=== PATIENT | female | born 1945 | race Caucasian/White ===

== ENCOUNTER 2017-02-13 08:47 | Emergency (ER) | payer MEDICARE ==
[2017-02-13] MEDS ORDERED: Pantoprazole TAB (NF) 40 MG TAB PO ONE (09:06)
[2017-02-13] MEDS ORDERED: Pantoprazole IV* 40 MG ONE (09:38)
--- NOTE | 2017-02-13 09:40 | RAD ---
INDICATION: Chest pain COMPARISON: June 21, 2016 TECHNIQUE: PA and lateral dual-energy views were obtained. FINDINGS: Bones/Soft Tissues: There are no acute bony findings. Cardiomediastinal: The cardiomediastinal silhouette is normal. Lungs: There are no infiltrates. Pleura: There are no pleural effusions. Other: None IMPRESSION: NO ACTIVE DISEASE.
[2017-02-13 09:47] LABS: Hematocrit 37 % (35-47); Mean Corpuscular HGB Conc 33 g/dl (31-36); Mean Corpuscular Hemoglobin 28 pg (27-31); Mean Corpuscular Volume 86 fL (80-97); Mean Platelet Volume 8 um3 (7.4-10.4); Red Blood Count 4.24 10^6/ul (4.0-5.4); Red Cell Distribution Width 13 % (10.5-15); White Blood Count 8.1 10^3/ul (3.5-10.8)
[2017-02-13] MEDS ORDERED: Pantoprazole IV* 80 MG in NS 0.9% 250 ML* 250 ML IV SCH (10:00)
[2017-02-13] MEDS ORDERED: Pantoprazole IV* 40 MG IV ONE (10:02)
[2017-02-13 10:06] LABS: Albumin 3.7 g/dL (3.2-5.2); BUN/Creatinine Ratio 26.7 (8-20); Calcium 9.4 mg/dL (8.6-10.3); EGFR African American 79.2 (>60); EGFR Non-African American 61.5 (>60); Globulin 4.4 g/dL (2-4); Magnesium 1.8 mg/dL (1.9-2.7); Potassium 3.9 mmol/L (3.5-5.0); Total Bilirubin 0.4 mg/dL (0.2-1.0); Total Protein 8.1 g/dL (6.4-8.9)
[2017-02-13 10:08] LABS: Troponin I 0.01 ng/mL (<0.04)
[2017-02-13 10:41] LABS: T4 11.29 mcg/mL (6.09-12.23)
[2017-02-13 10:42] LABS: TSH (Thyroid Stimulating Horm) 0.82 mcIU/mL (0.34-5.60)
[2017-02-13] MEDS ORDERED: Magnesium Oxide TAB* 400 MG PO ONE (10:53)
[2017-02-13] MEDS ORDERED: Al Hydrox/Mg Hydrox/Simet LIQ* 30 ML UDC PO ONE (12:15)
[2017-02-13] MEDS ORDERED: Lidocaine 2% VISCOUS* 15 ML UDC PO ONE (12:15)
[2017-02-13] MEDS ORDERED: Ondansetron INJ* 2 MG/ML VIAL IV ONE (12:30)
[2017-02-13] MEDS ORDERED: Ondansetron INJ* 2 MG/ML VIAL ONE (12:32)
--- NOTE | 2017-02-13 13:04 | RAD ---
HISTORY: Epigastric pain COMPARISONS: None relevant VIEWS: Frontal supine and upright views of the abdomen. FINDINGS: BOWEL: There is a nonobstructive bowel gas pattern. There is a large amount of stool within the mid and distal colon. CALCULI: There are no abnormal calculi. BONES AND SOFT TISSUES: The patient is status post left hip arthroplasty and internal fixation of the right femur. Degenerative changes are noted. OTHER FINDINGS: The lung bases are clear. There is no subphrenic gas. IMPRESSION: NONOBSTRUCTIVE BOWEL GAS PATTERN. LARGE AMOUNT OF STOOL WITHIN THE COLON.
--- NOTE | 2017-02-13 13:29 | RAD ---
INDICATION: Right upper quadrant and epigastric abdominal pain. COMPARISON: Comparison is made with a prior CT angiogram of the abdomen and pelvis from April 07, 2014. TECHNIQUE: Multiple real-time images of the right upper quadrant were obtained. FINDINGS: The patient is status post cholecystectomy. No intra or extrahepatic ductal distention is present. The common bile duct measured 0.7 cm in diameter. The liver is normal in size and increased in echogenicity most consistent with fatty infiltration. This correlates with the prior CT study. No significant focal abnormality is seen. The pancreas is partially obscured by overlying bowel gas. No pancreatic ductal distention is seen. The right kidney is normal in size without evidence for hydronephrosis. IMPRESSION: 1. STATUS POST CHOLECYSTECTOMY. 2. FINDINGS CONSISTENT WITH FATTY INFILTRATION OF THE LIVER.
[2017-02-13 13:54] VITALS: BP 137/54
--- NOTE | 2017-02-13 16:00 | ED ---
Lupe Tipton SooYoung, scribed for Inocencio Suero MD on 02/13/17 at 0859 . HPI Chest Pain - HPI Summary HPI Summary: A 71 y/o F presents to ED with c/o intermittent mid-sternal CP onset three days ago. Associated sx: n/v; diaphoresis, dysphagia. Denies: diarrhea, constipation. SOB per baseline. She's not been eating and drinking regularly. Describes the pain currently as 2 out of 10, but when active episode, she rates it as 10 out of 10. Describes the pain as burning. PMHx: GERD. Denies smoking, ETOH. - History of Current Complaint Chief Complaint: EDChestPainROMI Time Seen by Provider: 02/13/17 08:57 Hx Obtained From: Patient, Family/Medical Records Coder - daughter Onset/Duration: Started Days Ago, Still Present Timing: Intermittent Initial Severity: Moderate Current Severity: Mild Pain Intensity: 2 Pain Scale Used: 0-10 Numeric Chest Pain Location: Mid Sternal Character: Burning Associated Signs and Symptoms: Positive: Diaphoresis, Nausea, Vomiting, Other: - pos: dysphagia; neg: diarrhea/constipation. Negative: Shortness of Breath - Additional Pertinent History Primary Care Physician: [id number] - Allergy/Home Medications Allergies/Adverse Reactions: Allergies Allergy/AdvReac Type Severity Reaction Status Date / Time EYE DROP Allergy Unknown Uncoded 06/21/16 13:16 Reaction Details PMH/Surg Hx/FS Hx/Imm Hx Previously Healthy: No Endocrine/Hematology History: Reports: Hx Diabetes - NIDDM Denies: Hx Anticoagulant Therapy, Hx Blood Disorders, Hx Blood Transfusions, Hx Bone Marrow Disease, Hx Systemic Lupus Erythematosus, Hx Sickle Cell Disease , Hx Thyroid Disease, Hx Anemia, Hx Unexplained Bleeding, Other Endocrine/ Hematological Disorders Cardiovascular History: Reports: Hx Angina - SOB with exertion, 2 stents, Hx Coronary Artery Disease - current dx, Hx Hypertension, Hx Syncope - occasionally d/t DM, Other Cardiovascular Problems/Disorders - ONLY TAKES A BABY ASPRIN DAILY. NO OTHER HX Denies: Hx Aneurysm, Hx Angioplasty, Hx Auto Implanted Cardiovert Defib, Hx Cardiac Arrest, Hx Cardiomegaly, Hx Congenital Heart Disease, Hx Congestive Heart Failure, Hx Deep Vein Thrombosis, Hx Embolism, Hx Hypercholesterolemia, Hx Hypotension, Hx Pacemaker/ICD, Hx Peripheral Vascular Disease, Hx Rheumatic Fever, Hx Valvular Heart Disease Respiratory History: Reports: Other Respiratory Problems/Disorders - SOBOE Denies: Hx Asthma, Hx Chronic Bronchitis, Hx Chronic Obstructive Pulmonary Disease (COPD), Hx Cystic Fibrosis, Hx Lung Cancer, Hx Pleural Effusion, Hx Pneumonia, Hx Pulmonary Edema, Hx Pulmonary Embolism, Hx Seasonal Allergies, Hx Sleep Apnea GI History: Reports: Hx Gall Bladder Disease - removed, Hx Hiatal Hernia Denies: Hx Cirrhosis, Hx Crohn's Disease, Hx Diverticulosis, Hx Gastroesophageal Reflux Disease, Hx Gastrointestinal Bleed, Hx Irritable Bowel, Hx Jaundice, Hx Obstructive Bowel, Hx Ileostomy, Hx Pyloric Stenosis, Hx Ulcer, Other GI Disorders History: Reports: Hx Kidney Stones Denies: Hx Acute Renal Failure, Hx Benign Prostatic Hyperplasia, Hx Chronic Renal Failure, Hx Dialysis, Hx Kidney Infection, Hx Renal Disease, Other Problems/Disorders Musculoskeletal History: Reports: Hx Arthritis - RA, Hx Rheumatoid Arthritis, Hx Osteoporosis, Other Musculoskeletal History - R. ARTH. Denies: Hx Back Problems, Hx Bursitis, Hx Congenital Bone Abnormalities, Hx Fibromyalgia, Hx Gout, Hx Orthopedic Injury, Hx Scoliosis, Hx Tendonitis Sensory History: Reports: Hx Cataracts, Hx Contacts or Glasses, Hx Glaucoma - "trying to stop it" Denies: Hx Eye Injury, Hx Eye Prosthesis, Hx Legally Blind, Hx Macular Degeneration, Hx Vision Problem, Hx Deafness, Hx Hearing Aid, Hx Hearing Problem , Other Sensory Impairments Opthamlomology History: Reports: Hx Cataracts, Hx Contacts or Glasses, Hx Glaucoma - "trying to stop it" Denies: Hx Eye Injury, Hx Eye Prosthesis, Hx Legally Blind, Hx Macular Degeneration, Hx Vision Problem, Other Sensory Impairments Neurological History: Denies: Hx Dementia, Hx Developmental Delay, Hx Headaches, Hx Migraine, Hx Nerve Disease, Hx Seizures, Hx Spinal Cord Injury, Hx Transient Ischemic Attacks (TIA), Other Neuro Impairments/Disorders Psychiatric History: Denies: Hx Anxiety, Hx Attention Deficit Hyperactivity Disorder, Hx Eating Disorder, Hx Depression, Hx Panic Disorder, Hx Post Traumatic Stress Disorder, Hx Inpatient Treatment, Hx Community Mental Health Tx, Hx Schizophrenia, Hx Bipolar Disorder, Hx Suicide Attempt, Hx of Violent Episodes Against Others, Hx Substance Abuse, Other Psychiatric Issues/Disorders - Cancer History Hx Chemotherapy: No Hx Radiation Therapy: No - Surgical History Surgery Procedure, Year, and Place: hysterectomy, gall bladder, hip PINNING. cardiac cath with stents 06/17/14, [facility] Hx Anesthesia Reactions: No Infectious Disease History: Yes Infectious Disease History: Reports: Hx Hepatitis Denies: Hx Clostridium Difficile, Hx Human Immunodeficiency Virus (HIV), Hx of Known/Suspected MRSA, Hx Shingles, Hx Tuberculosis, Hx Known/Suspected VRE, Hx Known/Suspected VRSA, History Other Infectious Disease, Traveled Outside the [place] in Last 30 Days - Family History Known Family History: Positive: Cardiac Disease - mother/father, Diabetes - mother, Other - breast cancer - Social History Occupation: Retired Lives: With Family Alcohol Use: Rare Hx Substance Use: No Substance Use Type: Reports: None Hx Tobacco Use: No Smoking Status (MU): Never Smoked Tobacco Review of Systems Positive: Skin Diaphoresis Positive: Other - pos: dysphagia Positive: Chest Pain Negative: Shortness Of Breath Positive: Vomiting, Nausea, Other - neg: constipation. Negative: Diarrhea All Other Systems Reviewed And Are Negative: Yes Physical Exam - Summary Physical Exam Summary: VITAL SIGNS: Reviewed. GENERAL: Patient is a well-developed and nourished female who is lying comfortable in the stretcher. Patient is not in any acute respiratory distress. HEAD AND FACE: No signs of trauma. No ecchymosis, hematomas or skull depressions. No sinus tenderness. EYES: PERRLA, EOMI x 2, No injected conjunctiva, no nystagmus. EARS: Hearing grossly intact. Ear canals and tympanic membranes are within normal limits. MOUTH: Oropharynx within normal limits. NECK: Supple, trachea is midline, no adenopathy, no JVD, no carotid bruit, no c- spine tenderness, neck with full ROM. CHEST: Symmetric, no tenderness at palpation LUNGS: Clear to auscultation bilaterally. No wheezing or crackles. CVS: Regular rate and rhythm, S1 and S2 present, no murmurs or gallops appreciated. ABDOMEN: Soft, non-tender. No signs of distention. No rebound, no guarding, and no masses palpated. Bowel sounds are normal. EXTREMITIES: FROM in all major joints, no edema, no cyanosis or clubbing. NEURO: Alert and oriented x 3. No acute neurological deficits. Speech is normal and follows commands. SKIN: Dry and warm Triage Information Reviewed: Yes Vital Signs On Initial Exam: Initial Vitals Temp Pulse Resp BP Pulse Ox 97.6 F 91 15 136/56 100 02/13/17 08:49 02/13/17 08:49 02/13/17 08:49 02/13/17 08:49 02/13/17 08:49 Vital Signs Reviewed: Yes Diagnostics - Vital Signs Vital Signs Temp Pulse Resp BP Pulse Ox 02/13/17 08:56 97.6 F 91 16 136/56 100 02/13/17 08:49 97.6 F 91 15 136/56 100 - Laboratory Lab Results: Lab Results 02/13/17 02/13/17 02/13/17 Range/Units 09:40 09:40 09:40 WBC 8.1 (3.5-10.8) 10^3/ul RBC 4.24 (4.0-5.4) 10^6/ul Hgb 12.0 (12.0-16.0) g/dl Hct 37 (35-47) % MCV 86 (80-97) fL MCH 28 (27-31) pg MCHC 33 (31-36) g/dl RDW 13 (10.5-15) % Plt Count 264 (150-450) 10^3/ul MPV 8 (7.4-10.4) um3 Neut % (Auto) 64.4 (38-83) % Lymph % (Auto) 25.3 (25-47) % [place] % (Auto) 8.9 (1-9) % Eos % (Auto) 0.4 (0-6) % Baso % (Auto) 1.0 (0-2) % Absolute Neuts (auto) 5.2 (1.5-7.7) 10^3/ul Absolute Lymphs (auto) 2.1 (1.0-4.8) 10^3/ul Absolute Monos (auto) 0.7 (0-0.8) 10^3/ul Absolute Eos (auto) 0 (0-0.6) 10^3/ul Absolute Basos (auto) 0.1 (0-0.2) 10^3/ul Absolute Nucleated RBC 0.01 10^3/ul Nucleated RBC % 0.1 INR (Anticoag Therapy) (0.89-1.11) Sodium 135 (133-145) mmol/L Potassium 3.9 (3.5-5.0) mmol/L Chloride 100 L (101-111) mmol/L Carbon Dioxide 24 (22-32) mmol/L Anion Gap 11 (2-11) mmol/L BUN 24 (6-24) mg/dL Creatinine 0.90 (0.51-0.95) mg/dL Est GFR ( Amer) 79.2 (>60) Est GFR (Non-Af Amer) 61.5 (>60) BUN/Creatinine Ratio 26.7 H (8-20) Glucose 137 H (70-100) mg/dL Lactic Acid 1.6 (0.5-2.0) mmol/L Calcium 9.4 (8.6-10.3) mg/dL Magnesium 1.8 L (1.9-2.7) mg/dL Total Bilirubin 0.40 (0.2-1.0) mg/dL AST 18 (13-39) U/L ALT 12 (7-52) U/L Alkaline Phosphatase 102 (34-104) U/L Total Creatine Kinase 40 (10-223) U/L CK-MB (CK-2) 1.1 (0.6-6.3) ng/mL Troponin I 0.01 (<0.04) ng/mL B-Natriuretic Peptide ( - 100) pg/mL Total Protein 8.1 (6.4-8.9) g/dL Albumin 3.7 (3.2-5.2) g/dL Globulin 4.4 H (2-4) g/dL Albumin/Globulin Ratio 0.8 L (1-3) TSH 0.82 (0.34-5.60) mcIU/mL Thyroxine (T4) 11.29 (6.09-12.23) mcg/mL 02/13/17 02/13/17 02/13/17 Range/Units 09:40 09:40 12:18 WBC (3.5-10.8) 10^3/ul RBC (4.0-5.4) 10^6/ul Hgb (12.0-16.0) g/dl Hct (35-47) % MCV (80-97) fL MCH (27-31) pg MCHC (31-36) g/dl RDW (10.5-15) % Plt Count (150-450) 10^3/ul MPV (7.4-10.4) um3 Neut % (Auto) (38-83) % Lymph % (Auto) (25-47) % [place] % (Auto) (1-9) % Eos % (Auto) (0-6) % Baso % (Auto) (0-2) % Absolute Neuts (auto) (1.5-7.7) 10^3/ul Absolute Lymphs (auto) (1.0-4.8) 10^3/ul Absolute Monos (auto) (0-0.8) 10^3/ul Absolute Eos (auto) (0-0.6) 10^3/ul Absolute Basos (auto) (0-0.2) 10^3/ul Absolute Nucleated RBC 10^3/ul Nucleated RBC % INR (Anticoag Therapy) 0.96 (0.89-1.11) Sodium (133-145) mmol/L Potassium (3.5-5.0) mmol/L Chloride (101-111) mmol/L Carbon Dioxide (22-32) mmol/L Anion Gap (2-11) mmol/L BUN (6-24) mg/dL Creatinine (0.51-0.95) mg/dL Est GFR ( Amer) (>60) Est GFR (Non-Af Amer) (>60) BUN/Creatinine Ratio (8-20) Glucose (70-100) mg/dL Lactic Acid (0.5-2.0) mmol/L Calcium (8.6-10.3) mg/dL Magnesium (1.9-2.7) mg/dL Total Bilirubin (0.2-1.0) mg/dL AST (13-39) U/L ALT (7-52) U/L Alkaline Phosphatase (34-104) U/L Total Creatine Kinase (10-223) U/L CK-MB (CK-2) (0.6-6.3) ng/mL Troponin I 0.01 (<0.04) ng/mL B-Natriuretic Peptide 24 ( - 100) pg/mL Total Protein (6.4-8.9) g/dL Albumin (3.2-5.2) g/dL Globulin (2-4) g/dL Albumin/Globulin Ratio (1-3) TSH (0.34-5.60) mcIU/mL Thyroxine (T4) (6.09-12.23) mcg/mL Result Diagrams: 02/13/17 09:40 02/13/17 09:40 Lab Statement: Any lab studies that have been ordered have been reviewed, and results considered in the medical decision making process. - Radiology CXR Xray Interpretation: No Acute Changes - IMPRESSION: No active dz Radiology Interpretation Completed By: Radiologist - EKG 1 Cardiac Rate: NL - 89 BPM EKG Rhythm: Sinus Rhythm ST Segment: Normal EKG Interpretation: TAKEN AT 0904. EKG Comparison: No Significant Change - FROM 06/22/16 Chest Pain Course/Dx - Course Course Of Treatment: A 71 y/o F presents to ED with c/o intermittent mid- sternal CP onset three days ago. Associated sx: n/v; diaphoresis, dysphagia. Denies: diarrhea, constipation. SOB per baseline. She's not been eating and drinking regularly. Describes the pain currently as 2 out of 10, but when active episode, she rates it as 10 out of 10. Describes the pain as burning. PMHx: GERD. Denies smoking, ETOH. Blood work wnl except for glucose od 137, magnesium 1.8. She was given magnesium PO. She developed nausea. She was given More IVF, Zofran for nausea and vomiting. She was given protonix but symptoms continued. Therefore I decided to perform a ABdominal x rays which shows increase stool in the colon. I also perform an RUQ U/S and show no acute abnormality. GI cocktail was given and her symptoms resolved. Second troponin after 4 hours is negative. Because of presentation of symptoms and troponin is negative I have low suspicion for ACS. I think patient may be developing an ulcer vs gerd. Therefore she will given a prescription for Protonix and f/u with PCP. I discussed all the findings and test results with the patient. Patient was instructed to return to the emergency room immediately if any of the symptoms return or worsens. They were explained the possibility of an early abdominal pathology which was not detected at this time despite the physical exam and testing. They understand and agree. Abdominal exam before discharge: Soft, NT. No signs of distention. BS present. No rebound no guarding, and no masses palpated. Patient is alert and oriented and hemodynamically stable. Patient is to follow up with primary care physician in the next 2 to 3 days. Patient agree and understands. - Chest Pain Differential Diagnosis/HQI/PQRI: Other: - Atyoical chest pain, GERD, PUD - Diagnoses Provider Diagnoses: Atypical chest pain, GERD (gastroesophageal reflux disease) Discharge - Discharge Plan Condition: Stable Disposition: HOME Prescriptions: Pantoprazole TAB (NF) [Protonix TAB (NF)] 20 mg PO DAILY #14 tab Patient Education Materials: Chest Pain (ED), Gastroesophageal Reflux Disease ( ED) Referrals: Iliana Veliz MD [Primary Care Provider] - Additional Instructions: F/U with PMD in the last 2-3 days. The documentation as recorded by the [facility] SooYoung accurately reflects the service I personally performed and the decisions made by Pio ocok Walter, MD.
== END 2017-02-13 13:53 | disposition home or self-care (01) ==
LOC: ED 08:47
DX: R07.89 Other chest pain (principal); K21.9 Gastro-esophageal reflux disease without esophagitis; R11.2 Nausea with vomiting, unspecified; R61 Generalized hyperhidrosis
CPT/HCPCS: 36415; 71020; 74020; 76705; 80053; 82550; 82553; 83605; 83735; 83880; 84436; 84443; 84484; 85025; 85610; 93005; 99283; A9270-GY; J2405

== ENCOUNTER → 2017-09-13 07:21 | Day surgery (SDC) | payer MEDICARE, MEDICAID ==
[~2017-09-13 07:21] MED LIST: Aspirin Low Dose CHEW TAB* 81 MG ONE; Diazepam TAB(*) 5 MG ONE; Flumazenil* 0.1 MG/ML 5 ML MDV ONE; Heparin 2 UNITS/ML IVPREMIX* 2,000 ML IV ONE; Heparin(*) 1000 UNIT/ML 10 ML VIAL CATH LAB IV ONE; Iodixanol* (CONTRAST) 320 MG/ML 100 ML SDV ONE; Lidocaine 1% INJ* 10 MG/ML 30 ML SDV ONE; Midazolam* 1 MG/ML 10 ML VIAL (10 MG) ONE; NS 0.9% 1000 ML* 1,000 ML IV SCH; Naloxone* 0.4 MG/ML 1 ML VIAL ONE; VERAPAMIL 2.5 MG/ML 4 ML VIAL ONE; diPHENhydraMINE PO* 25 MG ONE; fentaNYL* 50 MCG/ML 2 ML VIAL (100 MCG VIAL) ONE; nitroGLYCERIN DRIP* 0 MCG/0 ML BTL ONE
[2017-09-13 09:27] LABS: ABS Basophils 0 10^3/ul (0-0.2); ABS Eosinophils 0.2 10^3/ul (0-0.6); ABS Lymphocytes 2.3 10^3/ul (1.0-4.8); ABS Monocytes 0.5 10^3/ul (0-0.8); ABS Neutrophils 4.3 10^3/ul (1.5-7.7); ABS Nucleated RBC 0.01 10^3/ul; Eosinophil % 2.1 % (0-6); Hematocrit 33 % (35-47); Hemoglobin 10.8 g/dl (12.0-16.0); Lymphocyte % 31.1 % (25-47); Mean Corpuscular HGB Conc 33 g/dl (31-36); Mean Corpuscular Hemoglobin 28 pg (27-31); Mean Corpuscular Volume 86 fL (80-97); Mean Platelet Volume 8 um3 (7.4-10.4); Nucleated Red Blood Cells % 0.1; Platelet Count 279 10^3/ul (150-450); Red Blood Count 3.81 10^6/ul (4.0-5.4); Red Cell Distribution Width 13 % (10.5-15); White Blood Count 7.2 10^3/ul (3.5-10.8)
[2017-09-13 10:37] LABS: EGFR Non-African American 78.1 (>60)
[2017-09-13 14:58] VITALS: BP 140/49
--- NOTE | 2017-09-14 01:39 | CATH ---
CC: Dr. Veliz; Dr. Jeanmarie Bolanos; Dr. Askew in [place] * PERIPHERAL ANGIOGRAM REPORT: DATE OF PROCEDURE: 09/13/17 - [facility] CATH PRIMARY CARE PHYSICIAN: Dr. Veliz. 3D ARTIST: Jeanmarie Bolanos MD CUSHION MAT MAKER: Dr. Askew in [place]. PROCEDURE: Left common femoral artery retrograde access, left leg below-knee angiography, right leg below-knee angiography. HISTORY: A 72-year-old patient with CKD stage 2, CLI with bilateral first digit tip dry gangrene, the left side has been gradually healing, the right not. CTA showed patency of inflow, but was inconclusive regarding bilateral below knee circulation. Hence, she is undergoing outpatient angiography with possible intervention of right lower extremity. PROCEDURE ACCESS: Left common femoral artery sheath 5F. MEDICATIONS: 1. Subcu lidocaine. 2. IV Versed. 3. IV fentanyl. DIAGNOSTIC CATHETER: After imaging of the left lower extremity through injection through the femoral sheath with substraction DSA of the below knee vessels and the foot in two projections, A 5-Telugu IM catheter was used with a stiff zip wire to traverse the aortic bifurcation, the JOB catheter was positioned in the right external iliac artery and injection was performed of the SFA, which was already imaged on CTA. The JOB was then advanced over wire into the popliteal where injections were performed with overlapping DSA of the right lower extremity below- knee vessels including two views of the right foot . HEMODYNAMICS: Initial BP 148/79, final 166/72. ANGIOGRAPHY: Left common femoral is patent as is the profunda and left SFA. SFA and profunda are heavily calcified. There is insignificant distal SFA stenosis. The popliteal was imaged in the lateral view because of knee prosthesis, allowing visualization of all but a very short segment of the popliteal, which is still hidden by the knee prosthesis, but the vessel fills promptly, therefore, likely has no significant stenosis. The anterior tibial is patent to the ankle. The dorsalis pedis is small, but is patent, it supplies the first dorsal metatarsal, which has digital branch to the tip of the first toe, the digital branch is very small with focal stenosis. The deep plantar is occluded. The TP trunk is patent, the posterior tibial is patent proximally, then has diffuse severe disease and is occluded in the mid calf. The peroneal tapers before the ankle. The posterior tibial is reconstituted by collaterals above the ankle and is then occluded before the plantar branches. The left pedal loop is not patent. Right leg injection in the distal external iliac confirms patency of the right profunda and SFA as well as popliteal. There was heavy calcification. The R popliteal is patent. The R anterior tibial is open to the ankle, but the dorsalis pedis is occluded without a clear entry. The peroneal has proximal 80% stenosis and then is occluded in the mid calf. The posterior tibial has diffuse proximal beading with numerous stenosis, is then occluded above the ankle. The first metatarsal artery fills by collaterals. The right pedal plantar loop is occluded. Revascularizing the right first metatarsal artery would require either opening the antegrade portion of the dorsalis pedis without a clear entry, or antegrade revascularization of the posterior tibial distally, lateral plantar and the pedal plantar loop. CONCLUSION: 1. Bilateral critical limb ischemia with slowly healing left first toe wound with patent anterior tibial and dorsalis pedis supplying the first metatarsal artery. I expect the left toe wound likely will heal. 2. Right first toe CLI without improvement with wound care, occlusion of the posterior tibial, dorsalis pedis. Collateral filling of the first metatarsal artery. I will send her films out for review regarding possible revascularization of the lengthy occluded posterior tibial. 3. Successful Angio-Seal left common femoral artery. [id number]/CPS #: [id number] JERONIMO
== END | disposition home or self-care (01) ==
LOC: CHICATH 07:21
PROVIDERS: ATTEND Internal Medicine Cardiovascular Disease
DX: I70.235 Atherosclerosis of native arteries of right leg with ulceration of other part of foot (principal); I70.245 Atherosclerosis of native arteries of left leg with ulceration of other part of foot; E11.42 Type 2 diabetes mellitus with diabetic polyneuropathy; E11.621 Type 2 diabetes mellitus with foot ulcer; L97.501 Non-pressure chronic ulcer of other part of unspecified foot limited to breakdown of skin; L97.401 Non-pressure chronic ulcer of unspecified heel and midfoot limited to breakdown of skin; I25.10 Atherosclerotic heart disease of native coronary artery without angina pectoris; R55 Syncope and collapse; R56.9 Unspecified convulsions; M06.9 Rheumatoid arthritis, unspecified; R91.8 Other nonspecific abnormal finding of lung field; R80.9 Proteinuria, unspecified; M19.90 Unspecified osteoarthritis, unspecified site; E11.319 Type 2 diabetes mellitus with unspecified diabetic retinopathy without macular edema
CPT/HCPCS: 36415; 75716; 80048; 85025; 99156; 99157; A9270-GY; C1760; C1769; C1887; J1644; J2250; J2310; J3010

== ENCOUNTER 2018-01-04 09:09 | Day surgery (SDC) | payer MEDICARE ==
[~2018-01-04 09:09] MED LIST changes: -Aspirin Low Dose CHEW TAB* 81 MG ONE; +Buffered Lidocaine 0.9% SYRIN* 5 ML/SYR SYRINGE INTRADERM ONE; +DiMENhydriNATE IV* 50 MG/ML VIAL IV PUSH PRN; -Diazepam TAB(*) 5 MG ONE; +Famotidine TAB* 20 MG PO ONE; -Flumazenil* 0.1 MG/ML 5 ML MDV ONE; -Heparin 2 UNITS/ML IVPREMIX* 2,000 ML IV ONE; -Heparin(*) 1000 UNIT/ML 10 ML VIAL CATH LAB IV ONE; -Iodixanol* (CONTRAST) 320 MG/ML 100 ML SDV ONE; -Lidocaine 1% INJ* 10 MG/ML 30 ML SDV ONE; -Midazolam* 1 MG/ML 10 ML VIAL (10 MG) ONE; +Morphine INJ* 2 MG/ML 1 ML CARPUJECT IV PRN; -NS 0.9% 1000 ML* 1,000 ML IV SCH; +Naloxone* 0.4 MG/ML 1 ML VIAL IV PRN; -Naloxone* 0.4 MG/ML 1 ML VIAL ONE; +PROCHLORPERAZINE INJ 5 MG/ML 2 ML VIAL IV PRN; -VERAPAMIL 2.5 MG/ML 4 ML VIAL ONE; -diPHENhydraMINE PO* 25 MG ONE; +fentaNYL* 50 MCG/ML 2 ML VIAL (100 MCG VIAL) IV PRN; -fentaNYL* 50 MCG/ML 2 ML VIAL (100 MCG VIAL) ONE; -nitroGLYCERIN DRIP* 0 MCG/0 ML BTL ONE; +oxyCODONE/Acetamin 5/325 MG* TAB PO PRN
[2018-01-04] MEDS ORDERED: Buffered Lidocaine 0.9% SYRIN* 5 ML/SYR SYRINGE ONE (09:28)
[2018-01-04] MEDS ORDERED: ceFAZolin 2 GM PREMIX (*) 2 GM/50 ML BAG IVPB ONE (09:28)
[2018-01-04] MEDS ORDERED: Famotidine TAB* 20 MG ONE (09:28)
[2018-01-04] MEDS ORDERED: Midazolam* 1 MG/ML 2 ML VIAL (2 MG) ONE (09:40)
[2018-01-04] MEDS ORDERED: fentaNYL* 50 MCG/ML 2 ML VIAL (100 MCG VIAL) ONE (09:40)
[2018-01-04] MEDS ORDERED: Bupivacaine 0.25% SDV* 30 ML ONE (10:01)
[2018-01-04] MEDS ORDERED: Propofol* 500 MG/50 ML BTL ONE (10:14)
[2018-01-04] MEDS ORDERED: Ondansetron INJ* 2 MG/ML VIAL ONE (10:50)
[2018-01-04] MEDS ORDERED: EPHEDrine (Pressors)* 50 MG/ML VIAL ONE (10:50)
[2018-01-04] MEDS ORDERED: Lidocaine 2% PF * 5 ML VIAL ONE (10:50)
[2018-01-04] MEDS ORDERED: Phenylephrine INJ* 10 MG/ML 1 ML VIAL (10 MG) ONE (10:50)
[2018-01-04 11:53] VITALS: BP 139/92
--- NOTE | 2018-01-04 16:53 | OP ---
Operative Report - Blank - Operative Report Date of Operation: 01/04/18 Note: PATIENT: Dee Hale DATE OF : 1945 DATE OF SURGERY: 01/04/2018 SURGEON: Cameron Reddy MD INTERNET SECURITY SPECIALIST: doug Feliciano assistance was necessary for positioning, retraction, help with instrumentation, and closure. ANESTHESIOLOGIST: Dr. Fox PREOPERATIVE DIAGNOSIS: Right great toe gangrene POSTOPERATIVE DIAGNOSIS: Right great toe gangrene OPERATION: Right great toe amputation at the level of the MTP joint ANESTHESIA: MAC IMPLANTS: none TOURNIQUET TIME: none SPECIMENS: Toe to pathology ESTIMATED BLOOD LOSS: minimal COMPLICATIONS: none STATUS: Stable from the operating room to the recovery room. INDICATIONS FOR PROCEDURE: Dee has right great toe gangrene. Both operative and non operative treatment alternatives were reviewed. Further, the nature and risks of surgery were reviewed in careful detail. Our discussions regarding the risks of surgery included, but were not limited to, wound infection, wound problems, failure to heal, nerve injury, neuroma, RSD, persistent symptoms, blood clot, failure of the surgery, need for further amputation, and even the remote chance of catastrophic complication, including loss of limb. DESCRIPTION OF PROCEDURE: The patient was seen in the preoperative holding unit and informed written consent was obtained. The appropriate extremity was marked. The patient was then brought to the operating room and carefully positioned on the operating room table. Anesthesia was induced. All bony prominences were padded with great care. A chlorhexidine based pre-scrub was performed followed by a chloraprep prep and drape in standard sterile fashion. A surgical safety pause was then conducted in which we confirmed the appropriate patient, extremity, planned procedure, availability of equipment, indication and administration of antibiotics, and DVT prophylaxis in the form of a compression boot on the non- surgical extremity. I made an incision to remove the distal aspect of the toe. I maintained as much healthy soft-tissue length as was possible. The phalanges were dissected out and the toe was amputated at the level of the MTP joint. The toe was then sent to pathology. The remaining soft tissues were healthy appearing, although with sluggish blood flow (although it was present). Culture swabs were taken and sent to microbiology. We then irrigated the wound copiously. We closed with 3-0 monocryl and then 3-0 nylon and then placed a sterile dressing. The patient was then awakened from anesthesia and transferred to the recovery room in stable condition. There were no complications. All needle and sponge counts were correct at the end of the case. ATTESTATION: I attest I was present and scrubbed and performed the critical portions of the procedure myself. POSTOPERATIVE PLAN: The patient may be heel weight-bearing in a post-operative shoe and will follow up will be in two weeks for a wound check, but we will likely leave the sutures in for 3 weeks.
== END 2018-01-04 12:15 | disposition home or self-care (01) ==
LOC: OR 09:09
PROVIDERS: ATTEND Orthopaedic Surgery
DX: E11.52 Type 2 diabetes mellitus with diabetic peripheral angiopathy with gangrene (principal); I70.293 Other atherosclerosis of native arteries of extremities, bilateral legs; M06.9 Rheumatoid arthritis, unspecified; K21.9 Gastro-esophageal reflux disease without esophagitis; M81.0 Age-related osteoporosis without current pathological fracture; I25.10 Atherosclerotic heart disease of native coronary artery without angina pectoris; E11.319 Type 2 diabetes mellitus with unspecified diabetic retinopathy without macular edema; Z79.84 Long term (current) use of oral hypoglycemic drugs
CPT/HCPCS: 87070; 87073; 87076; 87077; 87185; 87186; 87205; 87640; 87641; 88305; 88311; A9270-GY; J0690; J2250; J2405; J2704; J3010

== ENCOUNTER 2018-01-26 10:06 | Inpatient (IN) | payer MEDICARE ==
--- OUTSIDE RECORDS SUMMARY | 2018-01-26 10:36 | XMS REPORT ---
:1945 External Reference #:[id number] Author Organization [facility] Address [address] [address] Phone [phone] Care Team Providers Name Role Phone Iliana Veliz MD Primary Care Physician Unavailable Payers Type Date Identification Numbers Payment Provider Subscriber Medicare Primary Effective: Policy Number: Medicare Dee Hale 2011 [id number] PayID: [id number] [address] [place] [address] [facility] Part [facility] Policy Number: [id number] [facility] Dee Hale PayID: [id number] [address] [place] [address] Problems Date Description Provider Status Onset: 03/13/2014 Type 2 diabetes mellitus Iliana Veliz M.D. Active Onset: 03/13/2014 Rheumatoid arthritis Iliana Veliz M.D. Active Onset: 03/13/2014 Osteoporosis Iliana Veliz M.D. Active Onset: 03/13/2014 Peripheral arterial insufficiency Iliana Veliz M.D. Active Note: Dr. live Onset: 03/13/2014 Obesity Iliana Veliz M.D. Active Onset: 03/13/2014 Multiple nodules of lung Iliana Veliz M.D. Active Onset: 03/13/2014 Vitamin D deficiency Iliana Veliz M.D. Active Onset: 05/28/2014 Rheumatoid arthritis Milan Malagon M.D. Active Onset: 01/01/2015 Persistent proteinuria associated with Iliana Veliz M.D. Active type 2 diabetes mellitus Onset: Proliferative diabetic retinopathy Active Note: sees Dr. Mijares 10/26 Onset: 07/02/2015 Taking medication Leobardo Ambriz M.D. Active Onset: 07/02/2015 Degenerative joint disease involving Leobardo Ambriz M.D. Active multiple joints Onset: 07/02/2015 Rotator cuff tear arthropathy Leobardo Ambriz M.D. 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 Active Onset: 03/25/2016 Coronary arteriosclerosis Wilder Mata NP Active Onset: 04/25/2016 Arthroplasty of knee Dee Dee Junior M.D. Active Onset: 08/14/2017 Athscl [place] arteries of right Kiarra Galaviz MD, Active leg w ulcer oth prt foot FAC, FSCAI Onset: 08/14/2017 Athscl [place] arteries of left leg Kiarra Galaviz MD, Active w ulceration oth prt foot FACC, FSCAI Onset: 12/18/2017 Atherosclerosis of arteries of the Kiarra Galaviz MD, Active extremities FAC, FSCAI Onset: 12/18/2017 Type 2 diabetes w diabetic Cameron Reddy MD Active peripheral angiopathy w gangrene Onset: 05/28/2014 Cellulitis and abscess of toe Milan Malagon M.D. Resolved Resolved: 01/04/2015 Family History Date Family Member(s) Problem(s) Comments General Cancer General Diabetes General Heart Disease General Epilepsy nephew, granddaughter Father due to CAD () - premature ? ( smoker) Mother 92 Children 8 Siblings 7 3 alive, Brother and one sister have cardiac disease. 1 sister has GI problems Social History Type Date Description Comments Marital Status Lives With Occupation Retired Cigarette Use Never Smoked Cigarettes Pt denies ever smoking cigar, pipe, e-cigarettes, or using chewing tobacco. ETOH Use Rarely consumes alcohol Recreational Drug Use Denies Drug Use Smoking Patient has never smoked Daily Caffeine Caffeine Free Sprite occasionally Daily Caffeine Consumes on average 1 cup of regular coffee per day Exercise Type/Frequency Exercises regularly active with her house chores General Hx Text Allergies, Adverse Reactions, Alerts Date Description Reaction Status Severity Comments 01/28/2014 NKDA active Medications Medication Date Status Form Strength Qnty SIG Indications Ordering Provider Wheelchair 01/12/20 Active Misc 1units Standard E11.21 [facility] 18 wheelchair MD Maureen with adjustable leg rest height 62" weight 170lb L03.115 Commode Bedside 01/11/2018 Active Mis 1units as needed E11.21 [facility] MD Maureen L03.115 Flagyl 01/10/2018 Active Tablets 500mg 28tabs 1 by mouth [facility] twice a day Maureen, 10 days Oxycodone HCL 01/04/2018 Active Tablets 5mg 10tabs 1 tabs by [facility] mouth every Maureen, 6 hours as MD needed Cefadroxil 01/04/2018 Active Capsules 500mg 10caps 1 by mouth [facility] twice a day Maureen, x 5 days Accuchklarissa 12/28/2017 Active bs testing Iliana Advantage Test up to 2 Veliz, Strips times/day M.D. Lasix 12/18/2017 Active Tablets 20mg 30tabs 1 by mouth I70 Marcis T. daily prn .26 MD Guillaume, edema 1 FACC, FSCAI Alendronate 06/07/2017 Active Tablets 70mg 12tabs take 1 M81 Iliana Sodium tablet by .0 Veliz, mouth weekly M.D. Ventolin HFA 12/15/2016 Active Aerosol 108(90Ba 8.5units inhale 2 Iliana se) puffs by Jose Alfredo, mcg/Act mouth every M.D. 6 hrs as needed for shortness of breath Accucheck 08/25/2016 Active 100units check bs 2-3 Inocencio Shea Lancets times a day Yris, and as M.D. needed Accu-Check 08/25/2016 Active Device 1units check 2-3 Iliana Glucose Monitor times a day Jess Veliz Accucheck Trang 08/25/2016 Active 100units check bs 2-3 Inocencio Valdivia Chem Strips times/day Yris, e11.21 M.DAylin Atorvastatin 05/26/2016 Active Tablets 20mg 90tabs take one Inocencio Valdivia Calcium tablet by Yris, mouth at M.D. bedtime Magnesium Oxide 04/25/2016 Active Tablets 400(241. 120tabs Take Two Iliana 3mg) mg Tablets By Jose Alfredo, Mouth Twice M.D. A Day Lisinopril 03/25/2016 Active Tablets 20mg 90tabs 1 by mouth I10 Inocencio EyAlin every day Jess Arndt Vitamin D3 10/19/2015 Active Tablets 2000Unit 30tabs 1 by mouth E55 Iliana Super Strength every day .9 Jess Veliz M81.0 Leflunomide 09/24/2015 Active Tablets 20mg 90tabs 1 by mouth Z79.899 Zsofia Erlin, every day [employer]IST M05.79 Right Knee 05/08/2015 Active S42.292D Dirk Tiana, Hinged Knee M.DAylin Brace Depend Pant 2014 Active Misc 1b as needed Iilana SM/Med ox Jess Veliz Aspirin 01/28/[address] 81m 90 once a day 786.50 Iliana g ta oziel Veliz M.D. Janumet 01/28/2014 Active Tablets 50- 90 take one E11.65 Inocencio Valdivia 100 ta tablet by Yris, 0mg bs mouth every M.D. day-refills after next apt Zofran Active Tablets 4mg take 1 by Unknown mouth twice a day as needed for nausea Tramadol HCL Active Tablets 50m 15 1 tablets Cameron g ta every 6 hours oziel Reddy as needed Clopidogrel Active Tablets 75m 1 by mouth Unknown Bisulfate g every day Gabapentin Active Capsules 300 take 1 capsule Unknown mg twice a day Pantoprazole 02/15/2017 - Hx Tablets DR 40m 60 1 by mouth bid K21.9 Iliana Sodium 06/07/2017 g ta X 4 wks then 1 oziel Veliz tablet daily M.DAylin Coumadin 07/01/2016 - Hx Tablets 5mg as directed. Unknown 08/25/2016 Alendronate 05/26/2016 - Hx Tablets 70m 12 take 1 tablet M81.0 Iliana Sodium 02/15/2017 g ta by mouth oziel Veliz weekly M.DAylin Colace 04/08/2016 - Hx Capsules 100 90 every other M17.12 Abril 12/05/2016 mg ca day CHARLES Uriostegui ps Oxycodone-Aceta 04/08/2016 - Hx Tablets 5-3 45 1-2 by mouth M17.12 Dee Dee minophen 12/05/2016 25m ta every 4-6 Jess Junior g bs hours as needed for pain. Coumadin 04/08/2016 - Hx Tablets 2mg 45 Discontinued M17.12 Abril 05/10/2016 ta CHARLES Uriostegui bs Zofran Odt 04/08/2016 - Hx Tablets 4mg 30 1 by mouth M25.562 Abril 12/05/2016 Dispers ta every 6 hours CHARLES Uriostegui bs as needed for nausea/vomitin g Tramadol HCL 03/21/2016 - Hx Tablets 50m 90 1 -2 tablets M25.562 Dee Dee 12/05/2016 g ta by mouth every Jess Junior bs 8 hours as needed pain Tramadol HCL 12/21/2015 - Hx Tablets 50m 60 1 by mouth M17.0 Abril 03/21/2016 g ta every 6 hours CHARLES Uriostegui bs as needed for pain Lisinopril 10/22/2015 - Hx Tablets 30m 30 1 by mouth I10 Iliana 03/25/2016 g ta every day oziel Veliz M.D. Atorvastatin 10/09/2015 - Hx Tablets 20m 90 take 1 tablet Other Calcium 12/25/2015 g ta at bedtime Ordering bs Provider Lisinopril 10/09/2015 - Hx Tablets 40m 90 1 by mouth I10 Iliana 10/22/2015 g ta every day oziel Veliz M.D. Vitamin D2 10/09/2015 - Hx Tablets 200 90 once a day Iliana 10/19/2015 0Un ta tabby Veliz M.D. Gmate Blood 08/24/2015 - Hx Strips 50 CK BS tid And Iliana Glucose Test 08/24/2015 un as Needed Darell Veliz M.D. s Gmate Blood 08/24/2015 - Hx Strips 10 testing tid Iliana Glucose Test 08/25/2016 0u and as needed Darell Veliz ni M.D. ts Gmate Origin 08/24/2015 - Hx Device Iliana Blood Glucose 08/25/2016 Jose Alfredo Monitoring M.D. System Gmate Lancets 08/24/2015 - Hx Misc 30G 10 pt testing bs Iliana 30G 08/25/2016 0u 3 x daily and daniel Veliz as needed M.D. ts Valium 07/15/2015 - Hx Tablets 5mg 2t take 1 tablet R55 Joyce 12/05/2016 ab 30 minutes MD Pat s prior to mri. May repeat x1 at time of MRI if needed. Leflunomide 07/02/2015 - Hx Tablets 10m 90 1 by mouth M05.79 Leobardo 09/24/2015 g ta every day Jess Ambriz bs Z79.899 Ergocalciferol 04/22/2015 - Hx Capsules 85409Tbcq 8caps 1 tab by mouth Iliana 10/08/2015 every week Jess Veliz Lisinopril 04/22/2015 - Hx Tablets 30mg 90tabs 1 by mouth I1 Iliana 10/09/2015 every day 0 Jess Veliz Glimepiride 04/21/2015 - Hx Tablets 2mg 90tabs 1 po if blood E1 Iliana 10/08/2015 glucose is 160 1. Jose Alfredo, or 21 M.D. higher/takes it irregularly Sulfamethoxazole 04/21/2015 - Hx Tablets 800-160mg 20tabs 1 by mouth 68 Iliana /Trimethoprim DS 07/02/2015 twice a day 2. Gabriela Veliz M.D. Tramadol HCL 02/23/2015 - Hx Tablets 50mg 40tabs 1 by mouth Iliana 05/04/2015 every 8 hrs a franco Veliz as needed M.DAylin Lisinopril 12/31/2014 - Hx Tablets 20mg 90tabs 1 by mouth 40 Iliana 04/22/2015 every day 1. Jose Alfredo 9 M.D. Lipitor 06/24/2014 - Hx Tablets 20mg 90tabs 1 by mouth I2 Jeanmarie 07/14/2015 every day 5. DAylin Bolanos, 10 M.D. Mag-200 04/03/2014 - Hx Tablets 200mg 2 by mouth Iliana 04/25/2016 every day ( Jose Alfredo, not taken , M.D. last taken 03/28/16) Nyamyc 2014 - Hx Powder [id number]/ 100gms apply to 11 Iliana 12/31/2014 GM affected area 2. Jose Alfredo, twice a day x 9 M.D. 10 days as needed Enbrel Sureclick 03/31/2014 - Hx Solution 50mg/ml 8units injet Milan 06/12/2014 subsutaneous Malagon, once weekly M.D. Ergocalciferol 03/13/2014 - Hx Capsules 24339Gmal 8caps 1 tab by mouth Iliana 08/13/2014 every week Jess Veliz Leflunomide 02/26/2014 - Hx Tablets 20mg 30tabs 1 by mouth 73 Milan 12/24/2014 every day 3. Manas 00 M.D. Lisinopril 02/25/2014 - Hx Tablets 5mg 90tabs 1 by mouth 25 Iliana 06/23/2014 every day 0Aylin Veliz, 40 M.D. No Active 01/28/2014 - Hx Unknown Medications 01/28/2014 Accucheck 01/28/2014 - Hx 100unit as needed 25 Iliana Lancets 08/24/2015 s 0Aylin Veliz, (Soft-Clix) 02 M.D. Accucheck 01/28/2014 - Hx as needed 25 Iliana Glucometer 08/24/2015 0Aylin Veliz 02 M.D. Accucheck Trang 01/28/2014 - Hx 100unit check bs 3 25 Iliana Chem Strips 08/24/2015 s times/day dx 0Aylin Veliz 250.02 02 M.D. Keflex - Hx Capsules 250mg 30caps 1 tab by mouth Unknown 06/23/2014 every 8 hours Silver - Hx Cream 1% 30g apply as Unknown Sulfadiazine 12/31/2014 directed as needed Simbrinza - Hx Suspension 1-0.2% 8ml 2 drop L eyes Unknown 03/03/2015 daily Vigamox - Hx Solution 0.5% 3 drop leftt Unknown 03/03/2015 eye Brilinta - Hx Tablets 90mg 180tabs 1 tab by mouth Unknown 07/10/2015 twice a day Atorvastatin - Hx Tablets 20mg 30tabs take 1 tablet Unknown Calcium 11/07/2014 at bedtime Baclofen - Hx Tablets 10mg take 1/2 tab Unknown 04/21/2015 every 8 hours as needed for muscle spasm Percocet - Hx Tablets 5-325mg 1-2 tab by Unknown 08/25/2016 mouth every 4-6 hours as needed pain Fosamax - Hx Tablets 70mg one tablet Iliana 06/06/2017 weekly (no Veliz, longer taking) Jess Ferrous Sulfate - Hx Tablets 325(65Fe) 1 by mouth Unknown 08/13/2017 mg twice a day Colace - Hx Capsules 100mg 1 tab by mouth Unknown 12/17/2017 2-3 times a day as needed Oxycodone-Acetam - Hx Solution 5-325mg/5ML 1 every 6 Unknown inophen 09/17/2017 hours Ergocalciferol - Hx Powder [id number] daily Unknown 12/17/2017 Pradaxa - Hx Capsules 75mg 1 by mouth Unknown 12/17/2017 twice a day Medications Administered in Office Medication Date Status Form Strength Qnty SIG Indications Ordering Provider Inj, Administered Injection Lucio Martin Regadenoson, 016 Justus, 0.1 MG Jess, FACLetitia, FASNC Technetium TC Administered Injection Lucio Martin 99M 016 Lindsey Jerome M.D., LINA, Per Unit Dose FASNC Up To 40 Millicuries Depomedrol Administered Injection Dee Dee 40MG Lexus Junior M.D. Depomedrol Administered Injection Dee Dee 40MG Lexus Junior M.D. Depomedrol Administered Injection Dee Dee 80MG Elver Junior M.D. Inj, Administered Injection Jeanmarie D. Regadenoson, 014 Jess Bolanos 0.1 MG Technetium TC Administered Injection Jeanmarie Caldwell 99M 014 Jess Bolanos Tetrofosmin, Per Unit Dose Up To 40 Millicuries Immunizations CPT Code Status Date Vaccine Reaction Lot # [id number] Given 06/07/2017 Influenza Virus Vaccine, [id number] Quadrivalent, Split, Preservative Free 73875 Given 12/05/2016 Tdap - [id number] Tetanus/Diptheria/Acellular Pertussis 27080 Given 08/25/2016 Influenza Virus Vaccine, [id number] Quadrivalent, Split Virus, [place] Use 34140 Given 05/26/2016 Pneumonia Vaccine [id number] 89566 Given 12/31/2014 Pneumococcal Conjugate Vaccine [id number] Valent For Intramuscular Use 93513 Given 07/31/2014 Flu Vaccine Split Virus No reaction noted. [id number] Preservative Free For Indiv 3Yr Older Vital Signs Date Vital Result Comment 01/17/2018 Heart Rate 88 /min BP Systolic 94 mmHg BP Diastolic 56 mmHg Body Temperature 97.6 F 01/16/2018 Height 62 inches 5'2" Weight 175.00 lb w/ shoes Heart Rate 90 /min BP Systolic Sitting 98 mmHg lue lg cuff BP Diastolic Sitting 50 mmHg lue lg cuff Respiratory Rate 18 /min BMI (Body Mass Index) 32.0 kg/m2 Ejection Fraction 60% echo02/10/14 01/11/2018 Height 62 inches 5'2" Weight 170.00 lb per patient Heart Rate 88 /min BP Systolic Sitting 124 mmHg BP Diastolic Sitting 60 mmHg Respiratory Rate 14 /min Body Temperature 98.9 F BMI (Body Mass Index) 31.1 kg/m2 01/10/2018 Height 62 inches 5'2" Weight 170.00 lb BP Systolic 122 mmHg BP Diastolic 60 mmHg Body Temperature 98.2 F BMI (Body Mass Index) 31.1 kg/m2 12/29/2017 Height 62 inches 5'2" Weight 176.00 lb Heart Rate 68 /min BP Systolic 140 mmHg BP Diastolic 72 mmHg Respiratory Rate 12 /min Body Temperature 98.1 F Pain Level 0 BMI (Body Mass Index) 32.2 kg/m2 12/18/2017 Height 62 inches 5'2" Weight 179.00 lb w/ shoes Heart Rate 92 /min BP Systolic Sitting 122 mmHg BP Diastolic Sitting 58 mmHg Respiratory Rate 18 /min BMI (Body Mass Index) 32.7 kg/m2 Ejection Fraction 61% at ret stress test 04/05/16 11/16/2017 Height 62 inches 5'2" Weight 176.00 lb w/ shoes Heart Rate 96 /min BP Systolic Sitting 112 mmHg lue large cuff BP Diastolic Sitting 60 mmHg lue large cuff Respiratory Rate 18 /min BMI (Body Mass Index) 32.2 kg/m2 Ejection Fraction 60 echo 02/10/14 10/23/2017 Height 62 inches 5'2" Weight 172.00 lb w/ shoes Heart Rate 84 /min BP Systolic Sitting 132 mmHg lue reg cuff BP Diastolic Sitting 82 mmHg lue reg cuff Respiratory Rate 18 /min BMI (Body Mass Index) 31.5 kg/m2 Ejection Fraction 60 echo 02/10/14 09/18/2017 Height 62 inches 5'2" Weight 173.00 lb without Heart Rate 76 /min BP Systolic Sitting 128 mmHg Rue lg cuff BP Diastolic Sitting 78 mmHg Rue lg cuff Respiratory Rate 17 /min BMI (Body Mass Index) 31.6 kg/m2 08/14/2017 Height 62 inches 5'2" Weight 172.00 lb w/ shoes Heart Rate 96 /min BP Systolic Sitting 122 mmHg lue reg cuff BP Diastolic Sitting 62 mmHg lue reg cuff Respiratory Rate 20 /min BMI (Body Mass Index) 31.5 kg/m2 Ejection Fraction 60% echo 02/10/2014 06/07/2017 Height 62 inches 5'2" Weight 173.38 lb Heart Rate 75 /min BP Systolic Sitting 124 mmHg BP Diastolic Sitting 70 mmHg Body Temperature 97.1 F O2 % BldC Oximetry 95 % BMI (Body Mass Index) 31.7 kg/m2 03/23/2017 Height 62 inches 5'2" Weight 169.00 lb Heart Rate 76 /min BP Systolic Sitting 134 mmHg Rue reg cuff BP Diastolic Sitting 76 mmHg Rue reg cuff BP Systolic Standing 118 mmHg Rue BP Diastolic Standing 74 mmHg Rue Respiratory Rate 16 /min BMI (Body Mass Index) 30.9 kg/m2 Ejection Fraction 60% 02/10/14 02/27/2017 Weight 167.00 lb Heart Rate 83 /min BP Systolic 140 mmHg BP Diastolic 60 mmHg Body Temperature 97.3 F O2 % BldC Oximetry 97 % 02/15/2017 Weight 160.25 lb Heart Rate 98 /min BP Systolic 122 mmHg BP Diastolic 58 mmHg Body Temperature 98.2 F O2 % BldC Oximetry 97 % 12/22/2016 Weight 171.00 lb Heart Rate 90 /min BP Systolic Sitting 130 mmHg BP Diastolic Sitting 80 mmHg Respiratory Rate 15 /min Pain Level 4 O2 % BldC Oximetry 98 % 12/05/2016 Weight 174.00 lb Heart Rate 71 /min BP Systolic Sitting 130 mmHg BP Diastolic Sitting 80 mmHg Respiratory Rate 14 /min Body Temperature 97.9 F O2 % BldC Oximetry 95 % 08/25/2016 Weight 168.00 lb Heart Rate 88 /min BP Systolic Sitting 130 mmHg BP Diastolic Sitting 70 mmHg Body Temperature 97.6 F 07/08/2016 Heart Rate 88 /min Respiratory Rate 20 /min Pain Level 0 05/26/2016 Height 62 inches 5'2" Weight 164.50 lb Heart Rate 86 /min BP Systolic 128 mmHg BP Diastolic 78 mmHg Body Temperature 97.5 F O2 % BldC Oximetry 97 % BMI (Body Mass Index) 30.1 kg/m2 04/25/2016 Height 62 inches 5'2" Weight 162.00 lb Heart Rate 68 /min BP Systolic Sitting 130 mmHg BP Diastolic Sitting 64 mmHg Respiratory Rate 18 /min Pain Level 3 BMI (Body Mass Index) 29.6 kg/m2 04/08/2016 Height 62 inches 5'2" Weight 162.00 lb Heart Rate 76 /min BP Systolic 128 mmHg BP Diastolic 70 mmHg Body Temperature 96.9 F BMI (Body Mass Index) 29.6 kg/m2 03/31/2016 Height 61 inches 5'1" Weight 163.00 lb with shoes Heart Rate 90 /min reg BP Systolic Sitting 134 mmHg Ra reg cuff BP Diastolic Sitting 70 mmHg Ra reg cuff BP Systolic Standing 128 mmHg Ra reg cuff BP Diastolic Standing 70 mmHg Ra reg cuff Respiratory Rate 18 /min BMI (Body Mass Index) 30.8 kg/m2 Ejection Fraction 60% 02/10/14 ECHO 03/25/2016 Height 61 inches 5'1" Weight 162.50 lb Heart Rate 86 /min BP Systolic Sitting 112 mmHg BP Diastolic Sitting 70 mmHg Body Temperature 97.7 F O2 % BldC Oximetry 94 % BMI (Body Mass Index) 30.7 kg/m2 03/21/2016 Height 62 inches 5'2" Weight 168.00 lb Heart Rate 76 /min BP Systolic Sitting 136 mmHg BP Diastolic Sitting 78 mmHg Respiratory Rate 16 /min Pain Level 4 BMI (Body Mass Index) 30.7 kg/m2 12/21/2015 Height 62 inches 5'2" Weight 168.00 lb Heart Rate 82 /min BP Systolic Sitting 166 mmHg BP Diastolic Sitting 76 mmHg Respiratory Rate 16 /min Pain Level 9 BMI (Body Mass Index) 30.7 kg/m2 11/09/2015 Height 62 inches 5'2" Weight 171.00 lb Heart Rate 76 /min BP Systolic Sitting 126 mmHg BP Diastolic Sitting 94 mmHg Respiratory Rate 14 /min BMI (Body Mass Index) 31.3 kg/m2 10/08/2015 Height 62 inches 5'2" Weight 171.00 lb Heart Rate 88 /min BP Systolic 140 mmHg BP Diastolic 80 mmHg Respiratory Rate 16 /min Body Temperature 98.0 F BMI (Body Mass Index) 31.3 kg/m2 09/24/2015 Height 62 inches 5'2" Weight 172.50 lb Heart Rate 88 /min BP Systolic Sitting 130 mmHg BP Diastolic Sitting 82 mmHg Respiratory Rate 14 /min Pain Level 3 BMI (Body Mass Index) 31.5 kg/m2 09/01/2015 Height 62 inches 5'2" Weight 168.00 lb Heart Rate 76 /min BP Systolic Sitting 110 mmHg BP Diastolic Sitting 70 mmHg Respiratory Rate 17 /min BMI (Body Mass Index) 30.7 kg/m2 07/15/2015 Height 62 inches 5'2" Weight 168.00 lb Heart Rate 80 /min BP Systolic Sitting 140 mmHg BP Diastolic Sitting 60 mmHg Respiratory Rate 17 /min BMI (Body Mass Index) 30.7 kg/m2 07/10/2015 Height 62.5 inches 5'2.50" Weight 170.00 lb Pain Level 2 BMI (Body Mass Index) 30.6 kg/m2 07/10/2015 Height 62.5 inches 5'2.50" Weight 167.50 lb w/o shoes Heart Rate 88 /min reg BP Systolic Sitting 134 mmHg Rue, lg cuff BP Diastolic Sitting 74 mmHg Rue, lg cuff BP Systolic Standing 134 mmHg Rue BP Diastolic Standing 70 mmHg Rue Respiratory Rate 18 /min BMI (Body Mass Index) 30.1 kg/m2 Ejection Fraction 60% as of 02/10/14 echo 07/02/2015 Height 62.5 inches 5'2.50" Weight 170.00 lb Heart Rate 84 /min BP Systolic Sitting 162 mmHg BP Diastolic Sitting 74 mmHg Pain Level 5 BMI (Body Mass Index) 30.6 kg/m2 05/08/2015 Height 62.5 inches 5'2.50" Weight 168.00 lb BMI (Body Mass Index) 30.2 kg/m2 05/04/2015 Heart Rate 80 /min BP Systolic Sitting 132 mmHg BP Diastolic Sitting 70 mmHg 04/21/2015 Height 62.5 inches 5'2.50" Weight 168.00 lb Heart Rate 84 /min BP Systolic 142 mmHg BP Diastolic 77 mmHg Body Temperature 98.2 F BMI (Body Mass Index) 30.2 kg/m2 04/03/2015 Height 62.5 inches 5'2.50" Weight 164.00 lb Heart Rate 95 /min BP Systolic 148 mmHg BP Diastolic 75 mmHg Pain Level 0 BMI (Body Mass Index) 29.5 kg/m2 03/06/2015 Height 62.5 inches 5'2.50" Weight 164.00 lb with shoes Heart Rate 90 /min BP Systolic Sitting 118 mmHg Ra, reg cuff BP Diastolic Sitting 64 mmHg Ra, reg cuff BP Systolic Standing 114 mmHg Ra BP Diastolic Standing 60 mmHg Ra Respiratory Rate 14 /min BMI (Body Mass Index) 29.5 kg/m2 Ejection Fraction 60% 02/10/2014 03/04/2015 Height 62.5 inches 5'2.50" Weight 168.00 lb Heart Rate 92 /min BP Systolic 119 mmHg BP Diastolic 73 mmHg Pain Level 4 BMI (Body Mass Index) 30.2 kg/m2 12/31/2014 Weight 168.00 lb Heart Rate 86 /min BP Systolic Sitting 160 mmHg BP Diastolic Sitting 76 mmHg Body Temperature 96.6 F 08/14/2014 Height 62.5 inches 5'2.50" Weight 160.00 lb with shoes Heart Rate 92 /min BP Systolic Sitting 142 mmHg LA, reg cuff BP Diastolic Sitting 90 mmHg LA, reg cuff BP Systolic Standing 142 mmHg LA BP Diastolic Standing 88 mmHg LA Respiratory Rate 16 /min BMI (Body Mass Index) 28.8 kg/m2 07/31/2014 Weight 163.00 lb Heart Rate 82 /min BP Systolic Sitting 130 mmHg BP Diastolic Sitting 80 mmHg 06/24/2014 Height 61 inches 5'1" Weight 163.00 lb Heart Rate 86 /min BP Systolic Sitting 176 mmHg right arm, reg cuff BP Diastolic Sitting 80 mmHg right arm, reg cuff BP Systolic Standing 170 mmHg right arm, reg cuff BP Diastolic Standing 78 mmHg right arm, reg cuff Respiratory Rate 20 /min BMI (Body Mass Index) 30.8 kg/m2 06/13/2014 Height 61 inches 5'1" Weight 161.00 lb with shoes Heart Rate 80 /min BP Systolic 160 mmHg Ra lg cuff BP Diastolic 78 mmHg Ra lg cuff BP Systolic Sitting 164 mmHg La lg cuff BP Diastolic Sitting 80 mmHg La lg cuff BP Systolic Standing 150 mmHg La lg cuff BP Diastolic Standing 70 mmHg La lg cuff Respiratory Rate 17 /min BMI (Body Mass Index) 30.4 kg/m2 05/28/2014 Height 62 inches 5'2" Weight 164.00 lb Heart Rate 74 /min BP Systolic Sitting 122 mmHg BP Diastolic Sitting 68 mmHg Pain Level 3 BMI (Body Mass Index) 30.0 kg/m2 04/30/2014 Weight 163.00 lb Heart Rate 84 /min BP Systolic Sitting 128 mmHg BP Diastolic Sitting 80 mmHg 2014 Height 62.5 inches 5'2.50" Weight 163.00 lb Heart Rate 88 /min BP Systolic Sitting 122 mmHg BP Diastolic Sitting 80 mmHg BMI (Body Mass Index) 29.3 kg/m2 03/31/2014 Height 62 inches 5'2" Weight 163.25 lb Heart Rate 88 /min BP Systolic Sitting 134 mmHg BP Diastolic Sitting 72 mmHg Pain Level 4 BMI (Body Mass Index) 29.9 kg/m2 02/26/2014 Weight 170.00 lb Heart Rate 82 /min BP Systolic Sitting 130 mmHg BP Diastolic Sitting 80 mmHg 02/25/2014 Weight 170.00 lb Heart Rate 84 /min BP Systolic Sitting 128 mmHg BP Diastolic Sitting 80 mmHg 01/28/2014 Height 62 inches 5'2" Weight 172.00 lb Heart Rate 60 /min BP Systolic Sitting 124 mmHg BP Diastolic Sitting 80 mmHg BMI (Body Mass Index) 31.5 kg/m2 Results Test Date Test Result H/L Range Note Laboratory test 01/04/2018 Surgical Pathology SEE RESULT BELOW 1 finding Laboratory test 01/04/2018 Point of Care 134 mg/dL High 70-100 2 finding Glucose Wound Culture/Sensi 01/04/2018 Wound/Misc SEE RESULT BELOW 3 Culture-Gram Stain Laboratory test 01/04/2018 MRSA/S. aureus Ssti SEE RESULT BELOW 4 finding PCR Anaerobic Culture SEE RESULT BELOW 5 CBC Auto Diff 09/13/2017 White Blood Count 7.2 10^3/uL 3.5-10.8 Red Blood Count 3.81 10^6/uL Low 4.0-5.4 Hemoglobin 10.8 g/dL Low 12.0-16.0 Hematocrit 33 % Low 35-47 Mean Corpuscular Volume 86 fL 80-97 Mean Corpuscular Hemoglobin 28 pg 27-31 Mean Corpuscular HGB Conc 33 g/dL 31-36 Red Cell Distribution Width 13 % 10.5-15 Platelet Count 279 10^3/uL 150-450 Mean Platelet Volume 8 um3 7.4-10.4 Abs Neutrophils 4.3 10^3/uL 1.5-7.7 Abs Lymphocytes 2.3 10^3/uL 1.0-4.8 Abs Monocytes 0.5 10^3/uL 0-0.8 Abs Eosinophils 0.2 10^3/uL 0-0.6 Abs Basophils 0 10^3/uL 0-0.2 Abs Nucleated RBC 0.01 10^3/uL Granulocyte % 59.1 % 38-83 Lymphocyte % 31.1 % 25-47 Monocyte % 7.4 % 1-9 Eosinophil % 2.1 % 0-6 Basophil % 0.3 % 0-2 Nucleated Red Blood Cells % 0.1 Basic Metabolic Panel 09/13/2017 Sodium 136 mmol/L 133-145 Potassium 3.8 mmol/L 3.5-5.0 Chloride 104 mmol/L 101-111 Co2 Carbon Dioxide 27 mmol/L 22-32 Anion Gap 5 mmol/L 2-11 Glucose 104 mg/dL High 70-100 Blood Urea Nitrogen 23 mg/dL 6-24 Creatinine 0.73 mg/dL 0.51-0.95 BUN/Creatinine Ratio 31.5 High 8-20 Calcium 9.5 mg/dL 8.6-10.3 Egfr Non- 78.1 >60 Egfr 100.5 >60 6 Laboratory test finding 09/13/2017 Point of Care Glucose 128 mg/dL High 70 -100 7 Basic Metabolic Panel 08/25/2017 Sodium 135 mmol/L 133-145 Potassium 4.8 mmol/L 3.5-5.0 Chloride 103 mmol/L 101-111 Co2 Carbon Dioxide 26 mmol/L 22-32 Anion Gap 6 mmol/L 2-11 Glucose 140 mg/dL High 70-100 Blood Urea Nitrogen 24 mg/dL 6-24 Creatinine 0.96 mg/dL High 0.51-0.95 BUN/Creatinine Ratio 25.0 High 8-20 Calcium 9.3 mg/dL 8.6-10.3 Egfr Non- 57.0 >60 Egfr 73.3 >60 8 CBC Auto Diff 08/25/2017 White Blood Count 8.4 10^3/uL 3.5-10.8 Red Blood Count 4.09 10^6/uL 4.0-5.4 Hemoglobin 11.5 g/dL Low 12.0-16.0 Hematocrit 35 % 35-47 Mean Corpuscular Volume 86 fL 80-97 Mean Corpuscular Hemoglobin 28 pg 27-31 Mean Corpuscular HGB Conc 33 g/dL 31-36 Red Cell Distribution Width 13 % 10.5-15 Platelet Count 310 10^3/uL 150-450 Mean Platelet Volume 9 um3 7.4-10.4 Abs Neutrophils 4.9 10^3/uL 1.5-7.7 Abs Lymphocytes 2.7 10^3/uL 1.0-4.8 Abs Monocytes 0.5 10^3/uL 0-0.8 Abs Eosinophils 0.2 10^3/uL 0-0.6 Abs Basophils 0.1 10^3/uL 0-0.2 Abs Nucleated RBC 0 10^3/uL Granulocyte % 58.2 % 38-83 Lymphocyte % 32.3 % 25-47 Monocyte % 6.0 % 1-9 Eosinophil % 2.5 % 0-6 Basophil % 1.0 % 0-2 Nucleated Red Blood Cells % 0.1 Lipid Profile (Trig/Chol/HDL) 08/25/2017 Triglycerides 100 mg/dL 9 Cholesterol 116 mg/dL 10 HDL Cholesterol 46.3 mg/dL 11 LDL Cholesterol 50 mg/dL 12 Istat BUN/Crea/Egfr/V Mainct 08/16/2017 Poc Bun Mainct 20 mg/dL High 9-18 Poc Crea Mainct 0.8 mg/dL 0.6-0.9 GFR Non- MCT 70.3 >60 GFR Mainct 90.4 >60 13 Laboratory test finding 06/07/2017 Magnesium 1.9 mg/dL 1.9-2.7 Laboratory test finding 06/07/2017 Hemoglobin A1c 6.7 5-7 Laboratory test finding 02/15/2017 Lipase 15 U/L 11.0-82.0 14 Amylase 30 U/L 29-103 15 Laboratory test finding 02/13/2017 Thyroxine 11.29 g/mL 6.09-12.23 TSH (Thyroid Stim Horm) 0.82 mcIU/mL 0.34-5.60 CKMB 02/13/2017 CKMB ng/mL 1.1 ng/mL 0.6-6.3 Laboratory test finding 02/13/2017 Troponin-I (TnI) 0.01 ng/mL <0.04 16 CBC Auto Diff 02/13/2017 White Blood Count 8.1 10^3/uL 3.5-10.8 Red Blood Count 4.24 10^6/uL 4.0-5.4 Hemoglobin 12.0 g/dL 12.0-16.0 Hematocrit 37 % 35-47 Mean Corpuscular Volume 86 fL 80-97 Mean Corpuscular Hemoglobin 28 pg 27-31 Mean Corpuscular HGB Conc 33 g/dL 31-36 Red Cell Distribution Width 13 % 10.5-15 Platelet Count 264 10^3/uL 150-450 Mean Platelet Volume 8 um3 7.4-10.4 Abs Neutrophils 5.2 10^3/uL 1.5-7.7 Abs Lymphocytes 2.1 10^3/uL 1.0-4.8 Abs Monocytes 0.7 10^3/uL 0-0.8 Abs Eosinophils 0 10^3/uL 0-0.6 Abs Basophils 0.1 10^3/uL 0-0.2 Abs Nucleated RBC 0.01 10^3/uL Granulocyte % 64.4 % 38-83 Lymphocyte % 25.3 % 25-47 Monocyte % 8.9 % 1-9 Eosinophil % 0.4 % 0-6 Basophil % 1.0 % 0-2 Nucleated Red Blood Cells % 0.1 Inr/Protime 02/13/2017 Inr 0.96 0.89-1.11 Laboratory test finding 02/13/2017 B-Type Natriuretic Peptide 24 pg/mL 17 BNP Lactic Acid 1.6 mmol/L 0.5-2.0 18 Laboratory test finding 02/13/2017 Magnesium 1.8 mg/dL Low 1.9-2.7 Creatine Kinase(CK) 40 U/L 10-223 Troponin-I (TnI) 0.01 ng/mL <0.04 19 Comp Metabolic Panel 02/13/2017 Sodium 135 mmol/L 133-145 Potassium 3.9 mmol/L 3.5-5.0 Chloride 100 mmol/L Low 101-111 Co2 Carbon Dioxide 24 mmol/L 22-32 Anion Gap 11 mmol/L 2-11 Glucose 137 mg/dL High 70-100 Blood Urea Nitrogen 24 mg/dL 6-24 Creatinine 0.90 mg/dL 0.51-0.95 BUN/Creatinine Ratio 26.7 High 8-20 Calcium 9.4 mg/dL 8.6-10.3 Total Protein 8.1 g/dL 6.4-8.9 Albumin 3.7 g/dL 3.2-5.2 Globulin 4.4 g/dL High 2-4 Albumin/Globulin Ratio 0.8 Low 1-3 Total Bilirubin 0.40 mg/dL 0.2-1.0 Alkaline Phosphatase 102 U/L 34-104 Alt 12 U/L 7-52 Ast 18 U/L 13-39 Egfr Non- 61.5 >60 Egfr 79.2 >60 20 CBC Auto Diff 12/22/2016 White Blood Count 9.4 10^3/uL 3.5-10.8 Red Blood Count 3.73 10^6/uL Low 4.0-5.4 Hemoglobin 10.8 g/dL Low 12.0-16.0 Hematocrit 33 % Low 35-47 Mean Corpuscular Volume 87 fL 80-97 Mean Corpuscular Hemoglobin 29 pg 27-31 Mean Corpuscular HGB Conc 33 g/dL 31-36 Red Cell Distribution Width 14 % 10.5-15 Platelet Count 329 10^3/uL 150-450 Mean Platelet Volume 9 um3 7.4-10.4 Abs Neutrophils 6.5 10^3/uL 1.5-7.7 Abs Lymphocytes 2.2 10^3/uL 1.0-4.8 Abs Monocytes 0.5 10^3/uL 0-0.8 Abs Eosinophils 0.1 10^3/uL 0-0.6 Abs Basophils 0.1 10^3/uL 0-0.2 Abs Nucleated RBC 0 10^3/uL Granulocyte % 69.2 % 38-83 Lymphocyte % 23.1 % Low 25-47 Monocyte % 5.4 % 1-9 Eosinophil % 1.3 % 0-6 Basophil % 1.0 % 0-2 Nucleated Red Blood Cells % 0 Comp Metabolic Panel 12/22/2016 Sodium 139 mmol/L 133-145 Potassium 4.2 mmol/L 3.5-5.0 Chloride 107 mmol/L 101-111 Co2 Carbon Dioxide 26 mmol/L 22-32 Anion Gap 6 mmol/L 2-11 Glucose 179 mg/dL High 70-100 Blood Urea Nitrogen 28 mg/dL High 6-24 Creatinine 0.90 mg/dL 0.51-0.95 BUN/Creatinine Ratio 31.1 High 8-20 Calcium 9.4 mg/dL 8.6-10.3 Total Protein 7.3 g/dL 6.4-8.9 Albumin 3.4 g/dL 3.2-5.2 Globulin 3.9 g/dL 2-4 Albumin/Globulin Ratio 0.9 Low 1-3 Total Bilirubin 0.40 mg/dL 0.2-1.0 Alkaline Phosphatase 95 U/L 34-104 Alt 10 U/L 7-52 Ast 18 U/L 13-39 Egfr Non- 61.5 >60 Egfr 79.2 >60 21 Laboratory test finding 12/22/2016 C Reactive Protein 2.22 mg/L < 5.00 22 Erythrocyte Sed Rate 66 mm/Hr High 0-40 Rheumatoid Factor 458 IU/mL <15 23 Cyclic Citrullinated Pep Igg 130.9 U 24 Laboratory test finding 12/05/2016 Hemoglobin A1c 6.7 5-7 Urine Microalbumin Random 11/01/2016 Urine Creatinine 171.30 mg/dL Ur Microalbumin (mg/L) 47.9 mg/L Urine Microalbumin/Creatinine 27.9 ug/mg <31 Laboratory test finding 11/01/2016 Magnesium 2.0 mg/dL 1.9-2.7 25 Lipid Profile (Trig/Chol/HDL) 11/01/2016 Triglycerides 96 mg/dL 26 Cholesterol 97 mg/dL 27 HDL Cholesterol 41.2 mg/dL 28 LDL Cholesterol 37 mg/dL 29 Laboratory test finding 11/01/2016 Vitamin D Total 25(Oh) 56.1 ng/mL High 30-50 30 Laboratory test finding 08/25/2016 Hemoglobin A1c 6.6 5-7 CBC Auto Diff 06/21/2016 White Blood Count 9.5 10^3/uL 3.5-10.8 Red Blood Count 4.19 10^6/uL 4.0-5.4 Hemoglobin 11.7 g/dL Low 12.0-16.0 Hematocrit 37 % 35-47 Mean Corpuscular Volume 87 fL 80-97 Mean Corpuscular Hemoglobin 28 pg 27-31 Mean Corpuscular HGB Conc 32 g/dL 31-36 Red Cell Distribution Width 15 % 10.5-15 Platelet Count 369 10^3/uL 150-450 Mean Platelet Volume 8 um3 7.4-10.4 Abs Neutrophils 6.8 10^3/uL 1.5-7.7 Abs Lymphocytes 2.0 10^3/uL 1.0-4.8 Abs Monocytes 0.5 10^3/uL 0-0.8 Abs Eosinophils 0.1 10^3/uL 0-0.6 Abs Basophils 0.1 10^3/uL 0-0.2 Abs Nucleated RBC 0.01 10^3/uL Granulocyte % 71.4 % 38-83 Lymphocyte % 20.9 % Low 25-47 Monocyte % 5.6 % 1-9 Eosinophil % 0.9 % 0-6 Basophil % 1.2 % 0-2 Nucleated Red Blood Cells % 0.1 Inr/Protime 06/21/2016 Inr 0.88 Low 0.89-1.11 Comp Metabolic Panel 06/21/2016 Sodium 135 mmol/L 133-145 Potassium 4.1 mmol/L 3.5-5.0 Chloride 103 mmol/L 101-111 Co2 Carbon Dioxide 25 mmol/L 22-32 Anion Gap 7 mmol/L 2-11 Glucose 140 mg/dL High 70-100 Blood Urea Nitrogen 15 mg/dL 6-24 Creatinine 0.76 mg/dL 0.51-0.95 BUN/Creatinine Ratio 19.7 8-20 Calcium 10.0 mg/dL 8.6-10.3 Total Protein 7.9 g/dL 6.4-8.9 Albumin 3.7 g/dL 3.2-5.2 Globulin 4.2 g/dL High 2-4 Albumin/Globulin Ratio 0.9 Low 1-3 Total Bilirubin 0.30 mg/dL 0.2-1.0 Alkaline Phosphatase 96 U/L 34-104 Alt 10 U/L 7-52 Ast 16 U/L 13-39 Egfr Non- 74.8 >60 Egfr 96.2 >60 31 Laboratory test 06/06/2016 Hemoglobin A1c 6.8 % High Less than 6.0 32 finding (Glyco HGB) Urine Microalbumin 06/06/2016 Urine Creatinine 104.44 mg/dL Random Ur Microalbumin (mg/L) 42.5 mg/L Urine Microalbumin/Creatinine 40.6 ug/mg High <31 Laboratory test finding 06/06/2016 Magnesium 1.6 mg/dL Low 1.9-2.7 CBC Auto Diff 05/24/2016 White Blood Count 7.1 10^3/uL 3.5-10.8 Red Blood Count 3.83 10^6/uL Low 4.0-5.4 Hemoglobin 10.6 g/dL Low 12.0-16.0 Hematocrit 33 % Low 35-47 Mean Corpuscular Volume 86 fL 80-97 Mean Corpuscular Hemoglobin 28 pg 27-31 Mean Corpuscular HGB Conc 33 g/dL 31-36 Red Cell Distribution Width 15 % 10.5-15 Platelet Count 324 10^3/uL 150-450 Mean Platelet Volume 8 um3 7.4-10.4 Abs Neutrophils 4.1 10^3/uL 1.5-7.7 Abs Lymphocytes 2.1 10^3/uL 1.0-4.8 Abs Monocytes 0.5 10^3/uL 0-0.8 Abs Eosinophils 0.3 10^3/uL 0-0.6 Abs Basophils 0.1 10^3/uL 0-0.2 Abs Nucleated RBC 0 10^3/uL Granulocyte % 57.4 % 38-83 Lymphocyte % 29.6 % 25-47 Monocyte % 7.4 % 1-9 Eosinophil % 4.7 % 0-6 Basophil % 0.9 % 0-2 Nucleated Red Blood Cells % 0 Laboratory test finding 05/24/2016 Surgical Pathology SEE RESULT BELOW 33 Leukemia/Lymphoma Flow 05/24/2016 Path Interpretation 2-8 TNP Marker Path Interpret > 16 Marker TNP Path Interpret 9-15 Marker (SEE NOTE) 34 Bone Marrow Chromosomes 05/24/2016 BM Result Summary Normal BM Chromosome Specimen Bone Marrow BM Referral Reason anemia, unspecif <SEE NOTE> 35 BM Chromosome Method See Comment 36 BM Chromo Banding Method See Comment 37 BM Cromosome Results 46,XX[20] BM Chromosome Interpretation See Comment 38 Released By See Comment 39 Plasma Cell Profliferative 05/24/2016 Plasma Cell Dis Res Insufficient Disorder Summary Plasma Cell Prolif Specimen Bone Marrow Plasma Cell Referral Reason anemia, unspecif <SEE NOTE> 40 Plasma Cell Prolif Dis Method See Comment 41 Plasma Cell Prolif Dis Results See Comment 42 Plasma Cell Dis Interpretation See Comment 43 Plasma Cell Dis Disclaimer See Comment 44 Plasma Cell Dis Released By See Comment 45 CBC Auto Diff 05/05/2016 White Blood Count 8.8 10^3/uL 3.5-10.8 Red Blood Count 3.91 10^6/uL Low 4.0-5.4 Hemoglobin 10.9 g/dL Low 12.0-16.0 Hematocrit 34 % Low 35-47 Mean Corpuscular Volume 86 fL 80-97 Mean Corpuscular Hemoglobin 28 pg 27-31 Mean Corpuscular HGB Conc 32 g/dL 31-36 Red Cell Distribution Width 14 % 10.5-15 Platelet Count 456 10^3/uL High 150-450 Mean Platelet Volume 8 um3 7.4-10.4 Abs Neutrophils 5.0 10^3/uL 1.5-7.7 Abs Lymphocytes 3.1 10^3/uL 1.0-4.8 Abs Monocytes 0.5 10^3/uL 0-0.8 Abs Eosinophils 0.2 10^3/uL 0-0.6 Abs Basophils 0 10^3/uL 0-0.2 Abs Nucleated RBC 0 10^3/uL Granulocyte % 56.5 % 38-83 Lymphocyte % 35.2 % 25-47 Monocyte % 6.2 % 1-9 Eosinophil % 1.9 % 0-6 Basophil % 0.2 % 0-2 Nucleated Red Blood Cells % 0 Comp Metabolic Panel 05/05/2016 Sodium 136 mmol/L 133-145 Potassium 3.8 mmol/L 3.5-5.0 Chloride 100 mmol/L Low 101-111 Co2 Carbon Dioxide 28 mmol/L 22-32 Anion Gap 8 mmol/L 2-11 Glucose 97 mg/dL 70-100 Blood Urea Nitrogen 23 mg/dL 6-24 Creatinine 0.85 mg/dL 0.51-0.95 BUN/Creatinine Ratio 27.1 High 8-20 Calcium 10.0 mg/dL 8.6-10.3 Total Protein 8.4 g/dL 6.4-8.9 Albumin 3.6 g/dL 3.2-5.2 Globulin 4.8 g/dL High 2-4 Albumin/Globulin Ratio 0.8 Low 1-3 Total Bilirubin 0.30 mg/dL 0.2-1.0 Alkaline Phosphatase 93 U/L 34-104 Alt 14 U/L 7-52 Ast 18 U/L 13-39 Egfr Non- 65.7 >60 Egfr 84.5 >60 46 Iron & Iron Binding Capacity 05/05/2016 Iron 42 g/dL Low 50-212 Unsaturated Iron Binding 252 g/dL Total Iron Binding Capacity 294 g/dL 250-450 % Iron Saturation 14 % Low 15-55 Laboratory test finding 05/05/2016 Ferritin 217.5 ng/mL 11-307 Urine Protein Elctrophoresis (RDM) 05/05/2016 Albumin 31 % Alpha-1 Globulin 5 % Alpha-2 Globulin 21 % Beta Globulin 17 % Gamma Globulin 26 % Albumin/Globulin Ratio 0.45 % Impression See Comment 47 Total Protein(Pep) Urine 44 mg/dL 48 [place]/Lambda Free Light Chains 05/05/2016 [place] Free Light Chain 6.55 mg/dL 49 Ser Lambda Free Light Chain 3.03 mg/dL 50 [place]/Lambda Free Light Chain 2.16 51 Protein Electrophoresis 05/05/2016 Total Protein(Pep) 8.2 g/dL 6.3 - 7.9 Albumin 3.0 g/dL 3.4-4.7 Alpha-1 Globulin 0.4 g/dL 0.1-0.3 Alpha-2 Globulin 1.4 g/dL 0.6-1.0 Beta Globulin 1.0 g/dL 0.7-1.2 Gamma Globulin 2.4 g/dL 0.6-1.6 Albumin/Globulin Ratio 0.58 Impression See Comment 52 Laboratory test finding 04/21/2016 Magnesium 1.4 mg/dL Low 1.9-2.7 53, 54 Type & Screen 04/08/2016 Patient Blood Type A Positive 55 Antibody Screen NEGATIVE 55 Order 04/05/2016 Stress Test, Pharmacologic <pending> Nuclear (Lexiscan) CBC Auto Diff 03/25/2016 White Blood Count 8.2 10^3/uL 3.5-10.8 Red Blood Count 4.14 10^6/uL 4.0-5.4 Hemoglobin 11.6 g/dL Low 12.0-16.0 Hematocrit 36 % 35-47 Mean Corpuscular Volume 87 fL 80-97 Mean Corpuscular Hemoglobin 28 pg 27-31 Mean Corpuscular HGB Conc 32 g/dL 31-36 Red Cell Distribution Width 14 % 10.5-15 Platelet Count 388 10^3/uL 150-450 Mean Platelet Volume 9 um3 7.4-10.4 Abs Neutrophils 5.7 10^3/uL 1.5-7.7 Abs Lymphocytes 2.0 10^3/uL 1.0-4.8 Abs Monocytes 0.4 10^3/uL 0-0.8 Abs Eosinophils 0.1 10^3/uL 0-0.6 Abs Basophils 0.1 10^3/uL 0-0.2 Abs Nucleated RBC 0 10^3/uL Granulocyte % 69.3 % 38-83 Lymphocyte % 24.5 % Low 25-47 Monocyte % 4.6 % 1-9 Eosinophil % 1.0 % 0-6 Basophil % 0.6 % 0-2 Nucleated Red Blood Cells % 0 Comp Metabolic Panel 03/25/2016 Sodium 133 mmol/L 133-145 Potassium 4.3 mmol/L 3.5-5.0 Chloride 100 mmol/L Low 101-111 Co2 Carbon Dioxide 25 mmol/L 22-32 Anion Gap 8 mmol/L 2-11 Glucose 154 mg/dL High 70-100 Blood Urea Nitrogen 21 mg/dL 6-24 Creatinine 0.82 mg/dL 0.51-0.95 BUN/Creatinine Ratio 25.6 High 8-20 Calcium 9.7 mg/dL 8.6-10.3 Total Protein 8.2 g/dL 6.4-8.9 Albumin 3.8 g/dL 3.2-5.2 Globulin 4.4 g/dL High 2-4 Albumin/Globulin Ratio 0.9 Low 1-3 Total Bilirubin 0.50 mg/dL 0.2-1.0 Alkaline Phosphatase 90 U/L 34-104 Alt 12 U/L 7-52 Ast 18 U/L 13-39 Egfr Non- 68.7 >60 Egfr 88.4 >60 56 Inr/Protime 03/25/2016 Inr 0.96 0.89-1.11 Type & Screen 03/25/2016 Antibody Screen NEGATIVE Patient Blood Type A Positive Laboratory test finding 03/25/2016 Hemoglobin A1c (Glyco 7.0 % High Less than 6.0 57 HGB) Urinalysis Profile 03/25/2016 Urine Color Amelia Urine Appearance Turbid Urine Specific [place] 1.019 1.010-1.030 Urine pH 5.0 5-9 Urine Urobilinogen Negative Negative Urine Ketones Trace Negative Urine Protein 1+(30 mg/dL) Negative Urine Leukocytes 3+ Negative Urine Blood Negative Negative Urine Nitrite Negative Negative Urine Bilirubin Negative Negative Urine Glucose Negative Negative Urine White Blood Cell 2+(11-20/hpf) Absent Urine Red Blood Cell 1+(3-5/hpf) Absent Urine Bacteria 1+ Absent Urine Squamous Epithelial Cell Present Absent Urine Culture And 03/25/2016 Urine Culture SEE RESULT BELOW 58 Sensitivities Urine Microalbumin Random 10/08/2015 Ur Microalbumin (mg/L) 117.0 mg/L Urine Creatinine 49.23 mg/dL Urine Microalbumin/Creatinine 237.6 ug/mg High <31 Laboratory test finding 10/08/2015 Vitamin D Total 31.9 ng/mL 30-50 25(Oh) Laboratory test finding 09/24/2015 C Reactive Protein 4.25 mg/L < 5.00 59, 60 Erythrocyte Sed Rate 51 mm/Hr High 0-40 59, 61 Vitamin D Total 25(Oh) 29.4 ng/mL Low 30-50 59, 62 Comp Metabolic Panel 09/24/2015 Sodium 136 mmol/L 133-145 59 Potassium 3.8 mmol/L 3.5-5.0 59 Chloride 102 mmol/L 101-111 59 Co2 Carbon Dioxide 27 mmol/L 22-32 59 Anion Gap 7 mmol/L 2-11 59 Glucose 264 mg/dL High 70-100 59 Blood Urea Nitrogen 18 mg/dL 6-24 59 Creatinine 0.65 mg/dL 0.51-0.95 59 BUN/Creatinine Ratio 27.7 High 8-20 59 Calcium 9.4 mg/dL 8.6-10.3 59 Total Protein 7.3 g/dL 6.4-8.9 59 Albumin 3.8 g/dL 3.2-5.2 59 Globulin 3.5 g/dL 2-4 59 Albumin/Globulin Ratio 1.1 1-3 59 Total Bilirubin 0.40 mg/dL 0.2-1.0 59 Alkaline Phosphatase 89 U/L 34-104 59 Alt 10 U/L 7-52 59 Ast 14 U/L 13-39 59 Egfr Non- 89.9 >60 59 Egfr 115.6 >60 59, 63 CBC Auto Diff 09/24/2015 White Blood Count 7.9 10^3/uL 3.5-10.8 59 Red Blood Count 4.07 10^6/uL 4.0-5.4 59 Hemoglobin 11.4 g/dL Low 12.0-16.0 59 Hematocrit 36 % 35-47 59 Mean Corpuscular Volume 88 fL 80-97 59 Mean Corpuscular Hemoglobin 28 pg 27-31 59 Mean Corpuscular HGB Conc 32 g/dL 31-36 59 Red Cell Distribution Width 14 % 10.5-15 59 Platelet Count 328 10^3/uL 150-450 59 Mean Platelet Volume 9 um3 7.4-10.4 59 Abs Neutrophils 4.8 10^3/uL 1.5-7.7 59 Abs Lymphocytes 2.3 10^3/uL 1.0-4.8 59 Abs Monocytes 0.5 10^3/uL 0-0.8 59 Abs Eosinophils 0.2 10^3/uL 0-0.6 59 Abs Basophils 0.1 10^3/uL 0-0.2 59 Abs Nucleated RBC 0.01 10^3/uL 59 Granulocyte % 61.5 % 38-83 59 Lymphocyte % 29.7 % 25-47 59 Monocyte % 5.9 % 1-9 59 Eosinophil % 2.0 % 0-6 59 Basophil % 0.9 % 0-2 59 Nucleated Red Blood Cells % 0.1 59 Laboratory test finding 07/02/2015 Erythrocyte Sed Rate 56 mm/Hr High 0- 40 C Reactive Protein 5.06 mg/L High < 5.00 64 Comp Metabolic Panel 07/02/2015 Sodium 136 mmol/L 133-145 Potassium 4.1 mmol/L 3.5-5.0 Chloride 103 mmol/L 101-111 Co2 Carbon Dioxide 26 mmol/L 22-32 Anion Gap 7 mmol/L 2-11 Glucose 112 mg/dL High 70-100 Blood Urea Nitrogen 18 mg/dL 6-24 Creatinine 0.65 mg/dL 0.51-0.95 BUN/Creatinine Ratio 27.7 High 8-20 Calcium 9.6 mg/dL 8.6-10.3 Total Protein 7.6 g/dL 6.4-8.9 Albumin 3.7 g/dL 3.2-5.2 Globulin 3.9 g/dL 2-4 Albumin/Globulin Ratio 0.9 Low 1-3 Total Bilirubin 0.50 mg/dL 0.2-1.0 Alkaline Phosphatase 98 U/L 34-104 Alt 9 U/L 7-52 Ast 14 U/L 13-39 Egfr Non- 89.9 >60 Egfr 115.6 >60 65 CBC Auto Diff 07/02/2015 White Blood Count 7.9 10^3/uL 4.8-10.8 Red Blood Count 4.00 10^6/uL 4.0-5.4 Hemoglobin 11.5 g/dL Low 12.0-16.0 Hematocrit 36 % 35-47 Mean Corpuscular Volume 89 fL 80-97 Mean Corpuscular Hemoglobin 29 pg 27-31 Mean Corpuscular HGB Conc 33 g/dL 31-36 Red Cell Distribution Width 13 % 10.5-15 Platelet Count 350 10^3/uL 150-450 Mean Platelet Volume 8 um3 7.4-10.4 Abs Neutrophils 5.1 10^3/uL 1.5-7.7 Abs Lymphocytes 2.1 10^3/uL 1.0-4.8 Abs Monocytes 0.4 10^3/uL 0-0.8 Abs Eosinophils 0.1 10^3/uL 0-0.6 Abs Basophils 0 10^3/uL 0-0.2 Abs Nucleated RBC 0 10^3/uL Granulocyte % 65.0 % 38-83 Lymphocyte % 27.0 % 25-47 Monocyte % 5.7 % 1-9 Eosinophil % 1.8 % 0-6 Basophil % 0.5 % 0-2 Nucleated Red Blood Cells % 0 Basic Metabolic Panel 05/04/2015 Sodium 139 mmol/L 133-145 Potassium 4.2 mmol/L 3.5-5.0 Chloride 107 mmol/L 101-111 Co2 Carbon Dioxide 24 mmol/L 22-32 Anion Gap 8 mmol/L 2-11 Glucose 108 mg/dL High 70-100 Blood Urea Nitrogen 16 mg/dL 6-24 Creatinine 0.67 mg/dL 0.51-0.95 BUN/Creatinine Ratio 23.9 High 8-20 Calcium 9.2 mg/dL 8.6-10.3 Egfr Non- 86.8 >60 Egfr 111.6 >60 66 Laboratory test finding 04/21/2015 Vitamin D Total 25(Oh) 22.3 ng/mL Low 30-50 Urine Microalbumin Random 04/21/2015 Ur Microalbumin (mg/L) 99.0 mg/L Urine Creatinine 110.34 mg/dL Urine Microalbumin/Creatinine 89.7 ug/mg High <31 Laboratory test finding 04/21/2015 Hemoglobin A1c 7.3 High 5-7 Comp Metabolic Panel 01/01/2015 Sodium 138 mmol/L 133-145 Potassium 4.1 mmol/L 3.5-5.0 Chloride 104 mmol/L 101-111 Co2 Carbon Dioxide 28 mmol/L 22-32 Anion Gap 6 mmol/L 2-11 Glucose 141 mg/dL High 70-100 Blood Urea Nitrogen 11 mg/dL 6-24 Creatinine 0.64 mg/dL 0.51-0.95 BUN/Creatinine Ratio 17.2 8-20 Calcium 9.6 mg/dL 8.6-10.3 Total Protein 7.2 g/dL 6.4-8.9 Albumin 3.7 g/dL 3.2-5.2 Globulin 3.5 g/dL 2-4 Albumin/Globulin Ratio 1.1 1-3 Total Bilirubin 0.50 mg/dL 0.2-1.0 Alkaline Phosphatase 89 U/L 34-104 Alt 11 U/L 7-52 Ast 14 U/L 13-39 Egfr Non- 91.7 >60 Egfr 118.0 >60 67 Urine Microalbumin Random 01/01/2015 Ur Microalbumin (mg/L) 63.0 mg/L Urine Creatinine 84.32 mg/dL Urine Microalbumin/Creatinine 74.7 High Less Than 31 Laboratory test finding 12/31/2014 Hemoglobin A1c 7.2 High 5-7 Lipid Profile (Trig/Chol/HDL) 08/14/2014 Triglycerides 128 mg/dL 68, 69 Cholesterol 157 mg/dL 68, 70 HDL Cholesterol 48.8 mg/dL 68, 71 LDL Cholesterol 83 mg/dL 68, 72 Comp Metabolic Panel 08/14/2014 Sodium 136 mmol/L 133-145 68 Potassium 3.7 mmol/L 3.5-5.0 68 Chloride 102 mmol/L 101-111 68 Co2 Carbon Dioxide 25 mmol/L 22-32 68 Anion Gap 9 mmol/L 2-11 68 Glucose 136 mg/dL High 70-100 68 Blood Urea Nitrogen 19 mg/dL 6-24 68 Creatinine 0.68 mg/dL 0.51-0.95 68 BUN/Creatinine Ratio 27.9 High 8-20 68 Calcium 9.6 mg/dL 8.6-10.3 68 Total Protein 7.3 g/dL 6.4-8.9 68 Albumin 3.9 g/dL 3.2-5.2 68 Globulin 3.4 g/dL 2-4 68 Albumin/Globulin Ratio 1.1 1-3 68 Total Bilirubin 0.50 mg/dL 0.2-1.0 68 Alkaline Phosphatase 85 U/L 34-104 68 Alt 15 U/L 7-52 68 Ast 18 U/L 13-39 68 Egfr Non- 85.5 >60 68 Egfr 110.0 >60 68, 73 Vitamin D, 25 Hydroxy 08/14/2014 25-Hydroxy Vitamin D2 29 ng/mL 68 25-Hydroxy Vitamin D3 7.5 ng/mL 68 25-Hydroxy Vitamin D Total 37 ng/mL 68, 74 Laboratory test finding 07/31/2014 Hemoglobin A1c 6.5 5-7 Urine Microalbumin Random 07/31/2014 Ur Microalbumin (mg/L) 242.0 mg/L Urine Creatinine 159.04 mg/dL Urine Microalbumin/Creatinine 152.1 High Less Than 31 Basic Metabolic Panel 06/19/2014 Sodium 137 mmol/L 133-145 Potassium 3.6 mmol/L Low 3.7-5.6 Chloride 105 mmol/L 101-111 Co2 Carbon Dioxide 25 mmol/L 22-32 Anion Gap 7 mmol/L 2-11 Glucose 148 mg/dL High 70-100 Blood Urea Nitrogen 13 mg/dL 6-24 Creatinine 0.69 mg/dL 0.51-0.95 BUN/Creatinine Ratio 18.8 8-20 Calcium 9.3 mg/dL 8.6-10.3 Egfr Non- 84.1 >60 Egfr 108.2 >60 75 Inr/Protime 06/14/2014 Inr 0.89 0.85-1.06 CBC Auto Diff 06/14/2014 White Blood Count 6.6 10^3/uL 4.8-10.8 Red Blood Count 4.23 10^6/uL 4.0-5.4 Hemoglobin 12.3 g/dL 12.0-16.0 Hematocrit 37 % 35-47 Mean Corpuscular Volume 88 fL 80-97 Mean Corpuscular Hemoglobin 29 pg 27-31 Mean Corpuscular HGB Conc 33 g/dL 31-36 Red Cell Distribution Width 13 % 10.5-15 Platelet Count 263 10^3/uL 150-450 Mean Platelet Volume 9 um3 7.4-10.4 Abs Neutrophils 3.5 10^3/uL 1.5-7.7 Abs Lymphocytes 2.3 10^3/uL 1.0-4.8 Abs Monocytes 0.5 10^3/uL 0-0.8 Abs Eosinophils 0.2 10^3/uL 0-0.6 Abs Basophils 0.1 10^3/uL 0-0.2 Abs Nucleated RBC 0 10^3/uL Granulocyte % 52.9 % 38-83 Lymphocyte % 35.3 % 25-47 Monocyte % 7.4 % 1-9 Eosinophil % 3.1 % 0-6 Basophil % 1.3 % 0-2 Nucleated Red Blood Cells % 0 Basic Metabolic Panel 06/14/2014 Sodium 136 mmol/L 133-145 Potassium 3.7 mmol/L 3.7-5.6 Chloride 103 mmol/L 101-111 Co2 Carbon Dioxide 28 mmol/L 22-32 Anion Gap 5 mmol/L 2-11 Glucose 162 mg/dL High 70-100 Blood Urea Nitrogen 20 mg/dL 6-24 Creatinine 0.78 mg/dL 0.51-0.95 BUN/Creatinine Ratio 25.6 High 8-20 Calcium 9.4 mg/dL 8.6-10.3 Egfr Non- 73.0 >60 Egfr 93.9 >60 76 Pre Cath Panel 06/14/2014 Activated Partial 28.3 seconds 24.0-36.1 Thrombo Time Laboratory test finding 04/30/2014 Hemoglobin A1c 6.8 5-7 Laboratory test finding 2014 Magnesium 1.5 mg/dL Low 1.9-2.7 Potassium 4.1 mmol/L 3.7-5.6 Hepatitis Acute Panel 02/26/2014 Hepatitis C Antibody Nonreactive Nonreactive Hepatitis A AB IgM Nonreactive Nonreactive Hepatitis B Core IgM Nonreactive Nonreactive Hepatitis B Surface Antigen Nonreactive Nonreactive CBC Auto Diff 02/26/2014 White Blood Count 8.1 10^3/uL 4.8-10.8 Red Blood Count 4.53 10^6/uL 4.0-5.4 Hemoglobin 13.1 g/dL 12.0-16.0 Hematocrit 39 % 35-47 Mean Corpuscular Volume 86 fL 80-97 Mean Corpuscular Hemoglobin 29 pg 27-31 Mean Corpuscular HGB Conc 34 g/dL 31-36 Red Cell Distribution Width 13 % 10.5-15 Platelet Count 313 10^3/uL 150-450 Mean Platelet Volume 9 um3 7.4-10.4 Abs Neutrophils 4.7 10^3/uL 1.5-7.7 Abs Lymphocytes 2.6 10^3/uL 1.0-4.8 Abs Monocytes 0.5 10^3/uL 0-0.8 Abs Eosinophils 0.2 10^3/uL 0-0.6 Abs Basophils 0.1 10^3/uL 0-0.2 Abs Nucleated RBC 0.01 10^3/uL Granulocyte % 57.9 % 38-83 Lymphocyte % 32.1 % 25-47 Monocyte % 6.0 % 1-9 Eosinophil % 2.9 % 0-6 Basophil % 1.1 % 0-2 Nucleated Red Blood Cells % 0.1 Laboratory test finding 02/26/2014 Urine Random Creatinine 145.54 mg/dL Urine Random Total Protein 68 mg/dL Pthi 02/25/2014 PTH Intact 7.8 pmol/L 1.3-9.3 Calcium (PTH Intact) 9.1 mg/dL 8.6-10.3 Vitamin D, 25 Hydroxy 02/25/2014 25-Hydroxy Vitamin D2 <4.0 ng/mL 25-Hydroxy Vitamin D3 11 ng/mL 25-Hydroxy Vitamin D Total 11 ng/mL 77 Laboratory test finding 02/25/2014 Rheumatoid Factor 206 IU/mL <15 78 CRP High Sensitivity 3.43 mg/L 79 Erythrocyte Sed Rate 34 mm/Hr 0-40 Cyclic Citrullinated Pept IgG 60.5 U 80 CBC Auto Diff 01/28/2014 White Blood Count 8.8 10^3/uL 4.8-10.8 81 Red Blood Count 4.72 10^6/uL 4.0-5.4 81 Hemoglobin 13.8 g/dL 12.0-16.0 81 Hematocrit 40 % 35-47 81 Mean Corpuscular Volume 86 fL 80-97 81 Mean Corpuscular Hemoglobin 29 pg 27-31 81 Mean Corpuscular HGB Conc 34 g/dL 31-36 81 Red Cell Distribution Width 13 % 10.5-15 81 Platelet Count 314 10^3/uL 150-450 81 Mean Platelet Volume 10 um3 7.4-10.4 81 Abs Neutrophils 5.4 10^3/uL 1.5-7.7 81 Abs Lymphocytes 2.7 10^3/uL 1.0-4.8 81 Abs Monocytes 0.4 10^3/uL 0-0.8 81 Abs Eosinophils 0.2 10^3/uL 0-0.6 81 Abs Basophils 0.1 10^3/uL 0-0.2 81 Abs Nucleated RBC 0 10^3/uL 81 Granulocyte % 61.6 % 38-83 81 Lymphocyte % 30.8 % 25-47 81 Monocyte % 4.3 % 1-9 81 Eosinophil % 2.1 % 0-6 81 Basophil % 1.2 % 0-2 81 Nucleated Red Blood Cells % 0 81 Urine Microalbumin 01/28/2014 Ur Microalbumin (mg/L) 655.8 mg/dL <30 81, 82 Random Urine Creatinine 70.37 mg/dL 81 Urine Microalbumin/Creatinine 931.9 High Less Than 31 81 Comp Metabolic Panel 01/28/2014 Sodium 134 mmol/L 133-145 81 Potassium 4.1 mmol/L 3.7-5.6 81 Chloride 100 mmol/L Low 101-111 81 Co2 Carbon Dioxide 27 mmol/L 22-32 81 Anion Gap 7 mmol/L 2-11 81 Glucose 237 mg/dL High 70-100 81 Blood Urea Nitrogen 10 mg/dL 6-24 81 Creatinine 0.63 mg/dL 0.51-0.95 81 BUN/Creatinine Ratio 15.9 8-20 81 Calcium 9.4 mg/dL 8.6-10.3 81 Total Protein 7.6 g/dL 6.4-8.9 81 Albumin 3.8 g/dL 3.2-5.2 81 Globulin 3.8 g/dL 2-4 81 Albumin/Globulin Ratio 1.0 1-3 81 Total Bilirubin 0.50 mg/dL 0.2-1.0 81 Alkaline Phosphatase 96 U/L 34-104 81 Alt 14 U/L 7-52 81 Ast 15 U/L 13-39 81 Egfr Non- 93.7 >60 81 Egfr 120.5 >60 81, 83 Lipid Profile (Trig/Chol/HDL) 01/28/2014 Triglycerides 115 mg/dL 81, 84 Cholesterol 148 mg/dL 81, 85 HDL Cholesterol 53.3 mg/dL 81, 86 LDL Cholesterol 72 mg/dL 81, 87 Laboratory test 01/28/2014 TSH (Thyroid 1.24 IU/mL 0.34-5.60 81, 88 finding Stimulating Horm) Laboratory test 01/28/2014 Hemoglobin A1c 10.5 High 5-7 finding 1 SEE RESULT BELOW Name: DEE HALE : [address]: Cameron Reddy MD Acct: [id number] Unit: [id number] AGE: 72 Location: OR Re01/04/18 SEX: F Status: ANA [facility] SPEC: [id number] CONNIE: 01/04/18- SUBM DR: Cameron Reddy MD REQ: [id number] RECD: 01/04/18 STATUS: SOUT _ ORDERED: [facility], LEVEL 4 FINAL DIAGNOSIS Right great toe, amputation: -- Gangrenous ischemic necrosis with ulceration and subcutaneous abscess formation. -- Acute osteomyelitis. PRE-OPERATIVE DIAGNOSIS Gangrene right great toe GROSS DESCRIPTION The specimen is received in formalin labeled, Right Great Toe, and consists of a 5.7 by up to 3.0 x 2.5 cm disarticulated hallux. The distal segment is markedly necrotic, predominantly de-gloved fetid green-black with an intact 2.0 x 1.7 x 0.2 cm yellow-white unguis. The margin of resection is [id number] and appears viable. the ventrolateral resected margin appears suspicious and is inked blue. The cut surface reveals a necrotic distal phalanx and the distal 0.8 cm of the proximal phalanx. Transfusion Aide sections are submitted in cassettes A and B as follows: Bone cassette A, necrosis and margins in cassette B. MICROSCOPIC DESCRIPTION Signed (signature on file) Abril Velez MD 09/28 1056 END OF REPORT DEPARTMENT OF PATHOLOGY, [address] [place] [address] Jac Domingo M.D. Director [facility] # [id number] 2 Jerker: [id number] 3 SEE RESULT BELOW Name: DEE HALE : [address]: Cameron Reddy MD Acct: [id number] Unit: [id number] AGE: 72 Location: OR Re01/04/18 SEX: F Status: ANA [facility] SPEC: [id number] CONNIE: 01/04/[address] [facility] [address]: Cameron Reddy MD REQ: [id number] RECD: 01/04/18 STATUS: RES [facility] DR: Iliana Veliz MD _ SOURCE: WOUND SPDESC: ORDERED: Anaerobic Cult, Culture Stain Procedure Result Reported Site Anaerobic Culture PENDING Wound/Misc Gram Stain Final 01/04/18- 1526 ML 1+ Neutrophils 1+ Epithelial Cells 1+ Gram Positive Cocci Wound/Misc Culture PENDING * ML - Main Lab . END OF REPORT DEPARTMENT OF PATHOLOGY, [address] [place] [address] Jac Domingo M.D. Director [facility] # [id number] 4 SEE RESULT BELOW Name: DEE HALE : [address]: Cameron Reddy MD Acct: [id number] Unit: [id number] AGE: 72 Location: OR Re01/04/18 SEX: F Status: DEP SDC SPEC: [id number] CONNIE: 01/04/18-[address] [facility] [address]: Cameron Reddy MD REQ: [id number] RECD: 01/04/18 STATUS: RES OTHR DR: Iliana Veliz MD _ SOURCE: WOUND SPDESC: ORDERED: Anaerobic Cult, MRSA/SA SSTI, Culture Stain COMMENTS: Verbal to by [id number] at 1659 on 01/04/18. Results read back accurately. Procedure Result Reported Site Anaerobic Culture PENDING MRSA/S. aureus SSTI PCR Final 01/04/18- 1701 ML Organism 1 MRSA NEGATIVE Organism 2 S.AUREUS POSITIVE Wound/Misc Gram Stain Final 01/04/18- 1526 ML 1+ Neutrophils 1+ Epithelial Cells 1+ Gram Positive Cocci Wound/Misc Culture PENDING * ML - Main Lab . END OF REPORT DEPARTMENT OF PATHOLOGY, [address] [place] [address] Jac Domingo M.D. Director [facility] # [id number] 5 SEE RESULT BELOW Name: DEE HALE : [address]: Cameron Reddy MD Acct: [id number] Unit: [id number] AGE: 72 Location: OR Re01/04/18 SEX: F Status: ANA SDC SPEC: [id number] CONNIE: 01/04/[address] [facility] [address]: Cameron Reddy MD REQ: [id number] RECD: 01/04/181410 STATUS: COMP [facility] DR: Iliana Veliz MD _ SOURCE: WOUND SPDESC: ORDERED: Anaerobic Cult, MRSA/SA SSTI, Culture Stain COMMENTS: Verbal to [id number] by [id number] at 1659 on 01/04/18. Results read back accurately. Procedure Result Reported Site Anaerobic Culture Final 01/08/18- 1125 ML Organism 1 BACTEROIDES THETAIOTAOMICRON Quantity 1+ Beta Lactamase Positive Anaerobic sensitivities are not routinely performed. Positive isolates will be saved for one week. Please call the Microbiology Laboratory if susceptibility testing is needed. MRSA/S. aureus SSTI PCR Final 01/04/18- 1701 ML Organism 1 MRSA NEGATIVE Organism 2 S.AUREUS POSITIVE Wound/Misc Gram Stain Final 01/04/18- 1526 ML 1+ Neutrophils 1+ Epithelial Cells 1+ Gram Positive Cocci Wound/Misc Culture Final 01/08/18- 1125 ML Organism 1 STAPHYLOCOCCUS AUREUS Quantity 1+ Organism 2 NORMAL YING Quantity 1+ CONTINUED ON NEXT PAGE DEPARTMENT OF PATHOLOGY, [address] [place] [address] Jac Domingo M.D. Director [facility] # [id number] Patient: DEE HALE [id number] (Continued) Specimen: [id number] Collected: 01/04/18 Received: 01/04/18 (Continued) Procedure Result Reported Site Wound/Misc Culture Final (continued) 01/08/18- 5 1. STAPHYLOCOCCUS AUREUS M.I.C. RX --------- ------ Penicillin >=0.5 R Clindamycin <=0.25 S Erythromycin >=8 R Gentamicin <=0.5 S Linezolid 1 S Oxacillin 0.5 S * Quinupristin/Dalfopristin <=0.25 S Rifampin <=0.5 S Tetracycline <=1 S Doxycycline - Deduced S * Minocycline - Deduced S Trimethoprim/Sulfamethoxazole <=10 S Vancomycin <=0.5 S Imipenem-Deduced S * Ampicillin/Sulbactam-Deduced S Cefazolin-Deduced S * These antibiotics are not available in the [facility] Formulary Contact the Microbiology Department for any additional antibiotic reporting. * ML - Main Lab . END OF REPORT DEPARTMENT OF PATHOLOGY, [address] [place] [address] Jac Domingo M.D. Director [facility] # [id number] 6 Because ethnic data is not always readily available, this report includes an eGFR for both -Americans and non- Americans. The National Kidney Disease Education Program (NKDEP) does not endorse the use of the MDRD equation for patients that are not between the ages of 18 and 70, are , have extremes of body size, muscle mass, or nutritional status, or are non- or non-. According to the National Kidney Foundation, irrespective of diagnosis, the stage of the disease is based on the level of kidney function: Stage Description GFR(mL/min/1.73 m(2)) 1 Kidney damage with normal or decreased GFR 90 2 Kidney damage with mild decrease in GFR 60-89 3 Moderate decrease in GFR 30-59 4 Severe decrease in GFR 15-29 5 Kidney failure <15 (or dialysis) 7 Jerker: [id number] 8 Because ethnic data is not always readily available, this report includes an eGFR for both -Americans and non- Americans. The National Kidney Disease Education Program (NKDEP) does not endorse the use of the MDRD equation for patients that are not between the ages of 18 and 70, are , have extremes of body size, muscle mass, or nutritional status, or are non- or non-. According to the National Kidney Foundation, irrespective of diagnosis, the stage of the disease is based on the level of kidney function: Stage Description GFR(mL/min/1.73 m(2)) 1 Kidney damage with normal or decreased GFR 90 2 Kidney damage with mild decrease in GFR 60-89 3 Moderate decrease in GFR 30-59 4 Severe decrease in GFR 15-29 5 Kidney failure <15 (or dialysis) 9 Desirable: <150 Borderline High: 150-199 High: 200-499 Very High: >500 10 Desirable: <200 Borderline High: 200-239 High: >239 11 Low: <40 Desirable: 40-60 High: >60 12 Desirable: <100 Near Optimal: 100-129 Borderline High: 130-159 High: 160-189 Very High: >189 13 Because ethnic data is not always readily available, this report includes an eGFR for both -Americans and non- Americans. The National Kidney Disease Education Program (NKDEP) does not endorse the use of the MDRD equation for patients that are not between the ages of 18 and 70, are , have extremes of body size, muscle mass, or nutritional status, or are non- or non-. According to the National Kidney Foundation, irrespective of diagnosis, the stage of the disease is based on the level of kidney function: Stage Description GFR(mL/min/1.73 m(2)) 1 Kidney damage with normal or decreased GFR 90 2 Kidney damage with mild decrease in GFR 60-89 3 Moderate decrease in GFR 30-59 4 Severe decrease in GFR 15-29 5 Kidney failure <15 (or dialysis) 14 [id number] 16 99th percentile=0.04 ng/mL Troponin results at [facility] and [facility] are not interchangeable. 17 >100 to <200 pg/mL: likely compensated congestive heart failure (CHF) 200 to 400 pg/mL: likely moderate CHF >400 pg/mL: likely moderate to severe CHF 18 [facility] Severe Sepsis and Septic Shock Management Bundle Measure requires all lactic acids initially measuring >2.0 mmol/L be repeated. 19 99th percentile=0.04 ng/mL Troponin results at [facility] and [facility] are not interchangeable. 20 Because ethnic data is not always readily available, this report includes an eGFR for both -Americans and non- Americans. The National Kidney Disease Education Program (NKDEP) does not endorse the use of the MDRD equation for patients that are not between the ages of 18 and 70, are , have extremes of body size, muscle mass, or nutritional status, or are non- or non-. According to the National Kidney Foundation, irrespective of diagnosis, the stage of the disease is based on the level of kidney function: Stage Description GFR(mL/min/1.73 m(2)) 1 Kidney damage with normal or decreased GFR 90 2 Kidney damage with mild decrease in GFR 60-89 3 Moderate decrease in GFR 30-59 4 Severe decrease in GFR 15-29 5 Kidney failure <15 (or dialysis) 21 Because ethnic data is not always readily available, this report includes an eGFR for both -Americans and non- Americans. The National Kidney Disease Education Program (NKDEP) does not endorse the use of the MDRD equation for patients that are not between the ages of 18 and 70, are , have extremes of body size, muscle mass, or nutritional status, or are non- or non-. According to the National Kidney Foundation, irrespective of diagnosis, the stage of the disease is based on the level of kidney function: Stage Description GFR(mL/min/1.73 m(2)) 1 Kidney damage with normal or decreased GFR 90 2 Kidney damage with mild decrease in GFR 60-89 3 Moderate decrease in GFR 30-59 4 Severe decrease in GFR 15-29 5 Kidney failure <15 (or dialysis) 22 Acute inflammation: >10.00 23 Test Performed by: [address] [address] 24 Interpretation: Strong Positive (>=60.0) REFERENCE VALUE <20.0 (Negative) Test Performed by: [facility] [address] [place] [address] 25 FASTING 12 HOUR 26 Desirable <150 Borderline high 150-199 High 200-499 Very High >500 27 Desirable <200 Borderline high 200-239 High >239 28 Low <40 Desirable: 40-60 High: >60 29 Desirable: <100 mg/dL Near Optimal: 100-129 mg/dL Borderline High: 130-159 mg/dL High: 160-189 mg/dL Very High: >189 mg/dL 30 FASTING 12 HOUR 31 Because ethnic data is not always readily available, this report includes an eGFR for both -Americans and non- Americans. The National Kidney Disease Education Program (NKDEP) does not endorse the use of the MDRD equation for patients that are not between the ages of 18 and 70, are , have extremes of body size, muscle mass, or nutritional status, or are non- or non-. According to the National Kidney Foundation, irrespective of diagnosis, the stage of the disease is based on the level of kidney function: Stage Description GFR(mL/min/1.73 m(2)) 1 Kidney damage with normal or decreased GFR 90 2 Kidney damage with mild decrease in GFR 60-89 3 Moderate decrease in GFR 30-59 4 Severe decrease in GFR 15-29 5 Kidney failure <15 (or dialysis) 32 Therapeutic target for the treatment of diabetes Mellitus patients is <7% HBA1C, and in selective patients <6.0%.Please refer to Citizen [place] Diabetes Association Diabetic care guidelines for further information. 33 SEE RESULT BELOW Name: DEE HALE : [address]: Sandra Brownlee MD Acct: [id number] Unit: [id number] AGE: 71 Location: [facility] Re05/24/16 SEX: F Status: REG REF SPEC: [id number] CONNIE: 05/24/[address]: Sandra Brownlee MD REQ: [id number] RECD: 05/24/16 STATUS: SOUT _ ORDERED: IRON STAIN, Decal, CD5 IMMUNO ST, LEVEL IV/2, JN32-QXU, BCL-2-ADD, BCL-6 PAX-5-ADD Bone marrow chromosome testing has been performed at [facility] , [place], [place]. The testing reveals: Specimen: bone marrow Method: Culture without mitogens Banding methods: Band Resolution: <400 Stain Name Cells Analyzed Cells Karyograms Counted Prepared GTL 20 0 2 Total 20 0 2 Ortega to Stain Name: GTL=G-banding; QFQ=Q-banding; DAPI=DAPI-staining; CBL=C-banding; AGNOR=Silver-staining; NON=Non-banded The sum of Cells Analyzed and Cells Counted equals the total cells examined. Results: 46,XX[20] Interpret: No clonal abnormality was apparent. Test Performed by: [facility] - [address] [address] Sales Branch Manager: Cuate Chavez II, M.D., Ph.D. CONTINUED ON NEXT PAGE * ML=Testing performed at [facility] DEPARTMENT OF PATHOLOGY, [address] [place] [address] Jac Domingo M.D. Director [facility] # [id number] RUN DATE: 06/01/16 [facility] LAB LIVE PAGE 2 Patient: DEE HALE [id number] (Continued) ADDENDUM (Continued) Addendum Signed (signature on file) Abril Velez MD 1046 Addendum: Immunohistochemical stains for CD5, CD10, PAX 5, bcl-2 and bcl-6 were performed with appropriate controls on sections from block 1. Unfortunately the single small lymphoid aggregate noted in the diagnosis is cut through on these levels and these studies are noncontributory. Addendum Signed (signature on file) Jac Domingo MD 1435 FINAL DIAGNOSIS 1. Bone marrow, left posterior iliac crest, aspirate: -- Normocellular bone marrow (for age) with mixed trilinear hematopoiesis. -- No dysplasia noted in myeloid, erythroid or megakaryocytic lines. -- Mildly increased polyclonal plasma cells. -- Reactive nonparatrabecular lymphoid aggregates noted. -- Increased iron noted on iron stain with appropriate controls. 2. Bone marrow, left posterior iliac crest, core biopsy: -- Normocellular bone marrow (for age) with mixed trilinear hematopoiesis. -- No dysplasia noted in myeloid, erythroid or megakaryocytic lines. -- Mildly increased polyclonal plasma cells. -- Reactive nonparatrabecular lymphoid aggregates noted. Comment: Differential diagnosis includes anemia of chronic disease, toxin/infectious etiologies or possibly refractory anemia (myelodysplastic). This may represent a manifestation of the patient's known rheumatoid arthritis. Correlation with pending cytogenetic studies is suggested. SPECIAL STUDIES Flow cytometry has been performed at [facility], [place], [place]. The testing reveals: FINAL DIAGNOSIS: CONTINUED ON NEXT PAGE * ML=Testing performed at Main Lab DEPARTMENT OF PATHOLOGY, [address] [place] [address] Jac Domingo M.D. Director [facility] # [id number] RUN DATE: 06/01/16 [facility] LAB LIVE PAGE 3 Patient: DEE HALE [id number] (Continued) SPECIAL STUDIES (Continued) SPECIAL STUDIES (Continued) Specimen Source: Bone marrow Flow cytometry immunophenotypic analysis: No evidence of an immunophenotypically abnormal cell population. Interpretative data: Blasts: 1% of gated events Lymphocytes: 14% of gated events B-cells: 11% of lymphocytes; kappa:lambda within normal limits T-cells/NK cells: No aberrant population detected. Plasma cells: No clonal population detected Markers tested: CD3, CD10, CD16, CD19, CD34, CD45, kappa surface light chains , lambda surface light chains, 7-AAD, CD38, CD138, cytoplasmic kappa light chains, cytoplasmic lambda light chains. Quality Assessment: Acceptable Viability: Acceptable Viable lymphocytes (7-AAD): 97% Specimen received within validated guidelines. A Weber-Giemsa stained slide prepared from the flow cytometry specimen was examined for quality purposes. Electronically signed by: Abril Velez MD Technical component performed by: [place] [address] Sales Branch Manager: Cuate Chavez II, MD, PhD. PRE-OPERATIVE DIAGNOSIS D64.9 CONTINUED ON NEXT PAGE * ML=Testing performed at Main Lab DEPARTMENT OF PATHOLOGY, [address] [place] [address] Jac Domingo M.D. Director [facility] # [id number] RUN DATE: 06/01/16 [facility] LAB LIVE PAGE 4 Patient: DEE HALE [id number] (Continued) GROSS DESCRIPTION (Continued) GROSS DESCRIPTION 1. The specimen is received in formalin labeled, LPIC, and consists of a 1.7 x 1.5 x 0.5 cm aggregate of red-brown blood clot, which is submitted entirely in one cassette. 2. The specimen is received in formalin labeled, LPIC, and consists of three, vivar-brown bone cores ranging from 0.2 x 0.2 cm to 0.7 x 0.2 cm, which are submitted entirely in one cassette following decalcification. MICROSCOPIC DESCRIPTION The concurrent CBC with electronic differentials available for review as is the peripheral smear. Results are as follows WBC 7.1 RBC 3.83 hemoglobin 10.6 hematocrit 33 MCV 86 MCH 28 MCHC 33 RDW 15% platelet count 324,000 mean platelet 8 absolute neutrophil count 4.1 absolute lymphocyte count 2.1 absolute monocyte count 0.5 absolute eosinophil count 0.3. Red cell morphology is unremarkable. The aspirate smears are amply spicular and demonstrate mixed trilinear hematopoiesis. The M: E ratio is 2-4: 1. Myeloid maturation is unremarkable. Erythroid maturation appears unremarkable. Megakaryocytes are present in normal number and morphology. Plasma cells are 5%. Lymphocytes are increased to 5%. Blasts are less than 1%. The clot section demonstrates 30% cellularity with mixed trilinear hematopoiesis. M: E ratio is 2-4: 1 with normal appearing myeloid and erythroid maturation. Megakaryocytes are present. Blasts are not increased. Plasma cells mildly increased to 5%. A single non-paratrabecular lymphoid aggregate composed predominantly of small lymphocytes with a few interspersed plasma cells is noted. An iron stain performed with appropriate controls demonstrates increased iron present (3-4 plus) The core biopsy demonstrates 30% cellularity with mixed trilinear hematopoiesis. M: E ratio is 2-4: 1 with normal appearing myeloid and erythroid maturation. Blasts are not increased. Plasma cells are up to 5%. Megakaryocytes are present in normal numbers and morphology. Several small nonparatrabecular lymphoid aggregates composed of small lymphocytes are noted. Signed (signature on file) Jac Domingo MD 1134 END OF REPORT * ML=Testing performed at [facility] DEPARTMENT OF PATHOLOGY, [address] [place] [address] Jac Domingo M.D. Director [facility] # [id number] 34 FINAL DIAGNOSIS: Specimen Source: Bone marrow Flow cytometry immunophenotypic analysis: No evidence of an immunophenotypically abnormal cell population. Interpretative data: Blasts: 1% of gated events Lymphocytes: 14% of gated events B-cells: 11% of lymphocytes; kappa:lambda within normal limits T-cells/NK cells: No aberrant population detected. Plasma cells: No clonal population detected Markers tested: CD3, CD10, CD16, CD19, CD34, CD45, kappa surface light chains, lambda surface light chains, 7-AAD, CD38, CD138, cytoplasmic kappa light chains, cytoplasmic lambda light chains. Quality Assessment: Acceptable Viability: Acceptable Viable lymphocytes (7-AAD): 97% Specimen received within validated guidelines. A Weber-Giemsa stained slide prepared from the flow cytometry specimen was examined for quality purposes. Electronically signed by: Abril Velez MD Technical component performed by: [place] [address] Sales Branch Manager: Cuate Chavez II, MD, PhD. 35 anemia, unspecified 36 RESULT: Culture without mitogens 37 Band Resolution: <400 Stain Name Cells Analyzed Cells Karyograms Counted Prepared GTL 20 0 2 Total 20 0 2 Ortega to Stain Name: GTL=G-banding; QFQ=Q-banding; DAPI=DAPI-staining; CBL=C-banding; AGNOR=Silver-staining; NON=Non-banded The sum of Cells Analyzed and Cells Counted equals the total cells examined. 38 No clonal abnormality was apparent. Additional cytogenetic studies are reported separately. PDF Report available at: [email or web address] 39 RESULT: Linda Beltrán D.O. Test Performed by: [place] [address] Sales Branch Manager: Cuate Chavez II, M.D., Ph.D. 40 anemia, unspecified 41 Locus and probes [Strategy;#Nuclei;Class] 11q13(CCND1-XT),14q32(IGH-XT) [DFISH;50;ASR] 14q32(3'IGH,5'IGH) [BAP;50;LDT] Probe strategies include: DFISH=dual color, double fusion; BAP=break-apart probe. 42 RESULT: Insufficient plasma cells were observed. 43 An insufficient number of plasma cells were observed using the cytoplasmic immunoglobulin staining method. This result does not exclude the presence of a plasma cell proliferative disorder. Additional cytogenetic studies are reported separately. PDF Report available at: [email or web address] 44 Applicable to Analyte Specific Reagent (ASR) and Laboratory Developed Tests (LDT). This test was developed and its performance characteristics determined by [facility] in a manner consistent with CLIA requirements. It has not been cleared or approved by the U.S. Food and Drug Administration. This FISH test does not rule out other chromosome abnormalities. 45 RESULT: Vik Moreno M.D., Ph.D. Test Performed by: [place] [address] Sales Branch Manager: Cuate Chavez II, M.D., Ph.D. 46 Because ethnic data is not always readily available, this report includes an eGFR for both -Americans and non- Americans. The National Kidney Disease Education Program (NKDEP) does not endorse the use of the MDRD equation for patients that are not between the ages of 18 and 70, are , have extremes of body size, muscle mass, or nutritional status, or are non- or non-. According to the National Kidney Foundation, irrespective of diagnosis, the stage of the disease is based on the level of kidney function: Stage Description GFR(mL/min/1.73 m(2)) 1 Kidney damage with normal or decreased GFR 90 2 Kidney damage with mild decrease in GFR 60-89 3 Moderate decrease in GFR 30-59 4 Severe decrease in GFR 15-29 5 Kidney failure <15 (or dialysis) 47 All fractions present, no apparent M-spike. Due to the elevated protein, suggest monoclonal protein study ([facility]) if clinically indicated. 48 ADDITIONAL INFORMATION On 03/24/2014 the total protein assay method changed resulting in approximately a 20% increase in protein values. Test Performed by: [address] [address] Sales Branch Manager: Cuate Chavez II, M.D., Ph.D. 49 REFERENCE VALUE 0.3300-1.94 50 REFERENCE VALUE 0.5700-2.63 51 REFERENCE VALUE 0.2600-1.65 Test Performed by: [place] [address] Sales Branch Manager: Cuate Chavez II, M.D., Ph.D. 52 RESULT: Polyclonal hypergammaglobulinemia Test Performed by: [place] [address] Sales Branch Manager: Cuate Chavez II, M.D., Ph.D. 53 [facility] [address] 54 [facility] [address] 55 PAIN IN LEFT KNEE, UNILATERAL PRIMARY OSTEOARTHRIT 56 Because ethnic data is not always readily available, this report includes an eGFR for both -Americans and non- Americans. The National Kidney Disease Education Program (NKDEP) does not endorse the use of the MDRD equation for patients that are not between the ages of 18 and 70, are , have extremes of body size, muscle mass, or nutritional status, or are non- or non-. According to the National Kidney Foundation, irrespective of diagnosis, the stage of the disease is based on the level of kidney function: Stage Description GFR(mL/min/1.73 m(2)) 1 Kidney damage with normal or decreased GFR 90 2 Kidney damage with mild decrease in GFR 60-89 3 Moderate decrease in GFR 30-59 4 Severe decrease in GFR 15-29 5 Kidney failure <15 (or dialysis) 57 Therapeutic target for the treatment of diabetes Mellitus patients is <7% HBA1C, and in selective patients <6.0%.Please refer to Citizen Of [place] Diabetes Association Diabetic care guidelines for further information. 58 SEE RESULT BELOW Name: DEE HALE : [address]: Wilder Mata NP Acct: [id number] Unit: [id number] AGE: 70 Location: [facility] Re03/25/16 SEX: F Status: REG REF SPEC: [id number] CONNIE: 03/25/[address]: Wilder Mata NP REQ: [id number] RECD: 03/25/16 STATUS: COMP _ SOURCE: URINE SPDESC: ORDERED: Urine Culture Urine Source: Random Procedure Result Reported Site Urine Culture Final 03/27/16- 1006 ML No growth of clinically significant organisms * ML - MAIN LAB (PSC1) . END OF REPORT * ML=Testing performed at Main Lab DEPARTMENT OF PATHOLOGY, [address] [place] [address] Jac Domingo M.D. Director [facility] # [id number] 59 standing order 60 Acute inflammation: >10.00 61 standing order 62 standing order 63 Because ethnic data is not always readily available, this report includes an eGFR for both -Americans and non- Americans. The National Kidney Disease Education Program (NKDEP) does not endorse the use of the MDRD equation for patients that are not between the ages of 18 and 70, are , have extremes of body size, muscle mass, or nutritional status, or are non- or non-. According to the National Kidney Foundation, irrespective of diagnosis, the stage of the disease is based on the level of kidney function: Stage Description GFR(mL/min/1.73 m(2)) 1 Kidney damage with normal or decreased GFR 90 2 Kidney damage with mild decrease in GFR 60-89 3 Moderate decrease in GFR 30-59 4 Severe decrease in GFR 15-29 5 Kidney failure <15 (or dialysis) 64 Acute inflammation: >10.00 65 Because ethnic data is not always readily available, this report includes an eGFR for both -Americans and non- Americans. The National Kidney Disease Education Program (NKDEP) does not endorse the use of the MDRD equation for patients that are not between the ages of 18 and 70, are , have extremes of body size, muscle mass, or nutritional status, or are non- or non-. According to the National Kidney Foundation, irrespective of diagnosis, the stage of the disease is based on the level of kidney function: Stage Description GFR(mL/min/1.73 m(2)) 1 Kidney damage with normal or decreased GFR 90 2 Kidney damage with mild decrease in GFR 60-89 3 Moderate decrease in GFR 30-59 4 Severe decrease in GFR 15-29 5 Kidney failure <15 (or dialysis) 66 Because ethnic data is not always readily available, this report includes an eGFR for both -Americans and non- Americans. The National Kidney Disease Education Program (NKDEP) does not endorse the use of the MDRD equation for patients that are not between the ages of 18 and 70, are , have extremes of body size, muscle mass, or nutritional status, or are non- or non-. According to the National Kidney Foundation, irrespective of diagnosis, the stage of the disease is based on the level of kidney function: Stage Description GFR(mL/min/1.73 m(2)) 1 Kidney damage with normal or decreased GFR 90 2 Kidney damage with mild decrease in GFR 60-89 3 Moderate decrease in GFR 30-59 4 Severe decrease in GFR 15-29 5 Kidney failure <15 (or dialysis) 67 Because ethnic data is not always readily available, this report includes an eGFR for both -Americans and non- Americans. The National Kidney Disease Education Program (NKDEP) does not endorse the use of the MDRD equation for patients that are not between the ages of 18 and 70, are , have extremes of body size, muscle mass, or nutritional status, or are non- or non-. According to the National Kidney Foundation, irrespective of diagnosis, the stage of the disease is based on the level of kidney function: Stage Description GFR(mL/min/1.73 m(2)) 1 Kidney damage with normal or decreased GFR 90 2 Kidney damage with mild decrease in GFR 60-89 3 Moderate decrease in GFR 30-59 4 Severe decrease in GFR 15-29 5 Kidney failure <15 (or dialysis) 68 PT IS FASTING 69 Desirable <150 Borderline high 150-199 High 200-499 Very High >500 70 Desirable <200 Borderline high 200-239 High >239 71 Low <40 Desirable: 40-60 High: >60 72 Desirable <100 Near Optimal 100-129 Borderline high 130-159 High 160-189 Very High >189 73 Because ethnic data is not always readily available, this report includes an eGFR for both -Americans and non- Americans. The National Kidney Disease Education Program (NKDEP) does not endorse the use of the MDRD equation for patients that are not between the ages of 18 and 70, are , have extremes of body size, muscle mass, or nutritional status, or are non- or non-. According to the National Kidney Foundation, irrespective of diagnosis, the stage of the disease is based on the level of kidney function: Stage Description GFR(mL/min/1.73 m(2)) 1 Kidney damage with normal or decreased GFR 90 2 Kidney damage with mild decrease in GFR 60-89 3 Moderate decrease in GFR 30-59 4 Severe decrease in GFR 15-29 5 Kidney failure <15 (or dialysis) 74 REFERENCE VALUE 25-HYDROXY D TOTAL (D2+D3) Optimum levels in the healthy population are 20-50, patients with bone disease may benefit from higher levels within this range. Test Performed by: [place] [address] Sales Branch Manager: Yogi Mcallister M.D. 75 Because ethnic data is not always readily available, this report includes an eGFR for both -Americans and non- Americans. The National Kidney Disease Education Program (NKDEP) does not endorse the use of the MDRD equation for patients that are not between the ages of 18 and 70, are , have extremes of body size, muscle mass, or nutritional status, or are non- or non-. According to the National Kidney Foundation, irrespective of diagnosis, the stage of the disease is based on the level of kidney function: Stage Description GFR(mL/min/1.73 m(2)) 1 Kidney damage with normal or decreased GFR 90 2 Kidney damage with mild decrease in GFR 60-89 3 Moderate decrease in GFR 30-59 4 Severe decrease in GFR 15-29 5 Kidney failure <15 (or dialysis) 76 Because ethnic data is not always readily available, this report includes an eGFR for both -Americans and non- Americans. The National Kidney Disease Education Program (NKDEP) does not endorse the use of the MDRD equation for patients that are not between the ages of 18 and 70, are , have extremes of body size, muscle mass, or nutritional status, or are non- or non-. According to the National Kidney Foundation, irrespective of diagnosis, the stage of the disease is based on the level of kidney function: Stage Description GFR(mL/min/1.73 m(2)) 1 Kidney damage with normal or decreased GFR 90 2 Kidney damage with mild decrease in GFR 60-89 3 Moderate decrease in GFR 30-59 4 Severe decrease in GFR 15-29 5 Kidney failure <15 (or dialysis) 77 Interpretation: 10-19 ng/mL (mild to moderate deficiency) -- REFERENCE VALUE -- 25-HYDROXY D TOTAL (D2+D3) Optimum levels in the healthy population are 20-50, patients with bone disease may benefit from higher levels within this range. Test Performed by: [place] [address] Sales Branch Manager: Lyle Gutiérrez III, M.D. 78 Test Performed by: [place] [address] Sales Branch Manager: Lyle Gutiérrez III, M.D. 79 Low risk: <1.00 Average risk: 1.00-3.00 High risk: >3.00 80 Interpretation: Strong Positive (>=60.0) -- REFERENCE VALUE -- <20.0 (Negative) Test Performed by: [place] [address] Sales Branch Manager: Lyle Gutiérrez III, M.D. 81 FASTING 12 HOUR 82 Microalbuminuria in a random sample is defined as: Microalbumin/Creatinine ratio of 30-299 ug/mg. 83 Because ethnic data is not always readily available, this report includes an eGFR for both -Americans and non- Americans. The National Kidney Disease Education Program (NKDEP) does not endorse the use of the MDRD equation for patients that are not between the ages of 18 and 70, are , have extremes of body size, muscle mass, or nutritional status, or are non- or non-. According to the National Kidney Foundation, irrespective of diagnosis, the stage of the disease is based on the level of kidney function: Stage Description GFR(mL/min/1.73 m(2)) 1 Kidney damage with normal or decreased GFR 90 2 Kidney damage with mild decrease in GFR 60-89 3 Moderate decrease in GFR 30-59 4 Severe decrease in GFR 15-29 5 Kidney failure <15 (or dialysis) 84 Desirable <150 Borderline high 150-199 High 200-499 Very High >500 85 Desirable <200 Borderline high 200-239 High >239 86 Low <40 Desirable: 40-60 High: >60 87 Desirable <100 Near Optimal 100-129 Borderline high 130-159 High 160-189 Very High >189 88 FASTING 12 HOUR Procedures Date CPT Code Description Status 01/04/2018 10026 Amputation Toe MP JT Completed 01/04/2018 45641 Amputation Toe MP JT Completed 09/13/2017 21193 Angio Extremity, Bilateral Completed 09/13/2017 59998 Catheter Placement Arterial System Init 3RD Order Completed Abdom/Pelv/Low 03/23/2017 45876 EKG Tracing & Interpretation Completed 12/12/2016 73641 Diffusing Capacity Completed 12/12/2016 15422 Plethysmography Determination Lung Volumes & Per Completed Airway Resist 12/12/2016 08529 Pulmonary Function><Bronchodil Completed 09/01/2016 Bone Mineral Density Test Completed 09/01/2016 Mammogram Completed 06/22/2016 98807 THR Total Hip Replacement Completed 06/22/201692099 THR Total Hip Replacement Completed 06/22/201667395 THR Total Hip Replacement Completed 06/22/2016 65920 EKG, Interpretation Only Completed 04/14/2016 95374 TKR Total Knee Replacement Completed 04/14/2016 31290 TKR Total Knee Replacement Completed 04/05/2016 32003 Stress Test Completed 04/05/2016 44424 Myocardial Perfusion Imaging Tomographic (Spect) Completed Multiple Studies 03/31/2016 15860 EKG Tracing & Interpretation Completed 12/21/201538276 Inject/Drain Joint/Bursa Major Completed 07/24/2015 74819 EEG Recording Awake & Asleep Completed 07/10/2015 46966 EKG Tracing & Interpretation Completed 06/03/2015 68036 Holter Monitoring 24 HR New Completed 06/02/2015 06867 Carotid Doppler,Bilateral Completed 04/03/2015 07985 Inject/Drain Joint/Bursa Major Completed 03/04/2015 69623 Closed trtmt prox humeral fx Completed 01/08/2015 83490 Holter Monitoring 24 HR New Completed 01/06/2015 37861 Holter Monitoring 24 HR New Completed 10/21/2014 Diabetic Retinal Eye Exam Completed 06/17/2014 80996 Left Heart Cath. Incl S/I Coronaries, Angio S/I V Gram Completed If Done 06/17/2014 14259 Percutaneous Transcatheter Placement Of Intracoronary Completed Stent 06/17/2014 70727 Percutaneous Transcatheter Placement Of Intracoronary Completed Stent 06/13/2014 12373 EKG Tracing & Interpretation Completed 04/17/2014 Colonoscopy Completed 04/07/2014 Mammogram Completed 03/07/2014 Diabetic Retinal Eye Exam Completed 03/03/2014 Diabetic Foot Exam Completed 02/26/2014 Bone Mineral Density Test Completed 02/10/2014 50472 ECHO Transthoracic, Real-Time 2D With Doppler And Color Completed Flow 02/06/2014 00957 Myocardial Perfusion Imaging Tomographic (Spect) Completed Multiple Studies 02/06/2014 97254 Stress Test Completed 05/12/2005 Diabetic Retinal Eye Exam Completed Encounters Type Date Location Provider CPT E/M Dx Office Visit 01/11/2018 [facility] 50005 E11.21 4:00p Infectious Diseases Jess Sierra L03.115 E11.51 Z89.411 Office Visit 12/18/2017 2:00p [place] [address] E11.52 [facility] Office Visit 12/18/2017 9:40a [facility] Kiarra Galaviz, 90401 I70.261 Television News Reporter AT [facility] , FACC, [facility] Office Visit 11/16/2017 3:00p [facility] Kiarra Galaviz, 16621 I70.235 Television News Reporter AT [facility] LINA LITTLEJOHN, FSCAI Office Visit 10/23/2017 8:40a [facility] Kiarra Galaviz, 90820 I70.235 Television News Reporter AT [facility] LINA LITTLEJOHN, FSCAI Office Visit 09/18/2017 3:40p [facility] Kiarra Galaviz, 59244 I70.235 Television News Reporter AT [facility] LINA LITTLEJOHN, FSCAI I70.245 Office Visit 08/14/2017 3:00p [facility] Kiarra Galaviz, 66789 I70.235 Television News Reporter AT [facility] LINA LITTLEJOHN, FSCAI I70.245 Office Visit 06/07/2017 11:10a [facility] Iliana Veliz, 51182 E11.21 - Denzel Mercado I10 E83.42 Z23 G47.09 M81.0 Office Visit 03/23/2017 3:30p [facility] Jeanmarie Bolanos, 61357 I25.10 Tyler Mercado I10 Office Visit 02/27/2017 7:30a [facility] Iliana Veliz M.D. 21829 K21.9 - Denzel Office Visit 02/15/2017 8:30a [facility] Iliana Veliz M.D. 58529 K21.9 - Denzel R10.13 Office Visit 12/22/2016 10:00a [facility] Murphy Kern, 84885 M05.79 Christina STRATEGIC MARKETING SPECIALIST M81.0 E55.9 Z79.899 Office Visit 08/25/2016 9:50a [facility] Iliana Veliz, 40932 E11.21 - Denzel Mercado M06.9 I10 E55.9 Z12.31 M81.0 Z23 Office Visit 06/25/2016 12:59[place] [address] I25.10 Assoc, Hospitalists S72.002A E11.9 M06.9 Office Visit 06/24/2016 12:59p [facility] [place] [address] I25.10 Assoc, Hospitalists S72.002A E11.9 M06.9 Office Visit 06/23/2016 12:58p [facility] Kristin Moore, SPREAD CUTTER 61853 I25.10 Assoc,pc Hospitalists S72.002A E11.9 M06.9 Office Visit 06/22/2016 12:57p [facility] Kristin Moore, 57170 S72.002A Assoc,pc Hospitalists SPREAD CUTTER I25.10 E11.9 M06.9 Office Visit 06/21/2016 12:56p [facility] 75081 I25.10 Assoc,pc PA Hospitalists E11.9 M06.9 S72.002A Office Visit 05/26/2016 10:10a [facility] Iliana Veliz, 76680 E11.21 - Denzel Mercado I10 M81.0 E83.42 Z23 Office Visit 04/16/2016 11:21a [facility] Assoc,pc Francisca Webb, N.P. 22250 I25.10 Hospitalists I10 E11.9 Z96.652 Office Visit 04/15/2016 11:20a [facility] Assoc,pc Francisca Webb, N.P. 94818 I25.10 Hospitalists Z96.652 I10 E11.9 Office Visit 04/14/2016 11:19a [facility] Jose Alfredo Gibbs, 07810 Z96.652 Assoc,pc Hospitalists N.P. I25.10 I10 E11.9 Office Visit 03/31/2016 12:30p [facility] Jeanmarie Bolanos, 25229 E11.21 [facility] Jess I25.10 R94.31 Z01.810 Office Visit 03/25/2016 9:40a [facility] - Wilder Mata, CHARLES 42758 Z01.818 Plush M17.12 E11.311 R55 I10 M05.79 Office Visit 03/21/2016 9:45a [facility] Dee Dee Junior M.D. 11368 M25.562 C.M.AAylin M17.12 M25.462 Office Visit 12/21/2015 2:00p [facility] Dee Dee Junior M.D. 63856 M17.0 C.M.AAylin M17.11 M17.12 Office Visit 11/09/2015 10:30a [place] [address] F44.5 Services [facility] Office Visit 10/08/2015 9:50a [facility] Iliana Veliz 78109 E11.311 - Darin Mercado M79.661 S16.1xxA E11.21 Office Visit 09/24/2015 10:30a Rheumatology Services ROSA ELENA Kumar 29473 M05.79 [facility] R55 Z79.899 M81.0 E55.9 Office Visit 09/01/2015 2:30p [place] [address] R55 Services [facility] Office Visit 07/15/2015 9:30a [place] [address] R55 Services [facility] Office Visit 07/10/2015 11:15a [facility] Dee Dee Junior M.D. 97360 S42.292D [facility] Office Visit 07/10/2015 9:30a [facility] Jeanmarie Bolanos, 82013 I25.10 [facility] Jess R55 Office Visit 07/02/2015 10:00a [facility] Leobardo Ambriz, 80978 M05.89 [facility] Jess Z79.899 M15.0 E11.311 Office Visit 05/04/2015 10:00a [facility] [place] A [address] 401.1 - Darin Office Visit 04/21/2015 11:50a [facility] Iliana Veliz 70956 250.42 - Darin Mercado 682.9 401.1 268.9 681.10 Office Visit 03/06/2015 8:00a [facility] Jeanmarie Bolanos 72124 414.01 Tyler Carvajal.Javi Office Visit 12/31/2014 9:10a [facility] Iliana Veliz 27795 250.40 - Darin Mercado 250.42 401.9 780.2 V03.82 Office Visit 08/14/2014 11:15a [facility] Jeanmarie Bolanos 43027 414.01 Tyler Mercado 250.40 Office Visit 07/31/2014 9:50a [facility] Iliana Veliz 73487 250.40 - Darin Mercado 268.9 V04.81 Office Visit 06/24/2014 1:15p [facility] Jeanmarie Bolanos, 76741 414.01 [facility] AT [facility] MCortney 786.50 Office Visit 06/13/2014 3:45p [facility] Jeanmarie Bolanos, 05203 786.50 [facility] M.DAylin Office Visit 05/28/2014 4:00p [facility] Milan Malagon M.D. 77288 714.0 Of [facility] 681.10 V49.5 Office Visit 04/30/2014 9:50a [facility] Iliana Veliz 39221 250.40 - Darin Mercado Office Visit 2014 9:10a [facility] Iliana Veliz 96317 V70.0 - Darin Mercado 250.42 787.91 V76.51 729.82 V76.10 112.9 v76.2 Office Visit 03/31/2014 8:00a [facility] Of Milan Malagon M.D. 78375 714.0 [facility] 733.00 Office Visit 02/26/2014 1:00p [facility] Of Milan Malagon M.D. 80183 714.0 [facility] 733.00 Office Visit 02/25/2014 10:10a [facility] Iliana Veliz 09315 250.42 - Darin Mercado 786.05 443.9 733.01 714.0 518.89 Office Visit 01/28/2014 9:10a [facility] Iliana Veliz 39090 250.02 - Darin Mercado 786.50 443.9 786.05 278.00 Plan of Care Future Appointment(s):01/26/2018 11:30 am - Cameron Reddy MD at [facility]01/26/2018 9:10 am - Jalil Sierra M.D. at [facility] Ijgpnymy57/22/2018 10:10 am - Iliana eVliz M.D. at [facility]01/17/2018 - Cameron Reddy MDZ89.411 Acquired absence of right great toeFollow up:Follow Up: 1 week
--- OUTSIDE RECORDS SUMMARY | 2018-01-26 10:38 | XMS REPORT ---
:1945 External Reference #:[id number] Author Organization [facility] Address [address] [address] Phone [phone] Care Team Providers Name Role Phone Iliana Veliz MD Primary Care Physician Unavailable Payers Type Date Identification Numbers Payment Provider Subscriber Medicare Primary Effective: Policy Number: Medicare Dee Hale 2011 [id number] PayID: [id number] [address] [place] [address] [facility] Part B Policy Number: [id number] [facility] Dee Hale PayID: [id number] [address] [place] [address] Problems Date Description Provider Status Onset: 03/13/2014 [...] Dee Junior M.D. Active Onset: 08/14/2017 Athscl orutsararmiut arteries of right Kiarra Galaviz MD, Active leg w ulcer oth prt foot FAC, FSCAI Onset: 08/14/2017 Athscl orutsararmiut arteries of left leg Kiarra Galaviz MD, [...] Strength Qnty SIG Indications Ordering Provider Wheelchair 01/11/ Active Misc 1units as needed Iliana 2018 Jess Veliz Commode 01/11/ Active Misc 1units as needed Iliana Bedside 2017 Jess Veliz Flagyl 01/10/ Active Tablets 500mg 28tabs 1 by mouth [facility] 2018 twice a day MD Maureen Oxycodone HCL 01/04/ Active Tablets 5mg 10tabs 1 tabs by [facility] 2018 mouth every Maureen, 6 hours as MD needed Cefadroxil 01/04/ Active Capsules 500mg 10caps 1 by mouth [facility] 2018 twice a day Maureen, x 5 days MD Mejias 12/28/ Active bs testing Iliana [facility] 2018 up to 2 Veliz, Strips times/day M.D. Lasix 12/18/ Active Tablets 20mg 30tabs 1 by mouth I70.261 Marcis T. 2018 daily prn Sodums, edema , [facility] Alendronate 06/07/ Active Tablets 70mg 12tabs take 1 M81.0 Iliana Sodium 2017 tablet by Veliz, mouth M.D. weekly Ventolin HFA 12/15/ Active Aerosol 108(90Base 8.5uni inhale 2 Iliana 2016 ) mcg/Act ts puffs by Veliz, mouth every M.D. 6 hrs as needed for shortness of breath Accucheck 08/25/ Active 100uni check bs Inocencio Alicea 2016 ts 2-3 times a Yris, day and as M.D. needed Accu-Check 08/25/ Active Device 1units check 2-3 Iliana Glucose 2016 times a day Veliz, Monitor M.D. Accucheck 08/25/ Active 100uni check bs Inocencio Costello Chem 2016 ts 2-3 Yris, Strips times/day M.D. e11.21 Atorvastatin 05/26/ Active Tablets 20mg 90tabs take one Inocencio Valdivia Calcium 2016 tablet by Yris, mouth at M.D. bedtime Magnesium 04/25/ Active Tablets 400(241.3m 120tab Take Two Iliana Oxide 2016 g) mg s Tablets By Jose Alfredo, Mouth Twice M.D. A Day Lisinopril 03/25/ Active Tablets 20mg 90tabs 1 by mouth I10 Ioncencio E. 2016 every day Jess Arndt Vitamin D3 10/19/ Active Tablets 2000Unit 30tabs 1 by mouth E55.9 Iliana Super Strength 2016 every day Jess Veliz M81.0 Leflunomide 09/24/2015 Active Tablets 20mg 90tabs 1 by mouth Z79.899 Zsofia Erlin, every day BIOINFORMATICS ENGINEER M05.79 Right Knee 05/08/2015 Active S42.292D Dirk Tiana, Hinged Knee M.DAylin Brace Depend Pant 2014 Active Misc 1b as needed Iliana SM/Med ox Jess Veliz Aspirin 01/28/[address] 81m 90 once a day 786.50 Iliana g ta oziel Veliz M.DAylin Janumet 01/28/2014 Active Tablets 50- 90 take one E11.65 Inocencio E. 100 ta tablet by Yris, 0mg bs [...] 0u and as needed Darell Veliz ni M.DAylin ts Gmate Origin 08/24/2015 - Hx Device Iliana Blood Glucose 08/25/2016 Felicia Veliz M.D. System Gmate Lancets 08/24/2015 - Hx [...] bs Z79.899 Ergocalciferol 04/22/2015 - Hx Capsules 91414Evda 8caps 1 tab by mouth Iliana 10/08/2015 [...] /Trimethoprim DS 07/02/2015 twice a day 2. Jose Alfredo 9 M.DAylin Tramadol HCL 02/23/2015 - Hx Tablets 50mg 40tabs 1 by mouth Iliana 05/04/2015 every 8 hrs a Jose Alfredo, franco as needed M.DAylin Lisinopril 12/31/2014 - Hx Tablets 20mg 90tabs 1 by mouth 40 Iliana 04/22/2015 every day 1. Jose Alfredo 9 M.D. Lipitor 06/24/2014 - Hx Tablets 20mg 90tabs 1 by mouth I2 Jeanmarie 07/14/2015 every day 5. Vamshi Art.DAylin Mag-200 04/03/2014 - Hx Tablets 200mg 2 by mouth Iliana 04/25/2016 every day ( Jose Alfredo, not taken , M.D. last taken 03/28/16) Nyamy 2014 - Hx Powder 158401Robp/ 100gms apply to 11 Iliana 12/31/2014 GM affected area 2. Jose Alfredo, twice a day x 9 M.D. 10 days as needed Enbrel Sureclick 03/31/2014 - Hx Solution 50mg/ml 8units injet [place] 06/12/2014 subsutaneous Malagon, once weekly M.D. Ergocalciferol 03/13/2014 - Hx Capsules 25003Cfcm 8caps 1 tab by mouth Iliana 08/13/2014 every week Jess Veliz Leflunomide 02/26/2014 - Hx Tablets 20mg 30tabs 1 by mouth 73 [place] 12/24/2014 every day 3. Manas, 00 M.D. Lisinopril 02/25/2014 - Hx Tablets [...] Iliana Chem Strips 08/24/2015 s times/day dx 0. Jose Alfredo 250.02 02 M.D. Keflex - Hx Capsules [...] inophen 09/17/2017 hours Ergocalciferol - Hx Powder 66124Abu daily Unknown 12/17/2017 Pradaxa - Hx Capsules 75mg 1 by mouth Unknown 12/17/2017 twice a day Medications Administered in Office Medication Date Status Form Strength Qnty SIG Indications Ordering Provider Inj, Administered Injection Lucio Martin Regadenoson, 016 Justus, 0.1 MG Jess, LINA, FASNC Technetium TC Administered Injection Luciorobina Martin 99M 016 Lindsey Jerome M.D., LINA, Per Unit Dose FASNC Up To 40 Millicuries Depomedrol Administered Injection Dee Dee 40MG Lexus Junior M.D. Depomedrol Administered Injection Dee Dee 40MG Lexus Junior M.D. Depomedrol Administered Injection Dee Dee 80MG Elver Junior M.D. Inj, Administered Injection Jeanmarie D. Regadenoson, Sebastian Bolanos M.D. 0.1 MG Technetium TC Administered Injection Jeanmarie Caldwell 99M 014 Jess Bolanos Tetrofosmin, Per Unit Dose Up To 40 Millicuries Immunizations CPT Code Status Date Vaccine Reaction Lot # [id number] Given 06/07/2017 Influenza Virus Vaccine, 572kt Quadrivalent, Split, Preservative Free 61507 Given 12/05/2016 Tdap - [id number] Tetanus/Diptheria/Acellular Pertussis 21642 Given 08/25/2016 Influenza Virus Vaccine, [id number] Quadrivalent, Split Virus, Im Use 94689 Given 05/26/2016 Pneumonia Vaccine [id number] 75103 Given 12/31/2014 Pneumococcal Conjugate Vaccine [id number] 13 Valent For Intramuscular Use 54280 Given 07/31/2014 Flu Vaccine Split Virus No reaction noted. [id number] Preservative Free For Indiv 3Yr Older Vital Signs Date Vital Result Comment 01/11/2018 Height 62 inches 5'2" Weight 170.00 [...] 47 Total Protein(Pep) Urine 44 mg/dL 48 [place]/Lambda Free Light Chains 05/05/2016 [place] Free Light Chain 6.55 mg/dL 49 Ser Lambda Free Light Chain 3.03 mg/dL 50 [place]/Lambda Free Light Chain 2.16 51 Protein Electrophoresis [...] Color Amelia Urine Appearance Turbid Urine Specific Lincoln 1.019 1.010-1.030 Urine pH 5.0 5-9 Urine [...] [address]: Cameron Reddy MD Acct: [id number] Unit: [id number] AGE: 72 Location: [place] Re01/04/18 SEX: F Status: DEP SDC SPEC: [id number] CONNIE: 01/04/18- [facility] DR: Cameron Reddy MD REQ: [id number] RECD: 01/04/18 STATUS: SOUT _ ORDERED: Decal, LEVEL 4 FINAL DIAGNOSIS Right great toe, [...] yellow-white unguis. The margin of resection is [id number]-[id number] and appears viable. the ventrolateral resected margin appears suspicious and is inked blue. The cut surface reveals a necrotic distal phalanx and the distal 0.8 cm of the proximal phalanx. Geometry Tutor sections are submitted in cassettes A and B as follows: Bone cassette A, necrosis and margins in cassette B. MICROSCOPIC DESCRIPTION Signed (signature on file) Abril Velez MD 09/28 1056 END OF REPORT DEPARTMENT OF PATHOLOGY, [address] [place] [address] Jac Domingo M.D. Director [facility] # [id number] 2 Wood Drilling Machine Operator: [id number] 3 SEE RESULT BELOW Name: DEE HALE : [address]: Cameron Reddy MD Acct: [id number] Unit: [id number] AGE: 72 Location: OR Re01/04/18 SEX: F Status: DEP SDC SPEC: [id number] CONNIE: 01/04/18 [facility] DR: Cameron Reddy MD REQ: [id number] RECD: 01/04/18 STATUS: RES PARRISH DR: Iliana Veliz MD _ SOURCE: WOUND SPDESC: ORDERED: Anaerobic Cult, Culture Stain Procedure Result Reported Site Anaerobic Culture PENDING Wound/Misc Gram Stain Final 01/04/18- 1526 ML 1+ Neutrophils 1+ Epithelial Cells 1+ Gram Positive Cocci Wound/Misc Culture PENDING * ML - Main Lab . END OF REPORT DEPARTMENT OF PATHOLOGY, [address] [place] [address] Jac Domingo M.D. Director [facility] # [id number] 4 SEE RESULT BELOW Name: DEE HALE : [address]: Cameron Reddy MD Acct: [id number] Unit: [id number] AGE: 72 Location: OR Re01/04/18 SEX: F Status: DEP SDC SPEC: [id number] CONNIE: 01/04/18 [facility] DR: Cameron Reddy MD REQ: [id number] RECD: 01/04/18 STATUS: RES ALY DR: Iliana Veliz MD _ SOURCE: WOUND SPDESC: ORDERED: Anaerobic Cult, MRSA/SA SSTI, Culture Stain COMMENTS: Verbal to by [id number] at 1659 on 01/04/18. Results read back accurately. Procedure Result Reported Site Anaerobic Culture PENDING MRSA/S. aureus SSTI PCR Final 01/04/18- 1701 ML Organism 1 MRSA NEGATIVE Organism 2 S.AUREUS POSITIVE Wound/Misc Gram Stain Final 01/04/18- 1526 ML 1+ Neutrophils 1+ Epithelial Cells 1+ Gram Positive Cocci Wound/Misc Culture PENDING * ML - Main Lab . END OF REPORT DEPARTMENT OF PATHOLOGY, [address] [place] [address] Jac Domingo M.D. Director [facility] # [id number] 5 SEE RESULT BELOW Name: DEE HALE : [address]: Cameron Reddy MD Acct: [id number] Unit: [id number] AGE: 72 Location: OR Re01/04/18 SEX: F Status: ANA BRASHER SPEC: [id number] CONNIE: 01/04/18-899 [facility] [address]: Cameron Reddy MD REQ: [id number] RECD: 01/04/18-1409 STATUS: AMIE SENIOR DR: Iliana Veliz MD _ SOURCE: WOUND SPDESC: ORDERED: Anaerobic Cult, MRSA/SA SSTI, Culture Stain COMMENTS: Verbal to by [id number] at 1659 on 01/04/18. Results read back [...] CONTINUED ON NEXT PAGE DEPARTMENT OF PATHOLOGY, [address] [place] [address] Jac Domingo M.D. Director [facility] # [id number] Patient: DEE HALE [id number] (Continued) Specimen: [id number] Collected: 01/04/18 Received: 01/04/18 (Continued) Procedure Result Reported Site Wound/Misc Culture Final (continued) 01/08/18- 1124 1. STAPHYLOCOCCUS AUREUS M.I.C. RX --------- ------ [...] These antibiotics are not available in the [facility] Formulary Contact the Microbiology Department for any additional antibiotic reporting. * ML - Main Lab . END OF REPORT DEPARTMENT OF PATHOLOGY, [address] [place] [address] Jac Domingo M.D. Director [facility] # [id number] 6 Because ethnic data is not always [...] 5 Kidney failure <15 (or dialysis) 7 Wood Drilling Machine Operator: [id number] 8 Because ethnic data is not always [...] 5 Kidney failure <15 (or dialysis) 14 [id number] 15 [id number] 16 99th percentile=0.04 ng/mL Troponin results at [facility] and [facility] are not interchangeable. 17 >100 to <200 pg/mL: likely compensated congestive heart failure (CHF) 200 to 400 pg/mL: likely moderate CHF >400 pg/mL: likely moderate to severe CHF 18 [facility] Severe Sepsis and Septic Shock Management Bundle Measure requires all lactic acids initially measuring >2.0 mmol/L be repeated. 19 99th percentile=0.04 ng/mL Troponin results at [facility] and [facility] are not interchangeable. 20 Because ethnic data [...] Acute inflammation: >10.00 23 Test Performed by: [place] [address] 24 Interpretation: Strong Positive (>=60.0) REFERENCE VALUE <20.0 (Negative) Test Performed by: [place] [address] 25 FASTING 12 HOUR 26 Desirable <150 [...] and in selective patients <6.0%.Please refer to [place] [employer] Diabetic care guidelines for further information. 33 SEE RESULT BELOW Name: DEE HALE : [address]: Sandra Brownlee MD Acct: [id number] Unit: [id number] AGE: 71 Location: [facility] Re05/24/16 SEX: F Status: REG REF SPEC: [id number] CONNIE: 05/24/16 [facility] [address]: Sandra Brownlee MD REQ: [id number] RECD: 05/24/16 STATUS: SOUT _ ORDERED: IRON STAIN, Decal, CD5 IMMUNO ST, LEVEL IV/2, GX59-HYZ, BCL-2-ADD, BCL-6 PAX-5-ADD Bone marrow chromosome testing has been performed at [facility] , [place], [place]. The testing reveals: Specimen: bone marrow [...] clonal abnormality was apparent. Test Performed by: [facility] - [address] [address] Radiology Transcriptionist: Cuate Chavez II, M.D., Ph.D. CONTINUED ON NEXT PAGE * ML=Testing performed at Main Lab DEPARTMENT OF PATHOLOGY, [address] [place] [address] Jac Domingo M.D. Director [facility] # [id number] RUN DATE: 06/01/16 [facility] LAB LIVE PAGE 2 Patient: DEE HALE [id number] (Continued) ADDENDUM (Continued) Addendum Signed (signature on [...] STUDIES Flow cytometry has been performed at [facility], [place], [place]. The testing reveals: FINAL DIAGNOSIS: CONTINUED ON NEXT PAGE * ML=Testing performed at Main Lab DEPARTMENT OF PATHOLOGY, [address] [place] [address] Jac Domingo M.D. Director [facility] # [id number] RUN DATE: 06/01/16 [facility] LAB LIVE PAGE 3 Patient: DEE HALE [id number] (Continued) SPECIAL STUDIES (Continued) SPECIAL STUDIES (Continued) [...] Abril Velez MD Technical component performed by: [place] [address] Radiology Transcriptionist: Cuate Chavez II, MD, PhD. PRE-OPERATIVE DIAGNOSIS D64.9 CONTINUED ON NEXT PAGE * ML=Testing performed at Main Lab DEPARTMENT OF PATHOLOGY, [address] [place] [address] Jac Domingo M.D. Director CLIA # [id number] RUN DATE: 06/01/16 [facility] LAB LIVE PAGE 4 Patient: DEE HALE [id number] (Continued) GROSS DESCRIPTION (Continued) GROSS DESCRIPTION 1. [...] performed at Main Lab DEPARTMENT OF PATHOLOGY, [address] [place] [address] Jac Domingo M.D. Director [facility] # [id number] 34 FINAL DIAGNOSIS: Specimen Source: Bone marrow [...] Abril Velez MD Technical component performed by: [place] [address] Radiology Transcriptionist: Cuate Chavez II, MD, PhD. 35 anemia, [...] are reported separately. PDF Report available at: [email or web address] 39 RESULT: Linda Beltrán D.O. Test Performed by: [place] [address] Radiology Transcriptionist: Cuate Chavez II, M.D., Ph.D. 40 anemia, [...] are reported separately. PDF Report available at: [email or web address] 44 Applicable to Analyte Specific Reagent (ASR) and Laboratory Developed Tests (LDT). This test was developed and its performance characteristics determined by [facility] in a manner consistent with CLIA requirements. It has not been cleared or approved by the U.S. Food and Drug Administration. This FISH test does not rule out other chromosome abnormalities. 45 RESULT: Vik Moreno M.D., Ph.D. Test Performed by: [place] [address] Radiology Transcriptionist: Cuate Chavez II, M.D., Ph.D. 46 Because [...] increase in protein values. Test Performed by: [facility] - [address] [address] Radiology Transcriptionist: Cuate Chavez II, M.D., Ph.D. 49 REFERENCE VALUE 0.3300-1.94 50 REFERENCE VALUE 0.5700-2.63 51 REFERENCE VALUE 0.2600-1.65 Test Performed by: [facility] [place] [address] [place] [address] Radiology Transcriptionist: Cuate Chavez II, M.D., Ph.D. 52 RESULT: Polyclonal hypergammaglobulinemia Test Performed by: [address] [address] Radiology Transcriptionist: Cuate Chavez II, M.D., Ph.D. 53 [facility] [address] 54 [facility] [address] 55 PAIN IN LEFT KNEE, UNILATERAL PRIMARY [...] and in selective patients <6.0%.Please refer to [place] [employer] Diabetic care guidelines for further information. 58 SEE RESULT BELOW Name: DEE HALE : [address]: Wilder Mata NP Acct: [id number] Unit: [id number] AGE: 70 Location: [facility] Re03/25/16 SEX: F Status: REG REF SPEC: [id number] CONNIE: 03/25/[address]: Wilder Mata NP REQ: [id number] RECD: 03/25/16 STATUS: COMP _ SOURCE: URINE SPDESC: ORDERED: Urine Culture Urine Source: Random Procedure Result Reported Site Urine Culture Final 03/27/16- 1006 ML No growth of clinically significant organisms * ML - MAIN LAB ([facility]) . END OF REPORT * ML=Testing performed at Main Lab DEPARTMENT OF PATHOLOGY, [address] [place] [address] Jac Domingo M.D. Director [facility] # [id number] 59 standing order 60 Acute inflammation: >10.00 [...] levels within this range. Test Performed by: [place] [address] Radiology Transcriptionist: Yogi Mcallister M.D. 75 Because ethnic data [...] levels within this range. Test Performed by: [place] [address] Radiology Transcriptionist: Lyle Gutiérrez III, M.D. 78 Test Performed by: [place] [address] Radiology Transcriptionist: Lyle Gutiérrez III, M.D. 79 Low risk: <1.00 Average risk: 1.00-3.00 High risk: >3.00 80 Interpretation: Strong Positive (>=60.0) -- REFERENCE VALUE -- <20.0 (Negative) Test Performed by: [place] [address] Radiology Transcriptionist: Lyle Gutiérrez III, M.D. 81 FASTING 12 [...] Procedures Date CPT Code Description Status 01/04/2018 41376 Amputation Toe MP JT Completed 01/04/2018 19293 Amputation Toe MP JT Completed 09/13/2017 41675 Angio Extremity, Bilateral Completed 09/13/2017 22090 Catheter Placement Arterial System Init 3RD Order Completed Abdom/Pelv/Low 03/23/2017 52746 EKG Tracing & Interpretation Completed 12/12/2016 33420 Diffusing Capacity Completed 12/12/2016 98108 Plethysmography Determination Lung Volumes & Per Completed Airway Resist 12/12/2016 14623 Pulmonary Function><Bronchodil Completed 09/01/2016 Bone Mineral Density Test Completed 09/01/2016 Mammogram Completed 06/22/2016 91999 THR Total Hip Replacement Completed 06/22/2016 10500 THR Total Hip Replacement Completed 06/22/2016 36014 THR Total Hip Replacement Completed 06/22/2016 83455 EKG, Interpretation Only Completed 04/14/2016 25078 TKR Total Knee Replacement Completed 04/14/2016 04494 TKR Total Knee Replacement Completed 04/05/2016 06940 Stress Test Completed 04/05/2016 27804 Myocardial Perfusion Imaging Tomographic (Spect) Completed Multiple Studies 03/31/2016 36118 EKG Tracing & Interpretation Completed 12/21/2015 04315 Inject/Drain Joint/Bursa Major Completed 07/24/2015 38850 EEG Recording Awake & Asleep Completed 07/10/2015 19799 EKG Tracing & Interpretation Completed 06/03/2015 51702 Holter Monitoring 24 HR New Completed 06/02/2015 20844 Carotid Doppler,Bilateral Completed 04/03/201518250 Inject/Drain Joint/Bursa Major Completed 03/04/2015 45762 Closed trtmt prox humeral fx Completed 01/08/2015 10471 Holter Monitoring 24 HR New Completed 01/06/2015 58497 Holter Monitoring 24 HR New Completed 10/21/2014 Diabetic Retinal Eye Exam Completed 06/17/2014 60195 Left Heart Cath. Incl S/I Coronaries, Angio S/I V Gram Completed If Done 06/17/2014 58053 Percutaneous Transcatheter Placement Of Intracoronary Completed Stent 06/17/2014 09098 Percutaneous Transcatheter Placement Of Intracoronary Completed Stent 06/13/2014 61709 EKG Tracing & Interpretation Completed 04/17/2014 Colonoscopy Completed 04/07/2014 Mammogram Completed 03/07/2014 Diabetic Retinal Eye Exam Completed 03/03/2014 Diabetic Foot Exam Completed 02/26/2014 Bone Mineral Density Test Completed 02/10/2014 06314 ECHO Transthoracic, Real-Time 2D With Doppler And Color Completed Flow 02/06/2014 93508 Myocardial Perfusion Imaging Tomographic (Spect) Completed Multiple Studies 02/06/2014 24693 Stress Test Completed 05/12/2005 Diabetic Retinal Eye Exam Completed Encounters Type Date Location Provider CPT E/M Dx Office Visit 12/18/2017 [place] [address] E11.52 2:00p Of C.M.A. Office Visit 12/18/2017 [facility] Kiarra Galaviz, 43785 I70.261 9:40a Bench Mover At [facility] LINA LITTLEJOHN, [facility] Office Visit 11/16/2017 [facility] Kiarra Galaviz, 61628 I70.235 3:00p Bench Mover At [facility] LINA LITTLEJOHN, [facility] Office Visit 10/23/2017 [facility] Kiarra Galaviz, 04276 I70.235 8:40a Bench Mover At RACHEL LITTLEJOHN FACC, [facility] Office Visit 09/18/2017 [facility] Kiarra Galaviz, 67966 I70.235 3:40p Bench Mover At [facility] LINA LITTLEJOHN, [facility] I70.245 Office Visit 08/14/2017 3:00p [facility] Kiarra Galaviz, 55089 I70.235 Bench Mover At [facility] LINA LITTLEJOHN, [facility] I70.245 Office Visit 06/07/2017 11:10a [facility] Internal Medicine Iliana Veliz 33584 E11.21 - Denzel Mercado I10 E83.42 Z23 G47.09 M81.0 Office Visit 03/23/2017 3:30p [facility] Jeanmarie Bolanos, 23749 I25.10 Tyler Mercado I10 Office Visit 02/27/2017 7:30a [facility] Internal Medicine Iliana Veliz M.D. 28931 K21.9 - Denzel Office Visit 02/15/2017 8:30a [facility] Internal Medicine Iliana Veliz M.D. 02426 K21.9 - Denzel R10.13 Office Visit 12/22/2016 10:00a [facility] Murphy Kern, 45624 M05.79 [facility]-Denzel BIOINFORMATICS ENGINEER M81.0 E55.9 Z79.899 Office Visit 08/25/2016 9:50a [facility] Internal Medicine Iliana Veliz 02347 E11.21 - Denzel Mercado M06.9 I10 E55.9 Z12.31 M81.0 Z23 Office Visit 06/25/2016 12:59p [facility] Kristin Moore, CHARLES 60658 I25.10 Assoc,pc Hospitalists S72.002A E11.9 M06.9 Office Visit 06/24/2016 12:59p [facility] Kristin Moore, CHARLES 71359 I25.10 Assoc,pc Hospitalists S72.002A E11.9 M06.9 Office Visit 06/23/2016 12:58p [facility] [address] I25.10 Assoc,pc Hospitalists S72.002A E11.9 M06.9 Office Visit 06/22/2016 12:57p [facility] Kristin Moore, 32186 S72.002A Assoc,pc Hospitalists TALENT DEVELOPMENT COORDINATOR I25.10 E11.9 M06.9 Office Visit 06/21/2016 12:56p [facility] Sachin Dawn, 44823 I25.10 Assoc,pc PA Hospitalists E11.9 M06.9 S72.002A Office Visit 05/26/2016 10:10a [facility] Internal Medicine Iliana Veliz, 60360 E11.21 - Denzel Mercado I10 M81.0 E83.42 Z23 Office Visit 04/16/2016 11:21a [facility] Assoc,pc Francisca Webb, N.P. 70901 I25.10 Hospitalists I10 E11.9 Z96.652 Office Visit 04/15/2016 11:20a [facility] Assoc,pc Francisca Webb, N.P. 66878 I25.10 Hospitalists Z96.652 I10 E11.9 Office Visit 04/14/2016 11:19a [facility] Jose Alfredo Carmichael, 52639 Z96.652 Assoc,pc Hospitalists N.P. I25.10 I10 E11.9 Office Visit 03/31/2016 12:30p [facility] Jeanmarie Bolanos, 17005 E11.21 Tyler Mercado I25.10 R94.31 Z01.810 Office Visit 03/25/2016 9:40a [facility] [place] [address] Z01.818 Darin M17.12 E11.311 R55 I10 M05.79 Office Visit 03/21/2016 9:45a [facility] Dee Dee Junior M.D. 83610 M25.562 C.M.A. M17.12 M25.462 Office Visit 12/21/2015 2:00p [facility] Dee eDe Junior M.D. 98369 M17.0 C.M.A. M17.11 M17.12 Office Visit 11/09/2015 10:30a [place] [address] F44.5 Services Of [facility] Office Visit 10/08/2015 9:50a [facility] Internal Medicine Iliana Veliz, 41332 E11.311 - Darin Mercado M79.661 S16.1xxA E11.21 Office Visit 09/24/2015 10:30a [facility] ROSA ELENA Kumar 89296 M05.79 Of [facility] R55 Z79.899 M81.0 E55.9 Office Visit 09/01/2015 2:30p [place] [address] R55 Services Of [facility] Office Visit 07/15/2015 9:30a [facility] [place] [id number] R55 Services Of [facility] Office Visit 07/10/2015 11:15a Orthopedic Services Dee Dee Junior M.D. 78436 S42.292D Of C.M.AAylin Office Visit 07/10/2015 9:30a [facility] Jeanmarie Bolanos, 07754 I25.10 [facility] Wei.Javi R55 Office Visit 07/02/2015 10:00a Rheumatology Services Leobardo Ambriz, 28858 M05.89 Of [facility] Jess Z79.899 M15.0 E11.311 Office Visit 05/04/2015 10:00a [facility] [place] [address] 401.1 - [place] Office Visit 04/21/2015 11:50a [facility] Internal Medicine Iliana Veliz 78696 250.42 - [place] 682.9 401.1 268.9 681.10 Office Visit 03/06/2015 8:00a [facility] Jeanmarie Bolanos, 22950 414.01 Tyler Carvajal.Javi Office Visit 12/31/2014 9:10a [facility] Internal Medicine Iliana Veliz 43913 250.40 - Darin Carvajal.Javi 250.42 401.9 780.2 V03.82 Office Visit 08/14/2014 11:15a [facility] Jeanmarie Bolanos, 13182 414.01 [facility] Jess 250.40 Office Visit 07/31/2014 9:50a [facility] Internal Medicine Iliana Veliz, 99331 250.40 [place] 268.9 V04.81 Office Visit 06/24/2014 1:15p [facility] Tanvir Bolanos, 28948 414.01 [facility] At [facility] Jess 786.50 Office Visit 06/13/2014 3:45p [facility] Tanvir Bolanos, 55351 786.50 [facility] Wei.DAylin Office Visit 05/28/2014 4:00p Rheumatology Services Milan Malagon M.D. 72136 714.0 Of [facility] 681.10 V49.5 Office Visit 04/30/2014 9:50a [facility] Internal Medicine Iliana Veliz 99516 250.40 - Darin Mercado Office Visit 2014 9:10a [facility] Internal Medicine Iliana Veliz, 74541 V70.0 - Darin Mercado 250.42 787.91 V76.51 729.82 V76.10 112.9 v76.2 Office Visit 03/31/2014 8:00a [facility]ology Services Of Milan Malagon M.D. 75685 714.0 [facility] 733.00 Office Visit 02/26/2014 1:00p [facility] Services Of Milan Malagon M.D. 98248 714.0 [facility] 733.00 Office Visit 02/25/2014 10:10a [facility] Internal Medicine Iliana Veliz, 14355 250.42 - Darin Mercado 786.05 443.9 733.01 714.0 518.89 Office Visit 01/28/2014 9:10a [facility] Internal Medicine Iliana Veliz 19447 250.02 - Darin Mercado 786.50 443.9 786.05 278.00 Plan of Care Future Appointment(s):01/26/2018 9:10 am - Jalil Sierra M.D. at [facility] Vfzkrxxj65/08/2018 3:20 pm - Kiarra Galaviz MD, [facility] at [facility] Of [facility] At [facility]01/17/2018 3:30 pm - Cameron Reddy MD at [facility]01/30/2018 10:10 am - Iliana Veliz M.D. at [facility] Internal Medicine - Zjrxlstao05/03/2018 - Jalil Sierra M.D.E11.21 Type 2 diabetes mellitus with diabetic kcqbzzssluqL55.115 Cellulitis of right lower limbFollow up:2-3 weeks
--- OUTSIDE RECORDS SUMMARY | 2018-01-26 10:39 | XMS REPORT ---
:1945 External Reference #:[id number] Author Organization [facility] Address [address] [address] Phone [phone] Care Team Providers Name Role Phone Iliana Veliz MD Primary Care Physician Unavailable Payers Type Date Identification Numbers Payment Provider Subscriber Medicare Primary Effective: Policy Number: Medicare Dee Hale 2011 [id number] PayID: [id number] [address] [place] [address] [facility] Part B Policy Number: [id number] [facility] Dee Hale PayID: [id number] [address] [place] [address] Problems Date Description Provider Status Onset: 03/13/2014 [...] Dee Junior M.D. Active Onset: 08/14/2017 Athscl [place] arteries of right Kiarra Galaviz MD, Active leg w ulcer oth prt foot FAC, FSCAI Onset: 08/14/2017 Athscl [place] arteries of left leg Kiarra Galaviz MD, [...] Form Strength Qnty SIG Indications Ordering Provider Accucheck 12/28/ Active bs testing Iliana Advantage Test 2017 up to 2 Jose Alfredo Strips times/day M.D. Lasix 12/18/ Active Tablets 20mg 30tabs 1 by mouth I70.261 Marcis T. 2018 daily prn Sodums, edema MD, FAC, [facility] Alendronate 06/07/ Active Tablets 70mg 12tabs take 1 M81.0 Iliana Sodium 2016 tablet by Jose Alfredo mouth M.D. weekly Ventolin HFA 12/15/ Active Aerosol 108(90Base 8.5uni inhale 2 Iliana 2016 ) mcg/Act ts puffs by Jose Alfredo mouth every M.D. 6 hrs as needed for shortness of breath Accucheck 08/25/ Active 100uni check bs Inocencio Valdivia Lancets 2016 ts 2-3 times a Yris, day and as M.D. needed Accu-Check 08/25/ Active Device 1units check 2-3 Iliana Glucose Monitor 2016 times a day Jess Veliz Accucheck Trang 08/25/ Active 100uni check bs Inocencio Valdivia Chem Strips 2016 ts 2-3 Yris, times/day M.D. e11.21 Atorvastatin 05/26/ Active Tablets 20mg 90tabs take one Inocencio Valdivia Calcium 2016 tablet by Yris mouth at M.D. bedtime Magnesium Oxide 04/25/ Active Tablets 400(241.3m 120tab Take Two Iliana 2016 g) mg s Tablets By Jose Alfredo Mouth Twice M.D. 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 Janumet 01/28/2014 Active Tablets 50- 90 take one E11.65 Inocencio E. 100 ta tablet by Yris 0 bs mouth every M.D. day-refills after next [...] wks then 1 oziel Veliz tablet daily M.D. Coumadin 07/01/2016 - Hx Tablets 5mg as directed. Unknown 08/25/2016 Alendronate 05/26/2016 - Hx Tablets 70m 12 take 1 tablet M81.0 Iliana Sodium 02/15/2017 g ta by mouth oziel Veliz weekly M.D. Colace 04/08/2016 - Hx Capsules 100 90 every other M17.12 Abril 12/05/2016 mg ca day CHARLES Uriostegui ps Oxycodone-Aceta 04/08/2016 - Hx Tablets 5-3 45 1-2 by mouth M17.12 Dee Dee minophen 12/05/2016 25m ta every 4-6 Jess Junior g bs hours as needed for pain. Coumadin 04/08/2016 - Hx Tablets 2mg 45 Discontinued M17.12 Abril 05/10/2016 ta CHARLES Uriostegui Zofran Odt 04/08/2016 - Hx Tablets 4mg 30 1 by mouth M25.562 Abril 12/05/2016 Dispers ta every 6 hours CHARLES Uriostegui bs as needed for nausea/vomitin g Tramadol HCL 03/21/2016 - Hx Tablets 50m 90 1 -2 tablets M25.562 Dee Dee 12/05/2016 g ta by mouth every VernonJess quinteros bs 8 hours as needed pain Tramadol [...] day Iliana 10/19/2015 0Un ta tabby Veliz M.DAylin Gmate Blood 08/24/2015 - Hx Strips 50 CK BS tid And Iliana Glucose Test 08/24/2015 un as Needed Darell Veliz it M.D. s Gmate Blood 08/24/2015 - Hx [...] bs Z79.899 Ergocalciferol 04/22/2015 - Hx Capsules 79335Hdpm 8caps 1 tab by mouth Iliana 10/08/2015 [...] DS 07/02/2015 twice a day 2. Jose Alfredo, 9 M.D. Tramadol HCL 02/23/2015 - Hx Tablets 50mg 40tabs 1 by mouth Iliana 05/04/2015 every 8 hrs a Veliz, day as needed M.D. Lisinopril 12/31/2014 - Hx Tablets 20mg 90tabs 1 by mouth 40 Iliana 04/22/2015 every day 1. Jose Alfredo, 9 M.D. Lipitor 06/24/2014 - Hx Tablets 20mg 90tabs 1 by mouth I2 Jeanmarie 07/14/2015 every day 5. DAylin Brand, 10 M.D. Mag-200 04/03/2014 - Hx Tablets 200mg 2 by mouth Iliana 04/25/2016 every day ( Jose Alfredo, not taken , M.DAylin last taken 03/28/16) Nyamyc 2014 - Hx Powder 060706Spxw/ 100gms apply to 11 Iliana 12/31/2014 GM affected area 2. Jose Alfredo, twice a day x 9 M.D. 10 days as needed Enbrel Sureclick 03/31/2014 - Hx Solution 50mg/ml 8units injet [place] 06/12/2014 subsutaneous Malagon, once weekly M.D. Ergocalciferol 03/13/2014 - Hx Capsules 06204Mrvd 8caps 1 tab by mouth Iliana 08/13/2014 every week Jess Veliz Leflunomide 02/26/2014 - Hx Tablets 20mg 30tabs 1 by mouth 73 [place] 12/24/2014 every day 3. Malagon, 00 M.D. Lisinopril 02/25/2014 - Hx Tablets 5mg 90tabs 1 by mouth 25 Iliana 06/23/2014 every day 0Aylin Veliz 40 M.D. No Active 01/28/2014 - Hx Unknown Medications 01/28/2014 Accucheck 01/28/2014 - Hx 100unit as needed 25 Iliana Lancets 08/24/2015 s 0Aylin Veliz (Soft-Clix) 02 M.D. Accucheck 01/28/2014 - Hx as needed 25 Iliana Glucometer 08/24/2015 Asa Veliz 02 M.D. Accucheck Trang 01/28/2014 - Hx 100unit check bs 3 25 Iliana Chem Strips 08/24/2015 s times/day dx 0. Jose Alfredo, 250.02 02 M.D. Keflex - Hx Capsules [...] Iliana 06/06/2017 weekly (no Veliz, longer taking) M.DyAlin Ferrous Sulfate - Hx Tablets 325(65Fe) 1 by mouth Unknown 08/13/2017 mg twice a day Colace - Hx Capsules 100mg 1 tab by mouth Unknown 12/17/2017 2-3 times a day as needed Oxycodone-Acetam - Hx Solution 5-325mg/5ML 1 every 6 Unknown inophen 09/17/2017 hours Ergocalciferol - Hx Powder 92200Nej daily Unknown 12/17/2017 Pradaxa - Hx Capsules 75mg 1 by mouth Unknown 12/17/2017 twice a day Medications Administered in Office Medication Date Status Form Strength Qnty SIG Indications Ordering Provider Inj, Administered Injection Lucio Martin Regadenoson, 016 Justus, 0.1 MG Jess, LINA, FASNC Technetium TC Administered Injection Lucio Martin 99M 016 Lindsey Jerome M.D., FACLetitia, Per Unit Dose FASNC Up To 40 Millicuries Depomedrol Administered Injection Dee Dee 40MG 016 Jess Junior Depomedrol Administered Injection Dee Dee 40MG 016 Jess Junior Depomedrol Administered Injection Dee Dee 80MG 015 Jess Junior Inj, Administered Injection Jeanmarie Caldwell Regadenoson, 014 Jess Bolanos 0.1 MG Technetium TC Administered Injection Jeanmarie Caldwell 99M 014 Jess Bolanos Tetrofosmin, Per Unit Dose Up To 40 Millicuries Immunizations CPT Code Status Date Vaccine Reaction Lot # [id number] Given 06/07/2017 Influenza Virus Vaccine, [id number] Quadrivalent, Split, Preservative Free 14915 Given 12/05/2016 Tdap - [id number] Tetanus/Diptheria/Acellular Pertussis 55987 Given 08/25/2016 Influenza Virus Vaccine, [id number] Quadrivalent, Split Virus, Im Use 14986 Given 05/26/2016 Pneumonia Vaccine [id number] 28865 Given 12/31/2014 Pneumococcal Conjugate Vaccine [id number] 13 Valent For Intramuscular Use 55002 Given 07/31/2014 Flu Vaccine Split Virus No reaction noted. [id number] Preservative Free For Indiv 3Yr Older Vital Signs Date Vital Result Comment 12/29/2017 Height 62 inches 5'2" Weight 176.00 [...] Test Date Test Result H/L Range Note CBC Auto Diff 09/13/2017 White Blood Count [...] Egfr Non- 78.1 >60 Egfr 100.5 >60 1 Laboratory test finding 09/13/2017 Point of Care Glucose 128 mg/dL High 70 -100 2 Basic Metabolic Panel 08/25/2017 Sodium 135 mmol/L 133-145 Potassium 4.8 mmol/L 3.5-5.0 Chloride 103 mmol/L 101-111 Co2 Carbon Dioxide 26 mmol/L 22-32 Anion Gap 6 mmol/L 2-11 Glucose 140 mg/dL High 70-100 Blood Urea Nitrogen 24 mg/dL 6-24 Creatinine 0.96 mg/dL High 0.51-0.95 BUN/Creatinine Ratio 25.0 High 8-20 Calcium 9.3 mg/dL 8.6-10.3 Egfr Non- 57.0 >60 Egfr 73.3 >60 3 CBC Auto Diff 08/25/2017 White Blood Count [...] Lipid Profile (Trig/Chol/HDL) 08/25/2017 Triglycerides 100 mg/dL 4 Cholesterol 116 mg/dL 5 HDL Cholesterol 46.3 mg/dL 6 LDL Cholesterol 50 mg/dL 7 Istat BUN/Crea/Egfr/V Mainct 08/16/2017 Poc Bun Mainct 20 mg/dL High 9-18 Poc Crea Mainct 0.8 mg/dL 0.6-0.9 GFR Non- MCT 70.3 >60 GFR Mainct 90.4 >60 8 Laboratory test finding 06/07/2017 Magnesium 1.9 mg/dL 1.9-2.7 Laboratory test finding 06/07/2017 Hemoglobin A1c 6.7 5-7 Laboratory test finding 02/15/2017 Lipase 15 U/L 11.0-82.0 9 Amylase 30 U/L 29-103 10 Laboratory test finding 02/13/2017 Troponin-I (TnI) 0.01 ng/mL <0.04 11 CBC Auto Diff 02/13/2017 White Blood Count [...] finding 02/13/2017 B-Type Natriuretic Peptide 24 pg/mL 12 BNP Lactic Acid 1.6 mmol/L 0.5-2.0 13 Comp Metabolic Panel 02/13/2017 Sodium 135 mmol/L [...] Egfr Non- 61.5 >60 Egfr 79.2 >60 14 Laboratory test finding 02/13/2017 Magnesium 1.8 mg/dL Low 1.9-2.7 Creatine Kinase(CK) 40 U/L 10-223 Troponin-I (TnI) 0.01 ng/mL <0.04 15 CKMB 02/13/2017 CKMB ng/mL 1.1 ng/mL 0.6-6.3 Laboratory test finding 02/13/2017 Thyroxine 11.29 g/mL 6.09-12.23 TSH (Thyroid Stim Horm) 0.82 mcIU/mL 0.34-5.60 CBC Auto Diff 12/22/2016 White Blood Count [...] Egfr Non- 61.5 >60 Egfr 79.2 >60 16 Laboratory test finding 12/22/2016 C Reactive Protein 2.22 mg/L < 5.00 17 Erythrocyte Sed Rate 66 mm/Hr High 0-40 Rheumatoid Factor 458 IU/mL <15 18 Cyclic Citrullinated Pep Igg 130.9 U 19 Laboratory test finding 12/05/2016 Hemoglobin A1c 6.7 5-7 Urine Microalbumin Random 11/01/2016 Urine Creatinine 171.30 mg/dL Ur Microalbumin (mg/L) 47.9 mg/L Urine Microalbumin/Creatinine 27.9 ug/mg <31 Laboratory test finding 11/01/2016 Magnesium 2.0 mg/dL 1.9-2.7 20 Lipid Profile (Trig/Chol/HDL) 11/01/2016 Triglycerides 96 mg/dL 21 Cholesterol 97 mg/dL 22 HDL Cholesterol 41.2 mg/dL 23 LDL Cholesterol 37 mg/dL 24 Laboratory test finding 11/01/2016 Vitamin D Total 25(Oh) 56.1 ng/mL High 30-50 25 Laboratory test finding 08/25/2016 Hemoglobin A1c 6.6 [...] Egfr Non- 74.8 >60 Egfr 96.2 >60 26 Laboratory test 06/06/2016 Hemoglobin A1c 6.8 % High Less than 6.0 27 finding (Glyco HGB) Urine Microalbumin 06/06/2016 Urine [...] finding 05/24/2016 Surgical Pathology SEE RESULT BELOW 28 Leukemia/Lymphoma Flow 05/24/2016 Path Interpretation 2-8 TNP Marker Path Interpret > 16 Marker TNP Path Interpret 9-15 Marker (SEE NOTE) 29 Bone Marrow Chromosomes 05/24/2016 BM Result Summary Normal BM Chromosome Specimen Bone Marrow BM Referral Reason anemia, unspecif <SEE NOTE> 30 BM Chromosome Method See Comment 31 BM Chromo Banding Method See Comment 32 BM Cromosome Results 46,XX[20] BM Chromosome Interpretation See Comment 33 Released By See Comment 34 Plasma Cell Profliferative 05/24/2016 Plasma Cell Dis Res Insufficient Disorder Summary Plasma Cell Prolif Specimen Bone Marrow Plasma Cell Referral Reason anemia, unspecif <SEE NOTE> 35 Plasma Cell Prolif Dis Method See Comment 36 Plasma Cell Prolif Dis Results See Comment 37 Plasma Cell Dis Interpretation See Comment 38 Plasma Cell Dis Disclaimer See Comment 39 Plasma Cell Dis Released By See Comment 40 CBC Auto Diff 05/05/2016 White Blood Count [...] Egfr Non- 65.7 >60 Egfr 84.5 >60 41 Iron & Iron Binding Capacity 05/05/2016 Iron [...] Albumin/Globulin Ratio 0.45 % Impression See Comment 42 Total Protein(Pep) Urine 44 mg/dL 43 [place]/Lambda Free Light Chains 05/05/2016 [place] Free Light Chain 6.55 mg/dL 44 Ser Lambda Free Light Chain 3.03 mg/dL 45 [place]/Lambda Free Light Chain 2.16 46 Protein Electrophoresis 05/05/2016 Total Protein(Pep) 8.2 g/dL 6.3 - 7.9 Albumin 3.0 g/dL 3.4-4.7 Alpha-1 Globulin 0.4 g/dL 0.1-0.3 Alpha-2 Globulin 1.4 g/dL 0.6-1.0 Beta Globulin 1.0 g/dL 0.7-1.2 Gamma Globulin 2.4 g/dL 0.6-1.6 Albumin/Globulin Ratio 0.58 Impression See Comment 47 Laboratory test finding 04/21/2016 Magnesium 1.4 mg/dL Low 1.9-2.7 48, 49 Type & Screen 04/08/2016 Patient Blood Type A Positive 50 Antibody Screen NEGATIVE 50 Order 04/05/2016 Stress Test, <pending> Pharmacologic Nuclear (Lexiscan) Laboratory test 03/25/2016 Hemoglobin A1c 7.0 % High Less than 51 finding (Glyco HGB) 6.0 Urinalysis Profile 03/25/2016 Urine Color Amelia Urine Appearance Turbid Urine Specific [place] 1.019 1.010-1.030 Urine pH 5.0 5-9 Urine [...] And 03/25/2016 Urine Culture SEE RESULT BELOW 52 Sensitivities CBC Auto Diff 03/25/2016 White Blood Count [...] Egfr Non- 68.7 >60 Egfr 88.4 >60 53 Inr/Protime 03/25/2016 Inr 0.96 0.89-1.11 Type & Screen 03/25/2016 Antibody Screen NEGATIVE Patient Blood Type A Positive Urine Microalbumin Random 10/08/2015 Ur Microalbumin (mg/L) 117.0 mg/L Urine Creatinine 49.23 mg/dL Urine Microalbumin/Creatinine 237.6 ug/mg High <31 Laboratory test finding 10/08/2015 Vitamin D Total 25(Oh) 31.9 ng/mL 30- 50 CBC Auto Diff 09/24/2015 White Blood Count 7.9 10^3/uL 3.5-10.8 54 Red Blood Count 4.07 10^6/uL 4.0-5.4 54 Hemoglobin 11.4 g/dL Low 12.0-16.0 54 Hematocrit 36 % 35-47 54 Mean Corpuscular Volume 88 fL 80-97 54 Mean Corpuscular Hemoglobin 28 pg 27-31 54 Mean Corpuscular HGB Conc 32 g/dL 31-36 54 Red Cell Distribution Width 14 % 10.5-15 54 Platelet Count 328 10^3/uL 150-450 54 Mean Platelet Volume 9 um3 7.4-10.4 54 Abs Neutrophils 4.8 10^3/uL 1.5-7.7 54 Abs Lymphocytes 2.3 10^3/uL 1.0-4.8 54 Abs Monocytes 0.5 10^3/uL 0-0.8 54 Abs Eosinophils 0.2 10^3/uL 0-0.6 54 Abs Basophils 0.1 10^3/uL 0-0.2 54 Abs Nucleated RBC 0.01 10^3/uL 54 Granulocyte % 61.5 % 38-83 54 Lymphocyte % 29.7 % 25-47 54 Monocyte % 5.9 % 1-9 54 Eosinophil % 2.0 % 0-6 54 Basophil % 0.9 % 0-2 54 Nucleated Red Blood Cells % 0.1 54 Comp Metabolic Panel 09/24/2015 Sodium 136 mmol/L 133-145 54 Potassium 3.8 mmol/L 3.5-5.0 54 Chloride 102 mmol/L 101-111 54 Co2 Carbon Dioxide 27 mmol/L 22-32 54 Anion Gap 7 mmol/L 2-11 54 Glucose 264 mg/dL High 70-100 54 Blood Urea Nitrogen 18 mg/dL 6-24 54 Creatinine 0.65 mg/dL 0.51-0.95 54 BUN/Creatinine Ratio 27.7 High 8-20 54 Calcium 9.4 mg/dL 8.6-10.3 54 Total Protein 7.3 g/dL 6.4-8.9 54 Albumin 3.8 g/dL 3.2-5.2 54 Globulin 3.5 g/dL 2-4 54 Albumin/Globulin Ratio 1.1 1-3 54 Total Bilirubin 0.40 mg/dL 0.2-1.0 54 Alkaline Phosphatase 89 U/L 34-104 54 Alt 10 U/L 7-52 54 Ast 14 U/L 13-39 54 Egfr Non- 89.9 >60 54 Egfr 115.6 >60 54, 55 Laboratory test finding 09/24/2015 C Reactive Protein 4.25 mg/L < 5.00 54, 56 Erythrocyte Sed Rate 51 mm/Hr High 0-40 54, 57 Vitamin D Total 25(Oh) 29.4 ng/mL Low 30-50 54, 58 Laboratory test finding 07/02/2015 Erythrocyte Sed Rate 56 mm/Hr High 0- 40 C Reactive Protein 5.06 mg/L High < 5.00 59 Comp Metabolic Panel 07/02/2015 Sodium 136 mmol/L [...] Egfr Non- 89.9 >60 Egfr 115.6 >60 60 CBC Auto Diff 07/02/2015 White Blood Count [...] Egfr Non- 86.8 >60 Egfr 111.6 >60 61 Laboratory test finding 04/21/2015 Vitamin D Total [...] Egfr Non- 91.7 >60 Egfr 118.0 >60 62 Urine Microalbumin Random 01/01/2015 Ur Microalbumin (mg/L) 63.0 mg/L Urine Creatinine 84.32 mg/dL Urine Microalbumin/Creatinine 74.7 High Less Than 31 Laboratory test finding 12/31/2014 Hemoglobin A1c 7.2 High 5-7 Lipid Profile (Trig/Chol/HDL) 08/14/2014 Triglycerides 128 mg/dL 63, 64 Cholesterol 157 mg/dL 63, 65 HDL Cholesterol 48.8 mg/dL 63, 66 LDL Cholesterol 83 mg/dL 63, 67 Comp Metabolic Panel 08/14/2014 Sodium 136 mmol/L 133-145 63 Potassium 3.7 mmol/L 3.5-5.0 63 Chloride 102 mmol/L 101-111 63 Co2 Carbon Dioxide 25 mmol/L 22-32 63 Anion Gap 9 mmol/L 2-11 63 Glucose 136 mg/dL High 70-100 63 Blood Urea Nitrogen 19 mg/dL 6-24 63 Creatinine 0.68 mg/dL 0.51-0.95 63 BUN/Creatinine Ratio 27.9 High 8-20 63 Calcium 9.6 mg/dL 8.6-10.3 63 Total Protein 7.3 g/dL 6.4-8.9 63 Albumin 3.9 g/dL 3.2-5.2 63 Globulin 3.4 g/dL 2-4 63 Albumin/Globulin Ratio 1.1 1-3 63 Total Bilirubin 0.50 mg/dL 0.2-1.0 63 Alkaline Phosphatase 85 U/L 34-104 63 Alt 15 U/L 7-52 63 Ast 18 U/L 13-39 63 Egfr Non- 85.5 >60 63 Egfr 110.0 >60 63, 68 Vitamin D, 25 Hydroxy 08/14/2014 25-Hydroxy Vitamin D2 29 ng/mL 63 25-Hydroxy Vitamin D3 7.5 ng/mL 63 25-Hydroxy Vitamin D Total 37 ng/mL 63, 69 Laboratory test finding 07/31/2014 Hemoglobin A1c 6.5 [...] Egfr Non- 84.1 >60 Egfr 108.2 >60 70 Inr/Protime 06/14/2014 Inr 0.89 0.85-1.06 CBC Auto [...] Egfr Non- 73.0 >60 Egfr 93.9 >60 71 Pre Cath Panel 06/14/2014 Activated Partial 28.3 [...] ng/mL 25-Hydroxy Vitamin D Total 11 ng/mL 72 Laboratory test finding 02/25/2014 Rheumatoid Factor 206 IU/mL <15 73 CRP High Sensitivity 3.43 mg/L 74 Erythrocyte Sed Rate 34 mm/Hr 0-40 Cyclic Citrullinated Pept IgG 60.5 U 75 CBC Auto Diff 01/28/2014 White Blood Count 8.8 10^3/uL 4.8-10.8 76 Red Blood Count 4.72 10^6/uL 4.0-5.4 76 Hemoglobin 13.8 g/dL 12.0-16.0 76 Hematocrit 40 % 35-47 76 Mean Corpuscular Volume 86 fL 80-97 76 Mean Corpuscular Hemoglobin 29 pg 27-31 76 Mean Corpuscular HGB Conc 34 g/dL 31-36 76 Red Cell Distribution Width 13 % 10.5-15 76 Platelet Count 314 10^3/uL 150-450 76 Mean Platelet Volume 10 um3 7.4-10.4 76 Abs Neutrophils 5.4 10^3/uL 1.5-7.7 76 Abs Lymphocytes 2.7 10^3/uL 1.0-4.8 76 Abs Monocytes 0.4 10^3/uL 0-0.8 76 Abs Eosinophils 0.2 10^3/uL 0-0.6 76 Abs Basophils 0.1 10^3/uL 0-0.2 76 Abs Nucleated RBC 0 10^3/uL 76 Granulocyte % 61.6 % 38-83 76 Lymphocyte % 30.8 % 25-47 76 Monocyte % 4.3 % 1-9 76 Eosinophil % 2.1 % 0-6 76 Basophil % 1.2 % 0-2 76 Nucleated Red Blood Cells % 0 76 Urine Microalbumin 01/28/2014 Ur Microalbumin (mg/L) 655.8 mg/dL <30 76, 77 Random Urine Creatinine 70.37 mg/dL 76 Urine Microalbumin/Creatinine 931.9 High Less Than 31 76 Comp Metabolic Panel 01/28/2014 Sodium 134 mmol/L 133-145 76 Potassium 4.1 mmol/L 3.7-5.6 76 Chloride 100 mmol/L Low 101-111 76 Co2 Carbon Dioxide 27 mmol/L 22-32 76 Anion Gap 7 mmol/L 2-11 76 Glucose 237 mg/dL High 70-100 76 Blood Urea Nitrogen 10 mg/dL 6-24 76 Creatinine 0.63 mg/dL 0.51-0.95 76 BUN/Creatinine Ratio 15.9 8-20 76 Calcium 9.4 mg/dL 8.6-10.3 76 Total Protein 7.6 g/dL 6.4-8.9 76 Albumin 3.8 g/dL 3.2-5.2 76 Globulin 3.8 g/dL 2-4 76 Albumin/Globulin Ratio 1.0 1-3 76 Total Bilirubin 0.50 mg/dL 0.2-1.0 76 Alkaline Phosphatase 96 U/L 34-104 76 Alt 14 U/L 7-52 76 Ast 15 U/L 13-39 76 Egfr Non- 93.7 >60 76 Egfr 120.5 >60 76, 78 Lipid Profile (Trig/Chol/HDL) 01/28/2014 Triglycerides 115 mg/dL 76, 79 Cholesterol 148 mg/dL 76, 80 HDL Cholesterol 53.3 mg/dL 76, 81 LDL Cholesterol 72 mg/dL 76, 82 Laboratory test 01/28/2014 TSH (Thyroid 1.24 IU/mL 0.34-5.60 76, 83 finding Stimulating Horm) Laboratory test 01/28/2014 Hemoglobin A1c 10.5 High 5-7 finding 1 Because ethnic data is not always readily [...] 15-29 5 Kidney failure <15 (or dialysis) 2 Pulmonary Care Nurse: [id number] 3 Because ethnic data is not always readily [...] 15-29 5 Kidney failure <15 (or dialysis) 4 Desirable: <150 Borderline High: 150-199 High: 200-499 Very High: >500 5 Desirable: <200 Borderline High: 200-239 High: >239 6 Low: <40 Desirable: 40-60 High: >60 7 Desirable: <100 Near Optimal: 100-129 Borderline High: 130-159 High: 160-189 Very High: >189 8 Because ethnic data is not always [...] 5 Kidney failure <15 (or dialysis) 9 [id number] 11 99th percentile=0.04 ng/mL Troponin results at [facility] and [facility] are not interchangeable. 12 >100 to <200 pg/mL: likely compensated congestive heart failure (CHF) 200 to 400 pg/mL: likely moderate CHF >400 pg/mL: likely moderate to severe CHF 13 [facility] Severe Sepsis and Septic Shock Management Bundle Measure requires all lactic acids initially measuring >2.0 mmol/L be repeated. 14 Because ethnic data is not always readily [...] 15-29 5 Kidney failure <15 (or dialysis) 15 99th percentile=0.04 ng/mL Troponin results at [facility] and [facility] are not interchangeable. 16 Because ethnic data is not always readily [...] 15-29 5 Kidney failure <15 (or dialysis) 17 Acute inflammation: >10.00 18 Test Performed by: [place] [address] 19 Interpretation: Strong Positive (>=60.0) REFERENCE VALUE <20.0 (Negative) Test Performed by: [place] [address] 20 FASTING 12 HOUR 21 Desirable <150 Borderline high 150-199 High 200-499 Very High >500 22 Desirable <200 Borderline high 200-239 High >239 23 Low <40 Desirable: 40-60 High: >60 24 Desirable: <100 mg/dL Near Optimal: 100-129 mg/dL Borderline High: 130-159 mg/dL High: 160-189 mg/dL Very High: >189 mg/dL 25 FASTING 12 HOUR 26 Because ethnic data is not always readily [...] 15-29 5 Kidney failure <15 (or dialysis) 27 Therapeutic target for the treatment of diabetes Mellitus patients is <7% HBA1C, and in selective patients <6.0%.Please refer to [place] [employer] Diabetic care guidelines for further information. 28 SEE RESULT BELOW Name: DEE HALE : [address]: Sandra Brownlee MD Acct: [id number] Unit: [id number] AGE: 71 Location: [facility] Re05/24/16 SEX: F Status: REG REF SPEC: [id number] CONNIE: 05/24/16 [facility] DR: Sandra Brownlee MD REQ: [id number] RECD: 05/24/16 STATUS: SOUT _ ORDERED: IRON STAIN, Decal, CD5 IMMUNO ST, LEVEL IV/2, FR08-WDG, BCL-2-ADD, BCL-6 PAX-5-ADD Bone marrow chromosome testing has been performed at [facility] , [place], [place]. The testing reveals: Specimen: bone marrow [...] clonal abnormality was apparent. Test Performed by: [place] [address] Television Technician: Cuate Chavez II, M.D., Ph.D. CONTINUED ON NEXT PAGE * ML=Testing performed at Main Lab DEPARTMENT OF PATHOLOGY, [address] [place] [address] Jac Domingo M.D. Director GEOVANNI # [id number] RUN DATE: 06/01/16 [facility] LAB LIVE PAGE 2 Patient: DEE HALE [id number] (Continued) ADDENDUM (Continued) Addendum Signed (signature on [...] cytometry has been performed at [facility], [place], [place]. The testing reveals: FINAL DIAGNOSIS: CONTINUED ON NEXT PAGE * ML=Testing performed at Main Lab DEPARTMENT OF PATHOLOGY, [address] [place] [address] Jac Domingo M.D. Director [facility] # [id number] RUN DATE: 06/01/16 [facility] LAB LIVE PAGE 3 Patient: DEE HALE [id number] (Continued) SPECIAL STUDIES (Continued) SPECIAL STUDIES (Continued) [...] Abril Velez MD Technical component performed by: [place] [address] Television Technician: Cuate Chavez II, MD, PhD. PRE-OPERATIVE DIAGNOSIS D64.9 CONTINUED ON NEXT PAGE * ML=Testing performed at Main Lab DEPARTMENT OF PATHOLOGY, [address] [place] [address] Jac Domingo M.D. Director [facility] # [id number] RUN DATE: 06/01/16 [facility] LAB LIVE PAGE 4 Patient: SUSSY HALES [id number] (Continued) GROSS DESCRIPTION (Continued) GROSS DESCRIPTION 1. [...] performed at Main Lab DEPARTMENT OF PATHOLOGY, [address] [place] [address] Jac Domingo M.D. Director [facility] # [id number] 29 FINAL DIAGNOSIS: Specimen Source: Bone marrow Flow [...] Abril Velez MD Technical component performed by: [place] [address] Television Technician: Cuate Chavez II, MD, PhD. 30 anemia, unspecified 31 RESULT: Culture without mitogens 32 Band Resolution: <400 Stain Name Cells Analyzed Cells Karyograms Counted Prepared GTL 20 0 2 Total 20 0 2 Ortega to Stain Name: GTL=G-banding; QFQ=Q-banding; DAPI=DAPI-staining; CBL=C-banding; AGNOR=Silver-staining; NON=Non-banded The sum of Cells Analyzed and Cells Counted equals the total cells examined. 33 No clonal abnormality was apparent. Additional cytogenetic studies are reported separately. PDF Report available at: [email or web address] 34 RESULT: Linda Beltrán D.O. Test Performed by: [place] [address] Television Technician: Cuate Chavez II, M.D., Ph.D. 35 anemia, unspecified 36 Locus and probes [Strategy;#Nuclei;Class] 11q13(CCND1-XT),14q32(IGH-XT) [DFISH;50;ASR] 14q32(3'IGH,5'IGH) [BAP;50;LDT] Probe strategies include: DFISH=dual color, double fusion; BAP=break-apart probe. 37 RESULT: Insufficient plasma cells were observed. 38 An insufficient number of plasma cells were observed using the cytoplasmic immunoglobulin staining method. This result does not exclude the presence of a plasma cell proliferative disorder. Additional cytogenetic studies are reported separately. PDF Report available at: [email or web address] 39 Applicable to Analyte Specific Reagent (ASR) and Laboratory Developed Tests (LDT). This test was developed and its performance characteristics determined by [facility] in a manner consistent with CLIA requirements. It has not been cleared or approved by the U.S. Food and Drug Administration. This FISH test does not rule out other chromosome abnormalities. 40 RESULT: Vik Moreno M.D., Ph.D. Test Performed by: [place] [id number] Television Technician: Cuate Chavez II, M.D., Ph.D. 41 Because ethnic data is not always readily [...] 15-29 5 Kidney failure <15 (or dialysis) 42 All fractions present, no apparent M-spike. Due to the elevated protein, suggest monoclonal protein study (MPSU) if clinically indicated. 43 ADDITIONAL INFORMATION On 03/24/2014 the total protein assay method changed resulting in approximately a 20% increase in protein values. Test Performed by: [facility] [address] [place] [address] Television Technician: Cuate Chavez II, M.D., Ph.D. 44 REFERENCE VALUE 0.3300-1.94 45 REFERENCE VALUE 0.5700-2.63 46 REFERENCE VALUE 0.2600-1.65 Test Performed by: [facility] [place] [place] [address] Television Technician: Cuate Chavez II, M.D., Ph.D. 47 RESULT: Polyclonal hypergammaglobulinemia Test Performed by: [place] [address] Television Technician: Cuate Chavez II, M.D., Ph.D. 48 [facility] [id number] 49 [facility] [id number] 50 PAIN IN LEFT KNEE, UNILATERAL PRIMARY OSTEOARTHRIT 51 Therapeutic target for the treatment of diabetes Mellitus patients is <7% HBA1C, and in selective patients <6.0%.Please refer to [place] [employer] Diabetic care guidelines for further information. 52 SEE RESULT BELOW Name: DEE HALE : [address]: Wilder Mata NP Acct: [id number] Unit: [id number] AGE: 70 Location: [facility] Re03/25/16 SEX: F Status: REG REF SPEC: [id number] CONNIE: 03/25/[address]: Wilder Mata NP REQ: [id number] RECD: 03/25/16 STATUS: COMP _ SOURCE: URINE SPDESC: ORDERED: Urine Culture Urine Source: Random Procedure Result Reported Site Urine Culture Final 03/27/16- 1006 ML No growth of clinically significant organisms * ML - MAIN LAB ([facility]) . END OF REPORT * ML=Testing performed at Main Lab DEPARTMENT OF PATHOLOGY, [address] [place] [address] Jac Domingo M.D. Director [facility] # [id number] 53 Because ethnic data is not always readily [...] 15-29 5 Kidney failure <15 (or dialysis) 54 standing order 55 Because ethnic data is not always readily [...] 15-29 5 Kidney failure <15 (or dialysis) 56 Acute inflammation: >10.00 57 standing order 58 standing order 59 Acute inflammation: >10.00 60 Because ethnic data is not always readily [...] 15-29 5 Kidney failure <15 (or dialysis) 61 Because ethnic data is not always readily [...] 15-29 5 Kidney failure <15 (or dialysis) 62 Because ethnic data is not always readily [...] 15-29 5 Kidney failure <15 (or dialysis) 63 PT IS FASTING 64 Desirable <150 Borderline high 150-199 High 200-499 Very High >500 65 Desirable <200 Borderline high 200-239 High >239 66 Low <40 Desirable: 40-60 High: >60 67 Desirable <100 Near Optimal 100-129 Borderline high 130-159 High 160-189 Very High >189 68 Because ethnic data is not always readily [...] 15-29 5 Kidney failure <15 (or dialysis) 69 REFERENCE VALUE 25-HYDROXY D TOTAL (D2+D3) Optimum levels in the healthy population are 20-50, patients with bone disease may benefit from higher levels within this range. Test Performed by: [address] [address] Television Technician: Yogi Mcallister M.D. 70 Because ethnic data is not always readily [...] 15-29 5 Kidney failure <15 (or dialysis) 71 Because ethnic data is not always readily [...] 15-29 5 Kidney failure <15 (or dialysis) 72 Interpretation: 10-19 ng/mL (mild to moderate deficiency) -- REFERENCE VALUE -- 25-HYDROXY D TOTAL (D2+D3) Optimum levels in the healthy population are 20-50, patients with bone disease may benefit from higher levels within this range. Test Performed by: [place] [address] Television Technician: Lyle Gutiérrez III, M.D. 73 Test Performed by: [place] [address] Television Technician: Lyle Gutiérrez III, M.D. 74 Low risk: <1.00 Average risk: 1.00-3.00 High risk: >3.00 75 Interpretation: Strong Positive (>=60.0) -- REFERENCE VALUE -- <20.0 (Negative) Test Performed by: [place] [address] Television Technician: Lyle Gutiérrez III, M.D. 76 FASTING 12 HOUR 77 Microalbuminuria in a random sample is defined as: Microalbumin/Creatinine ratio of 30-299 ug/mg. 78 Because ethnic data is not always readily [...] 15-29 5 Kidney failure <15 (or dialysis) 79 Desirable <150 Borderline high 150-199 High 200-499 Very High >500 80 Desirable <200 Borderline high 200-239 High >239 81 Low <40 Desirable: 40-60 High: >60 82 Desirable <100 Near Optimal 100-129 Borderline high 130-159 High 160-189 Very High >189 83 FASTING 12 HOUR Procedures Date CPT Code Description Status 09/13/2017 86099 Angio Extremity, Bilateral Completed 09/13/2017 51874 Catheter Placement Arterial System Init 3RD Order Completed Abdom/Pelv/Low 03/23/2017 26012 EKG Tracing & Interpretation Completed 12/12/2016 52104 Diffusing Capacity Completed 12/12/2016 80876 Plethysmography Determination Lung Volumes & Per Completed Airway Resist 12/12/2016 21446 Pulmonary Function><Bronchodil Completed 09/01/2016 Bone Mineral Density Test Completed 09/01/2016 Mammogram Completed 06/22/2016 36165 THR Total Hip Replacement Completed 06/22/2016 40679 THR Total Hip Replacement Completed 06/22/2016 26301 THR Total Hip Replacement Completed 06/22/2016 31823 EKG, Interpretation Only Completed 04/14/2016 44985 TKR Total Knee Replacement Completed 04/14/2016 08863 TKR Total Knee Replacement Completed 04/05/2016 98626 Stress Test Completed 04/05/2016 71285 Myocardial Perfusion Imaging Tomographic (Spect) Completed Multiple Studies 03/31/2016 55257 EKG Tracing & Interpretation Completed 12/21/201542062 Inject/Drain Joint/Bursa Major Completed 07/24/2015 63299 EEG Recording Awake & Asleep Completed 07/10/2015 62212 EKG Tracing & Interpretation Completed 06/03/2015 67222 Holter Monitoring 24 HR New Completed 06/02/2015 25584 Carotid Doppler,Bilateral Completed 04/03/2015 00594 Inject/Drain Joint/Bursa Major Completed 03/04/2015 08001 Closed trtmt prox humeral fx Completed 01/08/2015 53901 Holter Monitoring 24 HR New Completed 01/06/2015 16702 Holter Monitoring 24 HR New Completed 10/21/2014 Diabetic Retinal Eye Exam Completed 06/17/2014 06775 Left Heart Cath. Incl S/I Coronaries, Angio S/I V Gram Completed If Done 06/17/2014 16673 Percutaneous Transcatheter Placement Of Intracoronary Completed Stent 06/17/2014 32465 Percutaneous Transcatheter Placement Of Intracoronary Completed Stent 06/13/2014 22876 EKG Tracing & Interpretation Completed 04/17/2014 Colonoscopy Completed 04/07/2014 Mammogram Completed 03/07/2014 Diabetic Retinal Eye Exam Completed 03/03/2014 Diabetic Foot Exam Completed 02/26/2014 Bone Mineral Density Test Completed 02/10/2014 66651 ECHO Transthoracic, Real-Time 2D With Doppler And Color Completed Flow 02/06/2014 65260 Myocardial Perfusion Imaging Tomographic (Spect) Completed Multiple Studies 02/06/2014 69387 Stress Test Completed 05/12/2005 Diabetic Retinal Eye Exam Completed Encounters Type Date Location Provider CPT E/M Dx Office Visit 12/18/2017 [place] [address] E11.52 2:00p Of [facility] Office Visit 12/18/2017 [facility] Kiarra Galaviz, 63961 I70.261 9:40a Cruise Coordinator At [facility] [place] LITTLEJOHN, [facility] Office Visit 11/16/2017 [facility] Kiarra Galaviz, 33338 I70.235 3:00p Cruise Coordinator At [facility] LINA LITTLEJOHN, [facility] Office Visit 10/23/2017 [facility] Kiarra Galaviz, 41209 I70.235 8:40a Cruise Coordinator At [facility] LINA LITTLEJOHN, [facility] Office Visit 09/18/2017 [facility] Kiarra Galaviz, 25554 I70.235 3:40p Cruise Coordinator At [facility] LINA LITTLEJOHN, [facility] I70.245 Office Visit 08/14/2017 3:00p [facility] Kiarra Ajhelio, 17801 I70.235 Cruise Coordinator At [facility] LINA LITTLEJOHN, [facility] I70.245 Office Visit 06/07/2017 11:10a Cruise Coordinator Internal Medicine Iliana Veliz, 16680 E11.21 - Denzel Mercado I10 E83.42 Z23 G47.09 M81.0 Office Visit 03/23/2017 3:30p [facility] Jeanmarie Bolanos, 25517 I25.10 Tyler Mercado I10 Office Visit 02/27/2017 7:30a [facility] Internal Medicine Iliana Veliz M.D. 53058 K21.9 - Arrownaz Office Visit 02/15/2017 8:30a [facility] Internal Medicine Iliana Veliz M.D. 53062 K21.9 - Arrownaz R10.13 Office Visit 12/22/2016 10:00a [facility] Murphy Kern, 50157 M05.79 [facility]-Denzel VENDING SERVICE TECHNICIAN M81.0 E55.9 Z79.899 Office Visit 08/25/2016 9:50a [facility] Medicine Iliana Veliz, 22114 E11.21 - Denzel Mercado M06.9 I10 E55.9 Z12.31 M81.0 Z23 Office Visit 06/25/2016 [facility] [employer] [employer] 32518 I25.10 Assoc,pc Hospitalists S72.002A E11.9 M06.9 Office Visit 06/24/2016 12:59p [facility] Moore, [employer] [employer] 91789 I25.10 Assoc,pc Hospitalists S72.002A E11.9 M06.9 Office Visit 06/23/2016 12:58p [facility] [employer] [employer] 46648 I25.10 Assoc,pc Hospitalists S72.002A E11.9 M06.9 Office Visit 06/22/2016 12:57p [facility], 01717 S72.002A Assoc,pc Hospitalists [employer] I25.10 E11.9 M06.9 Office Visit 06/21/2016 12:56p [facility], 81824 I25.10 Assoc,pc [place] Hospitalists E11.9 M06.9 S72.002A Office Visit 05/26/2016 10:10a [facility] Internal Medicine Iliana Veliz, 08023 E11.21 - Denzel Mercado I10 M81.0 E83.42 Z23 Office Visit 04/16/2016 11:21a [facility] Assoc,pc Francisca Webb, N.P. 56026 I25.10 Hospitalists I10 E11.9 Z96.652 Office Visit 04/15/2016 11:20a [facility] Assoc,pc Francisca Webb, N.P. 60439 I25.10 Hospitalists Z96.652 I10 E11.9 Office Visit 04/14/2016 11:19a [facility] Jose Alfredo Gibbs, 85357 Z96.652 Assoc,pc Hospitalists N.P. I25.10 I10 E11.9 Office Visit 03/31/2016 12:30p [facility] Jeanmarie Bolanos, 22075 E11.21 [facility] Jess I25.10 R94.31 Z01.810 Office Visit 03/25/2016 9:40a [facility] [place] [address] Z01.818 [place] M17.12 E11.311 R55 I10 M05.79 Office Visit 03/21/2016 9:45a [facility] Dee Dee Junior M.D. 06139 M25.562 [facility] M17.12 M25.462 Office Visit 12/21/2015 2:00p [facility] Dee Dee Junior M.D. 26877 M17.0 [facility] M17.11 M17.12 Office Visit 11/09/2015 10:30a [facility] [address] F44.5 Services Of [facility] Office Visit 10/08/2015 9:50a [facility] Internal Medicine Iliana Veliz, 69037 E11.311 - Darin Mercado M79.661 S16.1xxA E11.21 Office Visit 09/24/2015 10:30a [facility] Murphy Kern VENDING SERVICE TECHNICIAN 17975 M05.79 Of [facility] R55 Z79.899 M81.0 E55.9 Office Visit 09/01/2015 2:30p [facility] [address] R55 Services Of [facility] Office Visit 07/15/2015 9:30a [place] [address] R55 Services Of [facility] Office Visit 07/10/2015 11:15a [facility] Dee Dee Junior M.D. 57291 S42.292D Of [facility] Office Visit 07/10/2015 9:30a [facility] NirmalaAylin Bolanos, 30926 I25.10 [facility] M.DAylin R55 Office Visit 07/02/2015 10:00a [facility] Leobardo Ambriz, 03431 M05.89 Of Tyler Mercado Z79.899 M15.0 E11.311 Office Visit 05/04/2015 10:00a [facility] Internal [place] A [address] 401.1 - [place] Office Visit 04/21/2015 11:50a [facility] Internal Medicine Iliana Veliz, 83112 250.42 - [place] M.DAylin 682.9 401.1 268.9 681.10 Office Visit 03/06/2015 8:00a [facility] NirmalaAylin Bolanos, 70634 414.01 [facility] M.D. Office Visit 12/31/2014 9:10a [facility] Internal Medicine Iliana Veliz, 46860 250.40 - [place] M.DAylin 250.42 401.9 780.2 V03.82 Office Visit 08/14/2014 11:15a [facility] NirmalaAylin Bolanos, 07042 414.01 [facility] Jess 250.40 Office Visit 07/31/2014 9:50a [facility] Internal Medicine Iliana Veliz, 41078 250.40 - [place] M.DAylin 268.9 V04.81 Office Visit 06/24/2014 1:15p [facility] Jeanmarie Javi Bolanos, 21486 414.01 Tyler At [facility] M.Javi 786.50 Office Visit 06/13/2014 3:45p [facility] Javi Bolanos, 72039 786.50 [facility] M.D. Office Visit 05/28/2014 4:00p [facility] Milan Malagon M.D. 19120 714.0 Of [facility] 681.10 V49.5 Office Visit 04/30/2014 9:50a [facility] Internal Medicine Iliana Veliz, 08309 250.40 - [place] M.DAylin Office Visit 2014 9:10a [facility] Internal Medicine Iliana Veliz, 57223 V70.0 - [place] M.DAylin 250.42 787.91 V76.51 729.82 V76.10 112.9 v76.2 Office Visit 03/31/2014 8:00a [facility] Of Milan Malagon M.D. 97752 714.0 [facility] 733.00 Office Visit 02/26/2014 1:00p [facility] Of Milan Malagon M.D. 08055 714.0 [facility] 733.00 Office Visit 02/25/2014 10:10a [facility] Internal Medicine Iliana Veliz, 25638 250.42 - Darin Mercado 786.05 443.9 733.01 714.0 518.89 Office Visit 01/28/2014 9:10a [facility] Internal Medicine Iliana Veliz 52807 250.02 - Darin Mercado 786.50 443.9 786.05 278.00 Plan of Care Future Appointment(s):01/17/2018 3:30 pm - Cameron Reddy MD at [facility]01/12/2018 3:00 pm - Kiarra Galaviz MD, [facility] at [facility] At [facility]/30/2018 10:10 am - Iliana Veliz M.D. at [facility] Internal Medicine - Ntmtjpqlf68/26/2018 8:15 am - DANY Feliciano at [facility]01/04/2018 8:15 am - Cameron Reddy MD at [facility]
[2018-01-26 11:25] LABS: ABS Basophils 0.1 10^3/ul (0-0.2); ABS Eosinophils 0.3 10^3/ul (0-0.6); ABS Monocytes 0.7 10^3/ul (0-0.8); ABS Neutrophils 4.3 10^3/ul (1.5-7.7); ABS Nucleated RBC 0 10^3/ul; Eosinophil % 3.4 % (0-6); Hematocrit 33 % (35-47); Hemoglobin 10.7 g/dl (12.0-16.0); Lymphocyte % 35.7 % (25-47); Mean Corpuscular HGB Conc 33 g/dl (31-36); Mean Corpuscular Hemoglobin 28 pg (27-31); Mean Corpuscular Volume 86 fL (80-97); Mean Platelet Volume 8.2 um3 (7.4-10.4); Nucleated Red Blood Cells % 0; Platelet Count 345 10^3/ul (150-450); Red Blood Count 3.79 10^6/ul (4.0-5.4); Red Cell Distribution Width 15 % (10.5-15); White Blood Count 8.3 10^3/ul (3.5-10.8)
[2018-01-26 11:46] LABS: EGFR Non-African American 51.9 (>60)
[2018-01-26] MEDS ORDERED: Magnesium Sulfate 2 GM IV* 2 GM/50 ML BAG IVPB ONE (12:11)
[2018-01-26] MEDS ORDERED: Albuterol HFA INHALER* 8 gm MDI INH PRN (12:14)
[2018-01-26] MEDS ORDERED: traMADol TAB* 50 MG PO PRN (12:14)
[2018-01-26] MEDS: Metoprolol Tartrate TAB* 25 MG PO SCH ×2 (14:35→21:38)
--- NOTE | 2018-01-26 15:23 | ECHO ---
Patient: SHERI PENNY [facility] Rec#: [id number] : 1945 Date: 01/26/2018 Age: 72y Height: 157.5 cm / 62.0 in Weight: 80.3 kg / 177.0 lbs Sex: F BSA: 1.8 Room#: 439 Admit Date#: 01/26/2018 Type: Inpatient Referring: Jayson Alonzo Reading: Lucio Jerome MD Operations Developer: Esperanza Blanton RN RDCS CC: LAURA MARTINO CC: Jeanmarie Bolanos MD Transthoracic Echocardiogram Indication: Chest pain, syncope BP: 130/52 HR: 83 Rhythm: NSR Findings History: DM, PVD, seizures, syncope, RA, obesity, recent toe amputation. This was ordered as a STAT echo after the patient had a witnessed syncopal episode. Technical Comments: The study quality is fair. The study is technically limited due to patient body habitus. Completed at 1315. Left Ventricle: The left ventricular chamber size is normal. Global left ventricular wall motion and contractility are within normal limits. There is normal left ventricular systolic function. The estimated ejection fraction is 60-65%. There is an E to A reversal in the mitral valve flow pattern suggestive of diastolic dysfunction. Left Atrium: The left atrial chamber size is normal. Right Ventricle: Moderator Band present. The right ventricle is mild to moderately dilated. The right ventricular global systolic function is mildly reduced. Right Atrium: The right atrial cavity size is normal. Aortic Valve: The aortic valve is trileaflet. The aortic valve leaflets are mildly thickened. There is no evidence of aortic regurgitation. There is no evidence of aortic stenosis. Mitral Valve: The mitral valve leaflets are mildly thickened. There is a trace of mitral regurgitation. Tricuspid Valve: The tricuspid valve leaflets are normal. There is trace to mild tricuspid regurgitation.The degree of pulmonary hypertension may be underestimated but there appears to be at least borderline mild pulmonary hypertension. Pulmonic Valve: The pulmonic valve structure is not well visualized. There is no evidence of pulmonic regurgitation. There is no pulmonic stenosis. Pericardium: There is no significant pericardial effusion. A pericardial fat pad is visualized. Aorta: There is no dilatation of the ascending aorta. There is no dilatation of the aortic arch. There is no dilation of the aortic root. Pulmonary Artery: The main pulmonary artery is not well visualized. Venous: The inferior vena cava appears normal in size. There is a greater than 50% respiratory change in the inferior vena cava dimension. Conclusions There is normal left ventricular systolic function. The estimated ejection fraction is 60-65%. Global left ventricular wall motion and contractility are within normal limits. The left ventricular chamber size is normal. There is an E to A reversal in the mitral valve flow pattern suggestive of diastolic dysfunction. The right ventricle is mild to moderately dilated. The right ventricular global systolic function is mildly reduced. Functionally benign heart valves. The degree of pulmonary hypertension may be underestimated but there appears to be at least borderline mild pulmonary hypertension. Since the prior echocardiogram completed 02/10/14, pertinent changes are prior normal right ventricular size and prior normal right ventricular function reported. These results were also called the ordering physician, Dr. Alonzo at his request. Measurements Name Value Normal Range RVDdMajor (2D) 4 cm (2.2 - 4.4) RVAW (2D) 0.8 cm (0.2 - 0.5) RAd ISD 4CH 4.3 cm (3.4 - 4.9) RA (A4C)W 3.5 cm (2.9 - 4.6) IVSd (2D) 1.1 cm (0.6 - 1) LVPWd (2D) 1.1 cm (0.6 - 1) LVIDd (2D) 3.8 cm (3.6 - 5.4) Aortic Annulus 1.9 cm (1.4 - 2.6) Ao root diameter (2D) 3.5 cm (2.1 - 3.5) Ascending Ao 3.1 cm (2.1 - 3.4) Aortic arch 2.5 cm (1.8 - 3.4) LA dimension (AP) 2D 3.1 cm (2.3 - 3.8) LAd ISD 4CH 4 cm (2.9 - 5.3) LA ISD 4CH W 3.9 cm (2.5 - 4.5) Name Value Normal Range LA ESV SP 4CH (A/L) 31 ml - LA ESV SP 2CH (A/L) 23 ml - LA ESV BP (A/L) 29 ml - LA ESV BP (A/L) index 15.8 ml/m2 - LA ESV SP 4CH (MOD) 29 ml - LA ESV SP 2CH (MOD) 22 ml - Name Value Normal Range MV E-wave Vmax 0.62 m/sec - MV deceleration time 679670.93 msec- MV A-wave Vmax 0.81 m/sec - MV E:A ratio 0.77 ratio - LV septal e' Vmax 0.08 m/sec - LV lateral e' Vmax 0.08 m/sec - LV E:e' septal ratio 7.8 ratio - LV E:e' lateral ratio 7.8 ratio - Name Value Normal Range AV Vmax 1 m/sec - AV VTI 22.6 cm - AV peak gradient 4.3 mmHg - AV mean gradient 2.8 mmHg - LVOT Vmax 0.98 m/sec - LVOT VTI 22.9 cm - LVOT peak gradient 3.8 mmHg - LVOT mean gradient 2.2 mmHg - SHANNAN Vmax 0.59 m/sec - Name Value Normal Range TR Vmax 2.8 m/sec - TR peak gradient 31 mmHg - RAP 3 mmHg - RVSP 34 mmHg - IVC diameter 1.3 cm - Name Value Normal Range PV Vmax 0.6 m/sec -
--- NOTE | 2018-01-26 15:56 | RAD ---
INDICATION: Dyspnea COMPARISON: Chest x-ray February 13, 2017 TECHNIQUE: AP seated and lateral views were obtained. FINDINGS: Bones/Soft Tissues: There are no acute bony findings. Cardiomediastinal: The cardiomediastinal silhouette is normal. Lungs: There are no infiltrates. Pleura: There are no pleural effusions. Other: None IMPRESSION: NO ACTIVE DISEASE.
--- NOTE | 2018-01-26 16:50 | HP ---
HISTORY AND PHYSICAL: DATE OF ADMISSION: 01/26/18. ADMITTING PROVIDER: Jayson Alonzo MD. OUTPATIENT MATERIALS TECH: Dr. Bolanos. PRIMARY CARE PHYSICIAN: Dr. Veliz. VASCULAR SURGEON: Dr. Trav Carlson of [place], [place], and local errand runner Dr. Galaviz. CHIEF COMPLAINT: Intermittent dyspnea on exertion with chest pressure, nausea, diaphoresis. HISTORY OF PRESENT ILLNESS: Ms. Hale is a 72-year-old female PMH CAD, status post drug-eluting stents to the LAD (70% blockage) and proximal circ (80 % blockage) in June 2014, on dual antiplatelets; rheumatoid arthritis; hypertension; non-insulin dependent diabetes mellitus; GERD; peripheral vascular disease, status post recent intervention on the right lower extremity; syncopal events for 30 years with reported extensive work up as an outpatient. Patient was visiting Dr. Jalil Givens for follow-up evaluation of right first toe amputation for which she has been on Flagyl and cefadroxil. During his history she is reporting that she has had intermittent chest pressure, extreme shortness of breath, diaphoresis with exertion over the last several months. He called Communication Professor Dr. Ortega and then the hospitalist service for direct admission with the anticipation of possibly getting a stress test the same day. The patient reports to this provider that since at least the end of November and occasionally even before that, she got very short of breath with exertion approximately 50% at the time when she walks the 20 feet to the bathroom. Approximately once a day this sensation is even worse(and also more likely when walking further distances) associated with "10/10" chest pressure, she describes as having a "bear hug her." She gets very short of breath, nauseous, and diaphoretic during these episodes. The patient gets up about 6 to 7 times a day to urinate, otherwise has been keeping her legs elevated in a recliner and relatively otherwise immobile. She does attest to some tightness in the bilateral calves. During examination patient syncopized during deeper breaths and family at bed side reports that this is not uncommon for her, the last event was approximately a month ago and she has had an extensive workup in the past. She cannot remember her neurologist. She does not know the diagnosis. She does not remember having a tilt table test. Her blood pressure was checked right after this episode, 150/80 and her glucose at that time was 117. Dr. Lucio Jerome called stating that inpatient stress test could not be performed today and patient would likely have to stay through the weekend to get further evaluation. He also recommended ruling out a pulmonary embolism as a source of her shortness of breath. The patient denies any fevers, chills, abdominal pain. She cannot recall events after taking a deep breath. She, for about 60 to 120 seconds, could not speak or follow commands and within about 3 to 4 minutes was able to speak again. She is accompanied by her 2 daughters who are her medical surrogates and provide a lot of the history. Dr. Givens stopped her Flagyl, took a swab of her toe today and will call the pt if he wants to continue the cefadroxil beyond the few days left that she has remaining in her original prescription. PAST MEDICAL HISTORY: 1. Coronary artery disease status post drug-eluting stents to the mid LAD and proximal circumflex, ejection fraction 60% at that time. 2. Hypertension. 3. Rheumatoid arthritis, on leflunomide. 4. GERD. 5. Non-insulin dependent diabetes mellitus. 6. Peripheral vascular disease, status post recent revascularization x2, the right lower extremity with Dr. Trav Carlson of [facility] in [place], [place]. 7. Syncopal events for 30+ years. MEDICATIONS: Include: 1. Cefadroxil 500 mg p.o. b.i.d. 2. Ventolin inhaler 2 puffs inhaled q. 6 hours p.r.n. 3. Atorvastatin 20 mg p.o. q. p.m. 4. Aspirin 81 mg q. p.m. 5. Fosamax 70 mg p.o. weekly. 6. Plavix 75 mg p.o. q. p.m. 7. Cholecalciferol 2000 units p.o. b.i.d. 8. Gabapentin 300 mg p.o. b.i.d. 9. Leflunomide 20 mg p.o. q. p.m. 10. Lisinopril 20 mg p.o. q. a.m. 11. Tramadol one to two 50 mg tablets p.o. q. 6 hours p.r.n. 12. Januvia 1 tablet p.o. q.a.m. 13. Magnesium oxide 800 mg p.o. b.i.d. ALLERGIES: UNKNOWN EYE DROPS. FAMILY HISTORY: Father of heart attack age 59, does not know when he had his first attack. Mother of complications of diabetes at age 92. Her brother had open heart surgeries. Sister has a defibrillator. Her niece at age 42 of a heart attack, and 2 nephews who at 45 and 53 of heart attacks. SOCIAL HISTORY: The patient is a never smoker, never drinker, no significant drug use. She lives with her . 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 Her medical surrogates are her daughters Irma Davidson, Shefali Perry , and Candie Candelaria. She initially is weary of CPR but wants to be a full code until evaluated for potential need for left heart catheterization for the coronary intervention. REVIEW OF SYSTEMS: A complete 14-point review of systems is negative except as per HPI. PHYSICAL EXAMINATION GENERAL: The patient in no acute distress. VITAL SIGNS: Temperature 98.5, pulse 88, respiratory rate 18, satting 98% on room air, blood pressure 130/52. HEENT: Normocephalic, atraumatic. Pupils are equal, round and reactive to light. Extraocular motions intact. No scleral icterus. No oropharynx lesion. NECK: Supple. No cervical lymphadenopathy. PULMONARY: Clear to auscultation without wheezing, rales or rhonchi. CARDIOVASCULAR: Regular rate and rhythm. No murmurs, rubs or gallops. ABDOMEN: Soft, nontender and nondistended. EXTREMITIES: Warm and well perfused. Status post right first toe amputation with black eschar without drainage. No significant erythema. SKIN: No lesions, no rashes. NEURO: Cranial nerves II through XII intact. Sensation and rfid technician intact. LABORATORY DATA: White count 8.3, hemoglobin 10.7, hematocrit 33, platelets 345. Sodium 137, potassium 4.5, chloride 102, carbon dioxide 26, BUN 33, creatinine 1.04, glucose 117, magnesium 1.8. Total bili 0.3, AST 19, ALT 16 with alk phos 69, troponin 0.00. BNP 20. Albumin 3.8. D-dimer pending. IMAGING: EKG: Normal sinus rhythm, normal axis, normal intervals. No ST elevations or depression. Poor R-wave progression. QTc 438. ASSESSMENT AND PLAN: Ms. Dee Hale is a 72-year-old female starting with months of exertional dyspnea with near daily chest pressure, rated as 10 out of 10 with nausea, diaphoresis. Her story is concerning for anginal chest pain and of note she had a negative stress test in February 2014 prior to her 2 stents placed in June 2014. I believe she will need to have a heart catheterization. The case was discussed with wax machine operator club concierge Dr. Lucio Jerome and given the timing and lack of cardiac enzymes, he is unable to do a inpatient stress test today. He is recommending her to stay through the weekend and a close observation; she would likely get a stress test on Monday. Given her syncopal event during pulmonary auscultation and with the weekend coming up, I ordered a stat echocardiogram to evaluate for any regional wall motion abnormalities, evidence of HOCM or right heart strain. A D-dimer is being obtained given her relative post-operative immobility, (though she does amubulate ~6 to 7 times a day to urinate) to evaluate if she needs a CTA or V/Q scan to evaluate for possible pulmonary embolism. She is not on any beta- juan; I am going to start a low dose metoprolol q. 8 hours p.o., follow up the echocardiogram report, continue her aspirin, Plavix, and statin. Need a lipid panel and followup A1c, already ordered. For her dyspnea on exertion I will also get a chest x-ray, she has not had one here since 2017, no active disease at that time. She is a never smoker. For her right first toe wound/ possible infection we will continue the cefadroxil, follow with Dr. Givens's outpatient culture results. Not to continue the Flagyl per his orders. For her rheumatoid arthritis we will continue her leflunomide. For her pain control continue tramadol, gabapentin. She is now full code. Medical surrogates as above. She is n.p.o. for now until cardiac enzymes are back. [id number]/[facility] #: [id number] JERONIMO
[2018-01-26] MEDS: Aspirin EC TAB* 81 MG TAB.EC PO SCH (17:39)
[2018-01-26] MEDS: Clopidogrel TAB* 75 MG PO SCH (17:39)
[2018-01-26] MEDS: Atorvastatin* 20 MG TAB PO SCH (17:39)
[2018-01-26] MEDS ORDERED: LEFLUNOMIDE 20 MG PO SCH (18:00)
[2018-01-26] MEDS ORDERED: Iodixanol* (CONTRAST) 320 MG/ML 100 ML SDV IV ONE (19:38)
--- NOTE | 2018-01-26 20:29 | CONS ---
CC: Dr. Jeanmarie Bolanos; Dr. Jaill Givens CARDIOLOGY CONSULTATION: DATE OF CONSULT: 01/26/18 REFERRAL PHYSICIAN: Dr. Jayson Alonzo. REASON FOR CARDIOLOGY CONSULT: Chest pain in a patient with history of CAD, status post PCI. HISTORY OF PRESENT ILLNESS: I was kindly asked to see this patient who has been having 2 months of exertional chest pain and shortness of breath. She was seen by her infectious disease physician today, who noted that history and it has been arranged for the patient to have a direct admission to [facility] for further evaluation. At this time, the patient is chest pain-free. She has no rest anginal symptoms that we can ascertain. She states that she has been recumbent for 2 months allowing her right diabetic ulcer foot wound to heal. She is accompanied by her 2 daughters with her verbal consent. PAST MEDICAL HISTORY: Includes rheumatoid arthritis; hypertension; coronary artery disease status post PCI with stents placed to her mid LAD and circumflex 06/24; GERD; PAD with right foot wound and she is followed by the vascular service, Dr. Galaviz; prior left knee replacement; right hip replacement; hysterectomy; cholecystectomy for cholelithiasis; history of pulmonary nodules, followed by her primary care provider. OUTPATIENT MEDICATIONS: Listed as: 1. Lisinopril 20 mg once a day. 2. Vitamin D once a day. 3. Fosamax 70 mg once a week. 4. Sitagliptin/Janumet mg once a day. 5. Lipitor 20 mg once a day. 6. Magnesium oxide 800 mg twice a day. 7. Albuterol q.6 hours p.r.n. 8. Leflunomide 20 mg once a day. 9. Tramadol 50 mg once a day. 10. Gabapentin 300 mg p.o. b.i.d. 11. Plavix 75 mg p.o. daily. 12. Aspirin 81 mg once a day. 13. Flagyl 500 mg p.o. b.i.d. 14. Duricef 500 mg p.o. b.i.d. ALLERGIES TO MEDICATIONS: The patient denies any medication allergies. She denies shrimp, seafood, or dye allergy. FAMILY HISTORY: Significant for cardiac disease in her father, brother, and sister. Also, family history of diabetes, stroke, and cancer. SOCIAL HISTORY: She has been for 58 years, lives with her . 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 She does not do regular exercise. She does not smoke cigarettes or abuse alcohol. No use of illicit drugs. REVIEW OF SYSTEMS: She denies personal history of stroke, cancer, vomiting up blood, coughing of blood, bright red blood per rectum, or bleeding stomach ulcers. She has had prior renal calculi. She has had prior cholelithiasis, status post cholecystectomy. She denies asthma, emphysema, pneumonia, tuberculosis, sleep apnea, or home oxygen use. She has diabetes. She has hypertension. She denies prior HI, congestive heart failure. She denies prior bypass surgery or valve replacement to her heart. She has rare palpitations. She denies psychiatric illnesses, lupus, psoriasis, seizures, Parkinson's disease, myasthenia gravis. She has had prior syncope, which was felt due to her diabetes. She denies thyroid disorders, liver disorders, kidney disorders. She denies pulmonary emboli, deep venous thrombosis, but does have known peripheral arterial disease. She does have claudication symptoms. She also notes reflux. All other review of systems negative x14 except as described above. PHYSICAL EXAM: Height 5 feet 2 inches, weight 177 pounds. Temperature 98.5 degrees, pulse 88, respiratory rate 18, O2 saturation 98%, blood pressure 130/ 52. On general exam, she is a chronically ill-appearing woman, in no acute distress. HEENT show the cranium is normocephalic and atraumatic. She has moist mucosal membranes. Neck veins are not distended. There is a soft right carotid bruit. Visible skin warm and perfused. Affect is appropriate. She appears oriented. No significant kyphoscoliosis on recumbent back exam. Lungs are clear to auscultation. No wheezes, no rales anteriorly. Cardiac Exam: S1 , S2. Regular rate. No significant murmurs, rubs, or gallops. PMI is nondisplaced. Abdomen: Soft and nondistended, appears benign. Extremities reveal right foot is bandaged with a distal healing ulcer. The pulses are difficult to palpate in her bilateral lower extremities, but she does seem to be perfused distally. DIAGNOSTIC STUDIES/LAB DATA: A 12-lead EKG is reviewed, which shows normal sinus rhythm at 78 beats per minute, felt to be within normal limits. White blood cell count 8.3, hematocrit 33, platelet count 345. Other labs are all pending. IMPRESSION: Ms. Hale is a 72-year-old woman with a history of coronary artery disease, status post percutaneous coronary intervention with stents to her left anterior descending artery and circumflex vessel in 2013, who now notes chest pain and shortness of breath. She has been recumbent recently because of her healing right diabetic foot ulcer with significant peripheral arterial disease. I have discussed this in detail with the patient. She is stable at this time from a cardiac standpoint. I am making the following recommendations with which she is in agreement as well as her 2 daughters, who accompany her today. RECOMMENDATIONS: 1. Await her other labs, which are pending as the patient was a direct admission from Dr. Givens's ID office. 2. Continue aspirin, Plavix for her PAD, KINZA inhibitor, statin. Consider beta juan, which may be evaluated by her outpatient furnace brazer. 3. Rule out PE and myocardial infarction. 4. If HI ruled out, plan cardiac chemical nuclear rest/stress scan early next week. 6. Other management as per the hospitalist medicine service and I have discussed the case with Dr. Alonzo. Dear Dr. Alonzo, many thanks for asking me to participate in the cardiovascular consultative care of Ms. Hale. Please do not hesitate to contact me if you have any questions or concerns regarding the patient's cardiovascular consultative care. [id number]/[facility] #: [id number] JERONIMO
--- NOTE | 2018-01-26 21:08 | RAD ---
INDICATION: Chest pain. Short of breath. Evaluate for pulmonary embolus. COMPARISON: Chest x-ray January 26, 2018; CT chest December 21, 2016; CT chest February 27, 2014 TECHNIQUE: Axial source images were obtained from the thoracic inlet to the hemidiaphragms following administration of [address] angiographic technique was utilized. Coronal and sagittal reconstructed images were acquired. CHEST FINDINGS: Neck/thyroid: The visualized neck to include the thyroid appear normal. Chest wall: There are no acute abnormalities of the bony thorax or chest wall. There is no supraclavicular, infraclavicular, or axillary lymphadenopathy. Lungs : There are multiple pulmonary parenchymal nodules similar in appearance to the earlier examinations. These were also noted to be stable in 2017. The stability suggests a benign etiology. The pulmonary interstitium appears normal. There are no endobronchial lesions. Cardiomediastinal structures: There is no CT evidence of acute pulmonary embolic disease. The heart is normal in size. There is no pericardial effusion. There is no evidence of aortic aneurysm or dissection. There is no mediastinal or hilar adenopathy. There are nonpathologic enlarged lymph nodes. The esophagus appears normal. Pleura : There are no pleural-based masses or effusions. Other: None. IMPRESSION: NO CT EVIDENCE OF ACUTE PULMONARY EMBOLIC DISEASE. STABLE LUNG NODULES.
[2018-01-26] MEDS ORDERED: Dextrose 50% Syringe 50 ML* 25 GM/50 ML SYRINGE IV PUSH PRN (21:34)
[2018-01-26] MEDS: Cefadroxil CAP* 500 MG PO SCH (21:36)
[2018-01-26] MEDS: Gabapentin CAP(*) 300 MG PO SCH (21:36)
[2018-01-26] MEDS: Cholecalciferol TAB* 1000 UNITS PO SCH (21:37)
[2018-01-26] MEDS: Heparin VIAL(*) 5000 UNITS/ML VIAL (FIVE THOUSAND) SUBCUT SCH (23:07)
[2018-01-27 05:24] LABS: Hematocrit 29 % (35-47); Hemoglobin 9.4 g/dl (12.0-16.0); Mean Corpuscular HGB Conc 33 g/dl (31-36); Mean Corpuscular Hemoglobin 28 pg (27-31); Mean Corpuscular Volume 86 fL (80-97); Mean Platelet Volume 8.1 um3 (7.4-10.4); Platelet Count 267 10^3/ul (150-450); Red Blood Count 3.33 10^6/ul (4.0-5.4); Red Cell Distribution Width 15 % (10.5-15); White Blood Count 5.9 10^3/ul (3.5-10.8)
[2018-01-27 05:38] LABS: ABS Basophils 0.1 10^3/ul (0-0.2); ABS Eosinophils 0.2 10^3/ul (0-0.6); ABS Lymphocytes 2.3 10^3/ul (1.0-4.8); ABS Monocytes 0.5 10^3/ul (0-0.8); ABS Neutrophils 2.9 10^3/ul (1.5-7.7); ABS Nucleated RBC 0 10^3/ul; Eosinophil % 3.9 % (0-6); Lymphocyte % 37.9 % (25-47); Nucleated Red Blood Cells % 0
[2018-01-27 05:43] LABS: EGFR Non-African American 58.4 (>60)
[2018-01-27] MEDS: Heparin VIAL(*) 5000 UNITS/ML VIAL (FIVE THOUSAND) SUBCUT SCH ×3 (06:02→21:21)
[2018-01-27] MEDS: Metoprolol Tartrate TAB* 25 MG PO SCH ×3 (06:03→21:20)
[2018-01-27] MEDS: Insulin LISPRO* 1 UNITS UNIT SUBCUT SCH ×4 (07:34→21:22)
[2018-01-27] MEDS: Lisinopril TAB* 5 MG PO SCH (09:50)
[2018-01-27] MEDS: Cefadroxil CAP* 500 MG PO SCH ×2 (09:50→21:20)
[2018-01-27] MEDS: Magnesium Oxide TAB* 400 MG PO SCH ×2 (09:50→21:20)
[2018-01-27] MEDS: Cholecalciferol TAB* 1000 UNITS PO SCH ×2 (09:50→21:20)
[2018-01-27] MEDS: Gabapentin CAP(*) 300 MG PO SCH ×2 (09:50→21:19)
--- NOTE | 2018-01-27 15:25 | PN ---
Subjective Date of Service: 01/27/18 Interval History: Patient seen and examined. states she still becomes dizzy after ambulation. No chest pain at present, no acute SOB. Denies fever or chills. Daughter at bedside. Objective Active Medications: Albuterol (Ventolin Hfa Inhaler*) 2 puff INH Q6H PRN PRN Reason: SOB/WHEEZING Aspirin (Aspirin Ec Tab*) 81 mg PO QPM [facility] Last Admin: 01/26/18 17:39 Dose: 81 mg Atorvastatin Calcium (Lipitor*) 20 mg PO QPM [facility] Last Admin: 01/26/18 17:39 Dose: 20 mg Cefadroxil (Duricef Cap*) 500 mg PO BID [facility] Last Admin: 01/27/18 09:50 Dose: 500 mg Cholecalciferol (Vitamin D Tab*) 2,000 units PO BID [facility] Last Admin: 01/27/18 09:50 Dose: 2,000 units Clopidogrel Bisulfate (Plavix Tab*) 75 mg PO QPM [facility] Last Admin: 01/26/18 17:39 Dose: 75 mg Dextrose (D50w Syringe 50 Ml*) 12.5 gm IV PUSH .FOR FS < 60 - SS PRN PRN Reason: FS < 60 Gabapentin (Neurontin Cap(*)) 300 mg PO BID [facility] Last Admin: 01/27/18 09:50 Dose: 300 mg Heparin Sodium (Porcine) (Heparin Vial(*)) 5,000 units SUBCUT Q8HR [facility] Last Admin: 01/27/18 13:43 Dose: 5,000 units Insulin Human Lispro (Humalog*) 0 units SUBCUT ACHS [facility] PRN Reason: Protocol Last Admin: 01/27/18 13:20 Dose: Not Given Leflunomide (Arava (Nf)) 20 mg PO QPM [facility] Lisinopril (Prinivil Tab*) 20 mg PO QAM [facility] Last Admin: 01/27/18 09:50 Dose: 20 mg Magnesium Oxide (Magox 400 Tab*) 800 mg PO BID [facility] Last Admin: 01/27/18 09:50 Dose: 800 mg Metoprolol Tartrate (Lopressor Tab*) 25 mg PO Q8H [facility] Last Admin: 01/27/18 13:43 Dose: 25 mg Tramadol HCl (Ultram*) 50 mg PO Q6H PRN PRN Reason: PAIN Vital Signs - 8 hr 01/27/18 01/27/18 01/27/18 07:42 09:44 09:50 Temperature Pulse Rate 72 Respiratory 18 16 Rate Blood Pressure 128/51 (mmHg) O2 Sat by Pulse Oximetry 01/27/18 11:05 Temperature 98.3 F Pulse Rate 72 Respiratory 16 Rate Blood Pressure 114/46 (mmHg) O2 Sat by Pulse 97 Oximetry Oxygen Devices in Use Now: None Appearance: Alert, NAD Eyes: No Scleral Icterus, PERRLA Ears/Nose/Mouth/Throat: NL Teeth, Lips, Gums, Mucous Membranes Moist Neck: NL Appearance and Movements; NL JVP, Trachea Midline Respiratory: Symmetrical Chest Expansion and Respiratory Effort, Clear to Auscultation Cardiovascular: NL Sounds; No Murmurs; No JVD, RRR, No Edema Abdominal: NL Sounds; No Tenderness; No Distention, No Hepatosplenomegaly Extremities: No Edema, - - dressing to right foot CDI Neurological: Alert and Oriented x 3 Nutrition: Taking PO's Result Diagrams: 01/27/18 05:17 01/27/18 05:17 Assess/Plan/Problems-Billing Assessment: - Patient Problems (1) Chest pain Code(s): R07.9 - CHEST PAIN, UNSPECIFIED SNOMED Code(s): 58639225 Comment: - Cardiology consult appreciated, recommending stress as an inpatient on Monday given risk factors - NPO after midnight tomorrow night - Trop negative 0.00/0.00 (2) Hypertension Code(s): I10 - ESSENTIAL (PRIMARY) HYPERTENSION SNOMED Code(s): 57291056 Comment: - continue lisinopril and metoprolol (3) CAD (coronary artery disease) Code(s): I25.10 - ATHSCL HEART DISEASE OF [place] CORONARY ARTERY W/O ANG PCTRS SNOMED Code(s): 43317800 Comment: - continue ASA and statin (4) History of multiple pulmonary nodules Code(s): Z87.898 - PERSONAL HISTORY OF OTHER SPECIFIED CONDITIONS SNOMED Code( s): 634915576 Comment: - Stable on CTA from last, continue to follow as an outpatient (5) PVD (peripheral vascular disease) Code(s): I73.9 - PERIPHERAL VASCULAR DISEASE, UNSPECIFIED SNOMED Code(s): 873607001 Comment: - Had revascularization in the past and has had toe amputation recently - Has appointment with her vascular surgeon in [place] next week (6) Rheumatoid arthritis Code(s): M06.9 - RHEUMATOID ARTHRITIS, UNSPECIFIED SNOMED Code(s): 35989760 Comment: - Continue leflunamide (7) Status post amputation of toe of right foot Code(s): Z89.421 - ACQUIRED ABSENCE OF OTHER RIGHT TOE(S) SNOMED Code(s): 730078541 Comment: - cotninue atbx as per Dr. Givens and f/u with Dr. Reddy (8) Non-insulin dependent type 2 diabetes mellitus Code(s): E11.9 - TYPE 2 DIABETES MELLITUS WITHOUT COMPLICATIONS SNOMED Code(s) : 33588990 Comment: - Lispro SS and accuchecks ACHS (9) DVT prophylaxis Code(s): YKC9926 - SNOMED Code(s): 782928367 Comment: - HSQ (10) DNR (do not resuscitate) Status and Disposition: Remain inpatient for stress monday.
[2018-01-27] MEDS: Clopidogrel TAB* 75 MG PO SCH (16:43)
[2018-01-27] MEDS: Atorvastatin* 20 MG TAB PO SCH (16:43)
[2018-01-27] MEDS: Aspirin EC TAB* 81 MG TAB.EC PO SCH (16:43)
[2018-01-27] MEDS: LEFLUNOMIDE 10 MG PO SCH (16:44)
[2018-01-28 06:16] LABS: ABS Basophils 0.1 10^3/ul (0-0.2); ABS Eosinophils 0.3 10^3/ul (0-0.6); ABS Lymphocytes 2.4 10^3/ul (1.0-4.8); ABS Monocytes 0.6 10^3/ul (0-0.8); ABS Neutrophils 3.4 10^3/ul (1.5-7.7); ABS Nucleated RBC 0 10^3/ul; Hematocrit 29 % (35-47); Hemoglobin 9.7 g/dl (12.0-16.0); Lymphocyte % 36.3 % (25-47); Mean Corpuscular HGB Conc 33 g/dl (31-36); Mean Corpuscular Hemoglobin 28 pg (27-31); Mean Corpuscular Volume 86 fL (80-97); Mean Platelet Volume 8.4 um3 (7.4-10.4); Nucleated Red Blood Cells % 0; Platelet Count 247 10^3/ul (150-450); Red Cell Distribution Width 15 % (10.5-15); White Blood Count 6.7 10^3/ul (3.5-10.8)
[2018-01-28 06:31] LABS: EGFR Non-African American 80.7 (>60)
[2018-01-28] MEDS: Metoprolol Tartrate TAB* 25 MG PO SCH ×3 (06:37→21:15)
[2018-01-28] MEDS: Heparin VIAL(*) 5000 UNITS/ML VIAL (FIVE THOUSAND) SUBCUT SCH ×3 (06:37→21:14)
--- NOTE | 2018-01-28 09:29 | PN ---
Subjective Date of Service: 01/28/18 Interval History: Mrs Penny reports doing very well today. Denies any chest pain, palpitations, dyspnea or SOB. She has used the bathroom this morning, denies any dizzy episodes upon standing up or using the toilet. She expressed desire to go home today. Cardiology recommendations discussed with patient. She understands the indication to proceed with cardiac stress test tomorrow, given her history. She has no c/o today. Family History: Unchanged from Admission Social History: Unchanged from Admission Past Medical History: Unchanged from Admission Objective Active Medications: Albuterol (Ventolin Hfa Inhaler*) 2 puff INH Q6H PRN PRN Reason: SOB/WHEEZING Aspirin (Aspirin Ec Tab*) 81 mg PO QPM [facility] Last Admin: 01/27/18 16:43 Dose: 81 mg Atorvastatin Calcium (Lipitor*) 20 mg PO QPM [facility] Last Admin: 01/27/18 16:43 Dose: 20 mg Cefadroxil (Duricef Cap*) 500 mg PO BID [facility] Last Admin: 01/27/18 21:20 Dose: 500 mg Cholecalciferol (Vitamin D Tab*) 2,000 units PO BID [facility] Last Admin: 01/27/18 21:20 Dose: 2,000 units Clopidogrel Bisulfate (Plavix Tab*) 75 mg PO QPM [facility] Last Admin: 01/27/18 16:43 Dose: 75 mg Dextrose (D50w Syringe 50 Ml*) 12.5 gm IV PUSH .FOR FS < 60 - SS PRN PRN Reason: FS < 60 Gabapentin (Neurontin Cap(*)) 300 mg PO BID [facility] Last Admin: 01/27/18 21:19 Dose: 300 mg Heparin Sodium (Porcine) (Heparin Vial(*)) 5,000 units SUBCUT Q8HR [facility] Last Admin: 01/28/18 06:37 Dose: 5,000 units Insulin Human Lispro (Humalog*) 0 units SUBCUT ACHS [facility] PRN Reason: Protocol Last Admin: 01/27/18 21:22 Dose: 1 units Leflunomide (Arava (Nf)) 20 mg PO QPM [facility] Last Admin: 01/27/18 16:44 Dose: 20 mg Lisinopril (Prinivil Tab*) 20 mg PO QAM [facility] Last Admin: 01/27/18 09:50 Dose: 20 mg Magnesium Oxide (Magox 400 Tab*) 800 mg PO BID [facility] Last Admin: 01/27/18 21:20 Dose: 800 mg Metoprolol Tartrate (Lopressor Tab*) 25 mg PO Q8H [facility] Last Admin: 01/28/18 06:37 Dose: 25 mg Tramadol HCl (Ultram*) 50 mg PO Q6H PRN PRN Reason: PAIN Vital Signs - 8 hr 01/28/18 01/28/18 01/28/18 04:12 06:35 07:35 Temperature 97.9 F Pulse Rate 63 63 Respiratory 16 18 Rate Blood Pressure 122/46 129/47 (mmHg) O2 Sat by Pulse 98 96 Oximetry 01/28/18 07:57 Temperature 98.1 F Pulse Rate 57 Respiratory 20 Rate Blood Pressure 138/49 (mmHg) O2 Sat by Pulse 97 Oximetry Oxygen Devices in Use Now: None Appearance: Sitting in her chair, netting , appears comfortable and in NAD Eyes: No Scleral Icterus, PERRLA Ears/Nose/Mouth/Throat: Clear Oropharnyx, Mucous Membranes Moist Neck: NL Appearance and Movements; NL JVP, Trachea Midline Respiratory: Symmetrical Chest Expansion and Respiratory Effort, Clear to Auscultation Cardiovascular: NL Sounds; No Murmurs; No JVD, RRR Abdominal: NL Sounds; No Tenderness; No Distention Extremities: No Edema, No Clubbing, Cyanosis Skin: No Rash or Ulcers Neurological: Alert and Oriented x 3, NL Sensation, NL Muscle Strength and Tone Nutrition: Taking PO's Result Diagrams: 01/28/18 05:51 01/28/18 05:51 Additional Lab and Data: . Microbiology and Other Data: . Diagnostic Imaging: .Patient Name: SHERI PENNY Medical Record#: [id number] Ordering Physician: Jayson Alonzo MD Acct.#: [id number] : 1945 Age: 72 Sex: F Location: [address] [place] [address]/[employer] Exam Date: 01/26/181640 ADM Status: ADM Anant Order Information: CTA CHEST Accession Number: [id number] CPT: 17358 INDICATION: Chest pain. Short of breath. Evaluate for pulmonary embolus. COMPARISON: Chest x-ray January 26, 2018; CT chest December 21, 2016; CT chest February IMPRESSION: NO CT EVIDENCE OF ACUTE PULMONARY EMBOLIC DISEASE. STABLE LUNG NODULES. <Electronically signed by Cuate Brumfield MD in OV> 01/26/182104 Dictated By: Cuate Brumfield MD Dictated Date/Time: 01/26/182104 Transcribed Date/Time: 01/26/182054 Copy to: EKG Data: . Assess/Plan/Problems-Billing Assessment: A 72 y/o female with PMHx CAD, HTN, RA and non-insulin dependent DM, who presented to ED with intermittent dyspnea on exertion, chest pressure, dizziness and diaphoresis, requiring cardiac work-up to rule out ACS. - Patient Problems (1) Chest pain Current Visit: No Status: Acute Priority: High Comment: - Cardiology consult appreciated, recommending nuclear chemical stress testing as an inpatient on Monday given risk factors - NPO after midnight tonight - Trop negative 0.00/0.00 (2) Hypertension Current Visit: No Status: Acute SNOMED Code(s): 74374729 Comment: - continue lisinopril and metoprolol - Patient notes feeling better, less anxious, with increased dose of Metoprolol. (3) CAD (coronary artery disease) Current Visit: No Status: Chronic Comment: - continue ASA and statin (4) Non-insulin dependent type 2 diabetes mellitus Current Visit: No Status: Chronic Comment: - Lispro SS and accuchecks ACHS - Stable (5) Status post amputation of toe of right foot Current Visit: Yes Status: Acute SNOMED Code(s): 754792632 Comment: - Secondary to known PVD - cotninue abx (Duricef) as per Dr. Givens and f/u with Dr. Reddy (6) History of multiple pulmonary nodules Current Visit: No Status: Chronic Comment: - Stable on CTA from last, continue to follow as an outpatient (7) PVD (peripheral vascular disease) Current Visit: No Status: Chronic Comment: - Had revascularization in the past and has had toe amputation recently - Has appointment with her vascular surgeon in [place] next week (8) Rheumatoid arthritis Current Visit: No Status: Chronic Comment: - Continue leflunamide (9) DVT prophylaxis Current Visit: No Status: Acute Comment: - Heparin subQ (10) DNR (do not resuscitate) Current Visit: Yes Status: Acute Status and Disposition: Remain inpatient for cardiac stress testing on Monday01/29/2018
[2018-01-28] MEDS: Insulin LISPRO* 1 UNITS UNIT SUBCUT SCH ×4 (09:42→21:23)
[2018-01-28] MEDS: Cholecalciferol TAB* 1000 UNITS PO SCH ×2 (09:43→21:15)
[2018-01-28] MEDS: Magnesium Oxide TAB* 400 MG PO SCH ×2 (09:43→21:15)
[2018-01-28] MEDS: Lisinopril TAB* 5 MG PO SCH (09:44)
[2018-01-28] MEDS: Gabapentin CAP(*) 300 MG PO SCH ×2 (09:44→21:15)
[2018-01-28] MEDS: Cefadroxil CAP* 500 MG PO SCH ×2 (09:45→21:15)
[2018-01-28] MEDS: Aspirin EC TAB* 81 MG TAB.EC PO SCH (16:53)
[2018-01-28] MEDS: Clopidogrel TAB* 75 MG PO SCH (16:53)
[2018-01-28] MEDS: LEFLUNOMIDE 10 MG PO SCH (16:54)
[2018-01-28] MEDS: Atorvastatin* 20 MG TAB PO SCH (16:55)
[2018-01-29 05:15] LABS: Hematocrit 30 % (35-47); Hemoglobin 9.7 g/dl (12.0-16.0); Mean Corpuscular HGB Conc 32 g/dl (31-36); Mean Corpuscular Hemoglobin 28 pg (27-31); Mean Corpuscular Volume 86 fL (80-97); Mean Platelet Volume 8.5 um3 (7.4-10.4); Platelet Count 272 10^3/ul (150-450); Red Blood Count 3.51 10^6/ul (4.0-5.4); Red Cell Distribution Width 15 % (10.5-15); White Blood Count 6.1 10^3/ul (3.5-10.8)
[2018-01-29 05:25] LABS: EGFR Non-African American 86.3 (>60)
[2018-01-29 05:33] LABS: Monocytes % 7 % (0-7)
[2018-01-29] MEDS: Heparin VIAL(*) 5000 UNITS/ML VIAL (FIVE THOUSAND) SUBCUT SCH ×2 (06:25→13:11)
[2018-01-29] MEDS: Metoprolol Tartrate TAB* 25 MG PO SCH ×2 (06:25→13:11)
[2018-01-29] MEDS: Insulin LISPRO* 1 UNITS UNIT SUBCUT SCH ×2 (07:33→13:11)
[2018-01-29] MEDS: Lisinopril TAB* 5 MG PO SCH (08:19)
[2018-01-29] MEDS: Cefadroxil CAP* 500 MG PO SCH (08:19)
[2018-01-29] MEDS: Cholecalciferol TAB* 1000 UNITS PO SCH (08:19)
[2018-01-29] MEDS: Gabapentin CAP(*) 300 MG PO SCH (08:20)
[2018-01-29] MEDS: Magnesium Oxide TAB* 400 MG PO SCH (08:20)
[2018-01-29] MEDS ORDERED: Regadenoson* 0.4 MG/5 ML SYRINGE ONE (12:42)
[2018-01-29 13:08] VITALS: BP 114/48
--- NOTE | 2018-01-29 13:11 | RAD ---
Edited for charges. Indication: Chest pain, coronary artery disease. Myocardial perfusion scan was performed utilizing 1 day protocol. Rest myocardial perfusion was performed after intravenous injection of 10.6 mCi of technetium 99m tetrofosmin. Pharmacological stress was applied and 25.52 mCi of technetium 99m tetrofosmin was injected for the stress portion of study. There is homogeneous distribution of the radiotracer throughout the left ventricle. There is no evidence of fixed or reversible perfusion defect identified. The ejection fraction at stress is 84%. Evaluation of wall motion demonstrates no evidence of focal wall motion abnormality. IMPRESSION: No evidence of fixed or reversible perfusion defect. Normal ejection fraction of 84%. MTDD
--- NOTE | 2018-01-30 09:50 | DS ---
AMENDED REPORT NOW INCLUDES COSIGNER DESIGNATION - ESIGNED BEFORE ADJUSTMENTS CC: Dr. Bolanos; Dr. Iliana Veliz * DISCHARGE SUMMARY: DATE OF ADMISSION: 01/26/18 DATE OF DISCHARGE: 01/29/18 PATIENT OF: Jayson Alonzo MD. ADMITTING PHYSICIAN: Jayson Alonzo MD. CONSULTATION: Dr. Jerome, Instructor Painting. PRIMARY CARE PHYSICIAN: Dr. Iliana Veliz. OUTPATIENT RN ICU: Dr. Jeanmarie Bolanos. ATTENDING HOSPITALIST: Dr. Genevieve Cotter.* (DICTATED BY [address]) ADMISSION DIAGNOSES: 1. Dyspnea on exertion. 2. Chest pressure. 3. Nausea and diaphoresis. 4. Coronary artery disease with history of stent placement to mid LAD and proximal circumflex artery back in 2013. 5. Hypertension. 6. Rheumatoid arthritis. 7. Gastroesophageal reflux disease. 8. Noninsulin dependent diabetes mellitus. 9. Peripheral vascular disease. 10. Syncopal episodes for 30+ years. DISCHARGE DIAGNOSES: 1. Dyspnea on exertion. 2. Chest pressure. 3. Nausea and diaphoresis. 4. Coronary artery disease with history of stent placement to mid LAD and proximal circumflex artery back in 2013. 5. Hypertension. 6. Rheumatoid arthritis. 7. Gastroesophageal reflux disease. 8. Noninsulin dependent diabetes mellitus. 9. Peripheral vascular disease. 10. Syncopal episodes for 30+ years. HISTORY OF PRESENT ILLNESS: Mrs. Hale is a pleasant 72-year-old female with past medical history significant for hypertension, coronary artery disease for which he had cardiac catheterization with placement of drug-eluting stents to the LAD and proximal circumflex arteries back in June of 2014 and has been on dual antiplatelet agents. She also has a history of rheumatoid arthritis, noninsulin dependent diabetes mellitus, GERD, peripheral vascular disease for which she had an intervention in the right lower extremity and had an extensive workup as an outpatient, and has been followed up by Vascular Surgery, as well as Dr. Givens, after she had right first toe amputation due to vascular disease. She had been chronically on Duricef and Flagyl for a period of time. She presented to the emergency room after she has been having intermittent chest pressure with associated shortness of breath, diaphoresis, and nausea over the past several months. She called Dr. Ortega and then she was advised to go directly to be admitted by the hospitalist with anticipation of possibly getting a stress test on the same day. The patient notes that her chest pressure usually feels as a severe tightness associated with some nausea and diaphoresis, usually happens when she uses the bathroom and eventually goes away with rest. She was evaluated and was directly admitted by the hospitalist service for further cardiac workup. HOSPITAL COURSE: The patient was admitted on 01/26/18 under hospitalist service. A consultation by Dr. Lucio Jerome for Cardiology was obtained. The recommendation was made to await her laboratory workup, that revealed negative troponin series. She continued her aspirin and Plavix given her history of peripheral vascular disease as well as her statin therapy. We also started her on a low dose of beta- juan with which she noticed some improvement during this hospitalization and will be evaluated by her outpatient cast iron dipper. The patient underwent a CTA of the chest to rule out any possibility of PE or myocardial infarction. She had a negative CTA test and she had also a transthoracic echocardiogram that revealed good ejection fraction, with no abnormal wall motion or evidence of ischemic events. Given her strong cardiac history with previous coronary artery disease requiring catheterization and stent, the decision was made to keep her over the weekend in anticipation for a chemical nuclear stress test on Monday. The patient clinically was doing better every single day. She denied any recurrent chest tightness, diaphoresis or nausea. Her vitals were stable on a daily basis, with no evidence of hypertension or tachycardia. She continued to ambulate without any difficulty and that her laboratory workup continued to show no evidence of elevated troponin. Her blood glucose level was reasonable during fasting and after meals , and there was no need for her to be covered with any oral antidiabetic medication; however, she was put on a glucose sliding scale to maintain good glycemic control. She had a D-dimer with a high value of 613, for which, as mentioned above, a CTA was ordered and pulmonary embolism was ruled out as a possible cause of her chest pain. This morning, the patient continued to have chest pain free days and she would like to go home. She had her nuclear stress test done that revealed normal tracing of the radioactive material, with no evidence of filling defect or evidence of blockage. She had good ejection fraction, measuring up to 84% with stress. Her resting EKG was a normal sinus rhythm of 61 and overall conclusion was that there was no evidence of myocardial ischemia by EKG criteria. I discussed with the patient and her family all the results of her nuclear stress test, both parts today, and we went through her discharged medication and we will maintain her on a low dose of beta-juan twice daily until she follows up with Dr. Bolanos as an outpatient next week. On exam today, the patient is comfortable. She had an unremarkable exam. Her ENT exam with no scleral icterus and mucous membranes was moist. Her lungs were clear to auscultation bilaterally. Her heart was regular rate and rhythm. Her abdomen was soft, nontender, and nondistended, and extremities without edema or cyanosis. The patient will be discharged to home and will follow up with her outpatient cardiology next week. DISCHARGE MEDICATIONS: Include: 1. Acetaminophen 650 mg q.6 hours as needed for fever or pain. 2. Ventolin MDI inhaler 2 puffs q.6 hours as needed for shortness of breath. 3. Fosamax 70 mg p.o. weekly. 4. Aspirin 81 mg p.o. daily. 5. Lipitor 20 mg p.o. q.p.m. 6. Duricef 500 mg p.o. b.i.d. 7. Vitamin D tablets 2000 units p.o. daily. 8. Plavix 75 mg p.o. daily. 9. Gabapentin 300 mg p.o. b.i.d. 10. Leflunomide 20 mg p.o. q.p.m. 11. Lisinopril 20 mg p.o. daily. 12. Magnesium oxide 800 mg p.o. b.i.d. 13. Metoprolol 25 mg p.o. b.i.d. 14. Flagyl 500 mg p.o. b.i.d. 15. Janumet , one tablet p.o. q.a.m. 16. Ultram 50 mg 1 tablet q.6 hours as needed for pain. [address] [id number]/[facility] #: [id number] MTDD
== END 2018-01-29 15:32 | disposition home or self-care (01) | DRG 204 ==
LOC: MEDTELE 10:30 → OBSVTOIN 21:33 → MEDTELE 21:33
PROVIDERS: ADMIT Internal Medicine; ATTEND Student in an Organized Health Care Education/Training Program
DX: R06.02 Shortness of breath (principal); I25.10 Atherosclerotic heart disease of native coronary artery without angina pectoris; I11.9 Hypertensive heart disease without heart failure; E11.51 Type 2 diabetes mellitus with diabetic peripheral angiopathy without gangrene; R91.8 Other nonspecific abnormal finding of lung field; M06.9 Rheumatoid arthritis, unspecified; Z66 Do not resuscitate; K21.9 Gastro-esophageal reflux disease without esophagitis; Z96.652 Presence of left artificial knee joint; Z96.641 Presence of right artificial hip joint; R61 Generalized hyperhidrosis; Z95.5 Presence of coronary angioplasty implant and graft; Z82.49 Family history of ischemic heart disease and other diseases of the circulatory system; Z83.3 Family history of diabetes mellitus; Z82.3 Family history of stroke; Z80.9 Family history of malignant neoplasm, unspecified; Z79.02 Long term (current) use of antithrombotics/antiplatelets; Z79.84 Long term (current) use of oral hypoglycemic drugs; Z79.82 Long term (current) use of aspirin; Z79.899 Other long term (current) drug therapy; Z88.8 Allergy status to other drugs, medicaments and biological substances
CPT/HCPCS: 36415; 71046; 71275; 78452; 80048; 80053; 80061; 83036; 83735; 83880; 84484; 85025; 85379; 85730; 87070; 87205; 93005; 93017; 93306; A9270-GY; A9502; J1644; J2785; Q9967

== ENCOUNTER 2018-02-15 08:39 | Day surgery (SDC) | payer MEDICARE ==
[~2018-02-15 08:39] MED LIST changes: +Bupivacaine 0.5% SDV PF* 30ML VIAL ONE; -DiMENhydriNATE IV* 50 MG/ML VIAL IV PUSH PRN; -Famotidine TAB* 20 MG PO ONE; -Morphine INJ* 2 MG/ML 1 ML CARPUJECT IV PRN; -Naloxone* 0.4 MG/ML 1 ML VIAL IV PRN; -PROCHLORPERAZINE INJ 5 MG/ML 2 ML VIAL IV PRN; -fentaNYL* 50 MCG/ML 2 ML VIAL (100 MCG VIAL) IV PRN; -oxyCODONE/Acetamin 5/325 MG* TAB PO PRN
[2018-02-15] MEDS ORDERED: ceFAZolin 2 GM PREMIX (*) 2 GM/50 ML BAG IVPB ONE (08:52)
[2018-02-15] MEDS ORDERED: Midazolam* 1 MG/ML 5 ML VIAL (5 MG) ONE (10:24)
[2018-02-15] MEDS ORDERED: fentaNYL* 50 MCG/ML 2 ML VIAL (100 MCG VIAL) ONE (10:24)
[2018-02-15] MEDS ORDERED: Acetaminophen TAB* 325 MG PO PRN (10:36)
[2018-02-15] MEDS ORDERED: Naloxone* 0.4 MG/ML 1 ML VIAL IV PRN (10:36)
[2018-02-15] MEDS ORDERED: oxyCODONE TAB* 5 MG TAB PO PRN (10:36)
[2018-02-15] MEDS ORDERED: fentaNYL* 50 MCG/ML 2 ML VIAL (100 MCG VIAL) IV PRN (10:36)
[2018-02-15 12:15] VITALS: BP 118/49
--- NOTE | 2018-02-15 15:01 | OP ---
Operative Report - Blank - Operative Report Date of Operation: 02/15/18 Note: PATIENT: Dee Hale DATE OF : 1945 DATE OF SURGERY: 02/15/2018 SURGEON: Cameron Reddy MD ASSOCIATE PROFESSOR OF THEOLOGY: RIZWANA Feliciano, whos assistance was necessary for positioning, retraction, help with instrumentation, and closure. ANESTHESIOLOGIST: Dr. Lopez PREOPERATIVE DIAGNOSIS: Right foot open wound with wound infection and exposed bone. POSTOPERATIVE DIAGNOSIS: Right foot open wound with wound infection and exposed bone. OPERATION: 1. Right foot irrigation and debridement of skin, subcutaneous tissue, fascia, and periosteum, bone. 2. Right first metatarsal partial ray amputation. ANESTHESIA: MAC IMPLANTS: None TOURNIQUET TIME: None SPECIMENS: First metatarsal to pathology ESTIMATED BLOOD LOSS: Minimal COMPLICATIONS: none STATUS: Stable from the operating room to the recovery room and then home. INDICATIONS FOR PROCEDURE: John had a prior first toe amputation for gangrene. She had a dehiscence of her surgical wound with exposed first metatarsal. Both operative and non- operative treatment alternatives were reviewed. Further, the nature and risks of surgery were reviewed in careful detail, in the office as well as the pre- operative holding area. Our discussions regarding the risks of surgery included , but were not limited to, infection, persistent infection, wound problems, nerve injury, neuroma, RSD, persistent symptoms, blood clot, failure of the surgery, need for further surgery or amputation, and even the remote chance of catastrophic complication, including loss of limb. DESCRIPTION OF PROCEDURE: The patient was seen in the preoperative holding unit and informed written consent was obtained. The appropriate extremity was marked. The patient was then brought to the operating room and carefully positioned on the operating room table. Anesthesia was induced. All bony prominences were padded with great care. A chlorhexidine based pre-scrub was performed followed by a chloraprep prep and drape in standard sterile fashion. A surgical safety pause was then conducted in which we confirmed the appropriate patient, extremity, planned procedure, availability of equipment, indication and administration of prophylactic antibiotics, and DVT prophylaxis in the form of a compression boot on the non-surgical extremity. I began by making an approximately 4 cm incision from the wound dehiscence proximally along the medial aspect of the first metatarsal. I carefully dissected down to the layer of the first metatarsal. All nonviable and unhealthy appearing tissue was removed from the skin, subcutaneous layer, fascial layer, and periosteal layer. This was done sharply with a 15 blade. I then used an oscillating saw to prove perform an osteotomy of the first metatarsal about long-term down the shaft. I beveled the cut so that there was no prominence medially or plantarly. I then used a rongeur and rasp to smooth off the corners. The distal half of the metatarsal was excised and sent to pathology. Any remaining nonviable and unhealthy tissue was sharply excised with a 15 blade. The sesamoids were excised. Cystoscopy tubing was used to copiously irrigate the wound. The wound was then closed in layers utilizing 3- 0 Monocryl and 3-0 nylon. This led to a very nice closure. A sterile dressing was placed. The patient was then awakened from anesthesia and transferred to the recovery room in stable condition. There were no complications. All needle and sponge counts were correct at the end of the case. ATTESTATION: I attest I was present and scrubbed and performed the critical portions of the procedure myself. POSTOPERATIVE PLAN: She will remain on antibiotics as guided by the infectious disease service. She will remain heel weightbearing. I will see her back in one week for a wound check.
== END 2018-02-15 12:30 | disposition home or self-care (01) ==
LOC: OR 08:39
PROVIDERS: ATTEND Orthopaedic Surgery
DX: T81.31XA Disruption of external operation (surgical) wound, not elsewhere classified, initial encounter (principal); E11.52 Type 2 diabetes mellitus with diabetic peripheral angiopathy with gangrene; Z79.84 Long term (current) use of oral hypoglycemic drugs; I70.229 Atherosclerosis of native arteries of extremities with rest pain, unspecified extremity; I25.10 Atherosclerotic heart disease of native coronary artery without angina pectoris; Z79.899 Other long term (current) drug therapy; M06.9 Rheumatoid arthritis, unspecified; R91.8 Other nonspecific abnormal finding of lung field; M81.0 Age-related osteoporosis without current pathological fracture; R80.9 Proteinuria, unspecified; E55.9 Vitamin D deficiency, unspecified
CPT/HCPCS: J0690; J2250; J3010

== ENCOUNTER → 2018-03-07 19:24 | Emergency (ER) | payer MEDICARE ==
--- OUTSIDE RECORDS SUMMARY | 2018-03-07 19:41 | XMS REPORT ---
:1945 External Reference #:[id number] Author Organization [facility] Address [address] [place] [address] [place] [address] Phone [phone] Care Team Providers Name Role Phone Iliana Veliz MD Primary Care Physician Unavailable Payers Type Date Identification Numbers Payment Provider Subscriber Medicare Primary Effective: Policy Number: Medicare Sheri Hale 2011 [id number] PayID: [id number] [address] [place] [address] [facility] Part B Policy Number: [id number] [facility] Sheri Hale PayID: [id number] [address] [place] [address] Problems Date Description Provider Status Onset: 03/13/2014 [...] Dee Junior M.D. Active Onset: 08/14/2017 [place] of right Kiarra Galaviz MD, Active leg w ulcer oth prt foot FAC, FSCAI Onset: 08/14/2017 [place] of left leg Kiarra Galaviz MD, Active w ulceration oth prt foot FACC, FSCAI Onset: 12/18/2017 Atherosclerosis of arteries of the Kiarra Galaviz MD, Active extremities FAC, FSCAI Onset: 12/18/2017 Type 2 diabetes w diabetic Cameron Reddy MD Active peripheral angiopathy w gangrene Onset: 02/09/2018 Dehiscence of surgical wound Cameron Reddy MD Active Onset: 05/28/2014 Cellulitis and abscess of toe [...] Form Strength Qnty SIG Indications Ordering Provider Oxycodone HCL 02/15/ Active Capsules 5mg 5caps 1 tabs by [facility] 2018 mouth every Maureen, 12 hours as MD needed pain Doxycycline 02/09/ Active Capsules 100mg 42caps 1 cap by E11.621 Jalil Caldwell Hyclate 2018 mouth twice [place], a day with MCortney food Vitamin D3 01/30/ Active Capsules 1000Unit 180cap 1 by mouth Iliana 2018 s every day Jess Veliz Wheelchair 01/11/ Active Misc 1units Standard E11.21 [place] [id number] wheelchair Maureen with adjustable leg rest height 62" weight 170lb L03.115 Commode Bedside 01/11/2018 Active Misc 1units as needed E11.21 [facility] MD Maureen L03.115 Accucheck 12/28/2017 Active bs testing up Iliana Advantage Test to 2 times/day Darell Veliz M.D. Alendronate 06/07/2017 Active Tablets 70mg 12tab on hold M81.0 Iliana Sodium s ------take 1 Veliz, tablet by Jess mouth weekly Ventolin HFA 12/15/2016 Active Aerosol 108(90B 8.5un inhale 2 puffs Iliana ase) its by mouth every Veliz, mcg/Act 6 hrs as Jess needed for shortness of breath Accucheck Lancets 08/25/2016 Active 100un check bs 2-3 Inocencio E. its times a day Yris, and as needed M.DAylin Accu-Check 08/25/2016 Active Device 1unit check 2-3 Iliana Glucose Monitor s times a day Jess Veliz Accucheck Trang 08/25/2016 Active 100un check bs 2-3 Inocencio Valdivia Chem Strips its times/day Yris, e11.21 M.D. Atorvastatin 05/26/2016 Active Tablets 20mg 90tab take one Inocencio Valdivia Calcium s tablet by Yris, mouth at M.D. bedtime Magnesium Oxide 04/25/2016 Active Tablets 400(241 120ta take two Iliana .3mg) bs tablets by Jose Alfredo, mg mouth twice a M.D. day Lisinopril 03/25/2016 Active Tablets 20mg 90tab 1 by mouth I10 Inocencio E. s every day Jess Arndt Leflunomide 09/24/2015 Active Tablets 20mg 90tab on hold---1 by Z79.8 Zsofia s mouth every 99 ErlinROSA ELENA day M05.79 Right Knee 05/08/2015 Active S42.292D Dirkeith Montiel, Hinged Knee Jess Brace Depend Pant 2014 Active Misc 1b as needed Iliana SM/Med ox Jess Veliz Aspirin 01/28/[address] 81m 90 once a day R07.9 Iliana g ta oziel Veliz M.D. Janumet 01/28/2014 Active Tablets 50- 90 take one E11.65 Inocencio Valdivia 100 ta tablet by Yris, 0mg bs mouth every M.D. day-refills after next apt Clopidogrel Active Tablets 75m 1 by mouth Unknown Bisulfate g every day Gabapentin Active Capsules 300 take 1 capsule Unknown mg twice a day Metoprolol Active Tablets 25m 18 take 1 tablet Jeanmarie DAylin Tartrate g 0t by mouth two Jess Bolanos ab times a day s Flagyl 01/10/2018 - Hx Tablets 500 28 1 by mouth Cameron 01/30/2018 mg ta twice a day 10 oziel Reddy days Oxycodone HCL 01/04/2018 - Hx Tablets 5mg 10 1 tabs by Cameron 01/30/2018 ta mouth every 6 oziel Reddy hours as MD needed Cefadroxil 01/04/2018 - Hx Capsules 500 10 1 by mouth Cameron 01/22/2018 mg ca twice a day x jose ramon Reddy 5 days Lasix 12/18/2017 - Hx Tablets 20m 30 1 by mouth I70.261 Joshgrey T. 01/30/2018 g ta daily prn MD Guillaume, bs [facility] Pantoprazole 02/15/2017 - Hx Tablets DR 40m [...] Iliana 03/25/2016 g ta every day oziel VelizDAylin Vitamin D3 10/19/2015 - Hx Tablets 200 30 1 by mouth E55.9 Iliana Super Strength 01/30/2018 0Un ta every day tabby Veliz M.D. M81.0 Atorvastatin 10/09/2015 - Hx Tablets 20mg 90tabs take 1 Other Calcium 12/25/2015 tablet at Ordering bedtime Provider Lisinopril 10/09/2015 - Hx Tablets 40mg 90tabs 1 by mouth I10 Iliana 10/22/2015 every day Jess Veliz Vitamin D2 10/09/2015 - Hx Tablets 2000Unit 90tabs once a day Iliana 10/19/2015 Jess Veliz Gmate Blood 08/24/2015 - Hx Strips 50units CK BS tid Iliana Glucose Test 08/24/2015 And as Jess Veliz Strips Needed Gmate Blood 08/24/2015 - Hx Strips 100units testing tid Iliana Glucose Test 08/25/2016 and as Jess Veliz Strips needed Gmate Origin 08/24/2015 - Hx Device Iliana Blood Glucose 08/25/2016 Jess Veliz Monitoring System Gmate Lancets 08/24/2015 - Hx Misc 30G 100units pt testing Iliana 30G 08/25/2016 bs 3 x Jess Veliz daily and as needed Valium 07/15/2015 - Hx Tablets 5mg 2tabs take 1 R55 Joyce Stewart 12/05/2016 tablet 30 MD minutes prior to mri. May repeat x1 at time of MRI if needed. Leflunomide 07/02/2015 - Hx Tablets 10mg 90tabs 1 by mouth M05. Leobardo 09/24/2015 every day 79 Jess Ambriz Z79.899 Ergocalciferol 04/22/2015 - Hx Capsules [id number] 8caps 1 tab by mouth Iliana 10/08/2015 [...] mouth I2 Jeanmarie 07/14/2015 every day 5. D. Brand, 10 M.D. Mag-200 04/03/2014 - Hx Tablets 200mg 2 by mouth Iliana 04/25/2016 every day ( Jose Alfredo, not taken , M.D. last taken 03/28/16) Nyamy 2014 - Hx Powder [id number]/ 100gms apply to 11 Iliana 12/31/2014 GM affected area 2. Jose Alfredo, twice a day x 9 M.D. 10 days as needed Enbrel Sureclick 03/31/2014 - Hx Solution 50mg/ml 8units injet [place] 06/12/2014 subsutaneous [place], once weekly M.D. Ergocalciferol 03/13/2014 - Hx Capsules [id number] 8caps 1 tab by mouth Iliana 08/13/2014 [...] as needed 25 Iliana Glucometer 08/24/2015 0Aylin Veliz, 02 M.D. Accucheck Trang 01/28/2014 - Hx 100unit check bs 3 25 Iliana Chem Strips 08/24/2015 s times/day dx 0Aylin Moean, 250.02 02 M.D. Keflex - Hx Capsules [...] 70mg one tablet Iliana 06/06/2017 weekly (no Jose Alfredo, longer taking) M.D. Ferrous Sulfate - Hx Tablets 325(65Fe) 1 by mouth Unknown 08/13/2017 mg twice a day Zofran - Hx Tablets 4mg take 1 by Unknown 01/30/2018 mouth twice a day as needed for nausea Colace - Hx Capsules 100mg 1 tab by mouth Unknown 12/17/2017 2-3 times a day as needed Oxycodone-Acetam - Hx Solution 5-325mg/5ML 1 every 6 Unknown inophen 09/17/2017 hours Ergocalciferol - Hx Powder [id number] daily Unknown 12/17/2017 Tramadol HCL - Hx Tablets 50mg 15tabs 1 tablets Cameron 01/30/2018 every 6 hours Maureen, as needed MD Swan - Hx Capsules 75mg 1 by mouth Unknown 12/17/2017 twice a day Medications Administered in Office Medication Date Status Form Strength Qnty SIG Indications Ordering Provider Inj, Administered Injection Luciorobina Martin Regadenoson, 016 Jerome, 0.1 MG Jess, LINA, FASNC Technetium TC Administered Injection Luciorobina Martin 99M 016 Lindsey Jerome M.D., [facility], Per Unit Dose FASNC Up To 40 Millicuries Depomedrol Administered Injection Dee Dee 40MG 016 Jess Junior Depomedrol Administered Injection Dee Dee 40MG 016 Jess Junior Depomedrol Administered Injection Dee Dee 80MG 015 Jess Junior Inj, Administered Injection Jeanmarie Caldwell Regadenoson, 014 Jess Bolanos 0.1 MG Technetium TC Administered Injection Jeanmarie Caldwell 99M 014 Jess Bolanos Tetrofosmzak, Per Unit Dose Up To 40 Millicuries Immunizations CPT Code Status Date Vaccine Reaction Lot # [id number] Given 06/07/2017 Influenza Virus Vaccine, [id number] Quadrivalent, Split, Preservative Free 53825 Given 12/05/2016 Tdap - [id number] Tetanus/Diptheria/Acellular Pertussis 90511 Given 08/25/2016 Influenza Virus Vaccine, [id number] Quadrivalent, Split Virus, [place] Use [address]159 Given 05/26/2016 Pneumonia Vaccine [id number] 38641 Given 12/31/2014 Pneumococcal Conjugate Vaccine [id number] Valent For Intramuscular Use 82904 Given 07/31/2014 Flu Vaccine Split Virus No reaction noted. [id number] Preservative Free For Indiv 3Yr Older Vital Signs Date Vital Result Comment 03/02/2018 Height 62 inches 5'2" Heart Rate 96 /min Respiratory Rate 20 /min Body Temperature 96.7 F Pain Level 0 02/23/2018 Height 62 inches 5'2" Weight 170.00 lb Heart Rate 108 /min BP Systolic Sitting 123 mmHg BP Diastolic Sitting 75 mmHg Body Temperature 97.7 F O2 % BldC Oximetry 96 % BMI (Body Mass Index) 31.1 kg/m2 02/21/2018 Heart Rate 80 /min BP Systolic 144 mmHg BP Diastolic 78 mmHg Respiratory Rate 20 /min 02/09/2018 Height 62 inches 5'2" Weight 174.00 lb Heart Rate 80 /min BP Systolic Sitting 138 mmHg BP Diastolic Sitting 70 mmHg Respiratory Rate 14 /min Body Temperature 96.7 F BMI (Body Mass Index) 31.8 kg/m2 02/02/2018 Height 62 inches 5'2" Weight 173.00 lb BP Systolic 123 mmHg BP Diastolic 82 mmHg Respiratory Rate 15 /min Pain Level 2 BMI (Body Mass Index) 31.6 kg/m2 01/30/2018 Height 62 inches 5'2" Weight 176.00 lb Heart Rate 75 /min BP Systolic Sitting 98 mmHg BP Diastolic Sitting 60 mmHg O2 % BldC Oximetry 96 % BMI (Body Mass Index) 32.2 kg/m2 01/26/2018 Height 62 inches 5'2" Weight 170.00 lb per pt Heart Rate 76 /min BP Systolic Sitting 108 mmHg BP Diastolic Sitting 58 mmHg Respiratory Rate 14 /min Body Temperature 98.1 F BMI (Body Mass Index) 31.1 kg/m2 01/17/2018 Heart Rate 88 /min BP Systolic [...] 30.1 kg/m2 Ejection Fraction 60% as of 6/2/14 echo 07/02/2015 Height 62.5 inches 5'2.50" Weight [...] Test Result H/L Range Note Laboratory test 02/15/2018 Surgical Pathology SEE RESULT 1 finding BELOW Laboratory test 02/15/2018 Point of Care Glucose 122 mg/dL High 70-100 2 finding Urine Microalbumin 01/30/2018 Ur Microalbumin 31.9 mg/L 3 Random (mg/L) Urine Creatinine 117.19 mg/dL 3 Urine Microalbumin/Creatinine 27.2 ug/mg <31 3 Laboratory test 01/30/2018 Hemoglobin A1c 6.3 5-7 finding Wound Culture/Sensi 01/26/2018 Wound/Misc SEE RESULT BELOW 4, 5 Culture-Gram Stain Laboratory test 01/04/2018 Surgical Pathology SEE RESULT BELOW 6 finding Laboratory test 01/04/2018 Point of Care 134 mg/dL High 70-100 7 finding Glucose Wound Culture/Sensi 01/04/2018 Wound/Misc SEE RESULT BELOW 8 Culture-Gram Stain Laboratory test 01/04/2018 MRSA/S. aureus Ssti SEE RESULT BELOW 9 finding PCR Anaerobic Culture SEE RESULT BELOW 10 CBC Auto Diff 09/13/2017 White Blood Count [...] Egfr Non- 78.1 >60 Egfr 100.5 >60 11 Laboratory test finding 09/13/2017 Point of Care Glucose 128 mg/dL High 70 -100 12 Basic Metabolic Panel 08/25/2017 Sodium 135 mmol/L 133-145 Potassium 4.8 mmol/L 3.5-5.0 Chloride 103 mmol/L 101-111 Co2 Carbon Dioxide 26 mmol/L 22-32 Anion Gap 6 mmol/L 2-11 Glucose 140 mg/dL High 70-100 Blood Urea Nitrogen 24 mg/dL 6-24 Creatinine 0.96 mg/dL High 0.51-0.95 BUN/Creatinine Ratio 25.0 High 8-20 Calcium 9.3 mg/dL 8.6-10.3 Egfr Non- 57.0 >60 Egfr 73.3 >60 13 CBC Auto Diff 08/25/2017 White Blood Count [...] Lipid Profile (Trig/Chol/HDL) 08/25/2017 Triglycerides 100 mg/dL 14 Cholesterol 116 mg/dL 15 HDL Cholesterol 46.3 mg/dL 16 LDL Cholesterol 50 mg/dL 17 Istat BUN/Crea/Egfr/V Mainct 08/16/2017 Poc Bun Mainct 20 mg/dL High 9-18 Poc Crea Mainct 0.8 mg/dL 0.6-0.9 GFR Non- MCT 70.3 >60 GFR Mainct 90.4 >60 18 Laboratory test finding 06/07/2017 Magnesium 1.9 mg/dL 1.9-2.7 Laboratory test finding 06/07/2017 Hemoglobin A1c 6.7 5-7 Laboratory test finding 02/15/2017 Lipase 15 U/L 11.0-82.0 19 Amylase 30 U/L 29-103 20 Laboratory test finding 02/13/2017 Thyroxine 11.29 g/mL 6.09-12.23 TSH (Thyroid Stim Horm) 0.82 mcIU/mL 0.34-5.60 CKMB 02/13/2017 CKMB ng/mL 1.1 ng/mL 0.6-6.3 Laboratory test finding 02/13/2017 Troponin-I (TnI) 0.01 ng/mL <0.04 21 CBC Auto Diff 02/13/2017 White Blood Count [...] finding 02/13/2017 B-Type Natriuretic Peptide 24 pg/mL 22 BNP Lactic Acid 1.6 mmol/L 0.5-2.0 23 Laboratory test finding 02/13/2017 Magnesium 1.8 mg/dL Low 1.9-2.7 Creatine Kinase(CK) 40 U/L 10-223 Troponin-I (TnI) 0.01 ng/mL <0.04 24 Comp Metabolic Panel 02/13/2017 Sodium 135 mmol/L [...] Egfr Non- 61.5 >60 Egfr 79.2 >60 25 CBC Auto Diff 12/22/2016 White Blood Count [...] Egfr Non- 61.5 >60 Egfr 79.2 >60 26 Laboratory test finding 12/22/2016 C Reactive Protein 2.22 mg/L < 5.00 27 Erythrocyte Sed Rate 66 mm/Hr High 0-40 Rheumatoid Factor 458 IU/mL <15 28 Cyclic Citrullinated Pep Igg 130.9 U 29 Laboratory test finding 12/05/2016 Hemoglobin A1c 6.7 5-7 Urine Microalbumin Random 11/01/2016 Urine Creatinine 171.30 mg/dL Ur Microalbumin (mg/L) 47.9 mg/L Urine Microalbumin/Creatinine 27.9 ug/mg <31 Laboratory test finding 11/01/2016 Magnesium 2.0 mg/dL 1.9-2.7 30 Lipid Profile (Trig/Chol/HDL) 11/01/2016 Triglycerides 96 mg/dL 31 Cholesterol 97 mg/dL 32 HDL Cholesterol 41.2 mg/dL 33 LDL Cholesterol 37 mg/dL 34 Laboratory test finding 11/01/2016 Vitamin D Total 25(Oh) 56.1 ng/mL High 30-50 35 Laboratory test finding 08/25/2016 Hemoglobin A1c 6.6 [...] Egfr Non- 74.8 >60 Egfr 96.2 >60 36 Laboratory test 06/06/2016 Hemoglobin A1c 6.8 % High Less than 6.0 37 finding (Glyco HGB) Urine Microalbumin 06/06/2016 Urine [...] finding 05/24/2016 Surgical Pathology SEE RESULT BELOW 38 Leukemia/Lymphoma Flow 05/24/2016 Path Interpretation 2-8 TNP Marker Path Interpret > 16 Marker TNP Path Interpret 9-15 Marker (SEE NOTE) 39 Bone Marrow Chromosomes 05/24/2016 BM Result Summary Normal BM Chromosome Specimen Bone Marrow BM Referral Reason anemia, unspecif <SEE NOTE> 40 BM Chromosome Method See Comment 41 BM Chromo Banding Method See Comment 42 BM Cromosome Results 46,XX[20] BM Chromosome Interpretation See Comment 43 Released By See Comment 44 Plasma Cell Profliferative 05/24/2016 Plasma Cell Dis Res Insufficient Disorder Summary Plasma Cell Prolif Specimen Bone Marrow Plasma Cell Referral Reason anemia, unspecif <SEE NOTE> 45 Plasma Cell Prolif Dis Method See Comment 46 Plasma Cell Prolif Dis Results See Comment 47 Plasma Cell Dis Interpretation See Comment 48 Plasma Cell Dis Disclaimer See Comment 49 Plasma Cell Dis Released By See Comment 50 CBC Auto Diff 05/05/2016 White Blood Count [...] Egfr Non- 65.7 >60 Egfr 84.5 >60 51 Iron & Iron Binding Capacity 05/05/2016 Iron [...] Albumin/Globulin Ratio 0.45 % Impression See Comment 52 Total Protein(Pep) Urine 44 mg/dL 53 [place]/Lambda Free Light Chains 05/05/2016 [place] Free Light Chain 6.55 mg/dL 54 Ser Lambda Free Light Chain 3.03 mg/dL 55 [place]/Lambda Free Light Chain 2.16 56 Protein Electrophoresis 05/05/2016 Total Protein(Pep) 8.2 g/dL 6.3 - 7.9 Albumin 3.0 g/dL 3.4-4.7 Alpha-1 Globulin 0.4 g/dL 0.1-0.3 Alpha-2 Globulin 1.4 g/dL 0.6-1.0 Beta Globulin 1.0 g/dL 0.7-1.2 Gamma Globulin 2.4 g/dL 0.6-1.6 Albumin/Globulin Ratio 0.58 Impression See Comment 57 Laboratory test finding 04/21/2016 Magnesium 1.4 mg/dL Low 1.9-2.7 58, 59 Type & Screen 04/08/2016 Patient Blood Type A Positive 60 Antibody Screen NEGATIVE 60 Order 04/05/2016 Stress Test, Pharmacologic Nuclear <pending> (Lexiscan) CBC Auto Diff 03/25/2016 White Blood [...] Egfr Non- 68.7 >60 Egfr 88.4 >60 61 Inr/Protime 03/25/2016 Inr 0.96 0.89-1.11 Type & Screen 03/25/2016 Antibody Screen NEGATIVE Patient Blood Type A Positive Laboratory test finding 03/25/2016 Hemoglobin A1c (Glyco 7.0 % High Less than 6.0 62 HGB) Urinalysis Profile 03/25/2016 Urine Color Amelia Urine Appearance Turbid Urine Specific [place] 1.019 1.010-1.030 Urine pH 5.0 5-9 Urine [...] And 03/25/2016 Urine Culture SEE RESULT BELOW 63 Sensitivities Urine Microalbumin Random 10/08/2015 Ur Microalbumin (mg/L) 117.0 mg/L Urine Creatinine 49.23 mg/dL Urine Microalbumin/Creatinine 237.6 ug/mg High <31 Laboratory test finding 10/08/2015 Vitamin D Total 25(Oh) 31.9 ng/mL 30- 50 Laboratory test finding 09/24/2015 C Reactive Protein 4.25 mg/L < 5.00 64, 65 Erythrocyte Sed Rate 51 mm/Hr High 0-40 64, 66 Vitamin D Total 25(Oh) 29.4 ng/mL Low 30-50 64, 67 Comp Metabolic Panel 09/24/2015 Sodium 136 mmol/L 133-145 64 Potassium 3.8 mmol/L 3.5-5.0 64 Chloride 102 mmol/L 101-111 64 Co2 Carbon Dioxide 27 mmol/L 22-32 64 Anion Gap 7 mmol/L 2-11 64 Glucose 264 mg/dL High 70-100 64 Blood Urea Nitrogen 18 mg/dL 6-24 64 Creatinine 0.65 mg/dL 0.51-0.95 64 BUN/Creatinine Ratio 27.7 High 8-20 64 Calcium 9.4 mg/dL 8.6-10.3 64 Total Protein 7.3 g/dL 6.4-8.9 64 Albumin 3.8 g/dL 3.2-5.2 64 Globulin 3.5 g/dL 2-4 64 Albumin/Globulin Ratio 1.1 1-3 64 Total Bilirubin 0.40 mg/dL 0.2-1.0 64 Alkaline Phosphatase 89 U/L 34-104 64 Alt 10 U/L 7-52 64 Ast 14 U/L 13-39 64 Egfr Non- 89.9 >60 64 Egfr 115.6 >60 64, 68 CBC Auto Diff 09/24/2015 White Blood Count 7.9 10^3/uL 3.5-10.8 64 Red Blood Count 4.07 10^6/uL 4.0-5.4 64 Hemoglobin 11.4 g/dL Low 12.0-16.0 64 Hematocrit 36 % 35-47 64 Mean Corpuscular Volume 88 fL 80-97 64 Mean Corpuscular Hemoglobin 28 pg 27-31 64 Mean Corpuscular HGB Conc 32 g/dL 31-36 64 Red Cell Distribution Width 14 % 10.5-15 64 Platelet Count 328 10^3/uL 150-450 64 Mean Platelet Volume 9 um3 7.4-10.4 64 Abs Neutrophils 4.8 10^3/uL 1.5-7.7 64 Abs Lymphocytes 2.3 10^3/uL 1.0-4.8 64 Abs Monocytes 0.5 10^3/uL 0-0.8 64 Abs Eosinophils 0.2 10^3/uL 0-0.6 64 Abs Basophils 0.1 10^3/uL 0-0.2 64 Abs Nucleated RBC 0.01 10^3/uL 64 Granulocyte % 61.5 % 38-83 64 Lymphocyte % 29.7 % 25-47 64 Monocyte % 5.9 % 1-9 64 Eosinophil % 2.0 % 0-6 64 Basophil % 0.9 % 0-2 64 Nucleated Red Blood Cells % 0.1 64 CBC Auto Diff 07/02/2015 White Blood Count [...] Blood Cells % 0 Comp Metabolic Panel 07/02/2015 Sodium 136 mmol/L [...] Egfr Non- 89.9 >60 Egfr 115.6 >60 69 Laboratory test finding 07/02/2015 Erythrocyte Sed Rate 56 mm/Hr High 0- 40 C Reactive Protein 5.06 mg/L High < 5.00 70 Basic Metabolic Panel 05/04/2015 Sodium 139 mmol/L 133-145 Potassium 4.2 mmol/L 3.5-5.0 Chloride 107 mmol/L 101-111 Co2 Carbon Dioxide 24 mmol/L 22-32 Anion Gap 8 mmol/L 2-11 Glucose 108 mg/dL High 70-100 Blood Urea Nitrogen 16 mg/dL 6-24 Creatinine 0.67 mg/dL 0.51-0.95 BUN/Creatinine Ratio 23.9 High 8-20 Calcium 9.2 mg/dL 8.6-10.3 Egfr Non- 86.8 >60 Egfr 111.6 >60 71 Laboratory test finding 04/21/2015 Hemoglobin A1c 7.3 High 5-7 Laboratory test finding 04/21/2015 Vitamin D Total 25(Oh) 22.3 ng/mL Low 30-50 Urine Microalbumin Random 04/21/2015 Ur Microalbumin (mg/L) 99.0 mg/L Urine Creatinine 110.34 mg/dL Urine Microalbumin/Creatinine 89.7 ug/mg High <31 Comp Metabolic Panel 01/01/2015 Sodium 138 mmol/L [...] Egfr Non- 91.7 >60 Egfr 118.0 >60 72 Urine Microalbumin Random 01/01/2015 Ur Microalbumin (mg/L) 63.0 mg/L Urine Creatinine 84.32 mg/dL Urine Microalbumin/Creatinine 74.7 High Less Than 31 Laboratory test finding 12/31/2014 Hemoglobin A1c 7.2 High 5-7 Vitamin D, 25 Hydroxy 08/14/2014 25-Hydroxy Vitamin D2 29 ng/mL 73 25-Hydroxy Vitamin D3 7.5 ng/mL 73 25-Hydroxy Vitamin D Total 37 ng/mL 73, 74 Lipid Profile (Trig/Chol/HDL) 08/14/2014 Triglycerides 128 mg/dL 73, 75 Cholesterol 157 mg/dL 73, 76 HDL Cholesterol 48.8 mg/dL 73, 77 LDL Cholesterol 83 mg/dL 73, 78 Comp Metabolic Panel 08/14/2014 Sodium 136 mmol/L 133-145 73 Potassium 3.7 mmol/L 3.5-5.0 73 Chloride 102 mmol/L 101-111 73 Co2 Carbon Dioxide 25 mmol/L 22-32 73 Anion Gap 9 mmol/L 2-11 73 Glucose 136 mg/dL High 70-100 73 Blood Urea Nitrogen 19 mg/dL 6-24 73 Creatinine 0.68 mg/dL 0.51-0.95 73 BUN/Creatinine Ratio 27.9 High 8-20 73 Calcium 9.6 mg/dL 8.6-10.3 73 Total Protein 7.3 g/dL 6.4-8.9 73 Albumin 3.9 g/dL 3.2-5.2 73 Globulin 3.4 g/dL 2-4 73 Albumin/Globulin Ratio 1.1 1-3 73 Total Bilirubin 0.50 mg/dL 0.2-1.0 73 Alkaline Phosphatase 85 U/L 34-104 73 Alt 15 U/L 7-52 73 Ast 18 U/L 13-39 73 Egfr Non- 85.5 >60 73 Egfr 110.0 >60 73, 79 Laboratory test finding 07/31/2014 Hemoglobin A1c 6.5 [...] Egfr Non- 84.1 >60 Egfr 108.2 >60 80 Pre Cath Panel 06/14/2014 Activated Partial Thrombo 28.3 seconds 24.0- 36.1 Time Basic Metabolic Panel 06/14/2014 Sodium 136 mmol/L 133-145 Potassium 3.7 mmol/L 3.7-5.6 Chloride 103 mmol/L 101-111 Co2 Carbon Dioxide 28 mmol/L 22-32 Anion Gap 5 mmol/L 2-11 Glucose 162 mg/dL High 70-100 Blood Urea Nitrogen 20 mg/dL 6-24 Creatinine 0.78 mg/dL 0.51-0.95 BUN/Creatinine Ratio 25.6 High 8-20 Calcium 9.4 mg/dL 8.6-10.3 Egfr Non- 73.0 >60 Egfr 93.9 >60 81 CBC Auto Diff 06/14/2014 White Blood Count [...] 0-2 Nucleated Red Blood Cells % 0 Inr/Protime 06/14/2014 Inr 0.89 0.85-1.06 Laboratory test finding 04/30/2014 Hemoglobin A1c 6.8 5-7 Laboratory test finding 2014 Magnesium 1.5 mg/dL Low 1.9-2.7 Potassium 4.1 mmol/L 3.7-5.6 Laboratory test finding 02/26/2014 Urine Random Creatinine 145.54 mg/dL Urine Random Total Protein 68 mg/dL CBC Auto Diff 02/26/2014 White Blood Count [...] 0-2 Nucleated Red Blood Cells % 0.1 Hepatitis Acute Panel 02/26/2014 Hepatitis C Antibody Nonreactive Nonreactive Hepatitis A AB IgM Nonreactive Nonreactive Hepatitis B Core IgM Nonreactive Nonreactive Hepatitis B Surface Antigen Nonreactive Nonreactive Laboratory test finding 02/25/2014 Rheumatoid Factor 206 IU/mL <15 82 CRP High Sensitivity 3.43 mg/L 83 Erythrocyte Sed Rate 34 mm/Hr 0-40 Cyclic Citrullinated Pept IgG 60.5 U 84 Vitamin D, 25 Hydroxy 02/25/2014 25-Hydroxy Vitamin D2 <4.0 ng/mL 25-Hydroxy Vitamin D3 11 ng/mL 25-Hydroxy Vitamin D Total 11 ng/mL 85 Pthi 02/25/2014 PTH Intact 7.8 pmol/L 1.3-9.3 Calcium (PTH Intact) 9.1 mg/dL 8.6-10.3 Laboratory test 01/28/2014 Hemoglobin A1c 10.5 High 5-7 finding Laboratory test 01/28/2014 TSH (Thyroid 1.24 IU/mL 0.34-5.60 86, 87 finding Stimulating Horm) CBC Auto Diff 01/28/2014 White Blood Count 8.8 10^3/uL 4.8-10.8 86 Red Blood Count 4.72 10^6/uL 4.0-5.4 86 Hemoglobin 13.8 g/dL 12.0-16.0 86 Hematocrit 40 % 35-47 86 Mean Corpuscular Volume 86 fL 80-97 86 Mean Corpuscular Hemoglobin 29 pg 27-31 86 Mean Corpuscular HGB Conc 34 g/dL 31-36 86 Red Cell Distribution Width 13 % 10.5-15 86 Platelet Count 314 10^3/uL 150-450 86 Mean Platelet Volume 10 um3 7.4-10.4 86 Abs Neutrophils 5.4 10^3/uL 1.5-7.7 86 Abs Lymphocytes 2.7 10^3/uL 1.0-4.8 86 Abs Monocytes 0.4 10^3/uL 0-0.8 86 Abs Eosinophils 0.2 10^3/uL 0-0.6 86 Abs Basophils 0.1 10^3/uL 0-0.2 86 Abs Nucleated RBC 0 10^3/uL 86 Granulocyte % 61.6 % 38-83 86 Lymphocyte % 30.8 % 25-47 86 Monocyte % 4.3 % 1-9 86 Eosinophil % 2.1 % 0-6 86 Basophil % 1.2 % 0-2 86 Nucleated Red Blood Cells % 0 86 Urine Microalbumin Random 01/28/2014 Ur Microalbumin (mg/L) 655.8 mg/dL < 30 86, 88 Urine Creatinine 70.37 mg/dL 86 Urine Microalbumin/Creatinine 931.9 High Less Than 31 86 Lipid Profile (Trig/Chol/HDL) 01/28/2014 Triglycerides 115 mg/dL 86, 89 Cholesterol 148 mg/dL 86, 90 HDL Cholesterol 53.3 mg/dL 86, 91 LDL Cholesterol 72 mg/dL 86, 92 Comp Metabolic Panel 01/28/2014 Sodium 134 mmol/L 133-145 86 Potassium 4.1 mmol/L 3.7-5.6 86 Chloride 100 mmol/L Low 101-111 86 Co2 Carbon Dioxide 27 mmol/L 22-32 86 Anion Gap 7 mmol/L 2-11 86 Glucose 237 mg/dL High 70-100 86 Blood Urea Nitrogen 10 mg/dL 6-24 86 Creatinine 0.63 mg/dL 0.51-0.95 86 BUN/Creatinine Ratio 15.9 8-20 86 Calcium 9.4 mg/dL 8.6-10.3 86 Total Protein 7.6 g/dL 6.4-8.9 86 Albumin 3.8 g/dL 3.2-5.2 86 Globulin 3.8 g/dL 2-4 86 Albumin/Globulin Ratio 1.0 1-3 86 Total Bilirubin 0.50 mg/dL 0.2-1.0 86 Alkaline Phosphatase 96 U/L 34-104 86 Alt 14 U/L 7-52 86 Ast 15 U/L 13-39 86 Egfr Non- 93.7 >60 86 Egfr 120.5 >60 86, 93 1 SEE RESULT BELOW Name: SHERI HALE : [address]: Cameron Reddy MD Acct: [id number] Unit: [id number] AGE: 72 Location: OR Re02/15/18 SEX: F Status: ANA BRASHER SPEC: [id number] CONNIE: 02/15/18- SUBM DR: Cameron Reddy MD REQ: [id number] RECD: 02/15/180 STATUS: ROSELIAT _ ORDERED: Antonio, LEVEL 3 FINAL DIAGNOSIS Bone, first metatarsal right foot, resection: -- Chronic osteomyelitis. -- Margin of resection free of inflammation. PRE-OPERATIVE DIAGNOSIS Osteomyelitis right foot. GROSS DESCRIPTION The specimen is received in formalin labeled, Right First Metatarsal, and consists of a 4.5 x 3.0 by up to 1.9 cm aggregate of vivar-pink irregular bone fragments with a small amount of adherent vivar-pink soft tissue. The largest fragment has a predominantly smooth margin of resection and the articular surface is glistening smooth vivar-pink. Retread Supervisor sections, one cassette following decalcification. Signed by and Reported on: Jac Domingo MD 1358 END OF REPORT DEPARTMENT OF PATHOLOGY, [address] [place] [address] Jac Domingo M.D. Director [facility] # [id number] 2 Stone Operator: [id number] 5 SEE RESULT BELOW Name: SHERI HALE : [address]: Jalil Givens MD Acct: [id number] Unit: [id number] AGE: 72 Location: [facility] Re01/26/18 SEX: F Status: REG REF SPEC: [id number] CONNIE: 01/26/[address] [facility] DR: Jalil Givens MD REQ: [id number] RECD: 01/26/18 STATUS: COMP _ SOURCE: WOUND SPDESC: ORDERED: Culture Stain COMMENTS: [id number] Specimen Description right foot Procedure Result Reported Site Wound/Misc Gram Stain Final 01/27/18- 0824 ML 3+ Epithelial Cells 1+ Neutrophils No Organisms Seen Wound/Misc Culture Final 01/29/18- 1018 ML No Growth Day 3 * ML - Main Lab . END OF REPORT DEPARTMENT OF PATHOLOGY, [address] [place] [address] Jac Domingo M.D. Director [facility] # [id number] 6 SEE RESULT BELOW Name: SHERI HALE : [address]: Cameron Reddy MD Acct: [id number] Unit: [id number] AGE: 72 Location: [place] Re01/04/18 SEX: F Status: DEP [facility] SPEC: [id number] CONNIE: 01/04/18- [facility] DR: Cameron Reddy MD REQ: [id number] RECD: 01/04/189 STATUS: SOUT _ ORDERED: Decal, LEVEL 4 [...] yellow-white unguis. The margin of resection is zxny-mziyw-cswp and appears viable. the ventrolateral resected margin appears suspicious and is inked blue. The cut surface reveals a necrotic distal phalanx and the distal 0.8 cm of the proximal phalanx. Retread Supervisor sections are submitted in cassettes A and B as follows: Bone cassette A, necrosis and margins in cassette B. MICROSCOPIC DESCRIPTION Signed (signature on file) Abril Velez MD 09/28 1056 END OF REPORT DEPARTMENT OF PATHOLOGY, [address] [place] [address] Jac Domingo M.D. Director [facility] # [id number] 7 Stone Operator: [id number] SEE RESULT BELOW Name: SHERI HALE : [address]: Cameron Reddy MD Acct: [id number] Unit: [id number] AGE: 72 Location: [place] Re01/04/18 SEX: F Status: DEP SDC SPEC: [id number] CONNIE: 01/04/18-[address] [facility] DR: Cameron Reddy MD REQ: [id number] RECD: 01/04/18-1409 STATUS: RES PARRISH DR: Iliana Veliz MD _ SOURCE: WOUND SPDESC: ORDERED: Anaerobic Cult, Culture Stain Procedure Result Reported Site Anaerobic Culture PENDING Wound/Misc Gram Stain Final 01/04/18- 1526 ML 1+ Neutrophils 1+ Epithelial Cells 1+ Gram Positive Cocci Wound/Misc Culture PENDING * ML - Main Lab . END OF REPORT DEPARTMENT OF PATHOLOGY, [address] [place] [address] Jac Domingo M.D. Director [facility] # [id number] 9 SEE RESULT BELOW Name: SHERI HALE : [address]: Cameron Reddy MD Acct: [id number] Unit: [id number] AGE: 72 Location: [place] Re01/04/18 SEX: F Status: DEP SDC SPEC: [id number] CONNIE: 01/04/[address] [facility] DR: Cameron Reddy MD REQ: [id number] RECD: 01/04/18 STATUS: RES OTHR DR: Iliana Veliz MD _ SOURCE: WOUND SPDESC: ORDERED: Anaerobic Cult, MRSA/SA SSTI, Culture Stain COMMENTS: Verbal to [id number] by [id number] at 1659 on 01/04/18. Results read back accurately. Procedure Result Reported Site Anaerobic Culture PENDING MRSA/S. aureus SSTI PCR Final 01/04/18- 1701 ML Organism 1 MRSA NEGATIVE Organism 2 S.AUREUS POSITIVE Wound/Misc Gram Stain Final 01/04/18- 1526 ML 1+ Neutrophils 1+ Epithelial Cells 1+ Gram Positive Cocci Wound/Misc Culture PENDING * ML - Main Lab . END OF REPORT DEPARTMENT OF PATHOLOGY, [address] [place] [address] Jac Domingo M.D. Director [facility] # [id number] 10 SEE RESULT BELOW Name: SHERI HALE : [address]: Cameron Reddy MD Acct: [id number] Unit: [id number] AGE: 72 Location: [place] Re01/04/18 SEX: F Status: ANA BRASHER SPEC: [id number] CONNIE: 01/04/18-[address] [facility] DR: Cameron Reddy MD REQ: [id number] RECD: 01/04/18-8000 STATUS: AMIE SENIOR DR: Iliana Veliz MD _ SOURCE: WOUND SPDESC: ORDERED: Anaerobic Cult, MRSA/SA SSTI, Culture Stain COMMENTS: Verbal to by [id number] at 1659 on 01/04/18. Results read back [...] CONTINUED ON NEXT PAGE DEPARTMENT OF PATHOLOGY, [address] [place] [address] Jac Domingo M.D. Director [facility] # [id number] Patient: SHERI HALE [id number] (Continued) Specimen: [id number] Collected: 01/04/18 Received: 01/04/18 (Continued) Procedure Result Reported Site Wound/Misc Culture Final (continued) 01/08/18- 1125 1. STAPHYLOCOCCUS AUREUS M.I.C. RX --------- ------ [...] These antibiotics are not available in the [facility] Formulary Contact the Microbiology Department for any additional antibiotic reporting. * ML - Main Lab . END OF REPORT DEPARTMENT OF PATHOLOGY, [address] [place] [address] Jac Domingo M.D. Director [facility] # [id number] 11 Because ethnic data is not always readily [...] 15-29 5 Kidney failure <15 (or dialysis) 12 Stone Operator: [id number] 13 Because ethnic data is not always [...] 5 Kidney failure <15 (or dialysis) 14 Desirable: <150 Borderline High: 150-199 High: 200-499 Very High: >500 15 Desirable: <200 Borderline High: 200-239 High: >239 16 Low: <40 Desirable: 40-60 High: >60 17 Desirable: <100 Near Optimal: 100-129 Borderline High: 130-159 High: 160-189 Very High: >189 18 Because ethnic data is not always readily [...] 15-29 5 Kidney failure <15 (or dialysis) 19 [id number] 20 [id number] 21 99th percentile=0.04 ng/mL Troponin results at [facility] and [facility] are not interchangeable. 22 >100 to <200 pg/mL: likely compensated congestive heart failure (CHF) 200 to 400 pg/mL: likely moderate CHF >400 pg/mL: likely moderate to severe CHF 23 [facility] Severe Sepsis and Septic Shock Management Bundle Measure requires all lactic acids initially measuring >2.0 mmol/L be repeated. 24 99th percentile=0.04 ng/mL Troponin results at [facility] and [facility] are not interchangeable. 25 Because ethnic data is not always readily [...] 15-29 5 Kidney failure <15 (or dialysis) 26 Because ethnic data is not always [...] 5 Kidney failure <15 (or dialysis) 27 Acute inflammation: >10.00 28 Test Performed by: [place] [address] 29 Interpretation: Strong Positive (>=60.0) REFERENCE VALUE <20.0 (Negative) Test Performed by: [place] [id number] FASTING 12 HOUR 31 Desirable <150 Borderline high 150-199 High 200-499 Very High >500 32 Desirable <200 Borderline high 200-239 High >239 33 Low <40 Desirable: 40-60 High: >60 34 Desirable: <100 mg/dL Near Optimal: 100-129 mg/dL Borderline High: 130-159 mg/dL High: 160-189 mg/dL Very High: >189 mg/dL 35 FASTING 12 HOUR 36 Because ethnic data is not always readily [...] 15-29 5 Kidney failure <15 (or dialysis) 37 Therapeutic target for the treatment of diabetes Mellitus patients is <7% HBA1C, and in selective patients <6.0%.Please refer to [place] [employer] Diabetic care guidelines for further information. 38 SEE RESULT BELOW Name: SHERI HALE : [address]: Sandra Brownlee MD Acct: [id number] Unit: [id number] AGE: 71 Location: [facility] Re05/24/16 SEX: F Status: REG REF SPEC: [id number] CONNIE: 05/24/16-[address] [facility] DR: Sandra Brownlee MD REQ: [id number] RECD: 05/24/16 STATUS: SOUT _ ORDERED: IRON STAIN, Decal, CD5 IMMUNO ST, LEVEL IV/2, OV37-DZO, BCL-2-ADD, BCL-6 PAX-5-ADD Bone marrow chromosome testing has been performed at [facility] , [place], [place]. The testing reveals: Specimen: bone marrow [...] clonal abnormality was apparent. Test Performed by: [place] [address] Plumbing Engineer: Cuate Chavez II, M.D., Ph.D. CONTINUED ON NEXT PAGE * ML=Testing performed at Main [facility] DEPARTMENT OF PATHOLOGY, [address] [place] [address] Jac Domingo M.D. Director [facility] # [id number] RUN DATE: 06/01/16 [facility] LAB LIVE PAGE 2 Patient: SHERI HALE [id number] (Continued) ADDENDUM (Continued) Addendum Signed (signature on [...] Flow cytometry has been performed at [facility], [place], [place]. The testing reveals: FINAL DIAGNOSIS: CONTINUED ON NEXT PAGE * ML=Testing performed at Main Lab DEPARTMENT OF PATHOLOGY, [address] [place] [address] Jac Domingo M.D. Director [facility] # [id number] RUN DATE: 06/01/16 [facility] LAB LIVE PAGE 3 Patient: SHERI HALE [id number] (Continued) SPECIAL STUDIES (Continued) SPECIAL STUDIES (Continued) [...] Abril Velez MD Technical component performed by: [place] [address] Plumbing Engineer: Cuate Chavez II, MD, PhD. PRE-OPERATIVE DIAGNOSIS D64.9 CONTINUED ON NEXT PAGE * ML=Testing performed at Main Lab DEPARTMENT OF PATHOLOGY, [address] [place] [address] Jac Domingo M.D. Director [facility] # [id number] RUN DATE: 06/01/16 [facility] LAB LIVE PAGE 4 Patient: SHERI HALE [id number] (Continued) GROSS DESCRIPTION (Continued) GROSS DESCRIPTION 1. The specimen is received in formalin labeled, [facility], and consists of a 1.7 x 1.5 x 0.5 cm aggregate of red-brown blood clot, which is submitted entirely in one cassette. 2. The specimen is received in formalin labeled, [facility], and consists of three, vivar-brown bone cores [...] performed at Main Lab DEPARTMENT OF PATHOLOGY, [address] [place] [address] Jac Domingo M.D. Director [facility] # [id number] 39 FINAL DIAGNOSIS: Specimen Source: Bone marrow Flow [...] Abril Velez MD Technical component performed by: [place] [address] Plumbing Engineer: Cuate Chavez II, MD, PhD. 40 anemia, unspecified 41 RESULT: Culture without mitogens 42 Band Resolution: <400 Stain Name Cells Analyzed Cells Karyograms Counted Prepared GTL 20 0 2 Total 20 0 2 Ortega to Stain Name: GTL=G-banding; QFQ=Q-banding; DAPI=DAPI-staining; CBL=C-banding; AGNOR=Silver-staining; NON=Non-banded The sum of Cells Analyzed and Cells Counted equals the total cells examined. 43 No clonal abnormality was apparent. Additional cytogenetic studies are reported separately. PDF Report available at: [email or web address] 44 RESULT: Linda Beltrán D.O. Test Performed by: [place] [address] Plumbing Engineer: Cuate Chavez II, M.D., Ph.D. 45 anemia, unspecified 46 Locus and probes [Strategy;#Nuclei;Class] 11q13(CCND1-XT),14q32(IGH-XT) [DFISH;50;ASR] 14q32(3'IGH,5'IGH) [BAP;50;LDT] Probe strategies include: DFISH=dual color, double fusion; BAP=break-apart probe. 47 RESULT: Insufficient plasma cells were observed. 48 An insufficient number of plasma cells were observed using the cytoplasmic immunoglobulin staining method. This result does not exclude the presence of a plasma cell proliferative disorder. Additional cytogenetic studies are reported separately. PDF Report available at: [email or web address] 49 Applicable to Analyte Specific Reagent (ASR) and Laboratory Developed Tests (LDT). This test was developed and its performance characteristics determined by [facility] in a manner consistent with CLIA requirements. It has not been cleared or approved by the U.S. Food and Drug Administration. This FISH test does not rule out other chromosome abnormalities. 50 RESULT: Vik Moreno M.D., Ph.D. Test Performed by: [place] [address] Plumbing Engineer: Cuate Chavez II, M.D., Ph.D. 51 Because ethnic data is not always readily [...] 15-29 5 Kidney failure <15 (or dialysis) 52 All fractions present, no apparent M-spike. Due to the elevated protein, suggest monoclonal protein study (MPSU) if clinically indicated. 53 ADDITIONAL INFORMATION On 03/24/2014 the total protein assay method changed resulting in approximately a 20% increase in protein values. Test Performed by: [place] [address] Plumbing Engineer: Cuate Chavez II, M.D., Ph.D. 54 REFERENCE VALUE 0.3300-1.94 55 REFERENCE VALUE 0.5700-2.63 56 REFERENCE VALUE 0.2600-1.65 Test Performed by: [place] [address] Plumbing Engineer: Cuate Chavez II, M.D., Ph.D. 57 RESULT: Polyclonal hypergammaglobulinemia Test Performed by: [place] [address] Plumbing Engineer: Cuate Chavez II, M.D., Ph.D. 58 [facility] [address] 59 [facility] [address] 60 PAIN IN LEFT KNEE, UNILATERAL PRIMARY OSTEOARTHRIT 61 Because ethnic data is not always [...] 5 Kidney failure <15 (or dialysis) 62 Therapeutic target for the treatment of diabetes Mellitus patients is <7% HBA1C, and in selective patients <6.0%.Please refer to [place] [employer] Diabetic care guidelines for further information. 63 SEE RESULT BELOW Name: SHERI HALE : [address]: Wilder Mata AMBULANCE DISPATCHER Acct: [id number] Unit: [id number] AGE: 70 Location: [facility] Re03/25/16 SEX: F Status: REG REF SPEC: [id number] CONNIE: 03/25/[address]: Wilder Mata NP REQ: [id number] RECD: 03/25/16 STATUS: COMP _ SOURCE: URINE SPDESC: ORDERED: Urine Culture Urine Source: Random Procedure Result Reported Site Urine Culture Final 03/27/16- 1006 ML No growth of clinically significant organisms * ML - MAIN LAB ([facility]) . END OF REPORT * ML=Testing performed at Main Lab DEPARTMENT OF PATHOLOGY, [address] [place] [address] Jac Domingo M.D. Director [facility] # [id number] 64 standing order 65 Acute inflammation: >10.00 66 standing order 67 standing order 68 Because ethnic data is not always [...] 5 Kidney failure <15 (or dialysis) 69 Because ethnic data is not always readily [...] 15-29 5 Kidney failure <15 (or dialysis) 70 Acute inflammation: >10.00 71 Because ethnic data is not always [...] 5 Kidney failure <15 (or dialysis) 72 Because ethnic data is not always readily [...] 15-29 5 Kidney failure <15 (or dialysis) 73 PT IS FASTING 74 REFERENCE VALUE 25-HYDROXY D TOTAL (D2+D3) Optimum levels in the healthy population are 20-50, patients with bone disease may benefit from higher levels within this range. Test Performed by: [facility] [address] [address] Plumbing Engineer: Yogi Mcallister M.D. 75 Desirable <150 Borderline high 150-199 High 200-499 Very High >500 76 Desirable <200 Borderline high 200-239 High >239 77 Low <40 Desirable: 40-60 High: >60 78 Desirable <100 Near Optimal 100-129 Borderline high 130-159 High 160-189 Very High >189 79 Because ethnic data is not always readily [...] 15-29 5 Kidney failure <15 (or dialysis) 80 Because ethnic data is not always readily [...] 15-29 5 Kidney failure <15 (or dialysis) 81 Because ethnic data is not always readily [...] 15-29 5 Kidney failure <15 (or dialysis) 82 Test Performed by: [place] [address] Plumbing Engineer: Lyle Gutiérrez III, M.D. 83 Low risk: <1.00 Average risk: 1.00-3.00 High risk: >3.00 84 Interpretation: Strong Positive (>=60.0) -- REFERENCE VALUE -- <20.0 (Negative) Test Performed by: [place] [address] Plumbing Engineer: Lyle Gutiérrez III, M.D. 85 Interpretation: 10-19 ng/mL (mild to moderate deficiency) -- REFERENCE VALUE -- 25-HYDROXY D TOTAL (D2+D3) Optimum levels in the healthy population are 20-50, patients with bone disease may benefit from higher levels within this range. Test Performed by: [place] [address] Plumbing Engineer: Lyle Gutiérrez III, M.D. 86 FASTING 12 HOUR 87 FASTING 12 HOUR 88 Microalbuminuria in a random sample is defined as: Microalbumin/Creatinine ratio of 30-299 ug/mg. 89 Desirable <150 Borderline high 150-199 High 200-499 Very High >500 90 Desirable <200 Borderline high 200-239 High >239 91 Low <40 Desirable: 40-60 High: >60 92 Desirable <100 Near Optimal 100-129 Borderline high 130-159 High 160-189 Very High >189 93 Because ethnic data is not always readily [...] 15-29 5 Kidney failure <15 (or dialysis) Procedures Date CPT Code Description Status 02/15/2018 79835 Amputation Metatarsal W/Toe Completed 02/15/2018 94261 Amputation Metatarsal W/Toe Completed 02/15/2018 48162 I & D Foot Below Fascia, Single Bursal Space Completed 02/15/2018 93290 I & D Foot Below Fascia, Single Bursal Space Completed 01/29/2018 32284 Treadmill Interp/Report Only Completed 01/29/2018 61474 Stress Test Supervsn W/Out I/R Completed 01/26/2018 08965 ECHO Transthorasic Realtime 2D W Doppler & Color Flow Completed Hosp 01/04/2018 78796 Amputation Toe MP JT Completed 01/04/2018 86214 Amputation Toe MP JT Completed 09/13/2017 58382 Angio Extremity, Bilateral Completed 09/13/2017 09965 Catheter Placement Arterial System Init 3RD Order Completed Abdom/Pelv/Low 03/23/2017 52109 EKG Tracing & Interpretation Completed 12/12/2016 78443 Pulmonary Function><Bronchodil Completed 12/12/2016 34726 Plethysmography Determination Lung Volumes & Per Airway Completed Resist 12/12/2016 91993 Diffusing Capacity Completed 09/01/2016 Mammogram Completed 09/01/2016 Bone Mineral Density Test Completed 06/22/2016 01196 EKG, Interpretation Only Completed 06/22/2016 75775 THR Total Hip Replacement Completed 06/22/2016 29716 THR Total Hip Replacement Completed 06/22/2016 66472 THR Total Hip Replacement Completed 04/14/2016 41500 TKR Total Knee Replacement Completed 04/14/2016 17170 TKR Total Knee Replacement Completed 04/05/2016 33974 Stress Test Completed 04/05/2016 81947 Myocardial Perfusion Imaging Tomographic (Spect) Completed Multiple Studies 03/31/2016 81974 EKG Tracing & Interpretation Completed 12/21/2015 35937 Inject/Drain Joint/Bursa Major W/O US Completed 07/24/2015 61100 EEG Recording Awake & Asleep Completed 07/10/2015 59703 EKG Tracing & Interpretation Completed 06/03/2015 92979 Holter Monitoring 24 HR New Completed 06/02/2015 95066 Carotid Doppler,Bilateral Completed 04/03/2015 11808 Inject/Drain Joint/Bursa Major W/O US Completed 03/04/2015 12533 Closed trtmt prox humeral fx Completed 01/08/2015 35828 Holter Monitoring 24 HR New Completed 01/06/2015 55720 Holter Monitoring 24 HR New Completed 10/21/2014 Diabetic Retinal Eye Exam Completed 06/17/2014 65329 Left Heart Cath. Incl S/I Coronaries, Angio S/I V Gram Completed If Done 06/17/2014 08767 Percutaneous Transcatheter Placement Of Intracoronary Completed Stent 06/17/2014 14497 Percutaneous Transcatheter Placement Of Intracoronary Completed Stent 06/13/2014 83854 EKG Tracing & Interpretation Completed 04/17/2014 Colonoscopy Completed 04/07/2014 Mammogram Completed 03/07/2014 Diabetic Retinal Eye Exam Completed 03/03/2014 Diabetic Foot Exam Completed 02/26/2014 Bone Mineral Density Test Completed 02/10/2014 70575 ECHO Transthoracic, Real-Time 2D With Doppler And Color Completed Flow 02/06/2014 13086 Myocardial Perfusion Imaging Tomographic (Spect) Completed Multiple Studies 02/06/2014 53886 Stress Test Completed 05/12/2005 Diabetic Retinal Eye Exam Completed Encounters Type Date Location Provider CPT E/M Dx Office Visit 02/23/2018 [facility] Chetna Caldwell 92661 E11.621 9:10a Infectious Diseases Jess Givens I73.9 E11.51 Office Visit 02/09/2018 8:50a [facility] Chetna Caldwell 82230 E11.621 Infectious Diseases Jess Givens Z89.411 L97.516 Office Visit 01/30/2018 10:10a [facility] Iliana Veliz 82030 E11.621 Ilsa Mahoney M.D. R07.9 R06.00 I70.261 E11.21 I10 L97.519 Office Visit 01/29/2018 9:28a [facility] Alejandro, 98836 R07.89 [facility] [place] R06.09 I25.119 I73.9 Office Visit 01/28/2018 9:28a [facility] Alejandro, 29492 R07.89 Assoc[facility] [place] R06.09 I25.119 I73.9 Office Visit 01/27/2018 9:25a [facility] Assgriselda,sylvia Soler 99631 R07.89 Hospitalists CHARLES Mejia R06.89 I25.119 I73.9 Office Visit 01/26/2018 4:11p [facility] Lucio Martin Jerome, 97197 R07.9 Tyler Mercado, LINA, [facility] R06.02 I25.10 Office Visit 01/26/2018 9:24a [facility] [place], [place] [address] R07.89 Hospitalists R06.09 I25.119 I73.9 Office Visit 01/26/2018 9:10a [facility] Jalil Caldwell 66115 Z89.411 Infectious Diseases Jess Givens L97.519 R07.9 R06.00 E11.621 R11.0 Office Visit 01/16/2018 3:20p [facility] RobinaAylin Galaviz, 74568 I70.261 Materials Planning Manager AT [facility] LINA LITTLEJOHN, [facility] Office Visit 01/11/2018 4:00p [facility] Jalil Caldwell 25404 E11.21 Infectious Diseases Jess Givens L03.115 E11.51 Z89.411 Office Visit 12/18/2017 2:00p [place] [address] E11.52 Of [facility] Office Visit 12/18/2017 9:40a [facility] Jostin Guillaume, 25233 I70.261 Materials Planning Manager AT [facility] LINA LITTLEJOHN, [facility] Office Visit 11/16/2017 3:00p [facility] Frankel Guillaume, 33868 I70.235 Materials Planning Manager AT [facility] LINA LITTLEJOHN, [facility] Office Visit 10/23/2017 8:40a [facility] Jostin Guillaume, 33564 I70.235 Materials Planning Manager AT [facility] LINA LITTLEJOHN, [facility] Office Visit 09/18/2017 3:40p [facility] Jostin Guillaume, 51866 I70.235 Materials Planning Manager AT [facility] LINA LITTLEJOHN, [facility] I70.245 Office Visit 08/14/2017 3:00p [facility] RobinaAylin Galaviz, 40878 I70.235 Materials Planning Manager AT [facility] LINA LITTLEJOHN, [facility] I70.245 Office Visit 06/07/2017 11:10a [facility] Iliana Veliz, 23467 E11.21 - Denzel Mercado I10 E83.42 Z23 G47.09 M81.0 Office Visit 03/23/2017 3:30p [facility] Jeanmarie Bolanos, 49386 I25.10 Tyler Mercado I10 Office Visit 02/27/2017 7:30a [facility] Iliana Veliz M.D. 93262 K21.9 - [place] Office Visit 02/15/2017 8:30a [facility] Iliana Veliz M.D. 36369 K21.9 - [place] R10.13 Office Visit 12/22/2016 10:00a [facility] [place], 32604 M05.79 [facility] PIERCER OPERATOR M81.0 E55.9 Z79.899 Office Visit 08/25/2016 9:50a [facility] Iliana Veliz, 83462 E11.21 - Denzel Mercado M06.9 I10 E55.9 Z12.31 M81.0 Z23 Office Visit 06/25/2016 12:59p [facility] Kristin Moore, AMBULANCE DISPATCHER 04300 I25.10 Assoc, Hospitalists S72.002A E11.9 M06.9 Office Visit 06/24/2016 12:59p [facility] Kristin Moore, AMBULANCE DISPATCHER 00280 I25.10 Assoc, Hospitalists S72.002A E11.9 M06.9 Office Visit 06/23/2016 12:58p [facility] Kristin Moore, AMBULANCE DISPATCHER 05304 I25.10 Assoc, Hospitalists S72.002A E11.9 M06.9 Office Visit 06/22/2016 12[facility] 17100 S72.002A Assoc, Hospitalists AMBULANCE DISPATCHER I25.10 E11.9 M06.9 Office Visit 06/21/2016 12:56p [facility] Sachin Dawn, 83255 I25.10 Assoc,pc [place] Hospitalists E11.9 M06.9 S72.002A Office Visit 05/26/2016 10:10a [facility] Iliana Veliz, 12180 E11.21 - Denzel Mercado I10 M81.0 E83.42 Z23 Office Visit 04/16/2016 11:21a [facility] Assoc,pc Francisca Webb, N.P. 36398 I25.10 Hospitalists I10 E11.9 Z96.652 Office Visit 04/15/2016 11:20a [facility] Assoc,pc Francisca Webb, N.P. 96572 I25.10 Hospitalists Z96.652 I10 E11.9 Office Visit 04/14/2016 11:19a [facility] Jose Alfredo Davey, 77165 Z96.652 Assoc, Hospitalists N.P. I25.10 I10 E11.9 Office Visit 03/31/2016 12:30p [facility] Jeanmaire Bolanos, 92488 E11.21 [facility] Jess I25.10 R94.31 Z01.810 Office Visit 03/25/2016 9:40a [facility] [place] [address] Z01.818 Blaine M17.12 E11.311 R55 I10 M05.79 Office Visit 03/21/2016 9:45a [facility] Dee Dee Junior M.D. 37383 M25.562 C.[facility].A. M17.12 M25.462 Office Visit 12/21/2015 2:00p [facility] [place] Dee Junior M.D. 95233 M17.0 C.M.A. M17.11 M17.12 Office Visit 11/09/2015 10:30a [facility] [place] [address] F44.5 Services Of [facility] Office Visit 10/08/2015 9:50a [facility] Internal Medicine Iliana Veliz, 80556 E11.311 - Darin Mercado M79.661 S16.1xxA E11.21 Office Visit 09/24/2015 10:30a Rhe[facility]ology Services ROSA ELENA Kumar 06392 M05.79 Of [facility] R55 Z79.899 M81.0 E55.9 Office Visit 09/01/2015 2:30p [facility] [place] [address] R55 Services Of [facility] Office Visit 07/15/2015 9:30a [facility] [place] [address] R55 Services Of [facility] Office Visit 07/10/2015 11:15a [facility] Dee Dee Junior M.D. 66744 S42.292D Of C.M.AAylin Office Visit 07/10/2015 9:30a [facility] 94373 I25.10 [facility] M.Javi R55 Office Visit 07/02/2015 10:00a [facility] Leobardo Ambriz, 16699 M05.89 Of [facility] Jess Z79.899 M15.0 E11.311 Office Visit 05/04/2015 10:00a [facility] Internal [place] [address] 401.1 - Blaine Office Visit 04/21/2015 11:50a [facility] Internal Medicine Iliana Veliz, 77083 250.42 - Darin Mercado 682.9 401.1 268.9 681.10 Office Visit 03/06/2015 8:00a [facility] Jeanmarie Bolanos, 36678 414.01 [facility] Wei.Javi Office Visit 12/31/2014 9:10a [facility] Internal Medicine Iliana Veliz, 35607 250.40 - Darin Mercado 250.42 401.9 780.2 V03.82 Office Visit 08/14/2014 11:15a [facility] Jeanmarie Bolanos, 95853 414.01 [facility] Jess 250.40 Office Visit 07/31/2014 9:50a [facility] Internal Medicine Iliana Veliz, 52043 250.40 - Darin Mercado 268.9 V04.81 Office Visit 06/24/2014 1:15p [facility] Jeanmarie Bolanos, 83219 414.01 Materials Planning Manager AT [facility] Jess 786.50 Office Visit 06/13/2014 3:45p [facility] Jeanmarie Javi Bolanos, 97105 786.50 [facility] M.DAylin Office Visit 05/28/2014 4:00p [facility] Milan Malagon M.D. 71975 714.0 Of [facility] 681.10 V49.5 Office Visit 04/30/2014 9:50a [facility] Internal Medicine Iliana Veliz, 14452 250.40 - Darin Mercado Office Visit 2014 9:10a [facility] Internal Medicine Iliana Veliz, 24472 V70.0 - Darin Mercado 250.42 787.91 V76.51 729.82 V76.10 112.9 v76.2 Office Visit 03/31/2014 8:00a [facility] Of Milan Malagon M.D. 17971 714.0 [facility] 733.00 Office Visit 02/26/2014 1:00p [facility] Of Milan Malagon M.D. 26911 714.0 [facility] 733.00 Office Visit 02/25/2014 10:10a [facility] Internal Medicine Iliana Veliz 40560 250.42 - Darin Mercado 786.05 443.9 733.01 714.0 518.89 Office Visit 01/28/2014 9:10a [facility] Internal Medicine Iliana Veliz 46501 250.02 - Darin Mercado 786.50 443.9 786.05 278.00 Plan of Care Future Appointment(s):03/09/2018 3:00 pm - Cameron Reddy MD at [facility]03/23/2018 9:50 am - Jalil Givens M.D. at [facility] For Infectious Upkxgyoz64/29/2018 11:45 am - Jeanmarie Bolanos M.D. at [facility]03/05/2018 8:50 am - Iliana Veliz M.D. at [facility] Internal Medicine - Seezylvml65/22/2018 - Leon[facility] Paul [facility]-CE11.621 Type 2 diabetes mellitus with foot ulcerFollow up:1 weekI73.9 Peripheral vascular disease, qulbuzxojnsW44.31xD Disruption of external operation (surgical) wound, NEC, subs
--- OUTSIDE RECORDS SUMMARY | 2018-03-07 19:42 | XMS REPORT ---
:1945 External Reference #:[id number] Author Organization [employer] Address [address] [place] [address] [place] [address] Phone [phone] Care Team Providers Name Role Phone Iliana Veliz MD Primary Care Physician Unavailable Payers Type Date Identification Numbers Payment Provider Subscriber Medicare Primary Effective: Policy Number: Medicare Dee Hale 2011 [id number] PayID: [id number] [address] [place] [address] [facility] Part B Policy Number: [id number] [facility] Dee Hale PayID: [id number] [address] [place] [address] Problems Date Description Provider Status Onset: 03/13/2014 [...] Dee Junior M.D. Active Onset: 08/14/2017 [facility] [place] of right Kiarra Galaviz MD, Active leg w ulcer oth prt foot FAC, FSCAI Onset: 08/14/2017 [facility] [place] of left leg Kiarra Galaviz MD, [...] Active Capsules 5mg 5caps 1 tabs by [facility] 2018 mouth every Maureen, 12 hours as MD needed pain Doxycycline 02/09/ Active Capsules 100mg 42caps 1 cap by E11.621 Jalil Caldwell Hyclate 2018 mouth twice [place], a day with MCortney food Vitamin D3 01/30/ Active Capsules 1000Unit 180cap 1 by mouth Iliana 2018 s every day Jess Veliz Wheelchair 01/11/ Active Misc 1units Standard E11.21 [place] [address] wheelchair Maureen with adjustable leg rest height 62" weight 170lb L03.115 Commode Bedside 01/11/2018 Active Misc 1units as needed E11.21 [facility] MD Maureen L03.115 Accucheck 12/28/2017 Active [...] 08/25/2016 Active 100un check bs 2-3 Inocencio Deng. Chem Strips its times/day Yris, e11.21 M.D. [...] by Z79.8 Zsofia s mouth every 99 Erlin, CLERICAL ADJUDICATOR day M05.79 Right Knee 05/08/2015 Active S42.292D Dirk Tiana, Hinged Knee MCortney Brace Depend Pant 2014 [...] twice a day Metoprolol Active Tablets 25m take 1 tablet Unknown Tartrate g by mouth two times a day Flagyl 01/10/2018 - Hx Tablets 500 28 [...] Tablets 20m 30 1 by mouth I70.261 Kiarra T. 01/30/2018 g ta daily prn MD Guillaume, bs edema [facility] Pantoprazole 02/15/2017 - Hx Tablets DR 40m [...] 12/05/2016 25m ta every 4-6 Jess Junior bs hours as needed for pain. Coumadin [...] ta every day oziel Veliz M.D. Vitamin D3 10/19/2015 - Hx Tablets 200 [...] Tablets 5mg 2tabs take 1 R55 Joyce Stewart, 12/05/2016 tablet 30 MD minutes prior to mri. May repeat x1 at time of MRI if needed. Leflunomide 07/02/2015 - Hx Tablets 10mg 90tabs 1 by mouth M05. Leobardo 09/24/2015 every day 79 Jess Ambriz Z79.899 Ergocalciferol 04/22/2015 - Hx Capsules 85507Degz 8caps 1 tab by mouth Iliana 10/08/2015 [...] 05/04/2015 every 8 hrs a Jose Alfredo, day as needed M.D. Lisinopril 12/31/2014 - Hx Tablets 20mg 90tabs 1 by mouth 40 Iliana 04/22/2015 every day 1. Jose Alfredo, 9 M.D. Lipitor 06/24/2014 - Hx Tablets 20mg 90tabs 1 by mouth I2 Jeanmarie 07/14/2015 every day 5. D. Brand, 10 M.D. Mag-200 04/03/2014 - Hx Tablets 200mg 2 by mouth Ilinaa 04/25/2016 every day ( Jose Alfredo, not taken , M.D. last taken 03/28/16) [facility] [place] - Hx Powder 139497Ruxu/ 100gms apply to 11 Iliana 12/31/2014 GM affected area 2. Jose Alfredo, twice a day x 9 M.D. 10 days as needed Enbrel Sureclick 03/31/2014 - Hx Solution 50mg/ml 8units injet [place] 06/12/2014 subsutaneous Malagon, once weekly M.D. Ergocalciferol 03/13/2014 - Hx Capsules 39126Nltg 8caps 1 tab by mouth Iliana 08/13/2014 every week Jess Veliz Leflunomide 02/26/2014 - Hx Tablets 20mg 30tabs 1 by mouth 73 [place] 12/24/2014 every day 3. Manas, 00 M.D. Lisinopril 02/25/2014 - Hx Tablets 5mg 90tabs 1 by mouth 25 Iliana 06/23/2014 every day 0. Jose Alfredo, 40 M.D. No Active 01/28/2014 - Hx Unknown Medications 01/28/2014 Accucheck 01/28/2014 - Hx 100unit as needed 25 Iliana Lancets 08/24/2015 s 0Aylin Veliz, (Soft-Clix) 02 M.D. Accucheck 01/28/2014 - Hx as needed 25 Iliana Glucometer 08/24/2015 0Aylin Veliz, 02 M.D. Accucheck Trang 01/28/2014 - Hx 100unit check bs 3 25 Iliana Chem Strips 08/24/2015 s times/day dx 0. Veliz, 250.02 02 M.D. Keflex - Hx Capsules [...] inophen 09/17/2017 hours Ergocalciferol - Hx Powder 57011Eqd daily Unknown 12/17/2017 Tramadol HCL - Hx [...] Code Status Date Vaccine Reaction Lot # [id number] Given 06/07/2017 Influenza Virus Vaccine, 572kt Quadrivalent, Split, Preservative Free 73945 Given 12/05/2016 Tdap - [id number] Tetanus/Diptheria/Acellular Pertussis 94472 Given 08/25/2016 Influenza Virus Vaccine, [id number] Quadrivalent, Split Virus, Im Use 39300 Given 05/26/2016 Pneumonia Vaccine [id number] 79683 Given 12/31/2014 Pneumococcal Conjugate Vaccine [id number] Valent For Intramuscular Use 29703 Given 07/31/2014 Flu Vaccine Split Virus No reaction noted. [id number] Preservative Free For Indiv 3Yr Older Vital Signs Date Vital Result Comment 02/23/2018 Height 62 inches 5'2" Weight 170.00 [...] 52 Total Protein(Pep) Urine 44 mg/dL 53 [place]/Lambda Free Light Chains 05/05/2016 [place] Free Light Chain 6.55 mg/dL 54 Ser Lambda Free Light Chain 3.03 mg/dL 55 [place]/Lambda Free Light Chain 2.16 56 Protein Electrophoresis [...] Color Amelia Urine Appearance Turbid Urine Specific [place] 1.019 1.010-1.030 Urine pH 5.0 5-9 Urine [...] 86, 93 1 SEE RESULT BELOW Name: DEE HALE : [address]: Cameron Reddy MD Acct: [id number] Unit: [id number] AGE: 72 Location: [place] Re02/15/18 SEX: F Status: [facility] SPEC: [id number] CONNIE: 02/15/18- [facility] DR: Cameron eRddy MD REQ: [id number] RECD: 02/15/18-1210 STATUS: SOUT _ ORDERED: Decascencion, LEVEL 3 FINAL DIAGNOSIS Bone, first metatarsal [...] the articular surface is glistening smooth vivar-pink. Tare Man sections, one cassette following decalcification. Signed by and Reported on: Jac Domingo MD 1358 END OF REPORT DEPARTMENT OF PATHOLOGY, [address] [place] [address] Jac Domingo M.D. Director [facility] # [id number] 2 Traffic Investigator: [id number] 5 SEE RESULT BELOW Name: DEE HALE : [address]: Jalil Givens MD Acct: [id number] Unit: [id number] AGE: 72 Location: [facility] Re01/26/18 SEX: F Status: REG REF SPEC: [id number] CONNIE: 01/26/18-[address] [facility] [address]: Jalil Givens MD REQ: [id number] RECD: 01/26/18 STATUS: COMP _ SOURCE: WOUND SPDESC: ORDERED: Culture Stain COMMENTS: [id number] Specimen Description right foot Procedure Result Reported Site Wound/Misc Gram Stain Final 01/27/18- 0824 ML 3+ Epithelial Cells 1+ Neutrophils No Organisms Seen Wound/Misc Culture Final 01/29/18- 1018 ML No Growth Day 3 * ML - Main Lab . END OF REPORT DEPARTMENT OF PATHOLOGY, [address] [place] [address] Jac Domingo M.D. Director [facility] # [id number] 6 SEE RESULT BELOW Name: DEE HALE : [address]: Cameron Reddy MD Acct: [id number] Unit: [id number] AGE: 72 Location: [place] Re01/04/18 SEX: F Status: DEP SDC SPEC: [id number] CONNIE: 01/04/18- SUBM DR: Cameron Reddy MD REQ: [id number] RECD: 01/04/18-1218 STATUS: SOUT _ ORDERED: Decal, LEVEL 4 [...] yellow-white unguis. The margin of resection is cgvk-lggwx-sdaj and appears viable. the ventrolateral resected margin appears suspicious and is inked blue. The cut surface reveals a necrotic distal phalanx and the distal 0.8 cm of the proximal phalanx. Tare Man sections are submitted in cassettes A and B as follows: Bone cassette A, necrosis and margins in cassette B. MICROSCOPIC DESCRIPTION Signed (signature on file) Abril Velez MD 09/28 1056 END OF REPORT DEPARTMENT OF PATHOLOGY, [address] [place] [address] Jac Domingo M.D. Director [facility] # [id number] 7 Traffic Investigator: [id number] 8 SEE RESULT BELOW Name: DEE HALE : [address]: Cameron Reddy MD Acct: [id number] Unit: [id number] AGE: 72 Location: OR Re01/04/18 SEX: F Status: DEP SDC SPEC: [id number] CONNIE: 01/04/[address] [facility] [address]: Cameron Reddy MD REQ: [id number] RECD: 01/04/18 STATUS: RES PARRISH DR: Iliana Veliz MD _ SOURCE: WOUND SPDESC: ORDERED: Anaerobic Cult, Culture Stain Procedure Result Reported Site Anaerobic Culture PENDING Wound/Misc Gram Stain Final 01/04/18- 1526 ML 1+ Neutrophils 1+ Epithelial Cells 1+ Gram Positive Cocci Wound/Misc Culture PENDING * ML - Main Lab . END OF REPORT DEPARTMENT OF PATHOLOGY, [address] [place] [address] Jac Domingo M.D. Director [facility] # [id number] 9 SEE RESULT BELOW Name: DEE HALE : [address]: Cameron Reddy MD Acct: [id number] Unit: [id number] AGE: 72 Location: OR Re01/04/18 SEX: F Status: DEP SDC SPEC: [id number] CONNIE: 01/04/[address] [facility] [address]: Cameron Reddy MD REQ: [id number] RECD: 01/04/18 STATUS: RES OTHR DR: Iliana Veliz MD _ SOURCE: WOUND SPDESC: ORDERED: Anaerobic Cult, MRSA/SA SSTI, Culture Stain COMMENTS: Verbal to by [email or web address] at 1659 on 01/04/18. Results read back accurately. Procedure Result Reported Site Anaerobic Culture PENDING MRSA/S. aureus SSTI PCR Final 01/04/18- 1701 ML Organism 1 MRSA NEGATIVE Organism 2 S.AUREUS POSITIVE Wound/Misc Gram Stain Final 01/04/18- 1526 ML 1+ Neutrophils 1+ Epithelial Cells 1+ Gram Positive Cocci Wound/Misc Culture PENDING * ML - Main Lab . END OF REPORT DEPARTMENT OF PATHOLOGY, [address] [place] [address] Jac Domingo M.D. Director [facility] # [id number] 10 SEE RESULT BELOW Name: DEE HALE : [address]: Cameron Reddy MD Acct: [id number] Unit: [id number] AGE: 72 Location: OR Re01/04/18 SEX: F Status: ANA SDC SPEC: [id number] CONNIE: 01/04/18-[address] [facility] [address]: Cameron Reddy MD REQ: [id number] RECD: 01/04/18-1409 STATUS: AMIE SENIOR DR: Iliana Veliz MD _ SOURCE: WOUND SPDESC: ORDERED: Anaerobic Cult, MRSA/SA SSTI, Culture Stain COMMENTS: Verbal to [id number] by [email or web address] at 1659 on 01/04/18. Results read back [...] CONTINUED ON NEXT PAGE DEPARTMENT OF PATHOLOGY, [address] [place] [address] Jac Domingo M.D. Director [facility] # [id number] Patient: DEE HALE [id number] (Continued) Specimen: [id number] Collected: 01/04/18 Received: 01/04/18 (Continued) Procedure Result [...] These antibiotics are not available in the [facility] Formulary Contact the Microbiology Department for any additional antibiotic reporting. * ML - Main Lab . END OF REPORT DEPARTMENT OF PATHOLOGY, [address] [place] [address] Jac Domingo M.D. Director [facility] # [id number] 11 Because ethnic data is not always [...] 5 Kidney failure <15 (or dialysis) 12 Traffic Investigator: [id number] 13 Because ethnic data is not always [...] 5 Kidney failure <15 (or dialysis) 19 [id number] 20 [id number] 21 99th percentile=0.04 ng/mL Troponin results at [facility] and [facility] are not interchangeable. 22 >100 to <200 pg/mL: likely compensated congestive heart failure (CHF) 200 to 400 pg/mL: likely moderate CHF >400 pg/mL: likely moderate to severe CHF 23 [facility] Severe Sepsis and Septic Shock Management Bundle Measure requires all lactic acids initially measuring >2.0 mmol/L be repeated. 24 99th percentile=0.04 ng/mL Troponin results at [facility] and [facility] are not interchangeable. 25 Because ethnic data [...] Acute inflammation: >10.00 28 Test Performed by: [place] [address] 29 Interpretation: Strong Positive (>=60.0) REFERENCE VALUE <20.0 (Negative) Test Performed by: [place] [address] 30 FASTING 12 HOUR 31 Desirable <150 [...] and in selective patients <6.0%.Please refer to [employer] Diabetic care guidelines for further information. 38 SEE RESULT BELOW Name: HEMALATHADEE : [address]: Sandra Brownlee MD Acct: [id number] Unit: [id number] AGE: 71 Location: [facility] Re05/24/16 SEX: F Status: REG REF SPEC: [id number] CONNIE: 05/24/[address]: Sandra Brownlee MD REQ: [id number] RECD: 05/24/16 STATUS: SOUT _ ORDERED: IRON STAIN, Decal, CD5 IMMUNO ST, LEVEL IV/2, OZ41-DUR, BCL-2-ADD, BCL-6 PAX-5-ADD Bone marrow chromosome testing has been performed at [facility] , [place], [place]. The testing reveals: Specimen: bone marrow [...] clonal abnormality was apparent. Test Performed by: [facility] [place] [address] Vessel Builder: Cuate Chavez II, M.D., Ph.D. CONTINUED ON NEXT PAGE * ML=Testing performed at Main Lab DEPARTMENT OF PATHOLOGY, [address] [place] [address] Jac Domingo M.D. Director [facility] # [id number] RUN DATE: 06/01/16 [facility] LAB LIVE PAGE 2 Patient: DEE HALE [id number] (Continued) ADDENDUM (Continued) Addendum Signed (signature on [...] STUDIES Flow cytometry has been performed at [facility], [place], [place]. The testing reveals: FINAL DIAGNOSIS: CONTINUED ON NEXT PAGE * ML=Testing performed at Main Lab DEPARTMENT OF PATHOLOGY, [address] [place] [address] Jca Domingo M.D. Director [facility] # [id number] RUN DATE: 06/01/16 [facility] LAB LIVE PAGE 3 Patient: DEE HALE [id number] (Continued) SPECIAL STUDIES (Continued) SPECIAL STUDIES (Continued) [...] Abril Velez MD Technical component performed by: [facility] [place] [address] Vessel Builder: Cuate Chavez II, MD, PhD. PRE-OPERATIVE DIAGNOSIS D64.9 CONTINUED ON NEXT PAGE * ML=Testing performed at Main Lab DEPARTMENT OF PATHOLOGY, [address] [place] [address] Jac Domingo M.D. Director CLIA # [id number] RUN DATE: 06/01/16 [facility] LAB LIVE PAGE 4 Patient: DEE HALE [id number] (Continued) GROSS DESCRIPTION (Continued) GROSS DESCRIPTION 1. [...] performed at Main Lab DEPARTMENT OF PATHOLOGY, [address] [place] [address] Jac Domingo M.D. Director [facility] # [id number] 39 FINAL DIAGNOSIS: Specimen Source: Bone marrow [...] Abril Velez MD Technical component performed by: [place] [address] Vessel Builder: Cuate Chavez II, MD, PhD. 40 anemia, [...] are reported separately. PDF Report available at: [email or web address] RESULT: Linda Beltrán D.O. Test Performed by: [place] [address] Vessel Builder: Cuate Chavez II, M.D., Ph.D. 45 anemia, [...] are reported separately. PDF Report available at: [email or web address] 49 Applicable to Analyte Specific Reagent (ASR) and Laboratory Developed Tests (LDT). This test was developed and its performance characteristics determined by [facility] in a manner consistent with CLIA requirements. It has not been cleared or approved by the U.S. Food and Drug Administration. This FISH test does not rule out other chromosome abnormalities. 50 RESULT: Vik Moreno M.D., Ph.D. Test Performed by: [place] [address] Vessel Builder: Cuate Chavez II, M.D., Ph.D. 51 Because [...] increase in protein values. Test Performed by: [place] [address] Vessel Builder: Cuate Chavez II, M.D., Ph.D. 54 REFERENCE VALUE 0.3300-1.94 55 REFERENCE VALUE 0.5700-2.63 56 REFERENCE VALUE 0.2600-1.65 Test Performed by: [place] [address] Vessel Builder: Cuate Chavez II, M.D., Ph.D. 57 RESULT: Polyclonal hypergammaglobulinemia Test Performed by: [place] [address] Vessel Builder: Cuate Chavez II, M.D., Ph.D. 58 [facility] [address] 59 [facility] [address] 60 PAIN IN LEFT KNEE, UNILATERAL PRIMARY [...] and in selective patients <6.0%.Please refer to [employer] Diabetic care guidelines for further information. 63 SEE RESULT BELOW Name: DEE HALE : [address]: Wilder Mata PLANT ASSIGNER Acct: [id number] Unit: [id number] AGE: 70 [facility] SEX: F Status: REG REF SPEC: [id number] CONNIE: 03/25/[address]: Wilder Mata NP REQ: [id number] RECD: 03/25/16 STATUS: COMP _ SOURCE: URINE SPDESC: ORDERED: Urine Culture Urine Source: Random Procedure Result Reported Site Urine Culture Final 03/27/16- 1006 ML No growth of clinically significant organisms * ML - MAIN LAB (PSC1) . END OF REPORT * ML=Testing performed at Main Lab DEPARTMENT OF PATHOLOGY, [address] [place] [address] Jac Domingo M.D. Director [facility] # [id number] 64 standing order 65 Acute inflammation: >10.00 [...] levels within this range. Test Performed by: [facility] [address] [address] Vessel Builder: Yogi Mcallister M.D. 75 Desirable <150 Borderline [...] <15 (or dialysis) 82 Test Performed by: [address] [address] Vessel Builder: Lyle Gutiérrez III, M.D. 83 Low risk: <1.00 Average risk: 1.00-3.00 High risk: >3.00 84 Interpretation: Strong Positive (>=60.0) -- REFERENCE VALUE -- <20.0 (Negative) Test Performed by: [address] [address] Vessel Builder: Lyle Gutiérrez III, M.D. 85 Interpretation: 10-19 ng/mL (mild to moderate deficiency) -- REFERENCE VALUE -- 25-HYDROXY D TOTAL (D2+D3) Optimum levels in the healthy population are 20-50, patients with bone disease may benefit from higher levels within this range. Test Performed by: [address] [address] Vessel Builder: Lyle Gutiérrez III, M.D. 86 FASTING 12 [...] Procedures Date CPT Code Description Status 02/15/2018 59894 Amputation Metatarsal W/Toe Completed 02/15/2018 53692 Amputation Metatarsal W/Toe Completed 02/15/2018 07971 I & D Foot Below Fascia, Single Bursal Space Completed 02/15/2018 73227 I & D Foot Below Fascia, Single Bursal Space Completed 01/29/2018 45041 Treadmill Interp/Report Only Completed 01/29/2018 72404 Stress Test Supervsn W/Out I/R Completed 01/26/2018 79943 ECHO Transthorasic Realtime 2D W Doppler & Color Flow Completed Hosp 01/04/2018 60413 Amputation Toe MP JT Completed 01/04/2018 49431 Amputation Toe MP JT Completed 09/13/2017 02826 Angio Extremity, Bilateral Completed 09/13/2017 70524 Catheter Placement Arterial System Init 3RD Order Completed Abdom/Pelv/Low 03/23/2017 11011 EKG Tracing & Interpretation Completed 12/12/2016 20282 Pulmonary Function><Bronchodil Completed 12/12/2016 59928 Plethysmography Determination Lung Volumes & Per Airway Completed Resist 12/12/2016 20480 Diffusing Capacity Completed 09/01/2016 Mammogram Completed 09/01/2016 Bone Mineral Density Test Completed 06/22/2016 44707 EKG, Interpretation Only Completed 06/22/2016 48338 THR Total Hip Replacement Completed 06/22/2016 87555 THR Total Hip Replacement Completed 06/22/2016 76413 THR Total Hip Replacement Completed 04/14/2016 82011 TKR Total Knee Replacement Completed 04/14/2016 94704 TKR Total Knee Replacement Completed 04/05/2016 71031 Stress Test Completed 04/05/2016 53543 Myocardial Perfusion Imaging Tomographic (Spect) Completed Multiple Studies 03/31/2016 13201 EKG Tracing & Interpretation Completed 12/21/2015 24191 Inject/Drain Joint/Bursa Major W/O US Completed 07/24/2015 04948 EEG Recording Awake & Asleep Completed 07/10/2015 45430 EKG Tracing & Interpretation Completed 06/03/2015 35489 Holter Monitoring 24 HR New Completed 06/02/2015 57342 Carotid Doppler,Bilateral Completed 04/03/2015 89781 Inject/Drain Joint/Bursa Major W/O US Completed 03/04/2015 24885 Closed trtmt prox humeral fx Completed 01/08/2015 89053 Holter Monitoring 24 HR New Completed 01/06/2015 47684 Holter Monitoring 24 HR New Completed 10/21/2014 Diabetic Retinal Eye Exam Completed 06/17/2014 70209 Left Heart Cath. Incl S/I Coronaries, Angio S/I V Gram Completed If Done 06/17/2014 32372 Percutaneous Transcatheter Placement Of Intracoronary Completed Stent 06/17/2014 34632 Percutaneous Transcatheter Placement Of Intracoronary Completed Stent 06/13/2014 99862 EKG Tracing & Interpretation Completed 04/17/2014 Colonoscopy Completed 04/07/2014 Mammogram Completed 03/07/2014 Diabetic Retinal Eye Exam Completed 03/03/2014 Diabetic Foot Exam Completed 02/26/2014 Bone Mineral Density Test Completed 02/10/2014 95560 ECHO Transthoracic, Real-Time 2D With Doppler And Color Completed Flow 02/06/2014 78453 Myocardial Perfusion Imaging Tomographic (Spect) Completed Multiple Studies 02/06/2014 56142 Stress Test Completed 05/12/2005 Diabetic Retinal Eye Exam Completed Encounters Type Date Location Provider CPT E/M Dx Office Visit 02/09/2018 [facility] Jalil Caldwell 39341 E11.621 8:50a Infectious Diseases Jess Givens Z89.411 L97.516 Office Visit 01/30/2018 10:10a [facility] Internal Medicine Iliana Veliz 99916 E11.621 - Denzel Mercado R07.9 R06.00 I70.261 E11.21 I10 L97.519 Office Visit 01/29/2018 9:28a [facility] Alejandro, 26279 R07.89 Assoc[facility] Hospitalists [place] R06.09 I25.119 I73.9 Office Visit 01/28/2018 9:28a [facility] Alejandro 11683 R07.89 Assoc,pc Hospitalists [place] R06.09 I25.119 I73.9 Office Visit 01/27/2018 9:25a [facility] Danielle Soler 45172 R07.89 Hospitalists CHARLES Mejia R06.89 I25.119 I73.9 Office Visit 01/26/2018 4:11p [facility] Lucio Jerome, 19196 R07.9 Tyler Mercado, FAC, FASWI R06.02 I25.10 Office Visit 01/26/2018 9:24a [facility] [place] [address] R07.89 Hospitalists R06.09 I25.119 I73.9 Office Visit 01/26/2018 9:10a [facility] Jalil Caldwell 93078 Z89.411 Infectious Diseases Jess Givens L97.519 R07.9 R06.00 E11.621 R11.0 Office Visit 01/16/2018 3:20p [facility] Kiarra Galaviz, 22004 I70.261 [place] AT [facility] LINA LITTLEJOHN, [facility] Office Visit 01/11/2018 4:00p [facility] Jalil Caldwell 89688 E11.21 Infectious Diseases Jess Givens L03.115 E11.51 Z89.411 Office Visit 12/18/2017 2:00p [place] [address] E11.52 Of [facility] Office Visit 12/18/2017 9:40a [facility] Kiarra Galaviz, 90176 I70.261 Salt Cutter AT [facility] LINA LITTLEJOHN, [facility] Office Visit 11/16/2017 3:00p [facility] Kiarra Galaviz, 52454 I70.235 [place] AT [facility] LINA LITTLEJOHN, [facility] Office Visit 10/23/2017 8:40a [facility] Kiarra Galaviz, 78489 I70.235 Salt Cutter AT [facility] LINA LITTLEJOHN, [facility] Office Visit 09/18/2017 3:40p [facility] Kiarra Galaviz, 56748 I70.235 [place] Cutter AT [facility] LINA LITTLEJOHN, [facility] I70.245 Office Visit 08/14/2017 3:00p [facility] Kiarra Galaviz, 43302 I70.235 [place] AT [facility] LINA LITTLEJOHN, [facility] I70.245 Office Visit 06/07/2017 11:10a [facility] Internal Medicine Iliana Veliz, 96433 E11.21 - Denzel Mercado I10 E83.42 Z23 G47.09 M81.0 Office Visit 03/23/2017 3:30p [facility] Jeanmarie Bolanos, 93516 I25.10 Tyler Mercado I10 Office Visit 02/27/2017 7:30a [facility] Internal Medicine Iliana Veliz M.D. 97879 K21.9 - Denzel Office Visit 02/15/2017 8:30a [facility] Internal Medicine Iliana Veliz M.D. 45687 K21.9 - Denzel R10.13 Office Visit 12/22/2016 10:00a [facility] [place]ern, 01811 M05.79 [facility]-Denzel CLERICAL ADJUDICATOR M81.0 E55.9 Z79.899 Office Visit 08/25/2016 9:50a [facility] Internal Medicine Iliana Veliz, 65021 E11.21 - Denzel Mercado M06.9 I10 E55.9 Z12.31 M81.0 Z23 Office Visit 06/25/2016 12:59p [facility] Kristin Moore, PLANT ASSIGNER 87213 I25.10 Assoc, Hospitalists S72.002A E11.9 M06.9 Office Visit 06/24/2016 12:59p [facility] Kristin Moore, PLANT ASSIGNER 63586 I25.10 Assoc,pc Hospitalists S72.002A E11.9 M06.9 Office Visit 06/23/2016 12:58p [facility] Kristin Moore, PLANT ASSIGNER 24457 I25.10 Assoc, Hospitalists S72.002A E11.9 M06.9 Office Visit 06/22/2016 12:57p [facility] Kristin [place], [address] S72.002A Assoc, Hospitalists PLANT ASSIGNER I25.10 E11.9 M06.9 Office Visit 06/21/2016 12:56p [facility], [address] I25.10 Assoc,pc [place] Hospitalists E11.9 M06.9 S72.002A Office Visit 05/26/2016 10:10a [facility] Internal Medicine Iliana Veliz, 95415 E11.21 - Denzel Mercado I10 M81.0 E83.42 Z23 Office Visit 04/16/2016 11:21a [facility],pc Francisca Webb, N.P. 52014 I25.10 Hospitalists I10 E11.9 Z96.652 Office Visit 04/15/2016 11:20a [facility],sylvia Webb, N.P. 24415 I25.10 Hospitalists Z96.652 I10 E11.9 Office Visit 04/14/2016 [facility] [address]68 Z96.652 Assoc, Hospitalists N.P. I25.10 I10 E11.9 Office Visit 03/31/2016 12:30p [facility] Jeanmarie Bolanos, 71036 E11.21 [facility] Jess I25.10 R94.31 Z01.810 Office Visit 03/25/2016 9:40a [facility] Internal Medicine - Wilder Mata, CHARLES 94705 Z01.818 Darin M17.12 E11.311 R55 I10 M05.79 Office Visit 03/21/2016 9:45a [facility] Junior M.D. 77411 M25.562 C.M.A. M17.12 M25.462 Office Visit 12/21/2015 2:00p [facility] Junior M.D. 16192 M17.0 C.M.A. M17.11 M17.12 Office Visit 11/09/2015 10:30a [facility] [place] [address] F44.5 Services Of [facility] Office Visit 10/08/2015 9:50a [facility] Internal Medicine Iliana Veliz, 40190 E11.311 - Darin Mercado M79.661 S16.1xxA E11.21 Office Visit 09/24/2015 10:30a [facility] Services ROSA ELENA Kumar 74143 M05.79 Of [facility] R55 Z79.899 M81.0 E55.9 Office Visit 09/01/2015 2:30p [facility] [place] [address] R55 Services Of [facility] Office Visit 07/15/2015 9:30a [facility] [place] [address] R55 Services Of [facility] Office Visit 07/10/2015 11:15a [facility] Dee Dee Junior M.D. 25582 S42.292D Of C.M.A. Office Visit 07/10/2015 9:30a [facility] Jeanmarie Bolanos, 72067 I25.10 Tyler Mercado R55 Office Visit 07/02/2015 10:00a [facility]ology Services Leobardo Ambriz 01024 M05.89 Of [facility] KasandraJavi Z79.899 M15.0 E11.311 Office Visit 05/04/2015 10:00a [facility] Internal Medicine [place] A [address] 401.1 - [place] Office Visit 04/21/2015 11:50a [facility] Internal Medicine Iliana Veliz, 76334 250.42 - [place] M.DAylin 682.9 401.1 268.9 681.10 Office Visit 03/06/2015 8:00a [facility] 37362 414.01 [facility] M.DAylin Office Visit 12/31/2014 9:10a [facility] Internal Medicine Iliana Veliz, 57477 250.40 - [place] M.DAylin 250.42 401.9 780.2 V03.82 Office Visit 08/14/2014 11:15a [facility] 96780 414.01 [facility] Jess 250.40 Office Visit 07/31/2014 9:50a [facility] Internal Medicine Iliana Veliz, 70271 250.40 - [place] Wei.Javi 268.9 V04.81 Office Visit 06/24/2014 1:15p [facility], 03835 414.01 [facility] Wei.Javi 786.50 Office Visit 06/13/2014 3:45p [facility], 17729 786.50 [facility] M.DAylin Office Visit 05/28/2014 4:00p Rhe[facility]ology Services Milan Malagon M.D. 16566 714.0 Of [facility] 681.10 V49.5 Office Visit 04/30/2014 9:50a [facility] Internal Medicine Iliana Veliz, 51533 250.40 - [place] M.DAylin Office Visit 2014 9:10a [facility] Internal Medicine Iliana Veliz, 23059 V70.0 - [place] M.Javi 250.42 787.91 V76.51 729.82 V76.10 112.9 v76.2 Office Visit 03/31/2014 8:00a [facility] Of Milan Malagon M.D. 51843 714.0 [facility] 733.00 Office Visit 02/26/2014 1:00p [facility] Of [place] Malagon M.D. 84363 714.0 [facility] 733.00 Office Visit 02/25/2014 10:10a [facility] Internal Medicine Iliana Veliz, 29917 250.42 - Darin Mercado 786.05 443.9 733.01 714.0 518.89 Office Visit 01/28/2014 9:10a [facility] Internal Medicine Iliana Veliz, 51425 250.02 - Darin Mercado 786.50 443.9 786.05 278.00 Plan of Care Future Appointment(s):03/23/2018 9:50 am - Jalil Givens M.D. at [facility] Rwspl[facility]81/22/2018 3:00 pm - DANY Feliciano at [facility] [place]03/09/2018 11:45 am - Jeanmarie Bolanos M.D. at [facility]03/05/2018 8:50 am - Iliana Veliz M.D. at [facility] Internal Medicine [facility]02/23/2018 - Jalil Givens M.D.E11.621 Type 2 diabetes mellitus with foot ulcerFollow up:3 rziynU20.9 Peripheral vascular disease, unspecified
--- OUTSIDE RECORDS SUMMARY | 2018-03-07 19:44 | XMS REPORT ---
:1945 External Reference #:[id number] Author Organization [employer] Address [address] [place] [address] [place] [address] Phone [phone] Care Team Providers Name Role Phone Iliana Veliz MD Primary Care Physician Unavailable Payers Type Date Identification Numbers Payment Provider Subscriber Medicare Primary Effective: Policy Number: Medicare Dee Hale 2011 [id number] PayID: [id number] [address] [place] [address] [facility] Part B Policy Number: [id number] [facility] Dee Hale PayID: [id number] [address] [place] [address] Problems Date Description Provider Status Onset: 03/13/2014 [...] Mijares 10/26 Onset: 07/02/2015 Taking medication Leobardo Abmriz M.D. Active Onset: 07/02/2015 Degenerative joint disease [...] Dee Junior M.D. Active Onset: 08/14/2017 [place] of right Kiarra Galaviz MD, Active leg w ulcer oth prt foot FAC, FSCAI Onset: 08/14/2017 [place] of left leg Kiarra Galaviz MD, [...] Active Capsules 5mg 5caps 1 tabs by [facility] 2018 mouth every Maureen, 12 hours as MD needed pain Doxycycline 02/09/ Active Capsules 100mg 30caps 1 cap by E11.621 Jalil Caldwell Hyclate 2018 mouth twice [place], a day with MCortney food Vitamin D3 01/30/ Active Capsules 1000Unit 180cap 1 by mouth Iliana 2018 s every day Jess Veliz Wheelchair 01/11/ Active Misc 1units Standard E11.21 [place] [address] wheelchair Maureen with adjustable leg rest height 62" weight 170lb L03.115 Commode Bedside 01/11/2018 Active Misc 1units as needed E11.21 [facility] MD Maureen L03.115 Accucheck 12/28/2017 Active [...] Z79.8 Zsofia s mouth every 99 Erlin, [employer] day M05.79 Right Knee 05/08/2015 Active S42.292D [...] ta daily prn MD Guillaume, bs edema [facility] Pantoprazole 02/15/2017 - Hx Tablets DR 40m [...] I10 Iliana 03/25/2016 g ta every day ozile Veliz M.D. Vitamin D3 10/19/2015 - Hx Tablets 200 30 1 by mouth E55.9 Iliana Super Strength 01/30/2018 0Un ta every day tabyb Veliz M.D. M81.0 Atorvastatin 10/09/2015 - Hx [...] Ambriz Z79.899 Ergocalciferol 04/22/2015 - Hx Capsules 54226Lqmc 8caps 1 tab by mouth Iliana 10/08/2015 [...] not taken , M.D. last taken 03/28/16) [facility] - Hx Powder [id number]/ 100gms apply to 11 Ilinaa 12/31/2014 GM affected area 2. Jose Alfredo, twice a day x 9 M.D. 10 days as needed Enbrel Sureclick 03/31/2014 - Hx Solution 50mg/ml 8units injet Milna 06/12/2014 subsutaneous Malagon, once weekly M.D. Ergocalciferol 03/13/2014 - Hx Capsules 70431Lali 8caps 1 tab by mouth Iliana 08/13/2014 [...] inophen 09/17/2017 hours Ergocalciferol - Hx Powder [id number] daily Unknown 12/17/2017 Tramadol HCL - Hx [...] Code Status Date Vaccine Reaction Lot # [id number] Given 06/07/2017 Influenza Virus Vaccine, [id number] Quadrivalent, Split, Preservative Free 71555 Given 12/05/2016 Tdap - [id number] Tetanus/Diptheria/Acellular Pertussis 66590 Given 08/25/2016 Influenza Virus Vaccine, [id number] Quadrivalent, Split Virus, Im Use 61328 Given 05/26/2016 Pneumonia Vaccine [id number] 66071 Given 12/31/2014 Pneumococcal Conjugate Vaccine [id number] Valent For Intramuscular Use 86837 Given 07/31/2014 Flu Vaccine Split Virus No reaction noted. [id number] Preservative Free For Indiv 3Yr Older Vital Signs Date Vital Result Comment 02/21/2018 Heart Rate 80 /min BP Systolic [...] Test Result H/L Range Note Laboratory test finding 02/15/2018 Point of Care Glucose 122 mg/dL High 70 -100 1 Urine Microalbumin 01/30/2018 Ur Microalbumin (mg/L) 31.9 mg/L 2 Random Urine Creatinine 117.19 mg/dL 2 Urine Microalbumin/Creatinine 27.2 ug/mg <31 2 Laboratory test 01/30/2018 Hemoglobin A1c 6.3 5-7 finding Wound Culture/Sensi 01/26/2018 Wound/Misc SEE RESULT BELOW 3, 4 Culture-Gram Stain Laboratory test 01/04/2018 Surgical Pathology SEE RESULT BELOW 5 finding Laboratory test 01/04/2018 Point of Care 134 mg/dL High 70-100 6 finding Glucose Wound Culture/Sensi 01/04/2018 Wound/Misc SEE RESULT BELOW 7 Culture-Gram Stain Laboratory test 01/04/2018 MRSA/S. aureus Ssti SEE RESULT BELOW 8 finding PCR Anaerobic Culture SEE RESULT BELOW 9 CBC Auto Diff 09/13/2017 White Blood Count [...] Egfr Non- 78.1 >60 Egfr 100.5 >60 10 Laboratory test finding 09/13/2017 Point of Care Glucose 128 mg/dL High 70 -100 11 Basic Metabolic Panel 08/25/2017 Sodium 135 mmol/L 133-145 Potassium 4.8 mmol/L 3.5-5.0 Chloride 103 mmol/L 101-111 Co2 Carbon Dioxide 26 mmol/L 22-32 Anion Gap 6 mmol/L 2-11 Glucose 140 mg/dL High 70-100 Blood Urea Nitrogen 24 mg/dL 6-24 Creatinine 0.96 mg/dL High 0.51-0.95 BUN/Creatinine Ratio 25.0 High 8-20 Calcium 9.3 mg/dL 8.6-10.3 Egfr Non- 57.0 >60 Egfr 73.3 >60 12 CBC Auto Diff 08/25/2017 White Blood Count [...] Lipid Profile (Trig/Chol/HDL) 08/25/2017 Triglycerides 100 mg/dL 13 Cholesterol 116 mg/dL 14 HDL Cholesterol 46.3 mg/dL 15 LDL Cholesterol 50 mg/dL 16 Istat BUN/Crea/Egfr/V Mainct 08/16/2017 Poc Bun Mainct 20 mg/dL High 9-18 Poc Crea Mainct 0.8 mg/dL 0.6-0.9 GFR Non- MCT 70.3 >60 GFR Mainct 90.4 >60 17 Laboratory test finding 06/07/2017 Magnesium 1.9 mg/dL 1.9-2.7 Laboratory test finding 06/07/2017 Hemoglobin A1c 6.7 5-7 Laboratory test finding 02/15/2017 Lipase 15 U/L 11.0-82.0 18 Amylase 30 U/L 29-103 19 Laboratory test finding 02/13/2017 Thyroxine 11.29 g/mL 6.09-12.23 TSH (Thyroid Stim Horm) 0.82 mcIU/mL 0.34-5.60 CKMB 02/13/2017 CKMB ng/mL 1.1 ng/mL 0.6-6.3 Laboratory test finding 02/13/2017 Troponin-I (TnI) 0.01 ng/mL <0.04 20 CBC Auto Diff 02/13/2017 White Blood Count [...] finding 02/13/2017 B-Type Natriuretic Peptide 24 pg/mL 21 BNP Lactic Acid 1.6 mmol/L 0.5-2.0 22 Laboratory test finding 02/13/2017 Magnesium 1.8 mg/dL Low 1.9-2.7 Creatine Kinase(CK) 40 U/L 10-223 Troponin-I (TnI) 0.01 ng/mL <0.04 23 Comp Metabolic Panel 02/13/2017 Sodium 135 mmol/L [...] Egfr Non- 61.5 >60 Egfr 79.2 >60 24 CBC Auto Diff 12/22/2016 White Blood Count [...] Non- 61.5 >60 Egfr 79.2 >60 25 Laboratory test finding 12/22/2016 C Reactive Protein 2.22 mg/L < 5.00 26 Erythrocyte Sed Rate 66 mm/Hr High 0-40 Rheumatoid Factor 458 IU/mL <15 27 Cyclic Citrullinated Pep Igg 130.9 U 28 Laboratory test finding 12/05/2016 Hemoglobin A1c 6.7 5-7 Urine Microalbumin Random 11/01/2016 Urine Creatinine 171.30 mg/dL Ur Microalbumin (mg/L) 47.9 mg/L Urine Microalbumin/Creatinine 27.9 ug/mg <31 Laboratory test finding 11/01/2016 Magnesium 2.0 mg/dL 1.9-2.7 29 Lipid Profile (Trig/Chol/HDL) 11/01/2016 Triglycerides 96 mg/dL 30 Cholesterol 97 mg/dL 31 HDL Cholesterol 41.2 mg/dL 32 LDL Cholesterol 37 mg/dL 33 Laboratory test finding 11/01/2016 Vitamin D Total 25(Oh) 56.1 ng/mL High 30-50 34 Laboratory test finding 08/25/2016 Hemoglobin A1c 6.6 [...] Egfr Non- 74.8 >60 Egfr 96.2 >60 35 Laboratory test 06/06/2016 Hemoglobin A1c 6.8 % High Less than 6.0 36 finding (Glyco HGB) Urine Microalbumin 06/06/2016 Urine [...] finding 05/24/2016 Surgical Pathology SEE RESULT BELOW 37 Leukemia/Lymphoma Flow 05/24/2016 Path Interpretation 2-8 TNP Marker Path Interpret > 16 Marker TNP Path Interpret 9-15 Marker (SEE NOTE) 38 Bone Marrow Chromosomes 05/24/2016 BM Result Summary Normal BM Chromosome Specimen Bone Marrow BM Referral Reason anemia, unspecif <SEE NOTE> 39 BM Chromosome Method See Comment 40 BM Chromo Banding Method See Comment 41 BM Cromosome Results 46,XX[20] BM Chromosome Interpretation See Comment 42 Released By See Comment 43 Plasma Cell Profliferative 05/24/2016 Plasma Cell Dis Res Insufficient Disorder Summary Plasma Cell Prolif Specimen Bone Marrow Plasma Cell Referral Reason anemia, unspecif <SEE NOTE> 44 Plasma Cell Prolif Dis Method See Comment 45 Plasma Cell Prolif Dis Results See Comment 46 Plasma Cell Dis Interpretation See Comment 47 Plasma Cell Dis Disclaimer See Comment 48 Plasma Cell Dis Released By See Comment 49 CBC Auto Diff 05/05/2016 White Blood Count [...] Egfr Non- 65.7 >60 Egfr 84.5 >60 50 Iron & Iron Binding Capacity 05/05/2016 Iron [...] Albumin/Globulin Ratio 0.45 % Impression See Comment 51 Total Protein(Pep) Urine 44 mg/dL 52 [place]/Lambda Free Light Chains 05/05/2016 [place] Free Light Chain 6.55 mg/dL 53 Ser Lambda Free Light Chain 3.03 mg/dL 54 [place]/Lambda Free Light Chain 2.16 55 Protein Electrophoresis 05/05/2016 Total Protein(Pep) 8.2 g/dL 6.3 - 7.9 Albumin 3.0 g/dL 3.4-4.7 Alpha-1 Globulin 0.4 g/dL 0.1-0.3 Alpha-2 Globulin 1.4 g/dL 0.6-1.0 Beta Globulin 1.0 g/dL 0.7-1.2 Gamma Globulin 2.4 g/dL 0.6-1.6 Albumin/Globulin Ratio 0.58 Impression See Comment 56 Laboratory test finding 04/21/2016 Magnesium 1.4 mg/dL Low 1.9-2.7 57, 58 Type & Screen 04/08/2016 Patient Blood Type A Positive 59 Antibody Screen NEGATIVE 59 Order 04/05/2016 Stress Test, Pharmacologic Nuclear <pending> [...] Egfr Non- 68.7 >60 Egfr 88.4 >60 60 Inr/Protime 03/25/2016 Inr 0.96 0.89-1.11 Type & Screen 03/25/2016 Antibody Screen NEGATIVE Patient Blood Type A Positive Laboratory test finding 03/25/2016 Hemoglobin A1c (Glyco 7.0 % High Less than 6.0 61 HGB) Urinalysis Profile 03/25/2016 Urine Color Amelia Urine Appearance Turbid Urine Specific [place] 1.019 1.010-1.030 Urine pH 5.0 5-9 Urine [...] And 03/25/2016 Urine Culture SEE RESULT BELOW 62 Sensitivities Urine Microalbumin Random 10/08/2015 Ur Microalbumin (mg/L) 117.0 mg/L Urine Creatinine 49.23 mg/dL Urine Microalbumin/Creatinine 237.6 ug/mg High <31 Laboratory test finding 10/08/2015 Vitamin D Total 25(Oh) 31.9 ng/mL 30- 50 Laboratory test finding 09/24/2015 C Reactive Protein 4.25 mg/L < 5.00 63, 64 Erythrocyte Sed Rate 51 mm/Hr High 0-40 63, 65 Vitamin D Total 25(Oh) 29.4 ng/mL Low 30-50 63, 66 Comp Metabolic Panel 09/24/2015 Sodium 136 mmol/L 133-145 63 Potassium 3.8 mmol/L 3.5-5.0 63 Chloride 102 mmol/L 101-111 63 Co2 Carbon Dioxide 27 mmol/L 22-32 63 Anion Gap 7 mmol/L 2-11 63 Glucose 264 mg/dL High 70-100 63 Blood Urea Nitrogen 18 mg/dL 6-24 63 Creatinine 0.65 mg/dL 0.51-0.95 63 BUN/Creatinine Ratio 27.7 High 8-20 63 Calcium 9.4 mg/dL 8.6-10.3 63 Total Protein 7.3 g/dL 6.4-8.9 63 Albumin 3.8 g/dL 3.2-5.2 63 Globulin 3.5 g/dL 2-4 63 Albumin/Globulin Ratio 1.1 1-3 63 Total Bilirubin 0.40 mg/dL 0.2-1.0 63 Alkaline Phosphatase 89 U/L 34-104 63 Alt 10 U/L 7-52 63 Ast 14 U/L 13-39 63 Egfr Non- 89.9 >60 63 Egfr 115.6 >60 63, 67 CBC Auto Diff 09/24/2015 White Blood Count 7.9 10^3/uL 3.5-10.8 63 Red Blood Count 4.07 10^6/uL 4.0-5.4 63 Hemoglobin 11.4 g/dL Low 12.0-16.0 63 Hematocrit 36 % 35-47 63 Mean Corpuscular Volume 88 fL 80-97 63 Mean Corpuscular Hemoglobin 28 pg 27-31 63 Mean Corpuscular HGB Conc 32 g/dL 31-36 63 Red Cell Distribution Width 14 % 10.5-15 63 Platelet Count 328 10^3/uL 150-450 63 Mean Platelet Volume 9 um3 7.4-10.4 63 Abs Neutrophils 4.8 10^3/uL 1.5-7.7 63 Abs Lymphocytes 2.3 10^3/uL 1.0-4.8 63 Abs Monocytes 0.5 10^3/uL 0-0.8 63 Abs Eosinophils 0.2 10^3/uL 0-0.6 63 Abs Basophils 0.1 10^3/uL 0-0.2 63 Abs Nucleated RBC 0.01 10^3/uL 63 Granulocyte % 61.5 % 38-83 63 Lymphocyte % 29.7 % 25-47 63 Monocyte % 5.9 % 1-9 63 Eosinophil % 2.0 % 0-6 63 Basophil % 0.9 % 0-2 63 Nucleated Red Blood Cells % 0.1 63 CBC Auto Diff 07/02/2015 White Blood Count [...] Egfr Non- 89.9 >60 Egfr 115.6 >60 68 Laboratory test finding 07/02/2015 Erythrocyte Sed Rate 56 mm/Hr High 0- 40 C Reactive Protein 5.06 mg/L High < 5.00 69 Basic Metabolic Panel 05/04/2015 Sodium 139 mmol/L 133-145 Potassium 4.2 mmol/L 3.5-5.0 Chloride 107 mmol/L 101-111 Co2 Carbon Dioxide 24 mmol/L 22-32 Anion Gap 8 mmol/L 2-11 Glucose 108 mg/dL High 70-100 Blood Urea Nitrogen 16 mg/dL 6-24 Creatinine 0.67 mg/dL 0.51-0.95 BUN/Creatinine Ratio 23.9 High 8-20 Calcium 9.2 mg/dL 8.6-10.3 Egfr Non- 86.8 >60 Egfr 111.6 >60 70 Laboratory test finding 04/21/2015 Hemoglobin A1c 7.3 [...] Egfr Non- 91.7 >60 Egfr 118.0 >60 71 Urine Microalbumin Random 01/01/2015 Ur Microalbumin (mg/L) 63.0 mg/L Urine Creatinine 84.32 mg/dL Urine Microalbumin/Creatinine 74.7 High Less Than 31 Laboratory test finding 12/31/2014 Hemoglobin A1c 7.2 High 5-7 Vitamin D, 25 Hydroxy 08/14/2014 25-Hydroxy Vitamin D2 29 ng/mL 72 25-Hydroxy Vitamin D3 7.5 ng/mL 72 25-Hydroxy Vitamin D Total 37 ng/mL 72, 73 Lipid Profile (Trig/Chol/HDL) 08/14/2014 Triglycerides 128 mg/dL 72, 74 Cholesterol 157 mg/dL 72, 75 HDL Cholesterol 48.8 mg/dL 72, 76 LDL Cholesterol 83 mg/dL 72, 77 Comp Metabolic Panel 08/14/2014 Sodium 136 mmol/L 133-145 72 Potassium 3.7 mmol/L 3.5-5.0 72 Chloride 102 mmol/L 101-111 72 Co2 Carbon Dioxide 25 mmol/L 22-32 72 Anion Gap 9 mmol/L 2-11 72 Glucose 136 mg/dL High 70-100 72 Blood Urea Nitrogen 19 mg/dL 6-24 72 Creatinine 0.68 mg/dL 0.51-0.95 72 BUN/Creatinine Ratio 27.9 High 8-20 72 Calcium 9.6 mg/dL 8.6-10.3 72 Total Protein 7.3 g/dL 6.4-8.9 72 Albumin 3.9 g/dL 3.2-5.2 72 Globulin 3.4 g/dL 2-4 72 Albumin/Globulin Ratio 1.1 1-3 72 Total Bilirubin 0.50 mg/dL 0.2-1.0 72 Alkaline Phosphatase 85 U/L 34-104 72 Alt 15 U/L 7-52 72 Ast 18 U/L 13-39 72 Egfr Non- 85.5 >60 72 Egfr 110.0 >60 72, 78 Laboratory test finding 07/31/2014 Hemoglobin A1c 6.5 [...] Egfr Non- 84.1 >60 Egfr 108.2 >60 79 Pre Cath Panel 06/14/2014 Activated Partial Thrombo [...] Egfr Non- 73.0 >60 Egfr 93.9 >60 80 CBC Auto Diff 06/14/2014 White Blood Count [...] finding 02/25/2014 Rheumatoid Factor 206 IU/mL <15 81 CRP High Sensitivity 3.43 mg/L 82 Erythrocyte Sed Rate 34 mm/Hr 0-40 Cyclic Citrullinated Pept IgG 60.5 U 83 Vitamin D, 25 Hydroxy 02/25/2014 25-Hydroxy Vitamin D2 <4.0 ng/mL 25-Hydroxy Vitamin D3 11 ng/mL 25-Hydroxy Vitamin D Total 11 ng/mL 84 Pthi 02/25/2014 PTH Intact 7.8 pmol/L 1.3-9.3 Calcium (PTH Intact) 9.1 mg/dL 8.6-10.3 Laboratory test 01/28/2014 Hemoglobin A1c 10.5 High 5-7 finding Laboratory test 01/28/2014 TSH (Thyroid 1.24 IU/mL 0.34-5.60 85, 86 finding Stimulating Horm) CBC Auto Diff 01/28/2014 White Blood Count 8.8 10^3/uL 4.8-10.8 85 Red Blood Count 4.72 10^6/uL 4.0-5.4 85 Hemoglobin 13.8 g/dL 12.0-16.0 85 Hematocrit 40 % 35-47 85 Mean Corpuscular Volume 86 fL 80-97 85 Mean Corpuscular Hemoglobin 29 pg 27-31 85 Mean Corpuscular HGB Conc 34 g/dL 31-36 85 Red Cell Distribution Width 13 % 10.5-15 85 Platelet Count 314 10^3/uL 150-450 85 Mean Platelet Volume 10 um3 7.4-10.4 85 Abs Neutrophils 5.4 10^3/uL 1.5-7.7 85 Abs Lymphocytes 2.7 10^3/uL 1.0-4.8 85 Abs Monocytes 0.4 10^3/uL 0-0.8 85 Abs Eosinophils 0.2 10^3/uL 0-0.6 85 Abs Basophils 0.1 10^3/uL 0-0.2 85 Abs Nucleated RBC 0 10^3/uL 85 Granulocyte % 61.6 % 38-83 85 Lymphocyte % 30.8 % 25-47 85 Monocyte % 4.3 % 1-9 85 Eosinophil % 2.1 % 0-6 85 Basophil % 1.2 % 0-2 85 Nucleated Red Blood Cells % 0 85 Urine Microalbumin Random 01/28/2014 Ur Microalbumin (mg/L) 655.8 mg/dL < 30 85, 87 Urine Creatinine 70.37 mg/dL 85 Urine Microalbumin/Creatinine 931.9 High Less Than 31 85 Lipid Profile (Trig/Chol/HDL) 01/28/2014 Triglycerides 115 mg/dL 85, 88 Cholesterol 148 mg/dL 85, 89 HDL Cholesterol 53.3 mg/dL 85, 90 LDL Cholesterol 72 mg/dL 85, 91 Comp Metabolic Panel 01/28/2014 Sodium 134 mmol/L 133-145 85 Potassium 4.1 mmol/L 3.7-5.6 85 Chloride 100 mmol/L Low 101-111 85 Co2 Carbon Dioxide 27 mmol/L 22-32 85 Anion Gap 7 mmol/L 2-11 85 Glucose 237 mg/dL High 70-100 85 Blood Urea Nitrogen 10 mg/dL 6-24 85 Creatinine 0.63 mg/dL 0.51-0.95 85 BUN/Creatinine Ratio 15.9 8-20 85 Calcium 9.4 mg/dL 8.6-10.3 85 Total Protein 7.6 g/dL 6.4-8.9 85 Albumin 3.8 g/dL 3.2-5.2 85 Globulin 3.8 g/dL 2-4 85 Albumin/Globulin Ratio 1.0 1-3 85 Total Bilirubin 0.50 mg/dL 0.2-1.0 85 Alkaline Phosphatase 96 U/L 34-104 85 Alt 14 U/L 7-52 85 Ast 15 U/L 13-39 85 Egfr Non- 93.7 >60 85 Egfr 120.5 >60 85, 92 1 Nut Former: [id number] 4 SEE RESULT BELOW Name: DEE HALE : [address]: Jalil Givens MD Acct: [id number] Unit: [id number] AGE: 72 Location: [facility] Re01/26/18 SEX: F Status: REG REF SPEC: [id number] CONNIE: 01/26/18 [facility] [address]: Jalil Givens MD REQ: [id number] RECD: 01/26/18 STATUS: COMP _ SOURCE: WOUND SPDESC: ORDERED: Culture Stain COMMENTS: [id number] Specimen Description right foot Procedure Result Reported Site Wound/Misc Gram Stain Final 01/27/18- 0824 ML 3+ Epithelial Cells 1+ Neutrophils No Organisms Seen Wound/Misc Culture Final 01/29/18- 1018 ML No Growth Day 3 * ML - Main Lab . END OF REPORT DEPARTMENT OF PATHOLOGY, [address] [place] [address] Jac Domingo M.D. Director [facility] # [id number] 5 SEE RESULT BELOW Name: DEE HALE : [address]: Cameron Reddy MD Acct: [id number] Unit: [id number] AGE: 72 Location: [place] Re01/04/18 SEX: F Status: ANA PETERSONC SPEC: [id number] CONNIE: 01/04/18- SUBM DR: Cameron Reddy MD REQ: [id number] RECD: 01/04/189 STATUS: SOUT _ ORDERED: Decal, [...] yellow-white unguis. The margin of resection is tzkd-lttsd-kwoy and appears viable. the ventrolateral resected margin appears suspicious and is inked blue. The cut surface reveals a necrotic distal phalanx and the distal 0.8 cm of the proximal phalanx. [employer] sections are submitted in cassettes A and B as follows: Bone cassette A, necrosis and margins in cassette B. MICROSCOPIC DESCRIPTION Signed (signature on file) Arbil Velez MD 09/28 1056 END OF REPORT DEPARTMENT OF PATHOLOGY, [address] [place] [address] Jac Domingo M.D. Director [facility] # [id number] 6 Nut Former: [id number] 7 SEE RESULT BELOW Name: DEE HALE : [address]: Cameron Reddy MD Acct: [id number] Unit: [id number] AGE: 72 Location: [place] Re01/04/18 SEX: F Status: DEP SDC SPEC: [id number] CONNIE: 01/04/18-[address] [facility] [address]: Cameron Reddy MD REQ: [id number] RECD: 01/04/18 STATUS: RES OTHR DR: Iliana Veliz MD _ SOURCE: WOUND SPDESC: ORDERED: Anaerobic Cult, Culture Stain Procedure Result Reported Site Anaerobic Culture PENDING Wound/Misc Gram Stain Final 01/04/18- 1526 ML 1+ Neutrophils 1+ Epithelial Cells 1+ Gram Positive Cocci Wound/Misc Culture PENDING * ML - Main Lab . END OF REPORT DEPARTMENT OF PATHOLOGY, [address] [place] [address] Jac Domingo M.D. Director [facility] # [id number] 8 SEE RESULT BELOW Name: DEE HALE : [address]: Cameron Reddy MD Acct: [id number] Unit: [id number] AGE: 72 Location: [place] Re01/04/18 SEX: F Status: ANA SDC SPEC: [id number] CONNIE: 01/04/18-[address] [facility] [address]: Cameron Reddy MD REQ: [id number] RECD: 01/04/18-1409 STATUS: RES ALY DR: Iliana Veliz MD _ SOURCE: WOUND SPDESC: ORDERED: Anaerobic Cult, MRSA/SA SSTI, Culture Stain COMMENTS: Verbal to [id number] by [id number] at 1659 on 04/26/18. Results read back accurately. Procedure Result Reported Site Anaerobic Culture PENDING MRSA/S. aureus SSTI PCR Final 01/04/18- 1701 ML Organism 1 MRSA NEGATIVE Organism 2 S.AUREUS POSITIVE Wound/Misc Gram Stain Final 01/04/18- 1526 ML 1+ Neutrophils 1+ Epithelial Cells 1+ Gram Positive Cocci Wound/Misc Culture PENDING * ML - Main Lab . END OF REPORT DEPARTMENT OF PATHOLOGY, [address] [place] [address] Jac Domingo M.D. Director [facility] # [id number] 9 SEE RESULT BELOW Name: DEE HALE : [address]: Cameron Reddy MD Acct: [id number] Unit: [id number] AGE: 72 Location: [place] Re01/04/18 SEX: F Status: DEP SDC SPEC: [id number] CONNIE: 01/04/18-[address] [facility] [address]: Cameron Reddy MD REQ: [id number] RECD: 01/04/18-1409 STATUS: AMIE SENIOR DR: Iliana Veliz MD _ SOURCE: WOUND SPDESC: ORDERED: Anaerobic Cult, MRSA/SA SSTI, Culture Stain COMMENTS: Verbal to by [id number] at 1659 on 01/04/18. Results read back [...] CONTINUED ON NEXT PAGE DEPARTMENT OF PATHOLOGY, [address] [place] [address] Jac Domingo M.D. Director [facility] # [id number] Patient: DEE HALE [id number] (Continued) Specimen: [id number] Collected: 01/04/18 Received: 01/04/18-1409 (Continued) Procedure Result Reported Site Wound/Misc Culture [...] These antibiotics are not available in the [facility] Formulary Contact the Microbiology Department for any additional antibiotic reporting. * - [facility] Lab . END OF REPORT DEPARTMENT OF PATHOLOGY, [address] [place] [address] Jac Domingo M.D. Director [facility] # [id number] 10 Because ethnic data is not always readily [...] 15-29 5 Kidney failure <15 (or dialysis) 11 Nut Former: [id number] 12 Because ethnic data is not always readily [...] 15-29 5 Kidney failure <15 (or dialysis) 13 Desirable: <150 Borderline High: 150-199 High: 200-499 Very High: >500 14 Desirable: <200 Borderline High: 200-239 High: >239 15 Low: <40 Desirable: 40-60 High: >60 16 Desirable: <100 Near Optimal: 100-129 Borderline High: 130-159 High: 160-189 Very High: >189 17 Because ethnic data is not always readily [...] 15-29 5 Kidney failure <15 (or dialysis) 18 [id number] 19 [id number] 20 99th percentile=0.04 ng/mL Troponin results at [facility] and [facility] are not interchangeable. 21 >100 to <200 pg/mL: likely compensated congestive heart failure (CHF) 200 to 400 pg/mL: likely moderate CHF >400 pg/mL: likely moderate to severe CHF 22 [facility] Severe Sepsis and Septic Shock Management Bundle Measure requires all lactic acids initially measuring >2.0 mmol/L be repeated. 23 99th percentile=0.04 ng/mL Troponin results at [facility] and [facility] are not interchangeable. 24 Because ethnic data is not always readily [...] 15-29 5 Kidney failure <15 (or dialysis) 25 Because ethnic data is not always [...] 5 Kidney failure <15 (or dialysis) 26 Acute inflammation: >10.00 27 Test Performed by: [address] [id number] Interpretation: Strong Positive (>=60.0) REFERENCE VALUE <20.0 (Negative) Test Performed by: [address] [id number] FASTING 12 HOUR 30 Desirable <150 Borderline high 150-199 High 200-499 Very High >500 31 Desirable <200 Borderline high 200-239 High >239 32 Low <40 Desirable: 40-60 High: >60 33 Desirable: <100 mg/dL Near Optimal: 100-129 mg/dL Borderline High: 130-159 mg/dL High: 160-189 mg/dL Very High: >189 mg/dL 34 FASTING 12 HOUR 35 Because ethnic data is not always readily [...] 15-29 5 Kidney failure <15 (or dialysis) 36 Therapeutic target for the treatment of diabetes Mellitus patients is <7% HBA1C, and in selective patients <6.0%.Please refer to [place] Diabetes Association Diabetic care guidelines for further information. 37 SEE RESULT BELOW Name: DEE HALE : [address]: Sandra Brownlee MD Acct: [id number] Unit: [id number] AGE: 71 Location: [facility] Re05/24/16 SEX: F Status: REG REF SPEC: [id number] CONNIE: 05/24/[address] [facility] [address]: Sandra Brownlee MD REQ: [id number] RECD: 05/24/16 STATUS: SOUT _ ORDERED: IRON STAIN, Decal, CD5 IMMUNO ST, LEVEL IV/2, IN84-IVV, BCL-2-ADD, BCL-6 PAX-5-ADD Bone marrow chromosome testing has been performed at [facility] , [place], [place]. The testing reveals: Specimen: bone marrow [...] clonal abnormality was apparent. Test Performed by: [facility] [place] [address] Chha: Cuate Chavez II, M.D., Ph.D. CONTINUED ON NEXT PAGE * ML=Testing performed at [facility] DEPARTMENT OF PATHOLOGY, [address] [place] [address] Jac Domingo M.D. Director [facility] # [id number] RUN DATE: 06/01/16 [facility] LAB LIVE PAGE 2 Patient: DEE HALE [id number] (Continued) ADDENDUM (Continued) Addendum Signed (signature on [...] Flow cytometry has been performed at [facility], [place], [place]. The testing reveals: FINAL DIAGNOSIS: CONTINUED ON NEXT PAGE * ML=Testing performed at Main Lab DEPARTMENT OF PATHOLOGY, [address] [place] [address] Jac Domingo M.D. Director [facility] # [id number] RUN DATE: 06/01/16 [facility] LAB LIVE PAGE 3 Patient: DEE HALE [id number] (Continued) SPECIAL STUDIES (Continued) SPECIAL STUDIES (Continued) [...] Abril Velez MD Technical component performed by: [address] [address] Chha: Cuate Chavez II, MD, PhD. PRE-OPERATIVE DIAGNOSIS D64.9 CONTINUED ON NEXT PAGE * ML=Testing performed at Main Lab DEPARTMENT OF PATHOLOGY, [address] [place] [address] Jac Domingo M.D. Director GEOVANNI # [id number] RUN DATE: 06/01/16 [facility] LAB LIVE PAGE 4 Patient: DEE HALE [id number] (Continued) GROSS DESCRIPTION (Continued) GROSS DESCRIPTION 1. [...] performed at Main Lab DEPARTMENT OF PATHOLOGY, [address] [place] [address] Jac Domingo M.D. Director [facility] # [id number] 38 FINAL DIAGNOSIS: Specimen Source: Bone marrow Flow [...] Abril Velez MD Technical component performed by: [place] [address] Chha: Cuate Chavez II, MD, PhD. 39 anemia, unspecified 40 RESULT: Culture without mitogens 41 Band Resolution: <400 Stain Name Cells Analyzed Cells Karyograms Counted Prepared GTL 20 0 2 Total 20 0 2 Ortega to Stain Name: GTL=G-banding; QFQ=Q-banding; DAPI=DAPI-staining; CBL=C-banding; AGNOR=Silver-staining; NON=Non-banded The sum of Cells Analyzed and Cells Counted equals the total cells examined. 42 No clonal abnormality was apparent. Additional cytogenetic studies are reported separately. PDF Report available at: [email or web address] 43 RESULT: Linda Beltrán D.O. Test Performed by: [place] [address] Chha: Cuate Chavez II, M.D., Ph.D. 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 46 RESULT: Insufficient plasma cells were observed. 47 An insufficient number of plasma cells were observed using the cytoplasmic immunoglobulin staining method. This result does not exclude the presence of a plasma cell proliferative disorder. Additional cytogenetic studies are reported separately. PDF Report available at: [email or web address] 48 Applicable to Analyte Specific Reagent (ASR) and Laboratory Developed Tests (LDT). This test was developed and its performance characteristics determined by [facility] in a manner consistent with CLIA requirements. It has not been cleared or approved by the U.S. Food and Drug Administration. This FISH test does not rule out other chromosome abnormalities. 49 RESULT: Vik Moreno M.D., Ph.D. Test Performed by: [place] [address] Chha: Cuate Chavez II, M.D., Ph.D. 50 Because ethnic data is not always readily [...] 15-29 5 Kidney failure <15 (or dialysis) 51 All fractions present, no apparent M-spike. Due to the elevated protein, suggest monoclonal protein study (MPSU) if clinically indicated. 52 ADDITIONAL INFORMATION On 03/24/2014 the total protein assay method changed resulting in approximately a 20% increase in protein values. Test Performed by: [place] [address] Chha: Cuate Chavez II, M.D., Ph.D. 53 REFERENCE VALUE 0.3300-1.94 54 REFERENCE VALUE 0.5700-2.63 55 REFERENCE VALUE 0.2600-1.65 Test Performed by: [place] [address] Chha: Cuate Chavez II, M.D., Ph.D. 56 RESULT: Polyclonal hypergammaglobulinemia Test Performed by: [place] [address] Chha: Cuate Chavez II, M.D., Ph.D. 57 [facility] [id number] 58 [facility] [id number] 59 PAIN IN LEFT KNEE, UNILATERAL PRIMARY OSTEOARTHRIT 60 Because ethnic data is not always [...] 5 Kidney failure <15 (or dialysis) 61 Therapeutic target for the treatment of diabetes Mellitus patients is <7% HBA1C, and in selective patients <6.0%.Please refer to [place] Diabetes Association Diabetic care guidelines for further information. 62 SEE RESULT BELOW Name: DEE HALE : [address]: Wilder Mata NP Acct: [id number] Unit: [id number] AGE: 70 Location: [facility] Re03/25/16 SEX: F Status: REG REF SPEC: [id number] CONNIE: 03/25/16 [facility] [address]: Wilder Mata NP REQ: [id number] RECD: 03/25/16 STATUS: COMP _ SOURCE: URINE SPDESC: ORDERED: Urine Culture Urine Source: Random Procedure Result Reported Site Urine Culture Final 03/27/16- 1006 ML No growth of clinically significant organisms * ML - MAIN LAB (PSC1) . END OF REPORT * ML=Testing performed at Main Lab DEPARTMENT OF PATHOLOGY, [address] [place] [address] Jac Domingo M.D. Director [facility] # [id number] 63 standing order 64 Acute inflammation: >10.00 65 standing order 66 standing order 67 Because ethnic data is not always [...] 5 Kidney failure <15 (or dialysis) 68 Because ethnic data is not always [...] 5 Kidney failure <15 (or dialysis) 69 Acute inflammation: >10.00 70 Because ethnic data is not always [...] 5 Kidney failure <15 (or dialysis) 72 PT IS FASTING 73 REFERENCE VALUE 25-HYDROXY D TOTAL (D2+D3) Optimum levels in the healthy population are 20-50, patients with bone disease may benefit from higher levels within this range. Test Performed by: [facility] [address] [address] Chha: Yogi Mcallister M.D. 74 Desirable <150 Borderline high 150-199 High 200-499 Very High >500 75 Desirable <200 Borderline high 200-239 High >239 76 Low <40 Desirable: 40-60 High: >60 77 Desirable <100 Near Optimal 100-129 Borderline high 130-159 High 160-189 Very High >189 78 Because ethnic data is not always [...] 5 Kidney failure <15 (or dialysis) 79 Because ethnic data is not always [...] 5 Kidney failure <15 (or dialysis) 81 Test Performed by: [place] [address] Chha: Lyle Gutiérrez III, M.D. 82 Low risk: <1.00 Average risk: 1.00-3.00 High risk: >3.00 83 Interpretation: Strong Positive (>=60.0) -- REFERENCE VALUE -- <20.0 (Negative) Test Performed by: [place] [address] Chha: Lyle Gtuiérrez III, M.D. 84 Interpretation: 10-19 ng/mL (mild to moderate deficiency) -- REFERENCE VALUE -- 25-HYDROXY D TOTAL (D2+D3) Optimum levels in the healthy population are 20-50, patients with bone disease may benefit from higher levels within this range. Test Performed by: [place] [address] Chha: Lyle Gutiérrez III, M.D. 85 FASTING 12 HOUR 86 FASTING 12 HOUR 87 Microalbuminuria in a random sample is defined as: Microalbumin/Creatinine ratio of 30-299 ug/mg. 88 Desirable <150 Borderline high 150-199 High 200-499 Very High >500 89 Desirable <200 Borderline high 200-239 High >239 90 Low <40 Desirable: 40-60 High: >60 91 Desirable <100 Near Optimal 100-129 Borderline high 130-159 High 160-189 Very High >189 92 Because ethnic data is not always readily [...] Procedures Date CPT Code Description Status 02/15/2018 24571 Amputation Metatarsal W/Toe Completed 02/15/2018 93646 Amputation Metatarsal W/Toe Completed 02/15/2018 64692 I & D Foot Below Fascia, Single Bursal Space Completed 02/15/2018 76837 I & D Foot Below Fascia, Single Bursal Space Completed 01/29/2018 43533 Treadmill Interp/Report Only Completed 01/29/2018 92916 Stress Test Supervsn W/Out I/R Completed 01/26/2018 82704 ECHO Transthorasic Realtime 2D W Doppler & Color Flow Completed Hosp 01/04/2018 83711 Amputation Toe MP JT Completed 01/04/2018 84440 Amputation Toe MP JT Completed 09/13/2017 60538 Angio Extremity, Bilateral Completed 09/13/2017 92363 Catheter Placement Arterial System Init 3RD Order Completed Abdom/Pelv/Low 03/23/2017 74390 EKG Tracing & Interpretation Completed 12/12/2016 28074 Pulmonary Function><Bronchodil Completed 12/12/2016 38112 Plethysmography Determination Lung Volumes & Per Airway Completed Resist 12/12/2016 18801 Diffusing Capacity Completed 09/01/2016 Mammogram Completed 09/01/2016 Bone Mineral Density Test Completed 06/22/2016 33691 EKG, Interpretation Only Completed 06/22/2016 52530 THR Total Hip Replacement Completed 06/22/2016 39899 THR Total Hip Replacement Completed 06/22/2016 76643 THR Total Hip Replacement Completed 04/14/2016 04497 TKR Total Knee Replacement Completed 04/14/2016 11226 TKR Total Knee Replacement Completed 04/05/2016 44573 Stress Test Completed 04/05/2016 07782 Myocardial Perfusion Imaging Tomographic (Spect) Completed Multiple Studies 03/31/2016 80032 EKG Tracing & Interpretation Completed 12/21/2015 05615 Inject/Drain Joint/Bursa Major W/O US Completed 07/24/2015 63335 EEG Recording Awake & Asleep Completed 07/10/2015 04304 EKG Tracing & Interpretation Completed 06/03/2015 37189 Holter Monitoring 24 HR New Completed 06/02/2015 58943 Carotid Doppler,Bilateral Completed 04/03/2015 77917 Inject/Drain Joint/Bursa Major W/O US Completed 03/04/2015 22457 Closed trtmt prox humeral fx Completed 01/08/2015 07925 Holter Monitoring 24 HR New Completed 01/06/2015 42698 Holter Monitoring 24 HR New Completed 10/21/2014 Diabetic Retinal Eye Exam Completed 06/17/2014 05636 Left Heart Cath. Incl S/I Coronaries, Angio S/I V Gram Completed If Done 06/17/2014 43211 Percutaneous Transcatheter Placement Of Intracoronary Completed Stent 06/17/2014 84704 Percutaneous Transcatheter Placement Of Intracoronary Completed Stent 06/13/2014 01829 EKG Tracing & Interpretation Completed 04/17/2014 Colonoscopy Completed 04/07/2014 Mammogram Completed 03/07/2014 Diabetic Retinal Eye Exam Completed 03/03/2014 Diabetic Foot Exam Completed 02/26/2014 Bone Mineral Density Test Completed 02/10/2014 84256 ECHO Transthoracic, Real-Time 2D With Doppler And Color Completed Flow 02/06/2014 72239 Myocardial Perfusion Imaging Tomographic (Spect) Completed Multiple Studies 02/06/2014 18504 Stress Test Completed 05/12/2005 Diabetic Retinal Eye Exam Completed Encounters Type Date Location Provider CPT E/M Dx Office Visit 02/09/2018 [facility] Chetna Caldwell 38344 E11.621 8:50a Infectious Diseases Jess Givens Z89.411 L97.516 Office Visit 01/30/2018 10:10a [facility] Internal Medicine Iliana Veliz, 24967 E11.621 - Denzel Mercado R07.9 R06.00 I70.261 E11.21 I10 L97.519 Office Visit 01/29/2018 9:28a [facility] Ale[facility]andro, 44014 R07.89 Assoc,pc Hospitalists [place] R06.09 I25.119 I73.9 Office Visit 01/28/2018 9:28a [facility], 74042 R07.89 Assoc,pc Hospitalists [place] R06.09 I25.119 I73.9 Office Visit 01/27/2018 9:25a [facility] Assoc,pc Danielle Soler 77354 R07.89 Hospitalists CHARLES Mejia R06.89 I25.119 I73.9 Office Visit 01/26/2018 4:11p [facility] Lucio Jerome, 27242 R07.9 Tyler Mercado, [facility] R06.02 I25.10 Office Visit 01/26/2018 9:24a [facility] [place] [address] R07.89 Hospitalists R06.09 I25.119 I73.9 Office Visit 01/26/2018 9:10a [facility] Chetna Caldwell 58609 Z89.411 Infectious Diseases Jess Givens L97.519 R07.9 R06.00 E11.621 R11.0 Office Visit 01/16/2018 3:20p [facility] Kiarra Galaviz, 88596 I70.261 [facility] AT [facility] , FACLetitia, [facility] Office Visit 01/11/2018 4:00p [facility] Chetna Caldwell 66809 E11.21 Infectious Diseases Jess Givens L03.115 E11.51 Z89.411 Office Visit 12/18/2017 2:00p [place] [address] E11.52 Of [facility] Office Visit 12/18/2017 9:40a [facility] Kiarra Galaviz, 08386 I70.261 Plant Utility Person AT [facility] LINA LITTLEJOHN, FSCAI Office Visit 11/16/2017 3:00p [facility] Kiarra Galaviz, 56405 I70.235 Plant Utility Person AT [facility] LINA LITTLEJOHN, FSCAI Office Visit 10/23/2017 8:40a [facility] Kiarra Galaviz, 06210 I70.235 Plant Utility Person AT [facility] LINA LITTLEJOHN, FSCAI Office Visit 09/18/2017 3:40p [facility] Kiarra Galaviz, 11437 I70.235 Plant Utility Person AT [facility] LINA LITTLEJOHN, FSCAI I70.245 Office Visit 08/14/2017 3:00p [facility] Kiarra aGlaviz, 52726 I70.235 Plant Utility Person AT [facility] LINA LITTLEJOHN, FSCAI I70.245 Office Visit 06/07/2017 11:10a [facility] Internal Medicine Iliana Veliz, 01934 E11.21 - Denzel Mercado I10 E83.42 Z23 G47.09 M81.0 Office Visit 03/23/2017 3:30p [facility] Jeanmarie Bolanos, 56687 I25.10 Tyler Mercado I10 Office Visit 02/27/2017 7:30a [facility] Internal Medicine Iliana Veliz M.D. 39257 K21.9 - Denzel Office Visit 02/15/2017 8:30a [facility] Internal Medicine Iliana Veliz M.D. 03665 K21.9 - Denzel R10.13 Office Visit 12/22/2016 10:00a [facility] Of Murphy Kern, 08938 M05.79 [facility]-Denzel [employer] M81.0 E55.9 Z79.899 Office Visit 08/25/2016 9:50a [facility] Internal Medicine Iliana Veliz 52299 E11.21 - Denzel Mercado M06.9 I10 E55.9 Z12.31 M81.0 Z23 Office Visit 06/25/2016 12:59p [facility] Kristin Moore, CHARLES 10574 I25.10 Assoc, Hospitalists S72.002A E11.9 M06.9 Office Visit 06/24/2016 12:59p [facility] Mimi Moore, DIESEL ENGINE OPERATOR 99120 I25.10 Assoc,pc Hospitalists S72.002A E11.9 M06.9 Office Visit 06/23/2016 12:58p [facility] Mimi Moore, DIESEL ENGINE OPERATOR 32553 I25.10 Assoc,pc Hospitalists S72.002A E11.9 M06.9 Office Visit 06/22/2016 12:57p [facility] Kristin Moore, 20752 S72.002A Assoc,pc Hospitalists DIESEL ENGINE OPERATOR I25.10 E11.9 M06.9 Office Visit 06/21/2016 12:56p [facility] 68578 I25.10 Assoc,pc PA Hospitalists E11.9 M06.9 S72.002A Office Visit 05/26/2016 10:10a [facility] Internal Medicine Iliana Veliz, 70883 E11.21 Denzel Mercado I10 M81.0 E83.42 Z23 Office Visit 04/16/2016 11:21a [facility] Francisca Webb, N.P. 24923 I25.10 Hospitalists I10 E11.9 Z96.652 Office Visit 04/15/2016 11:20a [facility] Francisca Webb, N.P. 80213 I25.10 Hospitalists Z96.652 I10 E11.9 Office Visit 04/14/2016 11:19a [facility] Jose Alfredo Gibbs, 75122 Z96.652 Assoc,pc Hospitalists N.P. I25.10 I10 E11.9 Office Visit 03/31/2016 12:30p [facility] Jeanmarie Bolanos, 62280 E11.21 [facility] Jess I25.10 R94.31 Z01.810 Office Visit 03/25/2016 9:40a [facility] [place] [address] Z01.818 [place] M17.12 E11.311 R55 I10 M05.79 Office Visit 03/21/2016 9:45a [facility] Of Dee Dee Junior M.D. 67750 M25.562 C.M.AAylin M17.12 M25.462 Office Visit 12/21/2015 2:00p [facility] Dee Dee Junior M.D. 24291 M17.0 C.M.AAylin M17.11 M17.12 Office Visit 11/09/2015 10:30a [facility] [place] [address] F44.5 Services Of [facility] Office Visit 10/08/2015 9:50a [facility] Internal Medicine Iliana Veliz, 80843 E11.311 - Darin Mercado M79.661 S16.1xxA E11.21 Office Visit 09/24/2015 10:30a Rheumatology Services ROSA ELENA Kumar 11796 M05.79 Of [facility] R55 Z79.899 M81.0 E55.9 Office Visit 09/01/2015 2:30p [facility] [place] [address] R55 Services Of [facility] Office Visit 07/15/2015 9:30a [facility] [place] [address] R55 Services Of [facility] Office Visit 07/10/2015 11:15a [facility] Services Dee Dee Junior M.D. 96952 S42.292D Of C.M.Clarisa Office Visit 07/10/2015 9:30a [facility] Jeanmarie Bolanos, 47940 I25.10 [facility] Jess R55 Office Visit 07/02/2015 10:00a Rhe[facility]ology Services Leobardo Ambriz, 04440 M05.89 Of [facility] Jess Z79.899 M15.0 E11.311 Office Visit 05/04/2015 10:00a [facility] [place] [address] 401.1 - Darin Office Visit 04/21/2015 11:50a [facility] Internal Medicine Iliana Veliz 19890 250.42 - Darin Mercado 682.9 401.1 268.9 681.10 Office Visit 03/06/2015 8:00a [facility] Jeanmarie Bolanos, 86623 414.01 [facility] M.DAylin Office Visit 12/31/2014 9:10a [facility] Internal Medicine Iliana Veliz 39298 250.40 - Darin Mercado 250.42 401.9 780.2 V03.82 Office Visit 08/14/2014 11:15a [facility] Jeanmarie Javi Bolanos, 78575 414.01 Tyler Mercado 250.40 Office Visit 07/31/2014 9:50a [facility] Internal Medicine Iliana Veliz, 14504 250.40 - Darin Mercado 268.9 V04.81 Office Visit 06/24/2014 1:15p [facility] Jeanmarie Javi Bolanos, 03160 414.01 [facility] Jess 786.50 Office Visit 06/13/2014 3:45p [facility] Jeanmarie Javi Bolanos, 74308 786.50 Plant Utility Person M.DAyiln Office Visit 05/28/2014 4:00p Rheumatology Services Milan Malagon M.D. 16476 714.0 Of [facility] 681.10 V49.5 Office Visit 04/30/2014 9:50a [facility] Internal Medicine Iliana Veliz, 18506 250.40 - Darin Mercado Office Visit 2014 9:10a [facility] Internal Medicine Iliana Veliz, 78444 V70.0 - Darin Mercado 250.42 787.91 V76.51 729.82 V76.10 112.9 v76.2 Office Visit 03/31/2014 8:00a [facility] Of Milan Malagon M.D. 93654 714.0 Plant Utility Person 733.00 Office Visit 02/26/2014 1:00p [facility] Of Milan Malagon M.D. 01089 714.0 Plant Utility Person 733.00 Office Visit 02/25/2014 10:10a [facility] Internal Medicine Iliana Veliz, 22923 250.42 - Darin Mercado 786.05 443.9 733.01 714.0 518.89 Office Visit 01/28/2014 9:10a [facility] Internal Medicine Iliana Veliz, 48888 250.02 - Darin Mercado 786.50 443.9 786.05 278.00 Plan of Care Future Appointment(s):03/02/2018 3:00 pm - DANY Feliciano at [facility]02/23/2018 9:10 am - Jalil Givens M.D. at [facility] For Infectious Ilbqvivy74/29/2018 11:45 am - Jeanmarie Bolanos M.D. at [facility] Psychiatric03/05/2018 8:50 am - Iliana Veliz M.D. at [facility] Internal Medicine [facility]
--- OUTSIDE RECORDS SUMMARY | 2018-03-07 19:45 | XMS REPORT ---
:1945 External Reference #:[id number] Author Organization [facility] Address [address] [address] Phone [phone] Care Team Providers Name Role Phone Iliana Veliz MD Primary Care Physician Unavailable Payers Type Date Identification Numbers Payment Provider Subscriber Medicare Primary Effective: Policy Number: Medicare Sheri Hale 2011 [id number] PayID: [id number] [address] [place] [address] [facility] Policy Number: [id number] [facility] Sheri Hale PayID: [id number] [address] [place] [address] Problems Date Description Provider Status Onset: 03/13/2014 [...] Dee Junior M.D. Active Onset: 08/14/2017 [facility] [place] [facility] right Kiarra Galaviz MD, Active leg w ulcer oth prt foot FAC, FSCAI Onset: 08/14/2017 [facility] [place] [facility] left leg Kiarra Galaviz MD, [...] Form Strength Qnty SIG Indications Ordering Provider Doxycycline 02/09/ Active Capsules 100mg 30caps 1 cap by E11.621 Jalil Caldwell Hyclate 2018 mouth twice [place], a day with M.DAylin food Vitamin D3 01/30/ Active Capsules 1000Unit 180cap 1 by mouth Iliana 2018 s every day Jess Veliz Wheelchair 01/11/ Active Misc 1units Standard E11.21 [place] [address] wheelchair thelma Reddy MD adjustable leg rest height 62" weight 170lb L03.115 Commode Bedside 01/11/2018 Active Misc 1units as needed E11.21 [facility] MD Maureen L03.115 Accucheck 12/28/2017 Active bs testing up Iliana Advantage Test to 2 times/day Darell Veliz M.D. Alendronate 06/07/2017 Active Tablets 70mg 12tab on hold M81.0 Iliana Sodium s ------take 1 Veliz, tablet by M.DAylin mouth weekly Ventolin HFA 12/15/2016 Active Aerosol 108(90B 8.5un inhale 2 puffs Iliana ase) its by mouth every Veliz, mcg/Act 6 hrs as M.DAylin needed for shortness of breath Accucheck Lancets 08/25/2016 Active 100un check bs 2-3 Inocencio Valdivia its times a day Yris, and as needed Jess Accu-Check 08/25/2016 Active Device 1unit check 2-3 Iliana Glucose Monitor s times a day Jess Veliz Accucheck Trang 08/25/2016 Active 100un check bs 2-3 Inocencio Valdivia Chem Strips its times/day maria g Arndt.21 Jess Atorvastatin 05/26/2016 Active Tablets 20mg 90tab take one Inocencio E. Calcium s tablet by Yris, mouth at [...] Z79.8 Zsofia s mouth every 99 Erlin, HISTORY [employer] MEMBER day M05.79 Right Knee 05/08/2015 Active S42.292D [...] Tablets 20m 30 1 by mouth I70.261 Marcis T. 01/30/2018 g ta daily prn MD Guillaume, bs edema [facility], [facility] Pantoprazole 02/15/2017 - Hx Tablets DR 40m [...] M17.12 Abril 05/10/2016 ta CHARLES Uriostegui bs Zofrconi Odt 04/08/2016 - Hx Tablets 4mg 30 [...] Ambriz Z79.899 Ergocalciferol 04/22/2015 - Hx Capsules 80007Armd 8caps 1 tab by mouth Iliana 10/08/2015 [...] Iliana /Trimethoprim DS 07/02/2015 twice a day 2Aylin Veliz, 9 KasandraDAylin Tramadol HCL 02/23/2015 - Hx Tablets 50mg [...] taken 03/28/16) Nyamyc 2014 - Hx Powder 517891Dqbm/ 100gms apply to 11 Iliana 12/31/2014 GM affected area 2. Jose Alfredo, twice a day x 9 M.D. 10 days as needed Enbrel Sureclick 03/31/2014 - Hx Solution 50mg/ml 8units injet [place] 06/12/2014 subsutaneous Manas, once weekly M.D. Ergocalciferol 03/13/2014 - Hx Capsules 22847Ltuk 8caps 1 tab by mouth Iliana 08/13/2014 [...] as needed 25 Iliana Lancets 08/24/2015 s Asa Veliz (Soft-Clix) 02 M.D. Accucheck 01/28/2014 - [...] inophen 09/17/2017 hours Ergocalciferol - Hx Powder 04535Ffa daily Unknown 12/17/2017 Tramadol HCL - Hx Tablets 50mg 15tabs 1 tablets Cmaeron 01/30/2018 every 6 hours Maureen, as needed Pradanyasia - Hx Capsules 75mg 1 by mouth Unknown 12/17/2017 twice a day Medications Administered in Office Medication Date Status Form Strength Qnty SIG Indications Ordering Provider Inj, Administered Injection Lucio Martin Regadenoson, 016 Jerome, 0.1 MG Jess, FACLetitia, FASNC Technetium TC Administered Injection Lucio Martin 99M 016 Lindsey Jerome M.D., FACLetitia, Per Unit Dose FASNC Up To 40 Millicuries Depomedrol Administered Injection Dee Dee 40MG 016 Jess Junior Depomedrol Administered Injection Dee Dee 40MG 016 Jess Junior Depomedrol Administered Injection Dee Dee 80MG 015 Jess Junior Inj, Administered Injection Jeanmarie D. Regadenoson, 014 Jess Bolanos 0.1 MG Technetium TC Administered Injection Jeanmarie D. 99M 014 Jess Bolanos Tetrofosmin, Per Unit Dose Up To 40 Millicuries Immunizations CPT Code Status Date Vaccine Reaction Lot # 85081 Given 06/07/2017 Influenza Virus Vaccine, [id number] Quadrivalent, Split, Preservative Free 33050 Given 12/05/2016 Tdap - [id number] Tetanus/Diptheria/Acellular Pertussis 14317 Given 08/25/2016 Influenza Virus Vaccine, [id number] Quadrivalent, Split Virus, Im Use 19912 Given 05/26/2016 Pneumonia Vaccine [id number] 27601 Given 12/31/2014 Pneumococcal Conjugate Vaccine [id number] Valent For Intramuscular Use 20412 Given 07/31/2014 Flu Vaccine Split Virus No reaction noted. [id number] Preservative Free For Indiv 3Yr Older Vital Signs Date Vital Result Comment 02/09/2018 Height 62 inches 5'2" Weight 174.00 [...] Test Date Test Result H/L Range Note Urine Microalbumin Random 01/30/2018 Ur Microalbumin (mg/L) 31.9 mg/L 1 Urine Creatinine 117.19 mg/dL 1 Urine Microalbumin/Creatinine 27.2 ug/mg <31 1 Laboratory test 01/30/2018 Hemoglobin A1c 6.3 5-7 finding Wound Culture/Sensi 01/26/2018 Wound/Misc SEE RESULT BELOW 2, 3 Culture-Gram Stain Laboratory test 01/04/2018 Surgical Pathology SEE RESULT BELOW 4 finding Laboratory test 01/04/2018 Point of Care 134 mg/dL High 70-100 5 finding Glucose Wound Culture/Sensi 01/04/2018 Wound/Misc SEE RESULT BELOW 6 Culture-Gram Stain Laboratory test 01/04/2018 MRSA/S. aureus Ssti SEE RESULT BELOW 7 finding PCR Anaerobic Culture SEE RESULT BELOW 8 CBC Auto Diff 09/13/2017 White Blood Count [...] Egfr Non- 78.1 >60 Egfr 100.5 >60 9 Laboratory test finding 09/13/2017 Point of Care Glucose 128 mg/dL High 70 -100 10 Basic Metabolic Panel 08/25/2017 Sodium 135 mmol/L 133-145 Potassium 4.8 mmol/L 3.5-5.0 Chloride 103 mmol/L 101-111 Co2 Carbon Dioxide 26 mmol/L 22-32 Anion Gap 6 mmol/L 2-11 Glucose 140 mg/dL High 70-100 Blood Urea Nitrogen 24 mg/dL 6-24 Creatinine 0.96 mg/dL High 0.51-0.95 BUN/Creatinine Ratio 25.0 High 8-20 Calcium 9.3 mg/dL 8.6-10.3 Egfr Non- 57.0 >60 Egfr 73.3 >60 11 CBC Auto Diff 08/25/2017 White Blood Count [...] Lipid Profile (Trig/Chol/HDL) 08/25/2017 Triglycerides 100 mg/dL 12 Cholesterol 116 mg/dL 13 HDL Cholesterol 46.3 mg/dL 14 LDL Cholesterol 50 mg/dL 15 Istat BUN/Crea/Egfr/V Mainct 08/16/2017 Poc Bun Mainct 20 mg/dL High 9-18 Poc Crea Mainct 0.8 mg/dL 0.6-0.9 GFR Non- MCT 70.3 >60 GFR Mainct 90.4 >60 16 Laboratory test finding 06/07/2017 Magnesium 1.9 mg/dL 1.9-2.7 Laboratory test finding 06/07/2017 Hemoglobin A1c 6.7 5-7 Laboratory test finding 02/15/2017 Lipase 15 U/L 11.0-82.0 17 Amylase 30 U/L 29-103 18 Laboratory test finding 02/13/2017 Thyroxine 11.29 g/mL 6.09-12.23 TSH (Thyroid Stim Horm) 0.82 mcIU/mL 0.34-5.60 CKMB 02/13/2017 CKMB ng/mL 1.1 ng/mL 0.6-6.3 Laboratory test finding 02/13/2017 Troponin-I (TnI) 0.01 ng/mL <0.04 19 CBC Auto Diff 02/13/2017 White Blood Count [...] finding 02/13/2017 B-Type Natriuretic Peptide 24 pg/mL 20 BNP Lactic Acid 1.6 mmol/L 0.5-2.0 21 Laboratory test finding 02/13/2017 Magnesium 1.8 mg/dL Low 1.9-2.7 Creatine Kinase(CK) 40 U/L 10-223 Troponin-I (TnI) 0.01 ng/mL <0.04 22 Comp Metabolic Panel 02/13/2017 Sodium 135 mmol/L [...] Egfr Non- 61.5 >60 Egfr 79.2 >60 23 CBC Auto Diff 12/22/2016 White Blood Count [...] Non- 61.5 >60 Egfr 79.2 >60 24 Laboratory test finding 12/22/2016 C Reactive Protein 2.22 mg/L < 5.00 25 Erythrocyte Sed Rate 66 mm/Hr High 0-40 Rheumatoid Factor 458 IU/mL <15 26 Cyclic Citrullinated Pep Igg 130.9 U 27 Laboratory test finding 12/05/2016 Hemoglobin A1c 6.7 5-7 Urine Microalbumin Random 11/01/2016 Urine Creatinine 171.30 mg/dL Ur Microalbumin (mg/L) 47.9 mg/L Urine Microalbumin/Creatinine 27.9 ug/mg <31 Laboratory test finding 11/01/2016 Magnesium 2.0 mg/dL 1.9-2.7 28 Lipid Profile (Trig/Chol/HDL) 11/01/2016 Triglycerides 96 mg/dL 29 Cholesterol 97 mg/dL 30 HDL Cholesterol 41.2 mg/dL 31 LDL Cholesterol 37 mg/dL 32 Laboratory test finding 11/01/2016 Vitamin D Total 25(Oh) 56.1 ng/mL High 30-50 33 Laboratory test finding 08/25/2016 Hemoglobin A1c 6.6 [...] Egfr Non- 74.8 >60 Egfr 96.2 >60 34 Laboratory test 06/06/2016 Hemoglobin A1c 6.8 % High Less than 6.0 35 finding (Glyco HGB) Urine Microalbumin 06/06/2016 Urine [...] finding 05/24/2016 Surgical Pathology SEE RESULT BELOW 36 Leukemia/Lymphoma Flow 05/24/2016 Path Interpretation 2-8 TNP Marker Path Interpret > 16 Marker TNP Path Interpret 9-15 Marker (SEE NOTE) 37 Bone Marrow Chromosomes 05/24/2016 BM Result Summary Normal BM Chromosome Specimen Bone Marrow BM Referral Reason anemia, unspecif <SEE NOTE> 38 BM Chromosome Method See Comment 39 BM Chromo Banding Method See Comment 40 BM Cromosome Results 46,XX[20] BM Chromosome Interpretation See Comment 41 Released By See Comment 42 Plasma Cell Profliferative 05/24/2016 Plasma Cell Dis Res Insufficient Disorder Summary Plasma Cell Prolif Specimen Bone Marrow Plasma Cell Referral Reason anemia, unspecif <SEE NOTE> 43 Plasma Cell Prolif Dis Method See Comment 44 Plasma Cell Prolif Dis Results See Comment 45 Plasma Cell Dis Interpretation See Comment 46 Plasma Cell Dis Disclaimer See Comment 47 Plasma Cell Dis Released By See Comment 48 CBC Auto Diff 05/05/2016 White Blood Count [...] Egfr Non- 65.7 >60 Egfr 84.5 >60 49 Iron & Iron Binding Capacity 05/05/2016 Iron [...] Albumin/Globulin Ratio 0.45 % Impression See Comment 50 Total Protein(Pep) Urine 44 mg/dL 51 Dunlevy/Lambda Free Light Chains 05/05/2016 Dunlevy Free Light Chain 6.55 mg/dL 52 Ser Lambda Free Light Chain 3.03 mg/dL 53 Dunlevy/Lambda Free Light Chain 2.16 54 Protein Electrophoresis 05/05/2016 Total Protein(Pep) 8.2 g/dL 6.3 - 7.9 Albumin 3.0 g/dL 3.4-4.7 Alpha-1 Globulin 0.4 g/dL 0.1-0.3 Alpha-2 Globulin 1.4 g/dL 0.6-1.0 Beta Globulin 1.0 g/dL 0.7-1.2 Gamma Globulin 2.4 g/dL 0.6-1.6 Albumin/Globulin Ratio 0.58 Impression See Comment 55 Laboratory test finding 04/21/2016 Magnesium 1.4 mg/dL Low 1.9-2.7 56, 57 Type & Screen 04/08/2016 Patient Blood Type A Positive 58 Antibody Screen NEGATIVE 58 Order 04/05/2016 Stress Test, Pharmacologic Nuclear <pending> [...] Egfr Non- 68.7 >60 Egfr 88.4 >60 59 Inr/Protime 03/25/2016 Inr 0.96 0.89-1.11 Type & Screen 03/25/2016 Antibody Screen NEGATIVE Patient Blood Type A Positive Laboratory test finding 03/25/2016 Hemoglobin A1c (Glyco 7.0 % High Less than 6.0 60 HGB) Urinalysis Profile 03/25/2016 Urine Color Amelia Urine Appearance Turbid Urine Specific [place] 1.019 1.010-1.030 Urine pH 5.0 5-9 Urine [...] And 03/25/2016 Urine Culture SEE RESULT BELOW 61 Sensitivities Urine Microalbumin Random 10/08/2015 Ur Microalbumin (mg/L) 117.0 mg/L Urine Creatinine 49.23 mg/dL Urine Microalbumin/Creatinine 237.6 ug/mg High <31 Laboratory test finding 10/08/2015 Vitamin D Total 25(Oh) 31.9 ng/mL 30- 50 Laboratory test finding 09/24/2015 C Reactive Protein 4.25 mg/L < 5.00 62, 63 Erythrocyte Sed Rate 51 mm/Hr High 0-40 62, 64 Vitamin D Total 25(Oh) 29.4 ng/mL Low 30-50 62, 65 Comp Metabolic Panel 09/24/2015 Sodium 136 mmol/L 133-145 62 Potassium 3.8 mmol/L 3.5-5.0 62 Chloride 102 mmol/L 101-111 62 Co2 Carbon Dioxide 27 mmol/L 22-32 62 Anion Gap 7 mmol/L 2-11 62 Glucose 264 mg/dL High 70-100 62 Blood Urea Nitrogen 18 mg/dL 6-24 62 Creatinine 0.65 mg/dL 0.51-0.95 62 BUN/Creatinine Ratio 27.7 High 8-20 62 Calcium 9.4 mg/dL 8.6-10.3 62 Total Protein 7.3 g/dL 6.4-8.9 62 Albumin 3.8 g/dL 3.2-5.2 62 Globulin 3.5 g/dL 2-4 62 Albumin/Globulin Ratio 1.1 1-3 62 Total Bilirubin 0.40 mg/dL 0.2-1.0 62 Alkaline Phosphatase 89 U/L 34-104 62 Alt 10 U/L 7-52 62 Ast 14 U/L 13-39 62 Egfr Non- 89.9 >60 62 Egfr 115.6 >60 62, 66 CBC Auto Diff 09/24/2015 White Blood Count 7.9 10^3/uL 3.5-10.8 62 Red Blood Count 4.07 10^6/uL 4.0-5.4 62 Hemoglobin 11.4 g/dL Low 12.0-16.0 62 Hematocrit 36 % 35-47 62 Mean Corpuscular Volume 88 fL 80-97 62 Mean Corpuscular Hemoglobin 28 pg 27-31 62 Mean Corpuscular HGB Conc 32 g/dL 31-36 62 Red Cell Distribution Width 14 % 10.5-15 62 Platelet Count 328 10^3/uL 150-450 62 Mean Platelet Volume 9 um3 7.4-10.4 62 Abs Neutrophils 4.8 10^3/uL 1.5-7.7 62 Abs Lymphocytes 2.3 10^3/uL 1.0-4.8 62 Abs Monocytes 0.5 10^3/uL 0-0.8 62 Abs Eosinophils 0.2 10^3/uL 0-0.6 62 Abs Basophils 0.1 10^3/uL 0-0.2 62 Abs Nucleated RBC 0.01 10^3/uL 62 Granulocyte % 61.5 % 38-83 62 Lymphocyte % 29.7 % 25-47 62 Monocyte % 5.9 % 1-9 62 Eosinophil % 2.0 % 0-6 62 Basophil % 0.9 % 0-2 62 Nucleated Red Blood Cells % 0.1 62 CBC Auto Diff 07/02/2015 White Blood Count [...] Egfr Non- 89.9 >60 Egfr 115.6 >60 67 Laboratory test finding 07/02/2015 Erythrocyte Sed Rate 56 mm/Hr High 0- 40 C Reactive Protein 5.06 mg/L High < 5.00 68 Basic Metabolic Panel 05/04/2015 Sodium 139 mmol/L 133-145 Potassium 4.2 mmol/L 3.5-5.0 Chloride 107 mmol/L 101-111 Co2 Carbon Dioxide 24 mmol/L 22-32 Anion Gap 8 mmol/L 2-11 Glucose 108 mg/dL High 70-100 Blood Urea Nitrogen 16 mg/dL 6-24 Creatinine 0.67 mg/dL 0.51-0.95 BUN/Creatinine Ratio 23.9 High 8-20 Calcium 9.2 mg/dL 8.6-10.3 Egfr Non- 86.8 >60 Egfr 111.6 >60 69 Laboratory test finding 04/21/2015 Hemoglobin A1c 7.3 [...] Egfr Non- 91.7 >60 Egfr 118.0 >60 70 Urine Microalbumin Random 01/01/2015 Ur Microalbumin (mg/L) 63.0 mg/L Urine Creatinine 84.32 mg/dL Urine Microalbumin/Creatinine 74.7 High Less Than 31 Laboratory test finding 12/31/2014 Hemoglobin A1c 7.2 High 5-7 Vitamin D, 25 Hydroxy 08/14/2014 25-Hydroxy Vitamin D2 29 ng/mL 71 25-Hydroxy Vitamin D3 7.5 ng/mL 71 25-Hydroxy Vitamin D Total 37 ng/mL 71, 72 Lipid Profile (Trig/Chol/HDL) 08/14/2014 Triglycerides 128 mg/dL 71, 73 Cholesterol 157 mg/dL 71, 74 HDL Cholesterol 48.8 mg/dL 71, 75 LDL Cholesterol 83 mg/dL 71, 76 Comp Metabolic Panel 08/14/2014 Sodium 136 mmol/L 133-145 71 Potassium 3.7 mmol/L 3.5-5.0 71 Chloride 102 mmol/L 101-111 71 Co2 Carbon Dioxide 25 mmol/L 22-32 71 Anion Gap 9 mmol/L 2-11 71 Glucose 136 mg/dL High 70-100 71 Blood Urea Nitrogen 19 mg/dL 6-24 71 Creatinine 0.68 mg/dL 0.51-0.95 71 BUN/Creatinine Ratio 27.9 High 8-20 71 Calcium 9.6 mg/dL 8.6-10.3 71 Total Protein 7.3 g/dL 6.4-8.9 71 Albumin 3.9 g/dL 3.2-5.2 71 Globulin 3.4 g/dL 2-4 71 Albumin/Globulin Ratio 1.1 1-3 71 Total Bilirubin 0.50 mg/dL 0.2-1.0 71 Alkaline Phosphatase 85 U/L 34-104 71 Alt 15 U/L 7-52 71 Ast 18 U/L 13-39 71 Egfr Non- 85.5 >60 71 Egfr 110.0 >60 71, 77 Laboratory test finding 07/31/2014 Hemoglobin A1c 6.5 [...] Egfr Non- 84.1 >60 Egfr 108.2 >60 78 Pre Cath Panel 06/14/2014 Activated Partial Thrombo [...] Egfr Non- 73.0 >60 Egfr 93.9 >60 79 CBC Auto Diff 06/14/2014 White Blood Count [...] finding 02/25/2014 Rheumatoid Factor 206 IU/mL <15 80 CRP High Sensitivity 3.43 mg/L 81 Erythrocyte Sed Rate 34 mm/Hr 0-40 Cyclic Citrullinated Pept IgG 60.5 U 82 Vitamin D, 25 Hydroxy 02/25/2014 25-Hydroxy Vitamin D2 <4.0 ng/mL 25-Hydroxy Vitamin D3 11 ng/mL 25-Hydroxy Vitamin D Total 11 ng/mL 83 Pthi 02/25/2014 PTH Intact 7.8 pmol/L 1.3-9.3 Calcium (PTH Intact) 9.1 mg/dL 8.6-10.3 Laboratory test 01/28/2014 Hemoglobin A1c 10.5 High 5-7 finding Laboratory test 01/28/2014 TSH (Thyroid 1.24 IU/mL 0.34-5.60 84, 85 finding Stimulating Horm) CBC Auto Diff 01/28/2014 White Blood Count 8.8 10^3/uL 4.8-10.8 84 Red Blood Count 4.72 10^6/uL 4.0-5.4 84 Hemoglobin 13.8 g/dL 12.0-16.0 84 Hematocrit 40 % 35-47 84 Mean Corpuscular Volume 86 fL 80-97 84 Mean Corpuscular Hemoglobin 29 pg 27-31 84 Mean Corpuscular HGB Conc 34 g/dL 31-36 84 Red Cell Distribution Width 13 % 10.5-15 84 Platelet Count 314 10^3/uL 150-450 84 Mean Platelet Volume 10 um3 7.4-10.4 84 Abs Neutrophils 5.4 10^3/uL 1.5-7.7 84 Abs Lymphocytes 2.7 10^3/uL 1.0-4.8 84 Abs Monocytes 0.4 10^3/uL 0-0.8 84 Abs Eosinophils 0.2 10^3/uL 0-0.6 84 Abs Basophils 0.1 10^3/uL 0-0.2 84 Abs Nucleated RBC 0 10^3/uL 84 Granulocyte % 61.6 % 38-83 84 Lymphocyte % 30.8 % 25-47 84 Monocyte % 4.3 % 1-9 84 Eosinophil % 2.1 % 0-6 84 Basophil % 1.2 % 0-2 84 Nucleated Red Blood Cells % 0 84 Urine Microalbumin Random 01/28/2014 Ur Microalbumin (mg/L) 655.8 mg/dL < 30 84, 86 Urine Creatinine 70.37 mg/dL 84 Urine Microalbumin/Creatinine 931.9 High Less Than 31 84 Lipid Profile (Trig/Chol/HDL) 01/28/2014 Triglycerides 115 mg/dL 84, 87 Cholesterol 148 mg/dL 84, 88 HDL Cholesterol 53.3 mg/dL 84, 89 LDL Cholesterol 72 mg/dL 84, 90 Comp Metabolic Panel 01/28/2014 Sodium 134 mmol/L 133-145 84 Potassium 4.1 mmol/L 3.7-5.6 84 Chloride 100 mmol/L Low 101-111 84 Co2 Carbon Dioxide 27 mmol/L 22-32 84 Anion Gap 7 mmol/L 2-11 84 Glucose 237 mg/dL High 70-100 84 Blood Urea Nitrogen 10 mg/dL 6-24 84 Creatinine 0.63 mg/dL 0.51-0.95 84 BUN/Creatinine Ratio 15.9 8-20 84 Calcium 9.4 mg/dL 8.6-10.3 84 Total Protein 7.6 g/dL 6.4-8.9 84 Albumin 3.8 g/dL 3.2-5.2 84 Globulin 3.8 g/dL 2-4 84 Albumin/Globulin Ratio 1.0 1-3 84 Total Bilirubin 0.50 mg/dL 0.2-1.0 84 Alkaline Phosphatase 96 U/L 34-104 84 Alt 14 U/L 7-52 84 Ast 15 U/L 13-39 84 Egfr Non- 93.7 >60 84 Egfr 120.5 >60 84, 91 1 [id number] 3 SEE RESULT BELOW Name: SHERI HALE : [address]: Jalil Givens MD Acct: [id number] Unit: [id number] AGE: 72 Location: [facility] Re01/26/18 SEX: F Status: REG REF SPEC: [id number] CONNIE: 01/26/18 [facility] DR: Jalil Givens MD REQ: [id number] RECD: 01/26/18 STATUS: COMP _ SOURCE: WOUND SPDESC: ORDERED: Culture Stain COMMENTS: [id number] Specimen Description right foot Procedure Result Reported Site Wound/Misc Gram Stain Final 01/27/18- 0824 ML 3+ Epithelial Cells 1+ Neutrophils No Organisms Seen Wound/Misc Culture Final 01/29/18- 1018 ML No Growth Day 3 * ML - Main Lab . END OF REPORT DEPARTMENT OF PATHOLOGY, [address] [place] [address] Jac Domingo M.D. Director [facility] # [id number] 4 SEE RESULT BELOW Name: SHERI HALE : [address]: Cameron Reddy MD Acct: [id number] Unit: [id number] AGE: 72 Location: [place] Re01/04/18 SEX: F Status: ANA PETERSON SPEC: [id number] CONNIE: 01/04/18- [facility] DR: Cameron Reddy MD REQ: [id number] RECD: 01/04/18 STATUS: SOUT _ ORDERED: Antonio, LEVEL 4 FINAL DIAGNOSIS Right great toe, [...] yellow-white unguis. The margin of resection is unif-yhuae-sais and appears viable. the ventrolateral resected margin appears suspicious and is inked blue. The cut surface reveals a necrotic distal phalanx and the distal 0.8 cm of the proximal phalanx. Land Inspector sections are submitted in cassettes A and B as follows: Bone cassette A, necrosis and margins in cassette B. MICROSCOPIC DESCRIPTION Signed (signature on file) Abril Velez MD 09/28 1056 END OF REPORT DEPARTMENT OF PATHOLOGY, [address] [place] [address] Jac Domingo M.D. Director [facility] # [id number] 5 Director Network Development: [id number] 6 SEE RESULT BELOW Name: SHERI HALE : [address]: Cameron Reddy MD Acct: [id number] Unit: [id number] AGE: 72 Location: [place] Re01/04/18 SEX: F Status: DEP SDC SPEC: [id number] CONNIE: 01/04/18-899 [facility] [address]: Cameron Reddy MD REQ: [id number] RECD: 01/04/18 STATUS: RES OTHR DR: Iliana Veliz MD _ SOURCE: WOUND SPDESC: ORDERED: Anaerobic Cult, Culture Stain Procedure Result Reported Site Anaerobic Culture PENDING Wound/Misc Gram Stain Final 01/04/18- 1526 ML 1+ Neutrophils 1+ Epithelial Cells 1+ Gram Positive Cocci Wound/Misc Culture PENDING * ML - Main Lab . END OF REPORT DEPARTMENT OF PATHOLOGY, [address] [place] [address] Jac Domingo M.D. Director [facility] # [id number] 7 SEE RESULT BELOW Name: SHERI HALE : [address]: Cameron Reddy MD Acct: [id number] Unit: [id number] AGE: 72 Location: [place] Re01/04/18 SEX: F Status: DEP SDC SPEC: [id number] CONNIE: 01/04/18-899 [facility] [address]: Cameron Reddy MD REQ: [id number] RECD: 01/04/18-1409 STATUS: RES OTHR DR: Iliana Veliz MD _ SOURCE: WOUND SPDESC: ORDERED: Anaerobic Cult, MRSA/SA SSTI, Culture Stain COMMENTS: Verbal to [id number] by [id number] at 1659 on 01/04/18. Results read back accurately. Procedure Result Reported Site Anaerobic Culture PENDING MRSA/S. aureus SSTI PCR Final 01/04/18- 1701 ML Organism 1 MRSA NEGATIVE Organism 2 S.AUREUS POSITIVE Wound/Misc Gram Stain Final 01/04/18- 1526 ML 1+ Neutrophils 1+ Epithelial Cells 1+ Gram Positive Cocci Wound/Misc Culture PENDING * ML - Main Lab . END OF REPORT DEPARTMENT OF PATHOLOGY, [address] [place] [address] Jac Domingo M.D. Director [facility] # [id number] 8 SEE RESULT BELOW Name: SHERI HALE : [address]: Cameron Reddy MD Acct: [id number] Unit: [id number] AGE: 72 Location: [place] Re01/04/18 SEX: F Status: DEP SDC SPEC: [id number] CONNIE: 01/04/18 [facility] DR: Cameron Reddy MD REQ: [id number] RECD: 01/04/18 STATUS: AMIE SENIOR DR: Iliana Veliz MD _ SOURCE: WOUND SPDESC: ORDERED: Anaerobic Cult, MRSA/SA SSTI, Culture Stain COMMENTS: Verbal to [id number] by [id number] at 1659 on 01/04/18. Results read back [...] CONTINUED ON NEXT PAGE DEPARTMENT OF PATHOLOGY, [address] [place] [address] Jac Domingo M.D. Director [facility] # [id number] Patient: SHERI HALE [id number] (Continued) Specimen: [id number] Collected: 01/04/18 Received: 01/04/18-1409 (Continued) Procedure Result [...] are not available in the [facility] Formulary Contact the Microbiology Department for any additional antibiotic reporting. * ML - Main Lab . END OF REPORT DEPARTMENT OF PATHOLOGY, [address] [place] [address] Jac Domingo M.D. Director [facility] # [id number] 9 Because ethnic data is not always readily [...] 15-29 5 Kidney failure <15 (or dialysis) 10 Director Network Development: [id number] 11 Because ethnic data is not always [...] 5 Kidney failure <15 (or dialysis) 12 Desirable: <150 Borderline High: 150-199 High: 200-499 Very High: >500 13 Desirable: <200 Borderline High: 200-239 High: >239 14 Low: <40 Desirable: 40-60 High: >60 15 Desirable: <100 Near Optimal: 100-129 Borderline High: 130-159 High: 160-189 Very High: >189 16 Because ethnic data is not always [...] 5 Kidney failure <15 (or dialysis) 17 [id number] 19 99th percentile=0.04 ng/mL Troponin results at [facility] and [facility] are not interchangeable. 20 >100 to <200 pg/mL: likely compensated congestive heart failure (CHF) 200 to 400 pg/mL: likely moderate CHF >400 pg/mL: likely moderate to severe CHF 21 [facility] Severe Sepsis and Septic Shock Management Bundle Measure requires all lactic acids initially measuring >2.0 mmol/L be repeated. 22 99th percentile=0.04 ng/mL Troponin results at [facility] and [facility] are not interchangeable. 23 Because ethnic data is not always readily [...] 15-29 5 Kidney failure <15 (or dialysis) 24 Because ethnic data is not always [...] 5 Kidney failure <15 (or dialysis) 25 Acute inflammation: >10.00 26 Test Performed by: [address] [place] [address] 27 Interpretation: Strong Positive (>=60.0) REFERENCE VALUE <20.0 (Negative) Test Performed by: [facility] [address] [place] [address] 28 FASTING 12 HOUR 29 Desirable <150 Borderline high 150-199 High 200-499 Very High >500 30 Desirable <200 Borderline high 200-239 High >239 31 Low <40 Desirable: 40-60 High: >60 32 Desirable: <100 mg/dL Near Optimal: 100-129 mg/dL Borderline High: 130-159 mg/dL High: 160-189 mg/dL Very High: >189 mg/dL 33 FASTING 12 HOUR 34 Because ethnic data is not always readily [...] 15-29 5 Kidney failure <15 (or dialysis) 35 Therapeutic target for the treatment of diabetes Mellitus patients is <7% HBA1C, and in selective patients <6.0%.Please refer to [place] [employer] Diabetic care guidelines for further information. 36 SEE RESULT BELOW Name: SHERI HALE : [address]: Sandra Brownlee MD Acct: [id number] Unit: [id number] AGE: 71 Location: [facility] Re05/24/16 SEX: F Status: REG REF SPEC: [id number] CONNIE: 05/24/[address]: Sandra Brownlee MD REQ: [id number] RECD: 05/24/16 STATUS: SOUT _ ORDERED: IRON STAIN, Decal, CD5 IMMUNO ST, LEVEL IV/2, UN06-TMB, BCL-2-ADD, BCL-6 PAX-5-ADD Bone marrow chromosome testing has been performed at [place], [place]. The testing reveals: Specimen: bone marrow [...] clonal abnormality was apparent. Test Performed by: [facility] - [address] [address] Stave Cutter: Cuate Chavez II, M.D., Ph.D. CONTINUED ON NEXT PAGE * ML=Testing performed at [facility] DEPARTMENT OF PATHOLOGY, [address] [place] [address] Jac Domingo M.D. Director [facility] # [id number] RUN DATE: 06/01/16 [facility] LAB LIVE PAGE 2 Patient: SHERI HALE [id number] (Continued) ADDENDUM (Continued) Addendum Signed (signature on [...] STUDIES Flow cytometry has been performed at [facility], [place], [place]. The testing reveals: FINAL DIAGNOSIS: CONTINUED ON NEXT PAGE * ML=Testing performed at Main Lab DEPARTMENT OF PATHOLOGY, [address] [place] [address] Jac Domingo M.D. Director [facility] # [id number] RUN DATE: 06/01/16 [facility] LAB LIVE PAGE 3 Patient: SHERI HALE [id number] (Continued) SPECIAL STUDIES (Continued) SPECIAL STUDIES (Continued) [...] Abril Velez MD Technical component performed by: [place] [address] Stave Cutter: Cuate Chavez II, MD, PhD. PRE-OPERATIVE DIAGNOSIS D64.9 CONTINUED ON NEXT PAGE * ML=Testing performed at Main Lab DEPARTMENT OF PATHOLOGY, [address] [place] [address] Jac Domingo M.D. Director [facility] # [id number] RUN DATE: 06/01/16 [facility] LAB LIVE PAGE 4 Patient: SHERI HALE [id number] (Continued) GROSS DESCRIPTION (Continued) GROSS DESCRIPTION 1. [...] END OF REPORT * ML=Testing performed at [facility] DEPARTMENT OF PATHOLOGY, [address] [place] [address] Jac Domingo M.D. Director [facility] # [id number] 37 FINAL DIAGNOSIS: Specimen Source: Bone marrow Flow [...] Abril Velez MD Technical component performed by: [place] [address] Stave Cutter: Cuate Chavez II, MD, PhD. 38 anemia, unspecified 39 RESULT: Culture without mitogens 40 Band Resolution: <400 Stain Name Cells Analyzed Cells Karyograms Counted Prepared GTL 20 0 2 Total 20 0 2 Ortega to Stain Name: GTL=G-banding; QFQ=Q-banding; DAPI=DAPI-staining; CBL=C-banding; AGNOR=Silver-staining; NON=Non-banded The sum of Cells Analyzed and Cells Counted equals the total cells examined. 41 No clonal abnormality was apparent. Additional cytogenetic studies are reported separately. PDF Report available at: [email or web address] 42 RESULT: Linda Beltrán D.O. Test Performed by: [place] [address] Stave Cutter: Cuate Chavez II, M.D., Ph.D. 43 anemia, unspecified 44 Locus and probes [Strategy;#Nuclei;Class] 11q13(CCND1-XT),14q32(IGH-XT) [DFISH;50;ASR] 14q32(3'IGH,5'IGH) [BAP;50;LDT] Probe strategies include: DFISH=dual color, double fusion; BAP=break-apart probe. 45 RESULT: Insufficient plasma cells were observed. 46 An insufficient number of plasma cells were observed using the cytoplasmic immunoglobulin staining method. This result does not exclude the presence of a plasma cell proliferative disorder. Additional cytogenetic studies are reported separately. PDF Report available at: [email or web address] 47 Applicable to Analyte Specific Reagent (ASR) and Laboratory Developed Tests (LDT). This test was developed and its performance characteristics determined by [facility] in a manner consistent with CLIA requirements. It has not been cleared or approved by the U.S. Food and Drug Administration. This FISH test does not rule out other chromosome abnormalities. 48 RESULT: Vik Moreno M.D., Ph.D. Test Performed by: [facility] [address] [place] [address] Stave Cutter: Cuate Chavez II, M.D., Ph.D. 49 Because ethnic data is not always readily [...] 15-29 5 Kidney failure <15 (or dialysis) 50 All fractions present, no apparent M-spike. Due to the elevated protein, suggest monoclonal protein study (MPSU) if clinically indicated. 51 ADDITIONAL INFORMATION On 03/24/2014 the total protein assay method changed resulting in approximately a 20% increase in protein values. Test Performed by: [facility] [address] [place] [address] Stave Cutter: Cuate Chavez II, M.D., Ph.D. 52 REFERENCE VALUE 0.3300-1.94 53 REFERENCE VALUE 0.5700-2.63 54 REFERENCE VALUE 0.2600-1.65 Test Performed by: [place] [address] Stave Cutter: Cuate Chavez II, M.D., Ph.D. 55 RESULT: Polyclonal hypergammaglobulinemia Test Performed by: [place] [address] Stave Cutter: Cuate Chavez II, M.D., Ph.D. 56 [facility] [address] 57 [facility] [address] 58 PAIN IN LEFT KNEE, UNILATERAL PRIMARY OSTEOARTHRIT 59 Because ethnic data is not always readily [...] 15-29 5 Kidney failure <15 (or dialysis) 60 Therapeutic target for the treatment of diabetes Mellitus patients is <7% HBA1C, and in selective patients <6.0%.Please refer to [place] [employer] Diabetic care guidelines for further information. 61 SEE RESULT BELOW Name: SHERI HALE : [address]: Wilder Mata NP Acct: [id number] Unit: [id number] AGE: 70 Location: [facility] Re03/25/16 SEX: F Status: REG REF SPEC: [id number] CONNIE: 03/25/[address]: Wilder Mata NP REQ: [id number] RECD: 03/25/16 STATUS: COMP _ SOURCE: URINE SPDESC: ORDERED: Urine Culture Urine Source: Random Procedure Result Reported Site Urine Culture Final 03/27/16- 1006 ML No growth of clinically significant organisms * ML - MAIN LAB ([facility]) . END OF REPORT * ML=Testing performed at Main Lab DEPARTMENT OF PATHOLOGY, [address] [place] [address] Jac Domingo M.D. Director [facility] # [id number] 62 standing order 63 Acute inflammation: >10.00 64 standing order 65 standing order 66 Because ethnic data is not always [...] 5 Kidney failure <15 (or dialysis) 68 Acute inflammation: >10.00 69 Because ethnic data is not always [...] 5 Kidney failure <15 (or dialysis) 70 Because ethnic data is not always [...] 5 Kidney failure <15 (or dialysis) 71 PT IS FASTING 72 REFERENCE VALUE 25-HYDROXY D TOTAL (D2+D3) Optimum levels in the healthy population are 20-50, patients with bone disease may benefit from higher levels within this range. Test Performed by: [facility] - [address] [address] Stave Cutter: Yogi Mcallister M.D. 73 Desirable <150 Borderline high 150-199 High 200-499 Very High >500 74 Desirable <200 Borderline high 200-239 High >239 75 Low <40 Desirable: 40-60 High: >60 76 Desirable <100 Near Optimal 100-129 Borderline high 130-159 High 160-189 Very High >189 77 Because ethnic data is not always readily [...] 15-29 5 Kidney failure <15 (or dialysis) 78 Because ethnic data is not always [...] 5 Kidney failure <15 (or dialysis) 80 Test Performed by: [place] [address] Stave Cutter: Lyle Gutiérrez III, M.D. 81 Low risk: <1.00 Average risk: 1.00-3.00 High risk: >3.00 82 Interpretation: Strong Positive (>=60.0) -- REFERENCE VALUE -- <20.0 (Negative) Test Performed by: [place] [address] Stave Cutter: Lyle Gutiérrez III, M.D. 83 Interpretation: 10-19 ng/mL (mild to moderate deficiency) -- REFERENCE VALUE -- 25-HYDROXY D TOTAL (D2+D3) Optimum levels in the healthy population are 20-50, patients with bone disease may benefit from higher levels within this range. Test Performed by: [place] [address] Stave Cutter: Lyle Gutiérrez III, M.D. 84 FASTING 12 HOUR 85 FASTING 12 HOUR 86 Microalbuminuria in a random sample is defined as: Microalbumin/Creatinine ratio of 30-299 ug/mg. 87 Desirable <150 Borderline high 150-199 High 200-499 Very High >500 88 Desirable <200 Borderline high 200-239 High >239 89 Low <40 Desirable: 40-60 High: >60 90 Desirable <100 Near Optimal 100-129 Borderline high 130-159 High 160-189 Very High >189 91 Because ethnic data is not always readily [...] dialysis) Procedures Date CPT Code Description Status 01/29/2018 74013 Treadmill Interp/Report Only Completed 01/29/2018 27381 Stress Test Supervsn W/Out I/R Completed 01/26/2018 34349 ECHO Transthorasic Realtime 2D W Doppler & Color Flow Completed Hosp 01/04/2018 03163 Amputation Toe MP JT Completed 01/04/2018 34908 Amputation Toe MP JT Completed 09/13/2017 07302 Angio Extremity, Bilateral Completed 09/13/2017 46677 Catheter Placement Arterial System Init 3RD Order Completed Abdom/Pelv/Low 03/23/2017 15727 EKG Tracing & Interpretation Completed 12/12/2016 85921 Diffusing Capacity Completed 12/12/2016 90141 Plethysmography Determination Lung Volumes & Per Airway Completed Resist 12/12/2016 49918 Pulmonary Function><Bronchodil Completed 09/01/2016 Bone Mineral Density Test Completed 09/01/2016 Mammogram Completed 06/22/2016 30574 THR Total Hip Replacement Completed 06/22/2016 97452 THR Total Hip Replacement Completed 06/22/2016 54660 THR Total Hip Replacement Completed 06/22/2016 01517 EKG, Interpretation Only Completed 04/14/2016 16442 TKR Total Knee Replacement Completed 04/14/2016 86275 TKR Total Knee Replacement Completed 04/05/2016 55874 Stress Test Completed 04/05/2016 25231 Myocardial Perfusion Imaging Tomographic (Spect) Completed Multiple Studies 03/31/2016 39734 EKG Tracing & Interpretation Completed 12/21/201540284 Inject/Drain Joint/Bursa Major Completed 07/24/2015 34095 EEG Recording Awake & Asleep Completed 07/10/2015 93023 EKG Tracing & Interpretation Completed 06/03/2015 41770 Holter Monitoring 24 HR New Completed 06/02/2015 94932 Carotid Doppler,Bilateral Completed 04/03/201599858 Inject/Drain Joint/Bursa Major Completed 03/04/2015 39560 Closed trtmt prox humeral fx Completed 01/08/2015 31710 Holter Monitoring 24 HR New Completed 01/06/2015 39091 Holter Monitoring 24 HR New Completed 10/21/2014 Diabetic Retinal Eye Exam Completed 06/17/2014 03631 Left Heart Cath. Incl S/I Coronaries, Angio S/I V Gram Completed If Done 06/17/2014 92275 Percutaneous Transcatheter Placement Of Intracoronary Completed Stent 06/17/2014 87814 Percutaneous Transcatheter Placement Of Intracoronary Completed Stent 06/13/2014 83325 EKG Tracing & Interpretation Completed 04/17/2014 Colonoscopy Completed 04/07/2014 Mammogram Completed 03/07/2014 Diabetic Retinal Eye Exam Completed 03/03/2014 Diabetic Foot Exam Completed 02/26/2014 Bone Mineral Density Test Completed 02/10/2014 29694 ECHO Transthoracic, Real-Time 2D With Doppler And Color Completed Flow 02/06/2014 92805 Myocardial Perfusion Imaging Tomographic (Spect) Completed Multiple Studies 02/06/2014 09652 Stress Test Completed 05/12/2005 Diabetic Retinal Eye Exam Completed Encounters Type Date Location Provider CPT E/M Dx Office Visit 01/30/2018 [facility] Iliana Veliz 45513 E11.621 10:10a Ilsa Mahoney M.D. R07.9 R06.00 I70.261 E11.21 I10 L97.519 Office Visit 01/29/2018 9:28a [facility] Alejandro, 58289 R07.89 Assoc,[facility] Hospitalists [place] R06.09 I25.119 I73.9 Office Visit 01/28/2018 9:28a [facility] Alejandro, 21382 R07.89 Assoc,pc Hospitalists [place] R06.09 I25.119 I73.9 Office Visit 01/27/2018 9:25a [facility] Assoc,pc Danielle Soler 86505 R07.89 Hospitalists CHARLES Mejia R06.89 I25.119 I73.9 Office Visit 01/26/2018 4:11p [facility] Luciorobina Jerome, 83929 R07.9 Tyler Mercado, LINA, [facility] R06.02 I25.10 Office Visit 01/26/2018 9:24a [facility] [address] R07.89 Hospitalists R06.09 I25.119 I73.9 Office Visit 01/26/2018 9:10a [facility] Chetna Caldwell 46933 Z89.411 Infectious Diseases Jess Givens L97.519 R07.9 R06.00 E11.621 R11.0 Office Visit 01/16/2018 3:20p [facility] Kiarra Galaviz, 45878 I70.261 Radar Systems Engineer AT [facility] LINA LITTLEJOHN, [facility] Office Visit 01/11/2018 4:00p [facility] Chetna Caldwell 46161 E11.21 Infectious Diseases Jess Givens L03.115 E11.51 Z89.411 Office Visit 12/18/2017 2:00p [place] [address] E11.52 Of C.M.A. Office Visit 12/18/2017 9:40a [facility] Kiarra Galaviz, 64404 I70.261 Radar Systems Engineer AT [facility] LINA LITTLEJOHN, [place] [facility] Office Visit 11/16/2017 3:00p [facility] Kiarra Galaviz, 13878 I70.235 Radar Systems Engineer AT [facility] LINA LITTLEJOHN, [place] [facility] Office Visit 10/23/2017 8:40a [facility] Kiarra Galaviz, 87161 I70.235 Radar Systems Engineer AT [facility] LINA LITTLEJOHN, [place] [facility] Office Visit 09/18/2017 3:40p [facility] Kiarra Galaviz, 37301 I70.235 Radar Systems Engineer AT [facility] LINA LITTLEJOHN, [place] [facility] I70.245 Office Visit 08/14/2017 3:00p [facility] Kiarra Galaviz, 03150 I70.235 Radar Systems Engineer AT [facility] LINA LITTLEJOHN, [place] [facility] [place] I70.245 Office Visit 06/07/2017 11:10a [facility] Iliana Veliz, 78309 E11.21 - Denzel Mercado I10 E83.42 Z23 G47.09 M81.0 Office Visit 03/23/2017 3:30p [facility] Jeanmarie SilvestreAylin Bolanos, 93142 I25.10 Tyler Mercado I10 Office Visit 02/27/2017 7:30a [facility] Iliana Veliz M.D. 52493 K21.9 - Arrownaz Office Visit 02/15/2017 8:30a [facility] Iliana Veliz M.D. 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 M81.0 E55.9 Z79.899 Office Visit 08/25/2016 9:50a [facility] Iliana Veliz, 65965 E11.21 - Denzel Mercado M06.9 I10 E55.9 Z12.31 M81.0 Z23 Office Visit 06/25/2016 12:59p [facility] Kristin Moore, CHARLES 46648 I25.10 Assoc, Hospitalists S72.002A E11.9 M06.9 Office Visit 06/24/2016 12:59p [facility] Kristin Moore, CHARLES 77346 I25.10 Assoc, Hospitalists S72.002A E11.9 M06.9 Office Visit 06/23/2016 12:58p [facility] Kristin Moore, CHARLES 40618 I25.10 Assoc,pc Hospitalists S72.002A E11.9 M06.9 Office Visit 06/22/2016 12:57p [facility] Kristin Moore, 77241 S72.002A Assoc,pc Hospitalists CRM TECHNICAL LEAD I25.10 E11.9 M06.9 Office Visit 06/21/2016 12:56p [facility] Sachin Dawn, 09265 I25.10 Assoc,pc PA Hospitalists E11.9 M06.9 S72.002A Office Visit 05/26/2016 10:10a [facility] Iliana Veliz, 80983 E11.21 - Denzel Mercado I10 M81.0 E83.42 Z23 Office Visit 04/16/2016 11:21a [facility] Assoc,pc Francisca Webb, N.P. 75835 I25.10 Hospitalists I10 E11.9 Z96.652 Office Visit 04/15/2016 11:20a [facility] Assoc,pc Francisca Webb, N.P. 03418 I25.10 Hospitalists Z96.652 I10 E11.9 Office Visit 04/14/2016 11:19a [facility], 95930 Z96.652 Assoc, Hospitalists N.P. I25.10 I10 E11.9 Office Visit 03/31/2016 12:30p [facility] Jeanmarie Bolanos, 51601 E11.21 Tyler Mercado I25.10 R94.31 Z01.810 Office Visit 03/25/2016 9:40a [facility] [place] [address] Z01.818 Darin M17.12 E11.311 R55 I10 M05.79 Office Visit 03/21/2016 9:45a [facility] Dee Dee Junior M.D. 45630 M25.562 C.M.A. M17.12 M25.462 Office Visit 12/21/2015 2:00p [facility] [place] Dee Junior M.D. 92094 M17.0 C.M.A. M17.11 M17.12 Office Visit 11/09/2015 10:30a [facility] [place] [address] F44.5 Services Of [facility] Office Visit 10/08/2015 9:50a [facility] Iliana Veliz, 00236 E11.311 - Darin Mercado M79.661 S16.1xxA E11.21 Office Visit 09/24/2015 10:30a Rheumatology Services ROSA ELENA Kumar 55464 M05.79 Of [facility] R55 Z79.899 M81.0 E55.9 Office Visit 09/01/2015 2:30p [facility] [place] [address] R55 Services Of [facility] Office Visit 07/15/2015 9:30a [facility] [address] R55 Services Of [facility] Office Visit 07/10/2015 11:15a [facility] Dee Dee Junior M.D. 45745 S42.292D Of [place] Office Visit 07/10/2015 9:30a [facility] Jeanmarie Bolanos, 37764 I25.10 [facility] M.Javi R55 Office Visit 07/02/2015 10:00a [facility]ology Services Leobardo Ambriz, 06854 M05.89 Of [facility] Wei.Javi Z79.899 M15.0 E11.311 Office Visit 05/04/2015 10:00a [facility] [place] [address] 401.1 - [place] Office Visit 04/21/2015 11:50a [facility] Iliana Veliz, 50541 250.42 - [place] M.DAylin 682.9 401.1 268.9 681.10 Office Visit 03/06/2015 8:00a [facility] Jeanmarie Bolanos, 37872 414.01 [facility] M.DAylin Office Visit 12/31/2014 9:10a [facility] Iliana Veliz, 92785 250.40 - [place] M.DAylin 250.42 401.9 780.2 V03.82 Office Visit 08/14/2014 11:15a [facility] Jeanmarie Bolanos, 89796 414.01 [facility] Wei.Javi 250.40 Office Visit 07/31/2014 9:50a [facility] Iliana Veliz, 06720 250.40 - [place] M.DAylin 268.9 V04.81 Office Visit 06/24/2014 1:15p [facility] Jeanmarie Bolanos, 02859 414.01 [facility] AT [facility] M.Javi 786.50 Office Visit 06/13/2014 3:45p [facility] Jeanmarie Bolanos, 33334 786.50 [facility] M.DAylin Office Visit 05/28/2014 4:00p Rheumatology Services Milan Malagon M.D. 11181 714.0 Of [facility] 681.10 V49.5 Office Visit 04/30/2014 9:50a [facility] Iliana Veliz, 06946 250.40 - Darin Mercado Office Visit 2014 9:10a [facility] Iliana Veliz 67131 V70.0 - Darin Mercado 250.42 787.91 V76.51 729.82 V76.10 112.9 v76.2 Office Visit 03/31/2014 8:00a [facility] Of [place] Malagon M.D. 19596 714.0 [facility] 733.00 Office Visit 02/26/2014 1:00p [facility] Of Milan Malagon M.D. 19615 714.0 [facility] 733.00 Office Visit 02/25/2014 10:10a [facility] Iliana Veliz 71704 250.42 - Darin Mercado 786.05 443.9 733.01 714.0 518.89 Office Visit 01/28/2014 9:10a [facility] Iliana Veliz 30627 250.02 - Darin Mercado 786.50 443.9 786.05 278.00 Plan of Care Future Appointment(s):02/15/2018 10:45 am - Cameron Reddy MD02/23/2018 9:10 am - Jalil Givens M.D. at [facility] [id number] 11:45 am - Jeanmarie Bolanos M.D. at [facility]03/05/2018 8: 50 am - Iliana Veliz M.D. at [facility] Internal Medicine [facility]02/09/2018 - Cameron Reddy MDT81.31xA Disruption of external operation (surgical) wound, NEC , initFollow up:Follow Up: 2 weeks postop
--- OUTSIDE RECORDS SUMMARY | 2018-03-07 19:46 | XMS REPORT ---
:1945 External Reference #:[id number] Author Organization [email or web address] Address [address] [address] Phone [phone] Care Team Providers Name Role Phone Iliana Veliz MD Primary Care Physician Unavailable Payers Type Date Identification Numbers Payment Provider Subscriber Medicare Primary Effective: Policy Number: Medicare Sheri Hale 2011 [id number] PayID: [id number] [address] [place] [address] [facility] Policy Number: [id number] [facility] Sheri Hale PayID: [id number] [address] [place] [address] Problems Date Description Provider Status Onset: 03/13/2014 [...] Dee Junior M.D. Active Onset: 08/14/2017 [facility] [place] arteries of right Kiarra Galaviz MD, Active leg w ulcer oth prt foot FAC, FSCAI Onset: 08/14/2017 [facility] [place] arteries of left leg Kiarra Galaviz MD, [...] Wheelchair 01/11/ Active Misc 1units Standard E11.21 [place] [address] wheelchair thelma Reddy MD adjustable leg rest height 62" weight 170lb L03.115 Commode Bedside 01/11/2018 Active Misc 1units as needed E11.21 [facility] MD Maureen L03.115 Accucheck 12/28/2017 Active bs testing up Iliana Advantage Test to 2 times/day Darell Veliz M.D. Alendronate 06/07/2017 Active Tablets 70mg 12tab on hold M81.0 Iliana Sodium s ------take 1 Veliz, tablet by M.DAylin mouth weekly Ventolin HFA 12/15/2016 Active Aerosol 108(90B 8.5un inhale 2 puffs Iliana ase) its by mouth every Jose Alfredo, mcg/Act 6 hrs as M.DAylin needed for shortness of breath Accucheck Lancets 08/25/2016 Active 100un check bs 2-3 Inocencio E. its times a day Yris, and as needed M.DAylin Accu-Check 08/25/2016 Active Device 1unit check 2-3 Iliana Glucose Monitor s times a day Jess Veliz Accucheck Trang 08/25/2016 Active 100un check bs 2-3 Inocencio E. Chem Strips its times/day Yris e11.21 MCortney Atorvastatin 05/26/2016 Active Tablets 20mg 90tab take one Inocencio Ish. Calcium s tablet by Yris, mouth at [...] Z79.8 Zsofia s mouth every 99 Erlin, INTEGRATED SPECIALIST day M05.79 Right Knee 05/08/2015 Active S42.292D Dirk Tiana, Hinged Knee M.DAylin Brace Depend Pant 2014 Active Misc 1b as needed Iliana SM/Med ox Jess Veliz Aspirin 01/28/[address] 81m 90 once a day R07.9 Iliana g ta oziel Veliz M.D. Janumet 01/28/2014 Active Tablets 50- 90 take one E11.65 Inocencio Valdivia 100 ta tablet by Yris, 0mg bs mouth every M.DAylin day-refills after next apt Clopidogrel Active Tablets [...] daily prn MD Guillaume, bs edema FACC, FSCAI Pantoprazole 02/15/2017 - Hx Tablets DR 40m [...] 03/25/2016 g ta every day oziel Veliz MAylinDAylin Vitamin D3 10/19/2015 - Hx Tablets 200 30 1 by mouth E55.9 Iliana Super Strength 01/30/2018 0Un ta every day tabby Veliz MAylinDAylin M81.0 Atorvastatin 10/09/2015 - Hx Tablets 20mg [...] tid Iliana Glucose Test 08/25/2016 and as eJss Veliz Strips needed Gmate Origin 08/24/2015 - [...] Ambriz Z79.899 Ergocalciferol 04/22/2015 - Hx Capsules 44370Wqbz 8caps 1 tab by mouth Iliana 10/08/2015 [...] twice a day 2. Jose Alfredo, 9 M.DAylin Tramadol HCL 02/23/2015 - Hx [...] taken 03/28/16) Nyamyc 2014 - Hx Powder 464658Chvu/ 100gms apply to 11 Iliana 12/31/2014 GM affected area 2. Jose Alfredo, twice a day x 9 M.D. 10 days as needed Enbrel Sureclick 03/31/2014 - Hx Solution 50mg/ml 8units injet [place] 06/12/2014 subsutaneous Manas, once weekly M.D. Ergocalciferol 03/13/2014 - Hx Capsules 11666Jjvc 8caps 1 tab by mouth Iliana 08/13/2014 [...] Iliana 06/06/2017 weekly (no Veliz, longer taking) M.D. Ferrous Sulfate - Hx [...] inophen 09/17/2017 hours Ergocalciferol - Hx Powder 48948Gru daily Unknown 12/17/2017 Tramadol HCL - Hx Tablets 50mg 15tabs 1 tablets Cameron 01/30/2018 every 6 hours Maureen, as needed Prasara - Hx Capsules 75mg 1 by mouth Unknown 12/17/2017 twice a day Medications Administered in Office Medication Date Status Form Strength Qnty SIG Indications Ordering Provider Inj, Administered Injection Lucio Cisneros, 016 Justus, 0.1 MG Jess, FACLetitia, FASNC Technetium TC Administered Injection Lucio Martin 99M 016 Lindsey Jerome M.D., FACC, Per Unit Dose FASNC Up To 40 Millicuries Depomedrol Administered Injection Dee Dee 40MG 016 Jess Junior Depomedrol Administered Injection Dee Dee 40MG 016 Jess Junior Depomedrol Administered Injection Dee Dee 80MG 015 Jess Junior Inj, Administered Injection Jeanmarie D. Regadenoson, 014 Jess Bolanos 0.1 MG Technetium TC Administered Injection Jeanmarie Caldwell 99M 014 Jess Bolanos Tetrofdulce, Per Unit Dose Up To 40 Millicuries Immunizations CPT Code Status Date Vaccine Reaction Lot # [id number] Given 06/07/2017 Influenza Virus Vaccine, 572kt Quadrivalent, Split, Preservative Free 51646 Given 12/05/2016 Tdap - [id number] Tetanus/Diptheria/Acellular Pertussis 27251 Given 08/25/2016 Influenza Virus Vaccine, [id number] Quadrivalent, Split Virus, Im Use 34475 Given 05/26/2016 Pneumonia Vaccine [id number] 50554 Given 12/31/2014 Pneumococcal Conjugate Vaccine [id number] 13 Valent For Intramuscular Use 64959 Given 07/31/2014 Flu Vaccine Split Virus No reaction noted. 223014 Preservative Free For Indiv 3Yr Older Vital [...] 50 Total Protein(Pep) Urine 44 mg/dL 51 [place]/Lambda Free Light Chains 05/05/2016 [place] Free Light Chain 6.55 mg/dL 52 Ser Lambda Free Light Chain 3.03 mg/dL 53 [place]/Lambda Free Light Chain 2.16 54 Protein Electrophoresis [...] Color Amelia Urine Appearance Turbid Urine Specific [place] 1.019 1.010-1.030 Urine pH 5.0 5-9 Urine [...] 84 Egfr 120.5 >60 84, 91 1 [id number] 2 [id number] 3 SEE RESULT BELOW Name: SHERI HALE : [address]: Jalil Givens MD Acct: [id number] Unit: [id number] AGE: 72 Location: [facility] Re01/26/18 SEX: F Status: REG REF SPEC: [id number] CONNIE: 01/26/[address]: Jalil Givens MD REQ: [id number] RECD: 01/26/18 STATUS: COMP _ SOURCE: WOUND SPDESC: ORDERED: Culture Stain COMMENTS: [id number] Specimen Description right foot Procedure Result Reported Site Wound/Misc Gram Stain Final 01/27/18- 0824 ML 3+ Epithelial Cells 1+ Neutrophils No Organisms Seen Wound/Misc Culture Final 01/29/18- 1018 ML No Growth Day 3 * - Main Lab . END OF REPORT DEPARTMENT OF PATHOLOGY, [address] [place] [address] Jac Domingo M.D. Director [facility] # [id number] 4 SEE RESULT BELOW Name: SHERI HALE : [address]: Cameron Reddy MD Acct: [id number] Unit: [id number] AGE: 72 Location: [place] Re01/04/18 SEX: F Status: ANA BRASHER SPEC: [id number] CONNIE: 01/04/18- SUBM DR: Cameron Reddy MD REQ: [id number] RECD: 01/04/18 STATUS: ROSELIAT _ ORDERED: Antonio, LEVEL 4 FINAL DIAGNOSIS [...] yellow-white unguis. The margin of resection is cvoe-vviiv-lcnr and appears viable. the ventrolateral resected margin appears suspicious and is inked blue. The cut surface reveals a necrotic distal phalanx and the distal 0.8 cm of the proximal phalanx. Pure Culture Operator sections are submitted in cassettes A and B as follows: Bone cassette A, necrosis and margins in cassette B. MICROSCOPIC DESCRIPTION Signed (signature on file) Abril Velez MD 09/28 1056 END OF REPORT DEPARTMENT OF PATHOLOGY, [address] [place] [address] Jac Domingo M.D. Director [facility] # [id number] 5 Agronomy Advisor: [id number] 6 SEE RESULT BELOW Name: SHERI HALE : [address]: Cameron Reddy MD Acct: [id number] Unit: [id number] AGE: 72 Location: [place] Re01/04/18 SEX: F Status: DEP SDC SPEC: [id number] CONNIE: 01/04/18 [facility] DR: Cameron Reddy MD REQ: [id number] RECD: 01/04/18 STATUS: RES OTHR DR: Iliana Veliz MD _ SOURCE: WOUND SPDESC: ORDERED: Anaerobic Cult, Culture Stain Procedure Result Reported Site Anaerobic Culture PENDING Wound/Misc Gram Stain Final 01/04/18- 1526 ML 1+ Neutrophils 1+ Epithelial Cells 1+ Gram Positive Cocci Wound/Misc Culture PENDING * ML - Main Lab . END OF REPORT DEPARTMENT OF PATHOLOGY, [address] [place] [address] Jac Domingo M.D. Director [facility] # [id number] 7 SEE RESULT BELOW Name: SHERI HALE : [address]: Cameron Reddy MD Acct: [id number] Unit: [id number] AGE: 72 Location: [place] Re01/04/18 SEX: F Status: DEP SDC SPEC: [id number] CONNIE: 01/04/18-899 [facility] DR: Cameron Reddy MD REQ: [id number] RECD: 01/04/18-1409 STATUS: RES OTHR DR: Iliana Veliz MD _ SOURCE: WOUND SPDESC: ORDERED: Anaerobic Cult, MRSA/SA SSTI, Culture Stain COMMENTS: Verbal to by [id number] at 1659 on 01/04/18. Results read back accurately. Procedure Result Reported Site Anaerobic Culture PENDING MRSA/S. aureus SSTI PCR Final 01/04/18- 1701 ML Organism 1 MRSA NEGATIVE Organism 2 S.AUREUS POSITIVE Wound/Misc Gram Stain Final 01/04/18- 1526 ML 1+ Neutrophils 1+ Epithelial Cells 1+ Gram Positive Cocci Wound/Misc Culture PENDING * ML - Main Lab . END OF REPORT DEPARTMENT OF PATHOLOGY, [address] [place] [address] Jac Domingo M.D. Director [facility] # [id number] 8 SEE RESULT BELOW Name: SHERI HALE : [address]: Cameron Reddy MD Acct: [id number] Unit: [id number] AGE: 72 Location: [place] Re01/04/18 SEX: F Status: DEP SDC SPEC: [id number] CONNIE: 01/04/18-09 [facility] DR: Cameron Reddy MD REQ: [id number] RECD: 01/04/18 STATUS: COMP [facility] DR: Iliana Veliz MD _ SOURCE: WOUND SPDESC: ORDERED: Anaerobic Cult, MRSA/SA SSTI, Culture Stain COMMENTS: Verbal to by [id number] at 1659 on 01/04/18. Results read back [...] CONTINUED ON NEXT PAGE DEPARTMENT OF PATHOLOGY, [address] [place] [address] Jac Domingo M.D. Director [facility] # [id number] Patient: HEMALATHASHERI [id number] (Continued) Specimen: [id number] Collected: 01/04/18 Received: 01/04/18 (Continued) Procedure Result Reported Site Wound/Misc Culture Final (continued) 01/08/18- 112 1. STAPHYLOCOCCUS AUREUS M.I.C. RX --------- ------ [...] These antibiotics are not available in the [facility] Formulary Contact the Microbiology Department for any additional antibiotic reporting. * ML - Main Lab . END OF REPORT DEPARTMENT OF PATHOLOGY, [address] [place] [address] Jac Domingo M.D. Director [facility] # [id number] 9 Because ethnic data is not always [...] 5 Kidney failure <15 (or dialysis) 10 Agronomy Advisor: [id number] 11 Because ethnic data is not always [...] 5 Kidney failure <15 (or dialysis) 17 [id number] 18 [id number] 19 99th percentile=0.04 ng/mL Troponin results at [facility] and [facility] are not interchangeable. 20 >100 to <200 pg/mL: likely compensated congestive heart failure (CHF) 200 to 400 pg/mL: likely moderate CHF >400 pg/mL: likely moderate to severe CHF [facility] Severe Sepsis and Septic Shock Management Bundle Measure requires all lactic acids initially measuring >2.0 mmol/L be repeated. 22 99th percentile=0.04 ng/mL Troponin results at [facility] and [facility] are not interchangeable. 23 Because ethnic data [...] Acute inflammation: >10.00 26 Test Performed by: [address] [address] 27 Interpretation: Strong Positive (>=60.0) REFERENCE VALUE <20.0 (Negative) Test Performed by: [facility] - [facility] [address] [place] [address] 28 FASTING 12 HOUR 29 Desirable <150 [...] and in selective patients <6.0%.Please refer to [place] [employer] Diabetic care guidelines for further information. 36 SEE RESULT BELOW Name: SHERI HALE : [address]: Sandra Brownlee MD Acct: [id number] Unit: [id number] AGE: 71 Location: [facility] Re05/24/16 SEX: F Status: REG REF SPEC: [id number] CONNIE: 05/24/[address]: Sandra Brownlee MD REQ: [id number] RECD: 05/24/16 STATUS: SOUT _ ORDERED: IRON STAIN, Decal, CD5 IMMUNO ST, LEVEL IV/2, KX30-ZJU, BCL-2-ADD, BCL-6 PAX-5-ADD Bone marrow chromosome testing has been performed at [place], [place]. The testing reveals: Specimen: bone marrow [...] clonal abnormality was apparent. Test Performed by: [facility] - [address] [address] Quilt Maker: Cuate Chavez II, M.D., Ph.D. CONTINUED ON NEXT PAGE * ML=Testing performed at Main Lab DEPARTMENT OF PATHOLOGY, [address] [place] [address] Jac Domingo M.D. Director [facility] # [id number] RUN DATE: 06/01/16 [facility] LAB LIVE PAGE 2 Patient: SHERI HALE [id number] (Continued) ADDENDUM (Continued) Addendum Signed (signature on [...] cytometry has been performed at [facility], [place], [place]. The testing reveals: FINAL DIAGNOSIS: CONTINUED ON NEXT PAGE * ML=Testing performed at Main Lab DEPARTMENT OF PATHOLOGY, [address] [place] [address] Jac Domingo M.D. Director [facility] # [id number] RUN DATE: 06/01/16 [facility] LAB LIVE PAGE 3 Patient: SHEIR HALE [id number] (Continued) SPECIAL STUDIES (Continued) SPECIAL STUDIES (Continued) [...] Abril Velez MD Technical component performed by: [place] [address] Quilt Maker: Cuate Chavez II, MD, PhD. PRE-OPERATIVE DIAGNOSIS D64.9 CONTINUED ON NEXT PAGE * ML=Testing performed at Main Lab DEPARTMENT OF PATHOLOGY, [address] [place] [address] Jac Domingo M.D. Director [facility] # [id number] RUN DATE: 06/01/16 [facility] LAB LIVE PAGE 4 Patient: SHERI HALE [id number] (Continued) GROSS DESCRIPTION (Continued) GROSS DESCRIPTION 1. [...] END OF REPORT * ML=Testing performed at [facility] DEPARTMENT OF PATHOLOGY, [address] [place] [address] Jac Domingo M.D. Director [facility] # [id number] 37 FINAL DIAGNOSIS: Specimen Source: Bone marrow [...] Abril Velez MD Technical component performed by: [address] [address] Quilt Maker: Cuate Chavez II, MD, PhD. 38 anemia, [...] are reported separately. PDF Report available at: [email or web address] 42 RESULT: Linda Beltrán D.O. Test Performed by: [place] [address] Quilt Maker: Cuate Chavez II, M.D., Ph.D. 43 anemia, [...] are reported separately. PDF Report available at: [email or web address] 47 Applicable to Analyte Specific Reagent (ASR) and Laboratory Developed Tests (LDT). This test was developed and its performance characteristics determined by [facility] in a manner consistent with CLIA requirements. It has not been cleared or approved by the U.S. Food and Drug Administration. This FISH test does not rule out other chromosome abnormalities. 48 RESULT: Vik Moreno M.D., Ph.D. Test Performed by: [place] [address] Quilt Maker: Cuate Chavez II, M.D., Ph.D. 49 Because [...] increase in protein values. Test Performed by: [address] [address] Quilt Maker: Cuate Chavez II, M.D., Ph.D. 52 REFERENCE VALUE 0.3300-1.94 53 REFERENCE VALUE 0.5700-2.63 54 REFERENCE VALUE 0.2600-1.65 Test Performed by: [place] [address] Quilt Maker: Cuate Chavez II, M.D., Ph.D. 55 RESULT: Polyclonal hypergammaglobulinemia Test Performed by: [place] [address] Quilt Maker: Cuate Chavez II, M.D., Ph.D. 56 [facility] [address] 57 [facility] [address] 58 PAIN IN LEFT KNEE, UNILATERAL PRIMARY [...] and in selective patients <6.0%.Please refer to [place] [employer] Diabetic care guidelines for further information. 61 SEE RESULT BELOW Name: SHERI HALE : [address]: Wilder Mata NP Acct: [id number] Unit: [id number] AGE: 70 Location: [facility] Re03/25/16 SEX: F Status: REG REF SPEC: [id number] CONNIE: 03/25/[address]: Wilder Mata NP REQ: [id number] RECD: 03/25/16 STATUS: COMP _ SOURCE: URINE SPDESC: ORDERED: Urine Culture Urine Source: Random Procedure Result Reported Site Urine Culture Final 03/27/16- 1006 ML No growth of clinically significant organisms * ML - MAIN LAB (PSC1) . END OF REPORT * ML=Testing performed at Main Lab DEPARTMENT OF PATHOLOGY, [address] [place] [address] Jac Domingo M.D. Director [facility] # [id number] 62 standing order 63 Acute inflammation: >10.00 [...] levels within this range. Test Performed by: [facility] - [address] [address] Quilt Maker: Yogi Mcallister M.D. 73 Desirable <150 Borderline [...] <15 (or dialysis) 80 Test Performed by: [place] [address] Quilt Maker: Lyle Gutiérrez III, M.D. 81 Low risk: <1.00 Average risk: 1.00-3.00 High risk: >3.00 82 Interpretation: Strong Positive (>=60.0) -- REFERENCE VALUE -- <20.0 (Negative) Test Performed by: [place] [address] Quilt Maker: Lyle Gutiérrez III, M.D. 83 Interpretation: 10-19 ng/mL (mild to moderate deficiency) -- REFERENCE VALUE -- 25-HYDROXY D TOTAL (D2+D3) Optimum levels in the healthy population are 20-50, patients with bone disease may benefit from higher levels within this range. Test Performed by: [place] [address] Quilt Maker: Lyle Gutiérrez III, M.D. 84 FASTING 12 [...] Procedures Date CPT Code Description Status 01/29/2018 77477 Treadmill Interp/Report Only Completed 01/29/2018 91381 Stress Test Supervsn W/Out I/R Completed 01/26/2018 48726 ECHO Transthorasic Realtime 2D W Doppler & Color Flow Completed Hosp 01/04/2018 73861 Amputation Toe MP JT Completed 01/04/2018 35221 Amputation Toe MP JT Completed 09/13/2017 29052 Angio Extremity, Bilateral Completed 09/13/2017 50822 Catheter Placement Arterial System Init 3RD Order Completed Abdom/Pelv/Low 03/23/2017 08368 EKG Tracing & Interpretation Completed 12/12/2016 30981 Diffusing Capacity Completed 12/12/2016 36763 Plethysmography Determination Lung Volumes & Per Airway Completed Resist 12/12/2016 65033 Pulmonary Function><Bronchodil Completed 09/01/2016 Bone Mineral Density Test Completed 09/01/2016 Mammogram Completed 06/22/2016 09762 THR Total Hip Replacement Completed 06/22/2016 16497 THR Total Hip Replacement Completed 06/22/2016 80415 THR Total Hip Replacement Completed 06/22/2016 48381 EKG, Interpretation Only Completed 04/14/2016 19217 TKR Total Knee Replacement Completed 04/14/2016 61578 TKR Total Knee Replacement Completed 04/05/2016 82470 Stress Test Completed 04/05/2016 76670 Myocardial Perfusion Imaging Tomographic (Spect) Completed Multiple Studies 03/31/2016 98113 EKG Tracing & Interpretation Completed 12/21/2015 52046 Inject/Drain Joint/Bursa Major Completed 07/24/2015 36066 EEG Recording Awake & Asleep Completed 07/10/2015 24034 EKG Tracing & Interpretation Completed 06/03/2015 45909 Holter Monitoring 24 HR New Completed 06/02/2015 08313 Carotid Doppler,Bilateral Completed 04/03/2015 69843 Inject/Drain Joint/Bursa Major Completed 03/04/2015 04666 Closed trtmt prox humeral fx Completed 01/08/2015 74389 Holter Monitoring 24 HR New Completed 01/06/2015 61569 Holter Monitoring 24 HR New Completed 10/21/2014 Diabetic Retinal Eye Exam Completed 06/17/2014 82963 Left Heart Cath. Incl S/I Coronaries, Angio S/I V Gram Completed If Done 06/17/2014 26550 Percutaneous Transcatheter Placement Of Intracoronary Completed Stent 06/17/2014 35225 Percutaneous Transcatheter Placement Of Intracoronary Completed Stent 06/13/2014 18854 EKG Tracing & Interpretation Completed 04/17/2014 Colonoscopy Completed 04/07/2014 Mammogram Completed 03/07/2014 Diabetic Retinal Eye Exam Completed 03/03/2014 Diabetic Foot Exam Completed 02/26/2014 Bone Mineral Density Test Completed 02/10/2014 56798 ECHO Transthoracic, Real-Time 2D With Doppler And Color Completed Flow 02/06/2014 98148 Myocardial Perfusion Imaging Tomographic (Spect) Completed Multiple Studies 02/06/2014 85264 Stress Test Completed 05/12/2005 Diabetic Retinal Eye Exam Completed Encounters Type Date Location Provider CPT E/M Dx Office Visit 01/30/2018 [facility] Internal Medicine Iliana Veliz, 29574 E11.621 10:10a - Denzel Mercado R07.9 R06.00 I70.261 E11.21 I10 L97.519 Office Visit 01/29/2018 9:28a [facility] Alejandro, 22979 R07.89 Assoc,pc Hospitalists [place] R06.09 I25.119 I73.9 Office Visit 01/28/2018 9:28a [facility] Alejandro, 39139 R07.89 Assoc,pc Hospitalists [place] R06.09 I25.119 I73.9 Office Visit 01/27/2018 9:25a [facility] ,sylvia Soler 41538 R07.89 Hospitalists CHARLES Mejia R06.89 I25.119 I73.9 Office Visit 01/26/2018 4:11p [facility] Luciorobina Jerome, 29239 R07.9 Tyler Mercado, LINA, [facility] R06.02 I25.10 Office Visit 01/26/2018 9:24a [facility] Ass, [place] [address] R07.89 Hospitalists R06.09 I25.119 I73.9 Office Visit 01/26/2018 9:10a [facility] Chetna Caldwell 16353 Z89.411 Infectious Diseases Jess Givens L97.519 R07.9 R06.00 E11.621 R11.0 Office Visit 01/16/2018 3:20p [facility] Kiarra Galaviz, 21397 I70.261 Compliance Advisor AT [facility] LINA LITTLEJOHN, [facility] Office Visit 01/11/2018 4:00p [facility] Jalil Caldwell 91130 E11.21 Infectious Diseases Jess Givens L03.115 E11.51 Z89.411 Office Visit 12/18/2017 2:00p [place] [address] E11.52 Of [facility] Office Visit 12/18/2017 9:40a [facility] Kiarra Galaviz, 16863 I70.261 Compliance Advisor AT [facility] LINA LITTLEJOHN, [facility] Office Visit 11/16/2017 3:00p [facility] Kiarra Galaviz, 33687 I70.235 Compliance Advisor AT [facility] LINA LITTLEJOHN, [facility] Office Visit 10/23/2017 8:40a [facility] Kiarra RobinaAylin Galaviz, 86557 I70.235 Compliance Advisor AT [facility] LINA LITTLEJOHN, [facility] Office Visit 09/18/2017 3:40p [facility] Kiarra Galaviz, 77835 I70.235 Compliance Advisor AT [facility] LINA LITTLEJOHN, FSCAI I70.245 Office Visit 08/14/2017 3:00p [facility] Kiarra Galaviz, 76199 I70.235 Compliance Advisor AT [facility] LINA LITTLEJOHN, FSCAI I70.245 Office Visit 06/07/2017 11:10a [facility] Internal Medicine Iliana Veliz, 83013 E11.21 - Denzel Mercado I10 E83.42 Z23 G47.09 M81.0 Office Visit 03/23/2017 3:30p [facility] Jeanmarie Bolanos, 29490 I25.10 Tyler Mercado I10 Office Visit 02/27/2017 7:30a [facility] Internal Medicine Iliana Veliz M.D. 78739 K21.9 - [place] Office Visit 02/15/2017 8:30a [facility] Internal Medicine Iliana Veliz M.D. 09803 K21.9 - [place] R10.13 Office Visit 12/22/2016 10:00a [facility] Kern, 91681 M05.79 [facility] INTEGRATED SPECIALIST M81.0 E55.9 Z79.899 Office Visit 08/25/2016 9:50a [facility] Internal Medicine Iliana Veliz, 18254 E11.21 - Denzel Mercado M06.9 I10 E55.9 Z12.31 M81.0 Z23 Office Visit 06/25/2016 [facility] CHARLES [address] I25.10 Assoc,pc Hospitalists S72.002A E11.9 M06.9 Office Visit 06/24/2016 12:59p [facility] CHARLES [address]3414 I25.10 Assoc,pc Hospitalists S72.002A E11.9 M06.9 Office Visit 06/23/2016 12:58p [facility] Kristin Moore, CHARLES 27653 I25.10 Assoc,pc Hospitalists S72.002A E11.9 M06.9 Office Visit 06/22/2016 [facility] [address] S72.002A 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 11692 I25.10 Hospitalists I10 E11.9 Z96.652 Office Visit 04/15/2016 11:20a [facility] Assoc,pc Francisca Webb, N.P. 79884 I25.10 Hospitalists Z96.652 I10 E11.9 Office Visit 04/14/2016 11:19a [facility] Jose Alfredo Strong, 03363 Z96.652 [facility] I25.10 I10 E11.9 Office Visit 03/31/2016 12:30p [facility] Jeanmarie Bolanos, 67554 E11.21 [facility] Jess I25.10 R94.31 Z01.810 Office Visit 03/25/2016 9:40a [facility] [place] [address] Z01.818 Darin M17.12 E11.311 R55 I10 M05.79 Office Visit 03/21/2016 9:45a [facility] Dee Dee Junior M.D. 24701 M25.562 C.M.A. M17.12 M25.462 Office Visit 12/21/2015 2:00p [facility] [place] Junior M.D. 91551 M17.0 C.M.A. M17.11 M17.12 Office Visit 11/09/2015 10:30a [place] [address] F44.5 Services Of [facility] Office Visit 10/08/2015 9:50a [facility] Internal Medicine Iliana Veliz, 18605 E11.311 - Darin Mercado M79.661 S16.1xxA E11.21 Office Visit 09/24/2015 10:30a [facility] ROSA ELENA Kumar 10095 M05.79 Of [facility] R55 Z79.899 M81.0 E55.9 Office Visit 09/01/2015 2:30p [place] [address] R55 Services Of [facility] Office Visit 07/15/2015 9:30a [place] [address] R55 Services Of [facility] Office Visit 07/10/2015 11:15a [facility] Dee Dee Junior M.D. 40241 S42.292D Of [place] Office Visit 07/10/2015 9:30a [facility] Jeanmarie Bolanos, 96391 I25.10 [facility] Jess R55 Office Visit 07/02/2015 10:00a Rhe[facility]ology Services Leobardo Ambriz, 58751 M05.89 Of [facility] Jess Z79.899 M15.0 E11.311 Office Visit 05/04/2015 10:00a [facility] Internal [place] A [address] 401.1 - [place] Office Visit 04/21/2015 11:50a [facility] Internal Medicine Iliana Veliz 40277 250.42 - Darin Mercado 682.9 401.1 268.9 681.10 Office Visit 03/06/2015 8:00a [facility] Jeanmarie Bolanos, 21848 414.01 Tyler Mercado Office Visit 12/31/2014 9:10a [facility] Internal Medicine Iliana Veliz, 22078 250.40 - Darin Mercado 250.42 401.9 780.2 V03.82 Office Visit 08/14/2014 11:15a [facility] Jeanmarie Bolanos, 69515 414.01 [facility] Jess 250.40 Office Visit 07/31/2014 9:50a [facility] Internal Medicine Iliana Veliz, 61013 250.40 - Darin Mercado 268.9 V04.81 Office Visit 06/24/2014 1:15p [facility] Jeanmarie Bolanos, 15795 414.01 [facility] Jess 786.50 Office Visit 06/13/2014 3:45p [facility] Tanvir Bolanos, 91403 786.50 [facility] Wei.Javi Office Visit 05/28/2014 4:00p Rheumatology Services Milan Malagon M.D. 40542 714.0 Of [facility] 681.10 V49.5 Office Visit 04/30/2014 9:50a [facility] Internal Medicine Iliana Veliz 52607 250.40 - Darin Mercado Office Visit 2014 9:10a [facility] Internal Medicine Iliana Veliz, 68794 V70.0 - Darin Mercado 250.42 787.91 V76.51 729.82 V76.10 112.9 v76.2 Office Visit 03/31/2014 8:00a [facility] Of Milan Malagon M.D. 25509 714.0 [facility] 733.00 Office Visit 02/26/2014 1:00p [facility] Of Milan Malagon M.D. 93127 714.0 [facility] 733.00 Office Visit 02/25/2014 10:10a [facility] Internal Medicine Iliana Veliz, 88463 250.42 - Darin Mercado 786.05 443.9 733.01 714.0 518.89 Office Visit 01/28/2014 9:10a [facility] Internal Medicine Iliana Veliz 62711 250.02 - Darin Mercado 786.50 443.9 786.05 278.00 Plan of Care Future Appointment(s):02/23/2018 9:10 am - Jalil Givens M.D. at [facility]/29/2018 11:45 am - Jeanmarie Bolanos M.D. at [facility]03/05/2018 8:50 am - Iliana Veliz M.D. at [facility] Internal Medicine [facility]02/09/2018 - Jalil Givens M.D.E11.621 Type 2 diabetes mellitus with foot ulcerNew Medication:Doxycycline Hyclate 100 mgComments:exposed bone though lookd healthy, will try antibiotic prophylaxis and continue dressings per Dr Murdock up:2-3 weeks
--- NOTE | 2018-03-07 20:34 | RAD ---
INDICATION: Worsening infection. COMPARISON: None TECHNIQUE: AP, lateral, and oblique views were obtained. FINDINGS: There is osteopenia but no definite focal erosion. This examination cannot exclude osteomyelitis despite the absence of a focal erosive change. There is amputation at the level of the mid diaphysis of the first metatarsal. There is soft tissue edema about the site of amputation. There are vascular calcifications. IMPRESSION: AMPUTATION AT THE LEVEL OF THE MID DIAPHYSIS OF THE FIRST METACARPAL. SOFT TISSUE SWELLING CONSISTENT WITH HISTORY OF INFECTION.
[2018-03-07 20:39] LABS: ABS Basophils 0.1 10^3/ul (0-0.2); ABS Eosinophils 0.2 10^3/ul (0-0.6); ABS Lymphocytes 2.9 10^3/ul (1.0-4.8); ABS Monocytes 0.6 10^3/ul (0-0.8); ABS Neutrophils 5.2 10^3/ul (1.5-7.7); ABS Nucleated RBC 0 10^3/ul; Eosinophil % 2.1 % (0-6); Hematocrit 33 % (35-47); Hemoglobin 10.9 g/dl (12.0-16.0); Mean Corpuscular HGB Conc 33 g/dl (31-36); Mean Corpuscular Hemoglobin 29 pg (27-31); Mean Corpuscular Volume 87 fL (80-97); Mean Platelet Volume 8.5 um3 (7.4-10.4); Nucleated Red Blood Cells % 0; Platelet Count 267 10^3/ul (150-450); Red Blood Count 3.75 10^6/ul (4.00-5.40); Red Cell Distribution Width 15 % (10.5-15)
[2018-03-07 20:55] LABS: EGFR Non-African American 57.7 (>60)
[2018-03-07 21:46] VITALS: BP 112/61
--- NOTE | 2018-03-08 06:56 | ED ---
[facility] T[facility]on Jade, scribed for Octavio Arreaga MD on 03/07/18 at 2123 . Lower Extremity - HPI Summary HPI Summary: Pt is a 72 y/o female who presents to the ED c/o toe infection s/p amputation. She got her right great toe amputated 2 months ago, and the suture wound became infection 2-3 weeks ago. As per daughter, the infection started to smell bad, which is what prompted her to bring the pt to the ED. Pt was put on Doxycycline for the infection by Dr. Givens. She denies any pain or fever. PMHx of DM and PAD. Pt denies smoking. - History of Current Complaint Chief Complaint: EDExtremityLower Stated Complaint: RT FOOT POSS INFECTION Time Seen by Provider: 03/07/18 21:08 Hx Obtained From: Patient Onset/Duration: Weeks - 2-3 Severity Currently: None Pain Intensity: 0 Pain Scale Used: 0-10 Numeric Timing: Constant Location: Is Discrete @ - Right great toe suture (amputation) Associated Signs And Symptoms: Negative: Fever Aggravating Factor(s): Nothing Alleviating Factor(s): Nothing Related History: Other - DM - Allergies/Home Medications Allergies/Adverse Reactions: Allergies Allergy/AdvReac Type Severity Reaction Status Date / Time EYE DROP Allergy Unknown Uncoded 03/07/18 19:31 Reaction Details PMH/Surg Hx/FS Hx/Imm Hx Endocrine/Hematology History: Reports: Hx Diabetes - ON ORAL MEDS CHECKS BLD SUGAR AT HOME, Hx Anemia - in the past Denies: Hx Anticoagulant Therapy, Hx Blood Disorders, Hx Blood Transfusions, Hx Bone Marrow Disease, Hx Systemic Lupus Erythematosus, Hx Sickle Cell Disease , Hx Thyroid Disease, Hx Unexplained Bleeding, Other Endocrine/Hematological Disorders Cardiovascular History: Reports: Hx Angina, Hx Coronary Artery Disease - stent 2013, CARDIAC CATH DR BLOUNT 2 STENTS, Hx Hypercholesterolemia, Hx Hypertension - ON MEDS PT. STATES CONTROLLED, Hx Myocardial Infarction, Hx Peripheral Vascular Disease - REVASCULARZATION OF RIGHT LEG X 2, Hx Syncope - occasionally d/t DM, Other Cardiovascular Problems/Disorders - PAD Denies: Hx Aneurysm, Hx Angioplasty, Hx Auto Implanted Cardiovert Defib, Hx Cardiac Arrest, Hx Cardiomegaly, Hx Congenital Heart Disease, Hx Congestive Heart Failure, Hx Deep Vein Thrombosis, Hx Embolism, Hx Hypotension, Hx Pacemaker/ICD, Hx Rheumatic Fever, Hx Valvular Heart Disease Respiratory History: Reports: Other Respiratory Problems/Disorders - lung nodules Denies: Hx Asthma, Hx Chronic Bronchitis, Hx Chronic Obstructive Pulmonary Disease (COPD), Hx Cystic Fibrosis, Hx Lung Cancer, Hx Pleural Effusion, Hx Pneumonia, Hx Pulmonary Edema, Hx Pulmonary Embolism, Hx Seasonal Allergies, Hx Sleep Apnea GI History: Reports: Hx Gall Bladder Disease - removed, Hx Gastroesophageal Reflux Disease - HAS MEDS PRN, Hx Hiatal Hernia Denies: Hx Cirrhosis, Hx Crohn's Disease, Hx Diverticulosis, Hx Gastrointestinal Bleed, Hx Irritable Bowel, Hx Jaundice, Hx Obstructive Bowel, Hx Ileostomy, Hx Pyloric Stenosis, Hx Ulcer, Other GI Disorders History: Reports: Hx Kidney Stones - in the past with stent Denies: Hx Acute Renal Failure, Hx Benign Prostatic Hyperplasia, Hx Chronic Renal Failure, Hx Dialysis, Hx Kidney Infection, Hx Renal Disease, Other Problems/Disorders Musculoskeletal History: Reports: Hx Arthritis - hands, feet, back RA AND OSTEOPAROSIS, Hx Rheumatoid Arthritis, Hx Osteoporosis, Other Musculoskeletal History - R. ARTH. Denies: Hx Back Problems, Hx Bursitis, Hx Congenital Bone Abnormalities, Hx Fibromyalgia, Hx Gout, Hx Orthopedic Injury, Hx Scoliosis, Hx Tendonitis Sensory History: Reports: Hx Cataracts - saray, Hx Contacts or Glasses, Hx Glaucoma - "trying to stop it" Denies: Hx Eye Injury, Hx Eye Prosthesis, Hx Legally Blind, Hx Macular Degeneration, Hx Vision Problem, Hx Deafness, Hx Hearing Aid, Hx Hearing Problem , Other Sensory Impairments Opthamlomology History: Reports: Hx Cataracts - saray, Hx Contacts or Glasses, Hx Glaucoma - "trying to stop it" Denies: Hx Eye Injury, Hx Eye Prosthesis, Hx Legally Blind, Hx Macular Degeneration, Hx Vision Problem, Other Sensory Impairments Neurological History: Reports: Hx Nerve Disease - 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, Other Neuro Impairments/Disorders - SYNCOPAL EVENTS FOR 30 YRS Denies: Hx Dementia, Hx Developmental Delay, Hx Headaches, Hx Migraine, Hx Seizures, Hx Spinal Cord Injury, Hx Transient Ischemic Attacks (TIA) Psychiatric History: Denies: Hx Anxiety, Hx Attention Deficit Hyperactivity Disorder, Hx Eating Disorder, Hx Depression, Hx Panic Disorder, Hx Post Traumatic Stress Disorder, Hx Inpatient Treatment, Hx Community Mental Health Tx, Hx Schizophrenia, Hx Bipolar Disorder, Hx Suicide Attempt, Hx of Violent Episodes Against Others, Hx Substance Abuse, Other Psychiatric Issues/Disorders - Cancer History Hx Chemotherapy: No Hx Radiation Therapy: No - Surgical History Surgery Procedure, Year, and Place: hysterectomy,, 1974. gall bladder,1974. Rt hip pinning,, 2005. cardiac cath with stents 06/17/14,. ,left total hip, 2016, [facility] [place]. total left knee replacement, [facility] [place] 2016. REVASCULARZATION 2018 RIGHT LEG [place]. RIGHT BIG TOE AMPUTATION 12/27 [facility] Hx Anesthesia Reactions: No Infectious Disease History: No Infectious Disease History: Reports: Hx Hepatitis Denies: Hx Clostridium Difficile, Hx Human Immunodeficiency Virus (HIV), Hx of Known/Suspected MRSA, Hx Shingles, Hx Tuberculosis, Hx Known/Suspected VRE, Hx Known/Suspected VRSA, History Other Infectious Disease, Traveled Outside the [place] in Last 30 Days - Family History Known Family History: Positive: Cardiac Disease - mother/father, Diabetes - mother, Other - breast cancer - Social History Alcohol Use: None Alcohol Amount: 1 per year Hx Substance Use: No Substance Use Type: Reports: None Hx Tobacco Use: No Smoking Status (MU): Never Smoked Tobacco Have You Smoked in the Last Year: No Review of Systems Negative: Fever Skin: Other - NEGATIVE: wound pain Positive: Other - Wound infection All Other Systems Reviewed And Are Negative: Yes Physical Exam - Summary Physical Exam Summary: Appearance: Well appearing, no pain distress Skin: warm. Small area of wound dehiscence of suture wound of right great toe. Some yellow-clear drainage. Some tenderness. No erythema. Head/face: normal Eyes: EOMI, COURTNEY ENT: normal Neck: supple, non-tender Respiratory: CTA, breath sounds present Cardiovascular: RRR, pulses symmetrical Abdomen: non-tender, soft Bowel Sounds: present Musculoskeletal: normal, strength/ROM intact Neuro: normal, sensory motor intact, A&Ox3 Triage Information Reviewed: Yes Vital Signs On Initial Exam: Initial Vitals Temp Pulse Resp BP Pulse Ox 97.8 F 77 18 117/44 98 03/07/18 19:27 03/07/18 19:27 03/07/18 19:27 03/07/18 19:27 03/07/18 19:27 Vital Signs Reviewed: Yes Diagnostics - Vital Signs Vital Signs Temp Pulse Resp BP Pulse Ox 03/07/18 19:27 97.8 F 77 18 117/44 98 - Laboratory Lab Results: Lab Results 03/07/18 03/07/18 Range/Units 20:30 20:30 WBC 9.0 (3.5-10.8) 10^3/ul RBC 3.75 L (4.00-5.40) 10^6/ul Hgb 10.9 L (12.0-16.0) g/dl Hct 33 L (35-47) % MCV 87 (80-97) fL MCH 29 (27-31) pg MCHC 33 (31-36) g/dl RDW 15 (10.5-15) % Plt Count 267 (150-450) 10^3/ul MPV 8.5 (7.4-10.4) um3 Neut % (Auto) 58.6 (38-83) % Lymph % (Auto) 32.0 (25-47) % [place] % (Auto) 6.4 (0-7) % Eos % (Auto) 2.1 (0-6) % Baso % (Auto) 0.9 (0-2) % Absolute Neuts (auto) 5.2 (1.5-7.7) 10^3/ul Absolute Lymphs (auto) 2.9 (1.0-4.8) 10^3/ul Absolute Monos (auto) 0.6 (0-0.8) 10^3/ul Absolute Eos (auto) 0.2 (0-0.6) 10^3/ul Absolute Basos (auto) 0.1 (0-0.2) 10^3/ul Absolute Nucleated RBC 0 10^3/ul Nucleated RBC % 0 Sodium 139 (135-145) mmol/L Potassium 3.9 (3.5-5.0) mmol/L Chloride 107 (101-111) mmol/L Carbon Dioxide 24 (22-32) mmol/L Anion Gap 8 (2-11) mmol/L BUN 25 H (6-24) mg/dL Creatinine 0.95 (0.51-0.95) mg/dL Est GFR ( Amer) 69.8 (>60) Est GFR (Non-Af Amer) 57.7 (>60) BUN/Creatinine Ratio 26.3 H (8-20) Glucose 115 H (70-100) mg/dL Calcium 9.4 (8.6-10.3) mg/dL C-Reactive Protein < 1.00 (<8.01) mg/L Result Diagrams: 03/07/18 20:30 03/07/18 20:30 Lab Statement: Any lab studies that have been ordered have been reviewed, and results considered in the medical decision making process. - Radiology Toe XR Xray Interpretation: Positive (See Comments) - 19:44: AMPUTATION AT THE LEVEL OF THE MID DIAPHYSIS OF THE FIRST METACARPAL. SOFT TISSUE SWELLING CONSISTENT WITH HISTORY OF INFECTION. ED physician reviewed radiology report. Radiology Interpretation Completed By: Radiologist Lower Extremity Course/Dx - Course Course Of Treatment: Patient with a recent toe amputation and concerns for possible wound infection. She has no fever, redness. There is a single stitch that appears to have dehisced with clear to yellow tenderness affluent that is extremely minimal. A culture was obtained. Laboratories indicate no evidence for infection. She is currently on antibiotic. Discharged to follow-up with her surgeon tomorrow. - Diagnoses Provider Diagnoses: Wound dehiscence, Diabetes mellitus Discharge - Sign-Out/Discharge Documenting (check all that apply): Discharge/Admit/Transfer - Discharge - Discharge Plan Condition: Good Disposition: HOME Patient Education Materials: Wound Dehiscence (ED) Referrals: Iliana Veliz MD [Primary Care Provider] - Additional Instructions: Follow-up with your doctor tomorrow as scheduled. Return with fever, drainage, worse or other concerns. - Billing Disposition and Condition Condition: GOOD Disposition: Home The documentation as recorded by the [facility] Jade accurately reflects the service I personally performed and the decisions made by , Octavio Arreaga MD.
== END | disposition home or self-care (01) ==
LOC: ED 19:24
DX: T87.81 Dehiscence of amputation stump (principal); E11.9 Type 2 diabetes mellitus without complications; I10 Essential (primary) hypertension; I25.10 Atherosclerotic heart disease of native coronary artery without angina pectoris; Z79.84 Long term (current) use of oral hypoglycemic drugs; Z79.899 Other long term (current) drug therapy; Z95.5 Presence of coronary angioplasty implant and graft
CPT/HCPCS: 36415; 80048; 85025; 86140; 87070; 87077; 87186; 87205; 87640; 87641; 99282

== ENCOUNTER 2019-02-13 21:58 | Emergency (ER) | payer MEDICARE ==
--- NOTE | 2019-02-13 22:49 | ED ---
HPI Chest Pain - HPI Summary HPI Summary: A 73 y/o female presents to [facility] with a chief complaint of intermittent chest pain lasting for 5-10 minutes for the past few weeks. She is unsure how often her pain comes back and reports that she also has pain in her left arm. She reports that sometimes she sweats, but denies N/V. She had a syncopal episode today while signing papers to not travel to the hospital by ambulance. LOC was reported to be at about 1.5 minutes. The patient reports a Hx of syncopal episodes. The patient has not had a stress test recently. She reports having 2 stents placed 4-5 years ago. She claims that she last saw her army ranger, Dr. Bolanos, 6 months - 1 year ago. She has her next appointment scheduled for . The patient reports that she does not take her heart medication because she is a "bad girl". - History of Current Complaint Chief Complaint: EDSyncope Time Seen by Provider: 02/13/19 22:31 Hx Obtained From: Patient, Family/Horse Rider Onset/Duration: Started Weeks Ago, Still Present Timing: Intermittent, Lasting Minutes Initial Severity: Mild Current Severity: None Pain Intensity: 0 Pain Scale Used: 0-10 Numeric Chest Pain Location: Diffuse Chest Pain Radiates: Yes Chest Pain Radiates To:: Arm Character: Other: - unable to describe Aggravating Factor(s): Nothing Alleviating Factor(s): Nothing Associated Signs and Symptoms: Positive: Diaphoresis - sometimes. Negative: Fever, Nausea, Vomiting - Additional Pertinent History Primary Care Physician: [id number] - Allergy/Home Medications Allergies/Adverse Reactions: Allergies Allergy/AdvReac Type Severity Reaction Status Date / Time EYE DROP Allergy Unknown Uncoded 03/07/18 19:31 Reaction Details PMH/Surg Hx/FS Hx/Imm Hx Endocrine/Hematology History: Reports: Hx Diabetes - ON ORAL MEDS CHECKS BLD SUGAR AT HOME, Hx Anemia - in the past Denies: Hx Anticoagulant Therapy, Hx Blood Disorders, Hx Blood Transfusions, Hx Bone Marrow Disease, Hx Systemic Lupus Erythematosus, Hx Sickle Cell Disease , Hx Thyroid Disease, Hx Unexplained Bleeding, Other Endocrine/Hematological Disorders Cardiovascular History: Reports: Hx Angina, Hx Coronary Artery Disease - stent 2013, CARDIAC CATH DR BOLANOS 2 STENTS, Hx Hypercholesterolemia, Hx Hypertension - ON MEDS PT. STATES CONTROLLED, Hx Myocardial Infarction, Hx Peripheral Vascular Disease - REVASCULARZATION OF RIGHT LEG X 2, Hx Syncope - occasionally d/t DM, Other Cardiovascular Problems/Disorders - PAD Denies: Hx Aneurysm, Hx Angioplasty, Hx Auto Implanted Cardiovert Defib, Hx Cardiac Arrest, Hx Cardiomegaly, Hx Congenital Heart Disease, Hx Congestive Heart Failure, Hx Deep Vein Thrombosis, Hx Embolism, Hx Hypotension, Hx Pacemaker/ICD, Hx Rheumatic Fever, Hx Valvular Heart Disease Respiratory History: Reports: Other Respiratory Problems/Disorders - lung nodules Denies: Hx Asthma, Hx Chronic Bronchitis, Hx Chronic Obstructive Pulmonary Disease (COPD), Hx Cystic Fibrosis, Hx Lung Cancer, Hx Pleural Effusion, Hx Pneumonia, Hx Pulmonary Edema, Hx Pulmonary Embolism, Hx Seasonal Allergies, Hx Sleep Apnea GI History: Reports: Hx Gall Bladder Disease - removed, Hx Gastroesophageal Reflux Disease - HAS MEDS PRN, Hx Hiatal Hernia Denies: Hx Cirrhosis, Hx Crohn's Disease, Hx Diverticulosis, Hx Gastrointestinal Bleed, Hx Irritable Bowel, Hx Jaundice, Hx Obstructive Bowel, Hx Ileostomy, Hx Pyloric Stenosis, Hx Ulcer, Other GI Disorders History: Reports: Hx Kidney Stones - in the past with stent Denies: Hx Acute Renal Failure, Hx Benign Prostatic Hyperplasia, Hx Chronic Renal Failure, Hx Dialysis, Hx Kidney Infection, Hx Renal Disease, Other Problems/Disorders Musculoskeletal History: Reports: Hx Arthritis - hands, feet, back RA AND OSTEOPAROSIS, Hx Rheumatoid Arthritis, Hx Osteoporosis, Other Musculoskeletal History - R. ARTH. Denies: Hx Back Problems, Hx Bursitis, Hx Congenital Bone Abnormalities, Hx Fibromyalgia, Hx Gout, Hx Orthopedic Injury, Hx Scoliosis, Hx Tendonitis Sensory History: Reports: Hx Cataracts - saray, Hx Contacts or Glasses, Hx Glaucoma - "trying to stop it" Denies: Hx Eye Injury, Hx Eye Prosthesis, Hx Legally Blind, Hx Macular Degeneration, Hx Vision Problem, Hx Deafness, Hx Hearing Aid, Hx Hearing Problem , Other Sensory Impairments Opthamlomology History: Reports: Hx Cataracts - saray, Hx Contacts or Glasses, Hx Glaucoma - "trying to stop it" Denies: Hx Eye Injury, Hx Eye Prosthesis, Hx Legally Blind, Hx Macular Degeneration, Hx Vision Problem, Other Sensory Impairments Neurological History: Reports: Hx Nerve Disease - 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, Other Neuro Impairments/Disorders - SYNCOPAL EVENTS FOR 30 YRS Denies: Hx Dementia, Hx Developmental Delay, Hx Headaches, Hx Migraine, Hx Seizures, Hx Spinal Cord Injury, Hx Transient Ischemic Attacks (TIA) Psychiatric History: Denies: Hx Anxiety, Hx Attention Deficit Hyperactivity Disorder, Hx Eating Disorder, Hx Depression, Hx Panic Disorder, Hx Post Traumatic Stress Disorder, Hx Inpatient Treatment, Hx Community Mental Health Tx, Hx Schizophrenia, Hx Bipolar Disorder, Hx Suicide Attempt, Hx of Violent Episodes Against Others, Hx Substance Abuse, Other Psychiatric Issues/Disorders - Cancer History Hx Chemotherapy: No Hx Radiation Therapy: No - Surgical History Surgery Procedure, Year, and Place: hysterectomy,, 1974. gall bladder,1974. Rt hip pinning,, 2005. cardiac cath with stents 06/17/14,. ,left total hip, 2016, [facility] [place]. total left knee replacement, [facility] [place] 2015. REVASCULARZATION 2018 RIGHT LEG [place]. RIGHT BIG TOE AMPUT[place] 12/[place] [facility] [place]x Anesthesia Reactions: No Infectious Disease History: No Infectious Disease History: Reports: Hx Hepatitis Denies: Hx Clostridium Difficile, Hx Human Immunodeficiency Virus (HIV), Hx of Known/Suspected MRSA, Hx Shingles, Hx Tuberculosis, Hx Known/Suspected VRE, Hx Known/Suspected VRSA, History Other Infectious Disease, Traveled Outside the in Last 30 Days - Family History Known Family History: Positive: Cardiac Disease - mother/father, Diabetes - mother, Other - breast cancer - Social History Alcohol Use: None Alcohol Amount: 1 per year Hx Substance Use: No Substance Use Type: Reports: None Hx Tobacco Use: No Smoking Status (MU): Never Smoked Tobacco Have You Smoked in the Last Year: No Review of Systems Positive: Skin Diaphoresis - sometimes. Negative: Fever Negative: Vomiting, Nausea Positive: Syncope All Other Systems Reviewed And Are Negative: Yes Physical Exam - Summary Physical Exam Summary: VITAL SIGNS: Reviewed. GENERAL: Patient is a morbidly obese FEMALE who is lying comfortable in the stretcher. Patient is not in any acute respiratory distress. HEAD AND FACE: No signs of trauma. No ecchymosis, hematomas or skull depressions. No sinus tenderness. EYES: PERRLA, EOMI x 2, No injected conjunctiva, no nystagmus. EARS: Hearing grossly intact. Ear canals and tympanic membranes are within normal limits. MOUTH: Oropharynx within normal limits. NECK: Supple, trachea is midline, no adenopathy, no JVD, no carotid bruit, no c- spine tenderness, neck with full ROM CHEST: Symmetric, no tenderness at palpation LUNGS: Clear to auscultation bilaterally. No wheezing or crackles. CVS: Regular rate and rhythm, S1 and S2 present, no murmurs or gallops appreciated. ABDOMEN: Soft, non-tender. No signs of distention. No rebound no guarding, and no masses palpated. Bowel sounds are normal. EXTREMITIES: FROM in all major joints, no edema, no cyanosis or clubbing. NEURO: Alert and oriented x 3. No acute neurological deficits. Speech is normal and follows commands. SKIN: Dry and warm Triage Information Reviewed: Yes Vital Signs On Initial Exam: Initial Vitals Temp Pulse Resp BP Pulse Ox 98.8 F 91 18 184/101 95 02/13/19 21:59 02/13/19 21:59 02/13/19 21:59 02/13/19 21:59 02/13/19 21:59 Vital Signs Reviewed: Yes Diagnostics - Vital Signs Vital Signs Temp Pulse Resp BP Pulse Ox 02/13/19 22:20 83 24 95 02/13/19 21:59 98.8 F 91 18 184/101 95 - Laboratory Result Diagrams: 02/13/19 22:53 02/13/19 22:53 Lab Statement: Any lab studies that have been ordered have been reviewed, and results considered in the medical decision making process. - Radiology CXR Radiology Interpretation Completed By: ED Physician Summary of Radiographic Findings: No acute process. Pending official imaging report. - EKG 22:10 Cardiac Rate: NL - 77 bpm EKG Rhythm: Sinus Rhythm Summary of EKG Findings: NSR at 77 bpm. Normal axis. Normal interval. No ischemic changes. Re-Evaluation - Re-Evaluation First Eval Re-Evaluation Time: 00:17 Change: Unchanged Comment: Pt refused to stay, Dr. Lynne explained risk of having a heart attack, arrhythmia sudden , or disability. She will sign out AMA and has an appointment with Dr. Bolanos this month. Chest Pain Course/Dx - Course Course Of Treatment: A 73 y/o female presents to [facility] with a chief complaint of intermittent chest pain lasting for 5-10 minutes for the past few weeks. The patient also had a syncopal episode today, has a Hx of syncopal episodes, and has 2 cardiac stents. She has not been taking her medication. The physical exam revealed that the patient is morbidly obese. EKG showed NSR at 77 bpm. Normal axis. Normal interval. No ischemic changes. Bloodwork and chemistries obtained and are WNL. In the ED course the patient was given Aspirin PO. Pt refused to stay, Dr. Lynne explained risk of having a heart attack, arrhythmia, sudden , or disability. She will sign out AMA and has an appointment with Dr. Bolanos this month. The patient will sign out AMA. - Diagnoses Provider Diagnoses: Chest pain, Syncope Discharge - Sign-Out/Discharge Documenting (check all that apply): Patient Departure - AMA Patient Received Moderate/Deep Sedation with Procedure: No - Discharge Plan Condition: Fair Disposition: AGAINST MEDICAL ADVICE Referrals: Iliana Veliz MD [Primary Care Provider] - 1 Day Additional Instructions: Call your army ranger tomorrow. PLEASE RETURN TO THE ED IMMEDIATELY FOR WORSENING OR CONCERNING SYMPTOMS. - Billing Disposition and Condition Condition: FAIR Disposition: Against Medical Advice - Attestation Statements Document Initiated by Scribe: Yes Documenting Scribe: Tejas Reid Provider For Whom Casey is Documenting (Include Credential): Fahad Lnyne MD Scribe Attestation: I[employer]jas, scribed for Fahad Lynne MD on 02/14/19 at 2052. Scribe Documentation Reviewed: Yes Provider Attestation: The documentation as recorded by the [facility] wing accurately reflects the service I personally performed and the decisions made by me, Fahad Lynne MD Status of Scribe Document: Viewed
[2019-02-13] MEDS ORDERED: Aspirin 81 mg CHEW TAB* 81 MG TAB.CHEW PO ONE (22:56)
[2019-02-13 23:16] LABS: ABS Basophils 0.1 10^3/ul (0-0.2); ABS Eosinophils 0.2 10^3/ul (0-0.6); ABS Monocytes 0.7 10^3/ul (0-0.8); Eosinophil % 2.9 %; Hematocrit 37 % (35-47); Hemoglobin 12.2 g/dL (12.0-16.0); Lymphocyte % 43.4 %; Mean Corpuscular HGB Conc 33 g/dL (31-36); Mean Corpuscular Hemoglobin 29 pg (27-31); Mean Corpuscular Volume 88 fL (80-97); Mean Platelet Volume 8.6 fL (7.4-10.4); Nucleated Red Blood Cells % 0.1; Platelet Count 271 10^3/uL (150-450); Red Blood Count 4.16 10^6 /uL (3.70-4.87); Red Cell Distribution Width 13 % (10.5-15); White Blood Count 6.9 10^3/uL (3.5-10.8)
[2019-02-13 23:24] LABS: Activated Partial Thrombo Time 26.4 seconds (26.0-38.0); INR 0.93 (0.82-1.09)
[2019-02-13 23:33] LABS: Albumin 3.7 g/dL (3.2-5.2); Albumin/Globulin Ratio 1.1 (1-3); Calcium 9.4 mg/dL (8.6-10.3); EGFR African American 82.5 (>60); EGFR Non-African American 68.1 (>60); Globulin 3.5 g/dL (2-4); Magnesium 1.4 mg/dL (1.9-2.7); Potassium 3.5 mmol/L (3.5-5.0); Total Bilirubin 0.4 mg/dL (0.2-1.0); Total Protein 7.2 g/dL (6.4-8.9)
[2019-02-14 00:47] VITALS: BP 158/76
== END 2019-02-14 00:47 | disposition left against medical advice (07) ==
LOC: ED 21:58
DX: R07.9 Chest pain, unspecified (principal); R55 Syncope and collapse; I10 Essential (primary) hypertension; I25.2 Old myocardial infarction; I25.10 Atherosclerotic heart disease of native coronary artery without angina pectoris; E11.40 Type 2 diabetes mellitus with diabetic neuropathy, unspecified; I73.9 Peripheral vascular disease, unspecified; E78.00 Pure hypercholesterolemia, unspecified; E07.9 Disorder of thyroid, unspecified; D57.1 Sickle-cell disease without crisis; R91.8 Other nonspecific abnormal finding of lung field; K21.9 Gastro-esophageal reflux disease without esophagitis; M06.9 Rheumatoid arthritis, unspecified; E66.01 Morbid (severe) obesity due to excess calories; Z95.5 Presence of coronary angioplasty implant and graft; Z79.84 Long term (current) use of oral hypoglycemic drugs; Z79.899 Other long term (current) drug therapy; Z68.31 Body mass index [BMI] 31.0-31.9, adult; Z53.20 Procedure and treatment not carried out because of patient's decision for unspecified reasons
CPT/HCPCS: 36415; 71045; 80053; 83735; 83880; 84484; 85025; 85610; 85730; 93005; 99283